=== PATIENT | female | born 1930 | race Caucasian/White ===

== ENCOUNTER 2016-07-08 07:53 | Inpatient (IN) | payer MEDICARE ==
[~2016-07-08] VITALS: Ht 165.1 cm; Wt 68.1 kg
[2016-07-08] VITALS (8 sets, daily range): BP systolic 115–205; BP diastolic 62–80
[~2016-07-08 07:53] MED LIST: ASP325TEC; ASPI-983 PO; ASPI-999 PO; ASPI325T32 PO; ATN25T; ATRV10T; BRIN1S OU; CARV12.53; CLN.1TRX PO; CLOP75TA28 PO; CYCL5TAB PO; DOCU-143 PO; GLIM4TAB PO; GLUC-147 PO; GLUC480L3 PO; HYDR-3922 PO; HYDR12.56 PO; LEVO750T9 PO; METF-141 PO; METF500T4 PO; METO-333 PO; METO50TA2 PO; MTP50T PO; MULT-116 PO; MULT1TAB63; OLME1TAB19 PO; OLME20TA5; PRAV20TA PO; PRAV20TA3 PO; TRAV5DRO OU; TRM50T PO; UBID30CA13; VALS40TA8 PO; VALS80TA30 PO; [UNRECOGNIZED DRUG - OTHER]; [UNRECOGNIZED DRUG - OTHER]
--- OUTSIDE RECORDS SUMMARY | 2016-07-08 07:58 | XMS REPORT | Continuity of Care Document ---
Author Author [facility] Organization [facility] Address Unknown Phone Unavailable Care Team Providers Care Dog Behaviorist Name Role Phone JUSTIN DAILEY MD PCP Insurance Providers Payer Name Policy Number Subscriber Name Relationship Wps Medicare [id number] Lia Aguilar Lexis 18 Self / Same As Patient [employer] [facility] Supp [id number] LuisLia rashid 18 Self / Same As Patient Advance Directives Directive Response Recorded Date/Time Advance Directives No 01/28/14 3:08am Resuscitation Status Full Code 01/28/14 3:08am Problems Medical Problems Problem Onset Date Status Hypertensive urgency Unknown Active Hypertensive urgency Unknown Active Hypertensive urgency Unknown Active Uncontrolled hypertension Unknown Active Medications Medication Dose Route Sig Days/Qty Instructions Order Date Discontinued Date Status Atenolol 11/26/06 06/19/09 Discontinued Atorvastatin Calcium 11/26/06 06/19/09 Discontinued Aspirin 11/26/06 01/23/14 Discontinued Multivitamins 11/26/06 01/23/14 Discontinued [Ascopt] 11/26/06 01/23/14 Discontinued [Tramitan Eye Gtts] 11/26/06 01/23/14 Discontinued Carvedilol (Coreg) 06/19/09 01/23/14 Discontinued Olmesartan 06/19/09 01/23/14 Discontinued Ubidecarenone 06/19/09 01/23/14 Discontinued Cyclobenzaprine HCl 1 Each PO GIVE EVERY 8 HRS ON SCHEDULE 10 Qty FOR MUSCLE SPASMS 06/19/09 01/23/14 Discontinued Tramadol HCl 50 Mg PO TWICE A DAY 15 Qty 06/19/09 01/23/14 Discontinued Brinzolamide 1 Drop OU TWICE A DAY 1 Qty 01/23/14 Active Travoprost 1 Drop OU BEDTIME 1 Qty 01/23/14 Active Pravastatin Sodium 1 Tab PO BEDTIME 30 Qty 01/23/14 Active Olmesartan 1 Tab PO BEDTIME 30 Qty 01/23/14 01/28/14 Discontinued Metoprolol Tartrate 1 Tab PO TWICE A DAY 60 Qty 01/23/14 01/28/14 Discontinued Metformin HCl 1,500 Mg PO TWICE A DAY 60 Qty 01/23/14 Active Glimepiride 1 Tab PO DAILY 30 Qty 01/23/14 Active Aspirin 1 Tab PO DAILY 01/23/14 Active Gluc/Chnd/Om3/Dha/Epa/Fish/Str 1 Tab PO DAILY 01/23/14 Active Olmesartan 1 Each PO TWICE A DAY 01/28/14 Active Metoprolol Tartrate (Lopressor) 1 Each PO TWICE A DAY 01/28/14 Active Clonidine Hcl 0.1 Mg PO TWICE A DAY 10 Qty FOR BLOOD PRESSURE 01/28/14 Active Social History Social History Problem Response Recorded Date/Time Alcohol Use Denies Use 01/28/2014 3:08am Recreational Drug Use No 01/28/2014 3:08am Recent Foreign Travel No 01/28/2014 3:08am Recent Infectious Disease Exposure No 01/28/2014 3:08am Smoking Status Never a Smoker 01/28/2014 3:08am Query Response Start Date Stop Date Smoking Status Never a Smoker Hospital Discharge Instructions No hospital discharge instructions. Plan of Care No plan of care. Functional Status No functional status results. Allergies, Adverse Reactions, Alerts Allergen Type Severity Reaction Status Last Updated Angiotensin-converting enzyme inhibitor Allergy Unknown Active 09/06/05 Penicillins ([id number]) Allergy Unknown Active 09/06/05 Calcium Channel Blocking Agents-Benzothiazepines ([id number]) Allergy Mild COUGH Active 01/23/14 Immunizations Name Given Type Tetanus Booster (TDap) Unknown Historical Vital Signs Acute Vital Signs Vital Response Date/Time Temperature (Fahrenheit) 97.7 degrees F (97.6 - 99.5) Temperature (Calculated Celsius) 36.62751 degrees C (36.4 - 37.5) Temperature Source Temporal Pulse Rate (adult) 62 bpm (60 - 90) Respiratory Rate 18 bpm (12 - 24) O2 Sat by Pulse Oximetry 100 % (88 - 100) Blood Pressure 163/76 mm Hg Pain Pain Intensity 2 Height (Feet) 5 feet Height (Inches) 5 inches Height (Calculated Centimeters) 165.583688 cm Weight (Pounds) 156 pounds Weight (Calculated Kilograms) 70.729499 kilograms Calculated BMI 25.96 Results Test Source Date Result Interp. Ref. Range Comments Activated Partial Thromboplast Time November 26, 2006 5:12am 20 SEC L 24- 35 Has specimen been collected/obtained? Y Alanine Aminotransferase (ALT/SGPT) November 26, 2006 5:12am 31 U/L N 30- 65 Has specimen been collected/obtained? Y Albumin November 26, 2006 5:12am 3.4 G/DL N 3.4-5.0 Has specimen been collected/obtained? Y Alkaline Phosphatase November 26, 2006 5:12am 86 U/L N 50-136 Has specimen been collected/obtained? Y Aspartate Amino Transf (AST/SGOT) November 26, 2006 5:12am 20 U/L N 15-37 Has specimen been collected/obtained? Y B-Type Natriuretic Peptide September 06, 2005 3:15am 122.0 PG/ML H 5.0-100.0 Has specimen been collected/obtained? YHas specimen been collected/obtained? Y BUN/Creatinine Ratio January 23, 2014 12:30am 23 - Basophils # (Auto) November 26, 2006 5:12am 0.0 10^3/uL N 0.0-0.1 Has specimen been collected/obtained? Y Basophils (%) (Auto) November 26, 2006 5:12am 1 % N 0-10 Has specimen been collected/obtained? Y Blood Urea Nitrogen January 23, 2014 12:30am 18 MG/DL N 7-18 Calcium Level January 23, 2014 12:30am 9.8 MG/DL N 8.5-10.1 Carbon Dioxide Level January 23, 2014 12:30am 29 MMOL/L N 21-32 Chloride Level January 23, 2014 12:30am 103 MMOL/L N 98-107 Cholesterol Level November 26, 2006 5:36am 122 MG/DL N -200 Specimen Comment: MAY ADD TO BLOOD ALREADY DRAWN Creatinine January 23, 2014 12:30am 0.80 MG/DL N 0.60-1.30 Eosinophils # (Auto) November 26, 2006 5:12am 0.4 10^3/uL H 0.0-0.3 Has specimen been collected/obtained? Y Eosinophils (%) (Auto) November 26, 2006 5:12am 7 % N 0-10 Has specimen been collected/obtained? Y Glucose Level January 23, 2014 12:30am 112 MG/DL H 70-105 HDL Cholesterol November 26, 2006 5:36am 40 MG/DL N 35-60 Specimen Comment: MAY ADD TO BLOOD ALREADY DRAWN Hematocrit November 26, 2006 5:12am 41 % N 35-52 Has specimen been collected/obtained? Y Hemoglobin November 26, 2006 5:12am 13.7 G/DL N 11.5-16.0 Has specimen been collected/obtained? Y LDL Cholesterol November 26, 2006 5:36am 60 MG/DL N 0-129 Specimen Comment: MAY ADD TO BLOOD ALREADY DRAWN Lymphocytes # (Auto) November 26, 2006 5:12am 2.1 X 10^3 N 1.0-4.0 Has specimen been collected/obtained? Y Lymphocytes (%) (Auto) November 26, 2006 5:12am 33 % N 12-44 Has specimen been collected/obtained? Y Magnesium Level November 26, 2006 5:12am 1.9 MG/DL N 1.8-2.4 Has specimen been collected/obtained? Y Mean Corpuscular Hemoglobin November 26, 2006 5:12am 31 PG N 25-34 Has specimen been collected/obtained? Y Mean Corpuscular Hemoglobin Concent November 26, 2006 5:12am 34 G/DL N 32- 36 Has specimen been collected/obtained? Y Mean Corpuscular Volume November 26, 2006 5:12am 91 FL N 80-99 Has specimen been collected/obtained? Y Mean Platelet Volume November 26, 2006 5:12am 11.2 FL H 7.4-10.4 Has specimen been collected/obtained? Y Monocytes # (Auto) November 26, 2006 5:12am 0.5 X 10^3 N 0.0-1.0 Has specimen been collected/obtained? Y Monocytes (%) (Auto) November 26, 2006 5:12am 8 % N 0-12 Has specimen been collected/obtained? Y Myoglobin November 26, 2006 5:12am 52 UG/L N 10-92 Has specimen been collected/obtained? Y Neutrophils # (Auto) November 26, 2006 5:12am 3.3 X 10^3 N 1.8-7.8 Has specimen been collected/obtained? Y Neutrophils (%) (Auto) November 26, 2006 5:12am 52 % N 42-75 Has specimen been collected/obtained? Y Platelet Count November 26, 2006 5:12am 145 10^3/uL N 130-400 Has specimen been collected/obtained? Y Potassium Level January 23, 2014 12:30am 3.8 MMOL/L N 3.6-5.0 Prothromb Time International Ratio November 26, 2006 5:12am 1.0 N 0.8-1.4 INTERPRETIVE DATASUGGESTED THERAPEUTIC RANGE FOR INR'S: VENOUS THROMBOSIS, PULMONARY EMBOLISM, OR PREVENTION OF SYSTEMIC EMBOLISM (EG. IN ATRIAL FIBRILLATION): 2.0 - 3.0 MECHANICAL PROSTHETIC HEART VALVES: 2.5 - 3.5* *NOTE: INR'S UP TO 4.5 MAY BE NECESSARY IN SELECTED GROUPS OF HIGH RISK PATIENTS. [employer] CONSENSUS CONFERENCE ON ANTITHROMBOTIC THERAPY (2000). Prothrombin Time November 26, 2006 5:12am 13.1 SEC N 12.2-14.7 Has specimen been collected/obtained? Y Red Blood Count November 26, 2006 5:12am 4.47 10^6/uL N 3.79-5.25 Has specimen been collected/obtained? Y Red Cell Distribution Width November 26, 2006 5:12am 13.3 % N 10.0-14.5 Has specimen been collected/obtained? Y Sodium Level January 23, 2014 12:30am 143 MMOL/L N 135-145 Total Bilirubin November 26, 2006 5:12am 0.4 MG/DL N 0.0-1.0 Has specimen been collected/obtained? Y Total Protein November 26, 2006 5:12am 6.8 G/DL N 6.4-8.2 Has specimen been collected/obtained? Y Triglycerides Level November 26, 2006 5:36am 108 MG/DL N 30.0-150.0 Specimen Comment: MAY ADD TO BLOOD ALREADY DRAWN Troponin I January 23, 2014 12:30am < 0.30 NG/ML - VLDL Cholesterol November 26, 2006 5:36am 22 MG/DL N 5-40 Specimen Comment: MAY ADD TO BLOOD ALREADY DRAWN White Blood Count November 26, 2006 5:12am 6.4 10^3/uL N 4.3-11.0 Has specimen been collected/obtained? Y Pathology Consult Specimen November 26, 2006 5:12am See report - Has specimen been collected/obtained? Y Estimat Glomerular Filtration Rate January 23, 2014 12:30am > 60 - GFR INTERPRETIVE DATA UNITS FOR ESTIMATED GFR (eGFR): mL/min/1.73 M2 REFERENCE RANGE FOR ESTIMATED GFR (eGFR) eGFR NORMAL eGFR >60 MODERATELY DECREASED eGFR 30-59 SEVERLY DECREASED eGFR 15-29 KIDNEY FAILURE <15 (OR DIALYSIS) Creatine Kinase November 26, 2006 5:35pm 47 mg/dl N 21-140 Procedures Procedure Status Date Provider(s) Tracing only of electrocardiogram completed 01/23/14 JEFFRY OLGUIN MD Encounters Encounter Location Date/Time Departed Emergency Room [facility] 01/28/14 2:59am Departed Emergency Room [facility] 01/22/14 11:56pm Recent Diagnosis
[2016-07-08 08:06] LABS: BASOPHILS % (AUTO) 1 % (0-10); EOSINOPHILS # (AUTO) 0.1 10^3/uL (0.0-0.3); EOSINOPHILS % (AUTO) 2 % (0-10); LYMPHOCYTES # (AUTO) 1.5 X 10^3 (1.0-4.0); LYMPHOCYTES % (AUTO) 23 % (12-44); MEAN CORPUSCULAR HEMOGLOBIN 29 PG (25-34); MEAN CORPUSCULAR HGB CONC 33 G/DL (32-36); MEAN CORPUSCULAR VOLUME 89 FL (80-99); MEAN PLATELET VOLUME 9.8 FL (7.4-10.4); MONOCYTES # (AUTO) 0.6 X 10^3 (0.0-1.0); MONOCYTES % (AUTO) 10 % (0-12); NEUTROPHILS # (AUTO) 4.1 X 10^3 (1.8-7.8); NEUTROPHILS % (AUTO) 65 % (42-75); PLATELET COUNT 191 10^3/uL (130-400); RED BLOOD COUNT 4.59 10^6/uL (4.35-5.85); RED CELL DISTRIBUTION WIDTH 13.5 % (10.0-14.5); WHITE BLOOD COUNT 6.3 10^3/uL (4.3-11.0)
[2016-07-08 08:11] LABS: PROTHROMBIN TIME PATIENT 13.3 SEC (12.2-14.7)
--- NOTE | 2016-07-08 08:15 | ED General ---
General Chief Complaint: General Problems/Pain Stated Complaint: STROKE Nursing Triage Note: TO ER VIA EMS FROM HOME. COMPLAINTS OF GENERALIZED WEAKNESS X3 DAYS ET PT THINKS SHE HAS BEEN HAVING SOME SLURRED SPEACH SINCE THEN ALSO. Nursing Sepsis Screen: No Definite Risk Source of Information: Patient, EMS History of Present Illness Time Seen by Provider: 07:47 Initial Comments PT ARRIVES VIA EMS FROM HOME--PT LIVES ALONE PT HAS HAD GENERALIZED WEAKNESS FOR THE PAST 3 DAYS, AND PT THINKS SHE HAS HAD SOME SLURRED SPEECH FOR THE LAST 3 DAYS PT IS ABLE TO EAT AND DRINK WELL WITHOUT DIFFICULTY PT TOOK AM MEDICATIONS PT DENIES PAIN ANYWHERE NO SHORTNESS OF BREATH NO HEADACHE NO VISION CHANGES NO PARESTHESIAS OR MOTOR DEFICITS--JUST FEELS WEAK ALL OVER NO COUGH NO FEVER NO NAUSEA/VOMITING/DIARRHEA NO URINARY SYMPTOMS PCP: DR. LEON Allergies and Home Medications Allergies Coded Allergies: Calcium Channel Blocking Agent Dilt (Verified Allergy, Mild, COUGH, ) FREDY Inhibitors (Verified Allergy, Unknown, 07/08/16) Penicillins (Verified Allergy, Unknown, 07/08/16) Tetanus Vaccines and Toxoid (Verified Allergy, Unknown, 07/08/16) clindamycin (Verified Allergy, Unknown, 07/08/16) Home Medications Aspirin 81 Mg Tablet.dr 81 MG PO DAILY (Reported) Brinzolamide 10 Ml Btl 1 DROP OU BID (Reported) Glimepiride 4 Mg Tablet 4 MG PO DAILY (Reported) Glucosamine HCl/MSM 480 Ml Liquid 8 OZ PO DAILY (Reported) Hydrochlorothiazide 12.5 Mg Capsule 25 MG PO DAILY (Reported) TAKES 2 (12.5MG) CAPSULES Metformin HCl 500 Mg Tablet 500 MG PO BID (Reported) Metoprolol Tartrate 100 Mg Tablet 100 MG PO BID (Reported) Multivitamin 1 Each Tablet 1 TAB PO DAILY (Reported) Pravastatin Sodium 20 Mg Tablet 20 MG PO HS (Reported) Travoprost 5 Ml Drops 1 DROP OU HS (Reported) Valsartan 40 Mg Tablet 80 MG PO HS (Reported) TAKES 1 HOUR AFTER METOPROLOL TAKES 2 (40MG) TABLETS Constitutional: see HPI malaise weakness EENTM: no symptoms reported Respiratory: no symptoms reportedNo dyspnea on exertion, No short of breath Cardiovascular: no symptoms reportedNo chest pain, No edema, No palpitations, No syncope, No vascular heart diseas Gastrointestinal: no symptoms reported Musculoskeletal: no symptoms reported Skin: no symptoms reported Psychiatric/Neurological: See HPIDenies Headache, Denies Numbness, Denies Paresthesia, Denies Seizure, Denies Tingling, Denies Tremors, Weakness ( GENERALIZED) Hematologic/Lymphatic: No Symptoms Reported Immunological/Allergic: no symptoms reported Past Sxoijlo-Ovujdf-Zyowmn Hx Patient Social History Former Smoker/When Quit: Feb 02, 1970 Recent Foreign Travel: No Contact w/Someone Who Travel: No Recent Infectious Disease Expo: No Recent Hopitalizations: Yes Immunizations Up To Date Tetanus Booster (TDap): Unknown PED Vaccines UTD: Yes Date of Pneumonia Vaccine: Feb 03, 2012 Date of Influenza Vaccine: Jan 18, 2015 Seasonal Allergies Seasonal Allergies: No Surgeries HX Surgeries: Yes (BILATERAL CATARACT SURGERY, CARTOID ARTERY SURGERY FEB 2014; BREAST BX X 4) Surgeries: Adenoidectomy, Breast, Cardiac, CABG, Coronary Stent, Eye Surgery, Gallbladder, Tonsillectomy, Vascular Surgery Respiratory Hx Respiratory Disorders: No Cardiovascular Hx Cardiac Disorders: Yes (BYPASS x4 ;STENTS; HEART CATH 2004 ) Cardiac Disorders: Coronary Artery Disease, Heart Attack, High Cholesterol, Hypertension Neurological Hx Neurological Disorders: No Reproductive System Hx Reproductive Disorders: No Sexually Transmitted Disease: No HIV/AIDS: No Female Reproductive Disorders: Denies 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 Genitourinary Hx Genitourinary Disorders: Yes (INCONTINENCE ) Genitourinary Disorders: Kidney Infection, Bladder Infection Gastrointestinal Hx Gastrointestinal Disorders: Yes Gastrointestinal Disorders: Gastroesophageal Reflux, Hemorrhoids, Ulcer Musculoskeletal Hx Musculoskeletal Disorders: Yes Musculoskeletal Disorders: Degenerate Disk Disease, Osteoporosis, Arthritis, Chronic Back Pain, Gout Endocrine Hx Endocrine Disorders: Yes Endocrine Disorders: Diabetes, Non-Insulin dep HEENT HX ENT Disorders: Yes (WEARS GLASSES - CAN NOT SEE WITHOUT GLASSES VERY WELL ) HEENT Disorders: Cataract, Glaucoma Loss of Vision: Bilateral Hearing Impairment: Hard of Hearing Cancer Hx Cancer: No (four breast biopies ) Psychosocial Hx Psychiatric Problems: Yes Behavioral Health Disorders: Depression Integumentary HX Skin/Integumentary Disorder: No Blood Transfusions Hx Blood Disorders: No Adverse Reaction to a Blood Tr: No Family Medical History Family Medial History: Alcoholism Arthritis 19 FATHER 19 MOTHER CHF 19 MOTHER Cardiovascular disease 19 FATHER 19 MOTHER Dementia Diabetes mellitus 19 MOTHER FH: CHF (congestive heart failure) 19 MOTHER Glaucoma 19 MOTHER Hypercholesterolemia 19 FATHER 19 MOTHER Hypertension 19 FATHER 19 MOTHER Infertility Myocardial infarction 19 FATHER (60 ) 19 MOTHER Osteoporosis 19 MOTHER Visual disorder 19 FATHER 19 MOTHER No Family History of: AIDS Abdominal aortic aneurysm Dayo's disease Alzheimer's disease Aphasia Asthma Cancer of mouth Cataracts Colon cancer Completed stroke Congenital disease Congenital heart disease Coronary thrombosis Cystic fibrosis Deafness or hearing loss Drug abuse Dysphasia Fibrocystic disease of breast Gastroenteritis Headache disorder Kidney disease Neoplasm Not obtainable due to adoption Parkinson's disease Prostate cancer Psychosocial problem Respiratory disorder Seizure disorder Severe allergy Thyroid disease Tuberculosis Physical Exam Vital Signs Vital Sign - Last 12Hours 07/08/16 07/08/16 07:53 10:35 Temp 98.0 Pulse 64 Resp 18 B/P 232/91 Pulse Ox 94 O2 Delivery Room Air Capillary Refill : Less Than 3 Seconds General Appearance: No Apparent Distress WD/WN HEENT: PERRL/EOMI Other (EXTREMELY LOOSE FITTING UPPER DENTURES, LOWER TEETH WITH VERY POOR DENTITION. ORAL MUCOSA MOIST) Neck: Full Range of Motion Normal Inspection Non Tender Supple Respiratory: Normal Breath Sounds No Accessory Muscle Use No Respiratory Distress Cardiovascular: Regular Rate, Rhythm No Edema No JVD Normal Peripheral Pulses Systolic Murmur (2/6) Gastrointestinal: Normal Bowel Sounds No Organomegaly No Pulsatile Mass Non Tender Soft Back: Normal Inspection No CVA Tenderness No Vertebral Tenderness Extremity: Normal Capillary Refill Normal Inspection Normal Range of Motion Non Tender No Calf Tenderness No Pedal Edema Neurologic/Psychiatric: Alert Oriented x3 No Motor/Sensory Deficits Normal Mood/Affect box finisher II-XII Norm as Tested Other (MILD GENERALIZED WEAKNESS, STRENGTH IS EQUAL BILATERALLY, BUT LEG STRENGTH IS WEAKER THAN ARM STRENGTH. ) Skin: Normal Color Warm/Dry Other (MILD ERYTHEMA TO BILATERAL LOWER LEGS) Focused Exam Lactic Acid Level Progress/Results/Core Measures Results/Orders Lab Results Laboratory Tests Test 07/08/16 07:53 07/08/16 07:56 07/08/16 09:00 07/09/16 05:50 Range/Units Activated Partial Thromboplast Time 28 24-35 SEC Alanine Aminotransferase (ALT/SGPT) 11 12 0-55 U/L Albumin 3.7 3.4 3.2-4.5 G/DL Alkaline Phosphatase 64 61 40-136 U/L Anion Gap 10 11 5-14 MMOL/L Aspartate Amino Transf (AST/SGOT) 15 15 5-34 U/L BUN/Creatinine Ratio 23 22 Basophils # (Auto) 0.0 0.0 0.0-0.1 10^3/uL Basophils (%) (Auto) 1 0 0-10 % Blood Urea Nitrogen 18 16 7-18 MG/DL Calcium Level 9.4 9.1 8.5-10.1 MG/DL Carbon Dioxide Level 29 28 21-32 MMOL/L Chloride Level 104 105 98-107 MMOL/L Creatine Kinase MB 1.8 <6.6 NG/ML Creatinine 0.77 0.74 0.60-1.30 MG/DL Eosinophils # (Auto) 0.1 0.1 0.0-0.3 10^3/uL Eosinophils (%) (Auto) 2 1 0-10 % Estimat Glomerular Filtration Rate > 60 > 60 Glucose Level 78 113 H 70-105 MG/DL Hematocrit 41 39 35-52 % Hemoglobin 13.5 12.8 11.5-16.0 G/DL INR Comment 1.0 0.8-1.4 Lymphocytes # (Auto) 1.5 1.3 1.0-4.0 X 10^3 Lymphocytes (%) (Auto) 23 19 12-44 % Magnesium Level 1.8 1.8-2.4 MG/DL Mean Corpuscular Hemoglobin 29 29 25-34 PG Mean Corpuscular Hemoglobin Concent 33 33 32-36 G/DL Mean Corpuscular Volume 89 90 80-99 FL Mean Platelet Volume 9.8 9.8 7.4-10.4 FL Monocytes # (Auto) 0.6 0.6 0.0-1.0 X 10^3 Monocytes (%) (Auto) 10 9 0-12 % Neutrophils # (Auto) 4.1 4.8 1.8-7.8 X 10^3 Neutrophils (%) (Auto) 65 71 42-75 % Platelet Count 191 195 130-400 10^3/uL Potassium Level 3.4 L 3.7 3.6-5.0 MMOL/L Prothrombin Time 13.3 12.2-14.7 SEC Red Blood Count 4.59 4.38 4.35-5.85 10^6/uL Red Cell Distribution Width 13.5 13.5 10.0-14.5 % Sodium Level 143 144 135-145 MMOL/L TSH [place] Testing 2.99 0.35-4.94 UIU/ML Total Bilirubin 0.8 0.5 0.1-1.0 MG/DL Total Creatine Kinase 41 29-168 U/L Total Protein 6.5 6.1 L 6.4-8.2 G/DL Troponin I < 0.30 <0.30 NG/ML White Blood Count 6.3 6.7 4.3-11.0 10^3/uL Glucometer 93 70-110 MG/DL Urine Bacteria NEGATIVE /HPF Urine Bilirubin NEGATIVE NEGATIVE Urine Casts NONE /LPF Urine Clarity CLEAR Urine Color YELLOW Urine Crystals NONE /LPF Urine Culture Indicated NO Urine Glucose (UA) NEGATIVE NEGATIVE Urine Ketones NEGATIVE NEGATIVE Urine Leukocyte Esterase NEGATIVE NEGATIVE Urine Mucus NEGATIVE /LPF Urine Nitrite NEGATIVE NEGATIVE Urine Protein NEGATIVE NEGATIVE Urine RBC NONE /HPF Urine RBC (Auto) NEGATIVE NEGATIVE Urine Specific [place] 1.010 L 1.016-1.022 Urine Squamous Epithelial Cells 2-5 /HPF Urine Urobilinogen NORMAL NORMAL MG/DL Urine WBC RARE /HPF Urine pH 8 5-9 My Orders Orders-JUAN SALCEDO DO Accucheck Stat ONCE (07/08/16 07:58) Ekg Tracing (07/08/16 07:58) O2 (07/08/16 07:58) Monitor-Rhythm Ecg Trace Only (07/08/16 07:58) Cbc With Automated Diff (07/08/16 07:58) Comprehensive Metabolic Panel (07/08/16 07:58) Creatine Kinase (07/08/16 07:58) Creatine Kinase Mb (07/08/16 07:58) Magnesium (07/08/16 07:58) Protime With Inr (07/08/16 07:58) Partial Thromboplastin Time (07/08/16 07:58) Thyroid Analyzer (07/08/16 07:58) Troponin I (07/08/16 07:58) Ua Culture If Indicated (07/08/16 07:58) Ct Head Wo (07/08/16 07:58) Chest 1 View, Ap/Pa Only (07/08/16 07:58) Saline Lock/Iv-Start (07/08/16 07:58) Nitroglycerin Ointment (Nitrobid Ointme (07/08/16 08:45) Vital Signs/I&O Vital Sign - Last 12Hours 07/09/16 07/09/16 07/09/16 07/09/16 10:05 11:47 12:59 16:00 Temp 97.3 97.1 Pulse 64 68 68 Resp 12 20 B/P 118/78 120/80 144/86 Pulse Ox 98 100 O2 Delivery Room Air Room Air 07/09/16 19:00 Pulse 76 Point of Care Testing Finger Stick Blood Glucose: 93 Blood Glucose Action Taken: DR FERNANDEZ Progress Note : Progress Note UNEVENTFUL ER STAY ECG Initial ECG Impression Time: 08:06 Initial ECG Rate: 63 Initial ECG Rhythm: Normal Sinus Initial ECG Comparisson: Unchanged Diagnostic Imaging Comments CXR--NO ACUTE PROCESS CT HEAD--NO ACUTE PROCESS, CHRONIC ISCHEMIC CHANGES PER RADIOLOGIST REPORTS Reviewed: Reviewed by Me Departure Communication Progress Notes 0979--SPOKE WITH DR. LEON, ACCEPTS PT FOR ADMIT. Impression Impression: Primary Impression: Generalized weakness Disposition: ADMITTED INPATIENT Condition: Stable Decision to Admit Reason: Admit from ER (General) Decision to Admit/Date: Jul 08, 2016 Time/Decision to Admit Time: 09:35 Departure-Patient Inst. Referrals: MANUEL LEON MD (PCP/Family) Primary Care Physician JUAN SALCEDO DO Jul 08, 2016 08:14
[2016-07-08 08:20] LABS: ALANINE AMINOTRANSFERASE 11 U/L (0-55); ALBUMIN 3.7 G/DL (3.2-4.5); ANION GAP 10 MMOL/L (5-14); ASPARTATE AMINO TRANSFERASE 15 U/L (5-34); BILIRUBIN,TOTAL 0.8 MG/DL (0.1-1.0); BLOOD UREA NITROGEN 18 MG/DL (7-18); BUN/CREATININE RATIO 23; CALCIUM 9.4 MG/DL (8.5-10.1); CARBON DIOXIDE 29 MMOL/L (21-32); CHLORIDE 104 MMOL/L (98-107); CREATINE KINASE 41 U/L (29-168); CREATININE SERUM 0.77 MG/DL (0.60-1.30); GFR ESTIMATED > 60; GLUCOSE 78 MG/DL (70-105); MAGNESIUM 1.8 MG/DL (1.8-2.4); POTASSIUM 3.4 MMOL/L (3.6-5.0); SODIUM 143 MMOL/L (135-145); TOTAL PROTEIN 6.5 G/DL (6.4-8.2)
--- NOTE | 2016-07-08 08:26 | Diagnostic Imaging Report ---
INDICATION: Weakness x3 days. Portable chest 8:16 AM. There are postop changes from CABG surgery. Heart size and pulmonary vascularity are normal. Lungs are clear. There are no effusions or pneumothoraces. IMPRESSION: Postsurgical changes in the chest. There are no acute abnormalities seen. Dictated by: Dictated on workstation # [id number]
--- NOTE | 2016-07-08 08:30 | Diagnostic Imaging Report ---
PROCEDURE: CT head without contrast. TECHNIQUE: Multiple contiguous axial images were obtained through the brain without the use of intravenous contrast. INDICATION: Altered mental status. There are areas of decreased density in the periventricular white matter of both hemispheres consistent with chronic small-vessel ischemic change. There is generalized atrophy. There are no masses or hemorrhages. There are no extra-axial fluid collections. 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 There is no CT evidence of acute infarct. Dictated by: Dictated on workstation # [id number]
[2016-07-08 08:40] LABS: TROPONIN I < 0.30 NG/ML (<0.30)
[2016-07-08] MEDS ORDERED: NITROGLYCERIN 2% OINT 1 GM UNIT DOSE PACKET TOP ONE (08:45)
[2016-07-08 09:16] LABS: BILIRUBIN,URINE NEGATIVE (NEGATIVE); KETONES,URINE NEGATIVE (NEGATIVE); LEUKOCYTE ESTERASE ,URINE NEGATIVE (NEGATIVE); NITRITE,URINE NEGATIVE (NEGATIVE); PH,URINE 8 (5-9); PROTEIN,URINE NEGATIVE (NEGATIVE); UROBILINOGEN,URINE NORMAL (NORMAL)
[2016-07-08 09:28] LABS: WBC,URINE RARE /HPF
[2016-07-08] MEDS ORDERED: CATHETER FLUSH 10 ML SYR IV PRN (10:30)
[2016-07-08] MEDS ORDERED: METO100T2 PO (10:42)
[2016-07-08] MEDS ORDERED: HYDR12.5 PO (10:47)
[2016-07-08] MEDS: NITROGLYCERIN 2% OINT 1 GM UNIT DOSE PACKET TOP SCH ×2 (12:07→18:08)
[2016-07-08] MEDS: CATHETER FLUSH 10 ML SYR IV SCH ×2 (14:00→21:07)
[2016-07-08] MEDS ORDERED: GADOBUTROL 7.5 MMOL/7.5 ML (GADAVIST) VIAL IV ONE (15:00)
--- NOTE | 2016-07-08 16:07 | Diagnostic Imaging Report ---
PROCEDURE: MR imaging of the brain with and without contrast. TECHNIQUE: Multiplanar, multisequence MR imaging of the brain was performed with and without contrast. INDICATION: Generalized weakness. Hypertension. 7 mL of Gadavist was administered intravenously. FINDINGS: There is minimal diffusion restriction measuring 6 mm seen to the right of midline in the mid to upper cherelle with associated T2 and FLAIR signal hyperintensity and without contrast enhancement, possibly related to a subacute infarct. This could potentially relate to T2 shine through artifact however from chronic microvascular ischemic changes. There is extensive chronic microvascular ischemic changes with T2 hyperintensity seen in the periventricular, deep and subcortical white matter seen. 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 There is no enhancing mass in the brain or extra-axial space. There is normal size of the pituitary gland. No hypothalamic or pineal region mass. Prominent lordotic curvature in the cervical spine is seen. The central vascular flow-voids appear grossly unremarkable. The internal auditory canals and inner ear structures appear grossly unremarkable. IMPRESSION: There is a background significant white matter chronic ischemic changes with no evidence of a large acute infarct or enhancing mass. There is a 6 mm focus with slight diffusion restriction signal to the right of the midline in cherelle which could also be related to chronic ischemic changes but raises question of a subacute tiny lacunar infarct. Correlate clinically. Report faxed to Dr. Dirk Rodriguez at 3:50 p.m. 07/08/2016/cb Dictated by: Dictated on workstation # [id number]
--- NOTE | 2016-07-08 16:43 | History & Physicial ---
History of Present Illness History of Present Illness Reason for visit/HPI 85 yo female presents to ED with slurred speech and weakness. Family thought perhaps she had a stroke. Patient's son and [id number] had noted about 2 days prior to presentation to emergency department that she had noticeable slurred speech as well as basically just wanting to set around. Patient apparently was very coherent in her discussions and didn't necessarily want to go to the emergency department over the weekend. Patient typically walks with a 4 point walker but she couldn't utilize this according to her son. She is able to swallow food without too much difficulty. Date of Admission Jul 08, 2016 at 09:42 I consulted on this patient on 07/08/16 16:41 Attending Physician Otilio Leon MD Admitting Physician Otilio Leon MD Consult Allergies and Home Medications Allergies Coded Allergies: Calcium Channel Blocking Agent Dilt (Verified Allergy, Mild, COUGH, ) FREDY Inhibitors (Verified Allergy, Unknown, 07/08/16) Penicillins (Verified Allergy, Unknown, 07/08/16) Tetanus Vaccines and Toxoid (Verified Allergy, Unknown, 07/08/16) clindamycin (Verified Allergy, Unknown, 07/08/16) Home Medications Aspirin 81 Mg Tablet.dr 81 MG PO DAILY (Reported) Brinzolamide 10 Ml Btl 1 DROP OU BID (Reported) Glimepiride 4 Mg Tablet 4 MG PO DAILY (Reported) Glucosamine HCl/MSM 480 Ml Liquid 8 OZ PO DAILY (Reported) Hydrochlorothiazide 12.5 Mg Capsule 25 MG PO DAILY (Reported) TAKES 2 (12.5MG) CAPSULES Metformin HCl 500 Mg Tablet 500 MG PO BID (Reported) Metoprolol Tartrate 100 Mg Tablet 100 MG PO BID (Reported) Multivitamin 1 Each Tablet 1 TAB PO DAILY (Reported) Pravastatin Sodium 20 Mg Tablet 20 MG PO HS (Reported) Travoprost 5 Ml Drops 1 DROP OU HS (Reported) Valsartan 40 Mg Tablet 80 MG PO HS (Reported) TAKES 1 HOUR AFTER METOPROLOL TAKES 2 (40MG) TABLETS Past Maxbbzv-Trwlcj-Nlmzzu Hx Patient Social History Marrital Status: Alcohol Use: Denies Use Recreational Drug Use: No Smoking Status: Never a Smoker Former smoker/When Quit: Feb 02, 1970 Physical Abuse Screen: No Sexual Abuse: No Recent Foreign Travel: No Contact w/other who traveled: No Recent Hopitalizations: No Recent Infectious Disease Expo: No Immunizations Up To Date Tetanus Booster (TDap): Unknown Date of Pneumonia Vaccine: Feb 03, 2012 Date of Influenza Vaccine: Jan 20, 2016 Seasonal Allergies Seasonal Allergies: No Surgeries HX Surgeries: Yes (CATARACT, CARTOID ARTERY SURGERY FEB 2014;BREAST BX X 4) Surgeries: Adenoidectomy, Breast, Cardiac, CABG, Coronary Stent, Eye Surgery, Gallbladder, Tonsillectomy, Vascular Surgery Respiratory Hx Respiratory Disorders: No Cardiovascular Hx Cardiovascular Disorders: Yes (BYPASS x4 ;STENTS; HEART CATH 2004 ) Cardiac Disorders: Coronary Artery Disease, High Cholesterol, Hypertension Neurological Hx Neurological Disorders: No Reproductive System Hx Reproductive Disorders: No Sexually Transmitted Disease: No HIV/AIDS: No Female Reproductive Disorders: Denies Genitourinary Hx Genitourinary Disorders: Yes (INCONTINENCE ) Genitourinary Disorders: Kidney Infection, Bladder Infection Gastrointestinal Hx Gastrointestinal Disorders: Yes Gastrointestinal Disorders: Gastroesophageal Reflux, Hemorrhoids, Ulcer Musculoskeletal Hx Musculoskeletal Disorders: Yes Musculoskeletal Disorders: Degenerate Disk Disease, Osteoporosis, Arthritis, Chronic Back Pain, Gout Endocrine Hx Endocrine Disorders: Yes Endocrine Disorders: Diabetes, Non-Insulin dep HEENT HX ENT Disorders: Yes (WEARS GLASSES - CAN NOT SEE WITHOUT GLASSES VERY WELL ) HEENT Disorders: Cataract, Glaucoma Loss of Vision: Bilateral Hearing Impairment: Hard of Hearing Cancer Hx Cancer: No (four breast biopies ) Psychosocial Hx Psychiatric Problems: Yes Behavioral Health Disorders: Depression Integumentary HX Skin/Integumentary Disorder: No Blood Transfusions Hx Blood Disorders: No Adverse Reaction to a Blood Tr: No Family Medical History Family Hx: Alcoholism Arthritis 19 FATHER 19 MOTHER CHF 19 MOTHER Cardiovascular disease 19 FATHER 19 MOTHER Dementia Diabetes mellitus 19 MOTHER FH: CHF (congestive heart failure) 19 MOTHER Glaucoma 19 MOTHER Hypercholesterolemia 19 FATHER 19 MOTHER Hypertension 19 FATHER 19 MOTHER Infertility Myocardial infarction 19 FATHER (60 ) 19 MOTHER Neoplasm DAUGHTER (BREAST CANCER) Osteoporosis 19 MOTHER Visual disorder 19 FATHER 19 MOTHER No Family History of: AIDS Abdominal aortic aneurysm [place]'s disease Alzheimer's disease Aphasia Asthma Cancer of mouth Cataracts Colon cancer Completed stroke Congenital disease Congenital heart disease Coronary thrombosis Cystic fibrosis Deafness or hearing loss Drug abuse Dysphasia Fibrocystic disease of breast Gastroenteritis Headache disorder Kidney disease Not obtainable due to adoption Parkinson's disease Prostate cancer Psychosocial problem Respiratory disorder Seizure disorder Severe allergy Thyroid disease Tuberculosis Constitutional: see HPI Physical Exam Vital Signs Vital Sign - Last 12Hours 3/20/17 3/20/17 07:53 10:35 Temp 98.0 Pulse 64 Resp 18 B/P 232/91 Pulse Ox 94 O2 Delivery Room Air Capillary Refill : Less Than 3 Seconds General Appearance: No Apparent Distress Eyes: Bilateral Eye Normal Inspection Neck: Normal Inspection Respiratory: Lungs Clear Cardiovascular: Regular Rate, Rhythm (Without irregularity) Gastrointestinal: Soft Rectal: Deferred Back: Normal Inspection Neurologic/Psychiatric: Alert Depressed Affect Facial Droop (Not noted) Motor Weakness Comments NAME: [facility] REC#: [id number] PT STATUS: REG ER : 1930 PHYSICIAN: JUAN SALCEDO DO ADMIT DATE: 07/08/16/ER Signed Date of Exam: 07/08/16 CT HEAD WO PROCEDURE: CT head without contrast. TECHNIQUE: Multiple contiguous axial images were obtained through the brain without the use of intravenous contrast. INDICATION: Altered mental status. There are areas of decreased density in the periventricular white matter of both hemispheres consistent with chronic small-vessel ischemic change. There is generalized atrophy. There are no masses or hemorrhages. There are no extra-axial fluid collections. 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 There is no CT evidence of acute infarct. Dictated by: Dictated on workstation # [id number] Dict: 07/08/16 0828 Trans: 07/08/16 0834 SARKIS [id number] Interpreted by: SONJA ABARCA Electronically signed by:SONJA ABARCA 07/08/16 0837 Assessment/Plan Assessment and Plan 1. Weakness-suspicious for CVA -Patient to be admitted for observation -She will be receiving MRI of the brain later on July 08, 2016 -She is maintained on aspirin daily. -She is beyond the window of anticoagulation therapy 2. Slurred speech Problems: Admission Diagnosis 1. Weakness--suspicious for CVA 2. Slurred speech Clinical Quality Measures DVT/VTE Risk/Contraindication: Risk Factor Score Per Nursin RFS Level Per Nursing on Admit: 4+=Very High OTILIO LEON MD Jul 08, 2016 16:42
[2016-07-08] MEDS: meTOprolol TARTRATE 50 MG (LOPRESSOR) TAB PO SCH (20:04)
[2016-07-08] MEDS ORDERED: VALSARTAN 80 MG (DIOVAN) TAB PO SCH (21:00)
[2016-07-08] MEDS: LATANOPROST 0.005% (XALATAN) OPHTH SOLN 2.5 ML OU SCH (21:07)
[2016-07-08] MEDS: DORZOLAMIDE 2% 10 ML BTL (TRUSOPT) OU SCH (21:07)
[2016-07-08] MEDS: SIMvastatin 10 MG (ZOCOR) TAB PO SCH (21:07)
[2016-07-08] MEDS: metFORMIN 500 MG (GLUCOPHAGE) TAB PO SCH (21:07)
[2016-07-09] VITALS (8 sets, daily range): BP systolic 118–200; BP diastolic 60–86
[2016-07-09] MEDS: NITROGLYCERIN 2% OINT 1 GM UNIT DOSE PACKET TOP SCH ×2 (00:39→05:58)
[2016-07-09] MEDS: CATHETER FLUSH 10 ML SYR IV SCH ×3 (05:58→22:35)
[2016-07-09] MEDS: MULTIVIT W/MINERALS TAB (THERAGRAN M) PO SCH (05:58)
[2016-07-09 06:17] LABS: BASOPHILS % (AUTO) 0 % (0-10); EOSINOPHILS # (AUTO) 0.1 10^3/uL (0.0-0.3); EOSINOPHILS % (AUTO) 1 % (0-10); LYMPHOCYTES # (AUTO) 1.3 X 10^3 (1.0-4.0); LYMPHOCYTES % (AUTO) 19 % (12-44); MEAN CORPUSCULAR HEMOGLOBIN 29 PG (25-34); MEAN CORPUSCULAR HGB CONC 33 G/DL (32-36); MEAN CORPUSCULAR VOLUME 90 FL (80-99); MEAN PLATELET VOLUME 9.8 FL (7.4-10.4); MONOCYTES # (AUTO) 0.6 X 10^3 (0.0-1.0); MONOCYTES % (AUTO) 9 % (0-12); NEUTROPHILS # (AUTO) 4.8 X 10^3 (1.8-7.8); NEUTROPHILS % (AUTO) 71 % (42-75); PLATELET COUNT 195 10^3/uL (130-400); RED BLOOD COUNT 4.38 10^6/uL (4.35-5.85); RED CELL DISTRIBUTION WIDTH 13.5 % (10.0-14.5); WHITE BLOOD COUNT 6.7 10^3/uL (4.3-11.0)
[2016-07-09] MEDS: meTOprolol TARTRATE 50 MG (LOPRESSOR) TAB PO SCH ×2 (06:34→20:54)
[2016-07-09 06:42] LABS: ALANINE AMINOTRANSFERASE 12 U/L (0-55); ALBUMIN 3.4 G/DL (3.2-4.5); ANION GAP 11 MMOL/L (5-14); ASPARTATE AMINO TRANSFERASE 15 U/L (5-34); BILIRUBIN,TOTAL 0.5 MG/DL (0.1-1.0); BLOOD UREA NITROGEN 16 MG/DL (7-18); BUN/CREATININE RATIO 22; CALCIUM 9.1 MG/DL (8.5-10.1); CARBON DIOXIDE 28 MMOL/L (21-32); CHLORIDE 105 MMOL/L (98-107); CREATININE SERUM 0.74 MG/DL (0.60-1.30); GFR ESTIMATED > 60; GLUCOSE 113 MG/DL (70-105); POTASSIUM 3.7 MMOL/L (3.6-5.0); SODIUM 144 MMOL/L (135-145); TOTAL PROTEIN 6.1 G/DL (6.4-8.2)
--- NOTE | 2016-07-09 08:06 | Progress Note (SOAP) ---
Subjective Subjective/Events-last exam Patient communicating well this morning. She still has slurred speech slightly. She does report her left upper extremity is a little bit more weak than yesterday. Objective Exam Vital Signs Date Time Temp Pulse Resp B/P Pulse Ox O2 Delivery O2 Flow Rate FiO2 07/09/16 06:00 99.5 72 20 190/85 95 Room Air 07/09/16 01:00 69 07/09/16 00:07 97.6 81 18 145/60 95 Room Air 07/08/16 22:03 97.7 70 18 160/80 91 Room Air 07/08/16 20:00 97.6 72 18 158/68 90 Room Air 07/08/16 19:00 78 07/08/16 18:02 97.5 70 16 160/72 90 Room Air 07/08/16 16:26 96.4 63 16 154/70 95 Room Air 07/08/16 14:15 97.7 68 12 140/68 92 Room Air 07/08/16 12:29 59 07/08/16 12:19 97.1 58 20 118/62 93 Room Air 07/08/16 10:35 97.5 62 20 115/78 94 Room Air 07/08/16 10:03 98.9 60 18 98 I & O 07/09/16 07:00 Intake Total 640 ml Output Total 0 ml Balance 640 ml Capillary Refill : Less Than 3 Seconds General Appearance: No Apparent Distress Neck: Supple Respiratory: Lungs Clear Cardiovascular: Regular Rate, Rhythm (And there is no murmur noted) Gastrointestinal: soft Extremity: Other (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 She has weakness of the lower extremities.) Skin: Normal Color Results Lab Laboratory Tests 07/08/16 09:00: Urine Bacteria NEGATIVE, Urine Bilirubin NEGATIVE, Urine Casts NONE, Urine Clarity CLEAR, Urine Color YELLOW, Urine Crystals NONE, Urine Culture Indicated NO, Urine Glucose (UA) NEGATIVE, Urine Ketones NEGATIVE, Urine Leukocyte Esterase NEGATIVE, Urine Mucus NEGATIVE, Urine Nitrite NEGATIVE, Urine Protein NEGATIVE, Urine RBC NONE, Urine RBC (Auto) NEGATIVE, Urine Specific [place] 1.010L, Urine Squamous Epithelial Cells 2-5, Urine Urobilinogen NORMAL, Urine WBC RARE, Urine pH 8 07/09/16 05:50: Alanine Aminotransferase (ALT/SGPT) 12, Albumin 3.4, Alkaline Phosphatase 61, Anion Gap 11, Aspartate Amino Transf (AST/SGOT) 15, BUN/Creatinine Ratio 22, Basophils # (Auto) 0.0, Basophils (%) (Auto) 0, Blood Urea Nitrogen 16, Calcium Level 9.1, Carbon Dioxide Level 28, Chloride Level 105, Creatinine 0.74, Eosinophils # (Auto) 0.1, Eosinophils (%) (Auto) 1, Estimat Glomerular Filtration Rate > 60, Glucose Level 113H, Hematocrit 39, Hemoglobin 12.8, Lymphocytes # (Auto) 1.3, Lymphocytes (%) (Auto) 19, Mean Corpuscular Hemoglobin 29, Mean Corpuscular Hemoglobin Concent 33, Mean Corpuscular Volume 90, Mean Platelet Volume 9.8, Monocytes # (Auto) 0.6, Monocytes (%) (Auto) 9, Neutrophils # (Auto) 4.8, Neutrophils (%) (Auto) 71, Platelet Count 195, Potassium Level 3.7, Red Blood Count 4.38, Red Cell Distribution Width 13.5, Sodium Level 144, Total Bilirubin 0.5, Total Protein 6.1L, White Blood Count 6.7 Assessment/Plan Assessment/Plan Assess & Plan/Chief Complaint 1. Weakness with slurred speech with an MRI report suggesting lacunar infarct 6 mm in the cherelle region -Will obtain carotid Doppler study today -Rehabilitation consultation 2. Hypertension -She had missed medications yesterday except for evening dose of metoprolol Clinical Quality Measures DVT/VTE Risk/Contraindication: Risk Factor Score Per Nursin RFS Level Per Nursing on Admit: 4+=Very High MANUEL LEON MD Jul 09, 2016 08:06
[2016-07-09] MEDS: metFORMIN 500 MG (GLUCOPHAGE) TAB PO SCH ×2 (08:34→20:54)
[2016-07-09] MEDS: GLIMEPIRIDE 4 MG (AMARYL) TAB PO SCH (08:34)
[2016-07-09] MEDS: DORZOLAMIDE 2% 10 ML BTL (TRUSOPT) OU SCH ×2 (08:35→20:58)
[2016-07-09] MEDS: ASPIRIN E.C. 81 MG (ECOTRIN) TAB PO SCH (08:35)
[2016-07-09] MEDS: VALSARTAN 80 MG (DIOVAN) TAB PO SCH ×2 (08:42→22:35)
[2016-07-09] MEDS ORDERED: GLUCOSAMINE HCL PO SCH (09:00)
[2016-07-09] MEDS ORDERED: METHYLSULFONYLMETHANE PO SCH (09:00)
--- NOTE | 2016-07-09 09:46 | Physical Therapy Evaluation ---
PT Evaluation-General Medical Diagnosis Admission Date Jul 08, 2016 at 09:42 Medical Diagnosis: CVA Onset Date: Jul 08, 2016 Therapy Diagnosis Therapy Diagnosis: weakness; abn gait Height/Weight Height (Feet): 5 Height (Inches): 5.00 Weight (Pounds): 150 Weight (Ounces): 1.0 Precautions Precautions/Isolations: Fall Prevention, Standard Precautions Referral Physician: Raina Reason for Referral: Evaluation/Treatment Medical History Pertinent Medical History: Arthritis, CABG, CAD, DM, HTN, [place] Current History Pt admitted with recent decline in left sided strength and expressive aphasia. Family reports the symptoms began on 07/05/16 and gradually worsened. Pt presented to ED 07/08/16 via EMS. Reviewed History: Yes Social History Home: Single Level Entry Into Home: Stairs With Railing PT Steps Into Home: 3 (pt reprts she rarely uses the stairs as she rarely leaves her home. ) Prior/Core FIM Prior Level of Function Functional [place] Measure 0=Not Assessed/NA 4=Minimal Assistance 1=Total Assistance 5=Supervision or Setup 2=Maximal Assistance 6=Modified [place] 3=Moderate Assistance 7=Complete [place] Bed Mobility: 7 Transfers (B,C,W/C) (FIM): 6 Gait: 6 (FWW) Able to perform self care and cook; has assist with house cleaning; family does shopping. PT Evaluation-Current Subjective Pt reports her left side, "isn't worth a damn." Agrees to participate with PT as she is able. Pain Numeric Pain Scale: 4 Location: Left Location Body Site: Knee Pain Description: Ache Objective Patient Orientation: Person, Place, Time, Situation Problem Solving: Fair Attachments: Oxygen (in situ during and post treatment) ROM/Strength ROM Lower Extremities Functional but is not able to fully extend both knees; lack about 8 degrees bilaterally; left LE ROM is AAROM. Strenght Lower Extremities Right LE strength is grossly 3/5 ; left LE strength is grossly 1/5 with toes extension/flexion being 2/5. Integumentary/Posture Integumentary Intact Posture forward head and rounded shoulders in sitting. Neuromuscular (Tone, Coordination, Reflexes) No noted increased tone at this time.; Coordination of L side is impaired. Reflexes are symmetrical at this time. Sensory Vision: Wears Glasses Hearing: Functional Hand Dominance: Right Sensation Right Lower Extremit: Intact Sensation Left Lower Extremity: Intact Transfers Functional [place] Measure 0=Not Assessed/NA 4=Minimal Assistance 1=Total Assistance 5=Supervision or Setup 2=Maximal Assistance 6=Modified [place] 3=Moderate Assistance 7=Complete [place] Transfers (B, C, W/C) (FIM): 1 (assist of 2) Supine to/from Sit: 1 (assist of 2) Sit to/from Stand: 1 (assist of 2) Pt follows cues but difficulty executing them. Pt is slow moving and seems "stiff" with movement even on the right side. Worked on sitting EOB and trunk control/sitting up straight. Facilitated WB through the left UE and through both legs in sitting. Sit to stand x 2 with assist of 2, put with difficulty putting weight through the left LE and effectively utilizing the left UE on the walker. Pt in bed post treatment with needs met. Gait Mode of Locomotion: Walk Comments/Gait Description Unable to ambulate at this time. Balance Sitting Static: Fair Sitting Dynamic: Fair Treatment Functional activity sitting EOB and worked on trunk control. sit to from stand transfer. Assessment/Needs Post CVA with left side weakness. Pt is dependent for all functional mobility at this time. She is pleasant and cooperative. She will benefit from skilled intervention to facilitate transfers and progress gait as able. She is slow with all movement and feel her rehab process will be lengthy. She does have potential to make functional gains but may be at a slower rate due to age and significant left sided weakness. Eval is of moderate complexity due to hx of TIA, heart disease, DM; U/LE weakness, impaired functional transfers, impaired functional balance and characteristics new and changing at this time. Rehab Potential: Guarded PT [employer] Goals Senior Care Goals PT [employer] Goals Time Frame: Jul 16, 2016 Transfers (B,C,W/C) (FIM): 3 Gait (FIM): 2 Gait distance (FIM): 1=up to 49 ft Gait Assistive Device: FWW LTG's set for the acute care setting; expect transition to different care setting in the next week. PT Plan Problem List Problem List: Activity Tolerance, Functional Strength, Safety, Balance, Gait, Transfer, Bed Mobility Treatment/Plan Treatment Plan: Continue Plan of Care Treatment Plan: Bed Mobility, Education, Functional Activity Perla, Functional Strength, Gait, Safety, Therapeutic Exercise, Transfers Treatment Duration: Jul 16, 2016 # of days/week 6 Visits Per Week: 11 Pt/Family Agrees w/Plan: Yes Safety Risks/Education Patient Education: Transfer Techniques, Safety Issues Teaching Recipient: Patient Teaching Methods: Demonstration, Discussion Response to Teaching: Reinforcement Needed Time/GCodes Time In: 850 Time Out: 915 Total Billed Treatment Time: 25 Total Billed Treatment visit EVM 15 FA 10 G Codes Necessary: Yes PT/OT Therapy GCodes Therapy Functional Limitation: Physical Therapy Test(s)/Tool used to determine: Level of Assistance Scale Functional Limitation-Current Charge Code: MOBCUR Modifier: CM Functional Limitation-Goal Modifier: ELÍAS WHITE PT Jul 09, 2016 09:46
--- NOTE | 2016-07-09 10:46 | Diagnostic Imaging Report ---
CLINICAL INDICATION: Patient with slurred speech and left-sided body paralysis. COMPARISON: None. EXAM: Real-time carotid Doppler duplex imaging is performed bilaterally. Peak systolic velocity, ICA/CCA peak systolic ratio, spectral analysis, and vascular morphology are studied. Findings: ARTERY VELOCITY Right Left CCA 0.67 m/s 0.73 m/s ICA 0.55 m/s 0.88 m/s ECA 0.74 m/s 0.93 m/s ICA/CCA 0.82 1.20 VERT.ART Antegrade Antegrade There is mild heterogeneous atherosclerotic disease involving the bilateral carotid artery regions which demonstrates less than 50% stenosis on grayscale imaging. IMPRESSION: Mild bilateral carotid artery atherosclerotic disease with no grayscale or Doppler evidence of significant vascular stenosis. Dictated by: Dictated on workstation # [id number]
--- NOTE | 2016-07-09 12:04 | Occupational Therapy Eval ---
OT Evaluation-General/PLF Medical Diagnosis Admission Date Jul 09, 2016 at 10:50 Medical Diagnosis: CVA Onset Date: Jul 08, 2016 Therapy Diagnosis Therapy Diagnosis: weakness, decr self care, decr funct use L UE, decr funct mobility Height/Weight Height (Feet): 5 Height (Inches): 5.00 Weight (Pounds): 150 Weight (Ounces): 1.0 Precautions Precautions/Isolations: Fall Prevention, Standard Precautions, Pressure Ulcer Safety Interventions: None Referral Physician: Jennifer Referral Reason: Evaluation/Treatment Medical History Pertinent Medical History: Arthritis, CABG, CAD, DM, GERD, HTN, [place] Additional Medical History Carotid surgery 2013. Cardiac stents, hx incontinence - wears Depends, osteoporosis, chronic back pain, gout, glaucoma, hard of hearing, depression Current History Admitted through ED with three day hx of L sided weakness and increased need for help with ADLs Reviewed History: Yes Social History Home: Single Level Current Living Status: Alone Entry Into Home: Stairs With Railing Steps Into Home: 3 (pt reprts she rarely uses the stairs as she rarely leaves her home. ) ADL-Prior Level of Function ADL PLOF Comments Pt reported that she has been able to manage her basic self care needs at home, sometimes with difficulty and extra time. She drove until December and gave it up because she had a hard time getting in/out of the car. 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 DME/Equipment: Bath Bench (transfer tub bench) Occupation: retired Drive Self: No OT Current Status Subjective Pt seen in room, in bed, agreeable to OT. Pt reported pain 3/10 in L knee and did not describe it. Appearance Alert, cooperative. Tended to turn head toward the right side Mental Status/Objective Attachments: IV, Oxygen, Telemetry Current Glasses/Contacts: Yes Hand Dominance: Right Upper Extremity ROM Pt had decreased active and passive range R shoulder. Rest of R UE WFL active. L UE limited passively at shoulder, rest grossly WFL passively and has active range in midrange Upper Extremity Sensation Grossly WFl bilat Upper Extremity Strength R UE grossly 3+/5 at shoulder (in range), 4/5 elbow and distal. L UE 2/5 at shoulder (in range). rest grossly 2+/5 but does have active movement through fingers. Gross visual screening shows ability to track in all areas. Pt denies visual loss on L side but may have some L sided neglect ADL-Treatment ADL-Current PT eval showed two person max assist to sit EOB Functional [place] Measure 0=Not Assessed/NA 4=Minimal Assistance 1=Total Assistance 5=Supervision or Setup 2=Maximal Assistance 6=Modified [place] 3=Moderate Assistance 7=Complete IndependenceIRFPAI Quality Coding Scale 6 Independent with activity with or without an assistive device 5 Patient requires set up or clean up by helper. Patient completes activity by themselves 4 Supervision or touching assist (CGA). Lamont provide cues , steadying assist 3 The helper provides less than half the effort to complete the activity 2 The helper provides more than half the effort to complete the activity 1 Dependent. The helper does all the effort to complete an activity 7 Patient refused to complete or attempt activity 9 The patient did not perform the activity before the current illness or injury 88 Not attempted due to Medical conditions or safety concerns Family will bring clothing in for her for ADLs Education OT Patient Education: Purpose of tx/functional activities, Rehab process Teaching Recipient: Patient, Family Teaching Methods: Discussion Response to Teaching: Verbalize Understanding OT Short Term Goals Short Term Goals Time Frame: Jul 23, 2016 Grooming(FIM): 4 Upper Body Dressing(FIM): 4 Lower Body Dressing(FIM): 3 Toilet/Commode Transfer(FIM): 3 OT Skilled Nursing Goals Dividing Machine Operator Helper Goals Time Frame: Aug 06, 2016 Eating (FIM): 6 Grooming(FIM): 5 Bathing(FIM): 5 Upper Body Dressing(FIM): 5 Lower Body Dressing(FIM): 5 Toileting(FIM): 5 Toilet/Commode Transfer(FIM): 5 Shower Transfer(FIM): 5 Additional Goals: 2-Verbalize Understanding, 3-ImproveStrength/Perla 1=Demonstrate adherence to instructed precautions during ADL tasks. 2=Patient will verbalize/demonstrate understanding of assistive devices/ modifications for ADL. 3=Patient will improve strength/tolerance for activity to enable patient to perform ADL's. OT Education/Plan Problem List/Assessment Assessment: Decreased UE Strength, Dependent Transfers, Impaired Bed Mobility, Impaired Coordination, Impaired Funct Balance, Impaired Self-Care Skills, Restricted Funct UE ROM Pt would benefit from skilled OT to increase her independence in basic self care to allow her to return to her home safely and to decrease caregiver burden. Discharge Recommendations Plan/Recommendations: Continue POC Treatment Plan/Plan of Care Treatment,Training & Education: Yes Patient would benefit from OT for education, treatment and training to promote independence in ADL's, mobility, safety and/or upper extremity function for ADL' s. Plan of Care: ADL Retraining, Functional Mobility, UE Funct Exercise/Act, UE Neuromus Re-Ed/Coord Treatment Duration: Aug 06, 2016 # of days/week 5 Visits Per Week: 5 Agreement: Yes Rehab Potential: Fair Time/GCodes Start Time: 11:30 Stop Time: 11:50 Total Time Billed (hr/min): 20 Billed Treatment Time visit, 20 minutes evaluation moderate complexity PT/OT Therapy GCodes Therapy Functional Limitation: Physical Therapy Test(s)/Tool used to determine: Level of Assistance Scale Functional Limitation-Current Charge Code: MOBCUR Modifier: CM Functional Limitation-Goal Modifier: BHARTI CRUMP OT Jul 09, 2016 12:03
--- NOTE | 2016-07-09 15:39 | Physical Therapy Daily Note ---
PT Daily Note-Current Subjective Pt agreeable to work with therapy. She reports the L leg is having painful spasms. Rated 4/10. Mental Status Patient Orientation: Normal For Age Transfers Functional [place] Measure 0=Not Assessed/NA 4=Minimal Assistance 1=Total Assistance 5=Supervision or Setup 2=Maximal Assistance 6=Modified [place] 3=Moderate Assistance 7=Complete IndependenceIRFPAI Quality Coding Scale 6 Independent with activity with or without an assistive device 5 Patient requires set up or clean up by helper. Patient completes activity by themselves 4 Supervision or touching assist (CGA). [place] provide cues , steadying assist 3 The helper provides less than half the effort to complete the activity 2 The helper provides more than half the effort to complete the activity 1 Dependent. The helper does all the effort to complete an activity 7 Patient refused to complete or attempt activity 9 The patient did not perform the activity before the current illness or injury 88 Not attempted due to Medical conditions or safety concerns Transfers (B, C, W/C) (FIM): 1 Scootin (Initiates but requires physical assist of 2.) Supine to/from Sit: 1 Sit to/from Stand: 1 Exercises Standing: Sit to Stand Standing Reps: 4 Left LE PROM with facilitation of tapping. Sitting bedside worked wt shift, trunk stability, cervical rotation. Sit to stand x 4 reps with Dependent assist. Held each trial 15-25 seconds. Assessment Current Status: Fair Progress Pt able to follow verbal cues and was able to initiate all tasks but only has trace strength to assist. She will benefit from continued therapy to promote improved functional mobility. PT Senior Care Goals Senior Care Goals PT Python Java Developer Goals Time Frame: Jul 16, 2016 Transfers (B,C,W/C) (FIM): 3 Gait (FIM): 2 Gait distance (FIM): 1=up to 49 ft Gait Assistive Device: FWW PT Plan Problem List Problem List: Activity Tolerance, Functional Strength, Transfer Treatment/Plan Treatment Plan: Continue Plan of Care Treatment Plan: Bed Mobility, Education, Functional Activity Perla, Functional Strength, Gait, Safety, Therapeutic Exercise, Transfers Treatment Duration: Jul 16, 2016 Visits Per Week: 11 Time/GCodes Time In: 1500 Time Out: 1530 Total Billed Treatment Time: 30 Total Billed Treatment visit, FA 15min, ex 15 min PT/OT Therapy GCodes Therapy Functional Limitation: Physical Therapy Test(s)/Tool used to determine: Level of Assistance Scale Functional Limitation-Current Charge Code: MOBCUR Modifier: CM Functional Limitation-Goal Modifier: MICAELA MOLINA PT Jul 09, 2016 15:38
--- NOTE | 2016-07-09 16:09 | ST Dysphagia Evaluation ---
Speech Evaluation-General Medical Diagnosis CVA Onset Date: Jul 08, 2016 Therapy Diagnosis Therapy Diagnosis: Oropharyngeal Swallow WNL Precautions Precautions: Aspiration Precautions/Isolations: Fall Prevention, Standard Precautions, Pressure Ulcer Referral Referring Physician: Dr. Otilio Rodriguez Reason for Referral: Evaluation/Treatment Clinical Bedside Swallowing Evaluation Medical History Pertinent Medical History: Arthritis, CABG, CAD, DM, GERD, HTN, [place] Reviewed History: Yes Social History Current Living Status: Alone Speech PLF/Current-Dysphagia Prior Level of Function The patient denied swallowing challenged prior to admission. Per patient, she consumes a regular diet with thin liquids at home. The patient did state, "sometimes I choke on what I eat but not often, maybe once a week." Subjective The patient was recently admitted to [facility] with a diagnosis of CVA. The patient greeted the clinician appropriately and agreed to participate in the dysphagia evaluation. To note: The patient's family members were present at bedside. CXR: 07/09/16: No acute abnormalities seen. Cognitive Status Patient Orientation: Person, Place, Time, Situation Oral Motor Skills Dentition: Natural Denture Type: Partial- Lower Current Food Consistancy: Regular, Thin Liquids Ability to Follow Directions: Excellent Oral Expression Ability: Mild Impairment Voice Voice Phonatory-Based Quality: Glottal Quinn Voice Pitch: Normal Voice Loudness: Normal Face Facial Symmetry: Symmetrical Oral-Facial Assessment Oral-Facial Dentition: Normal Labial Seal Description: Normal Smile: Normal Lingual Protrusion: Normal Lingual ROM: Normal Lingual Strength: Normal Pharynx Velopharyngeal Move.: Normal Volitional Dry Swallow: Yes Dysphagia Evaluation Consistencies Presented: Regular, Thin Liquid, Pureed No oral impairments were noted throughout the evaluation. No pharyngeal impairments were noted throughout the evaluation. - Thin Liquid (via teaspoon, cup sip, and straw), puree, solid: No signs/ symptoms of aspiration were demonstrated with multiple boluses of each consistency. The patient's vocal quality remained clear throughout the evaluation. Dietary Recommendations: Regular Liquid Recommendations: Thin Swallowing Precautions: Small Bites and Sips, Sitting 90 Degrees 30 Post Intake Dysphagia Evaluation Summary Oropharyngeal swallow function grossly within functional limits. Speech-Plan Treatment Plan Speech Therapy Treatment Plan: Discontinue ST For dysphagia services only (recommend full speech and language evaluation upon admission to ARU). Rehab Potential: Good Safety Risks/Education Teaching Recipient: Patient, Family Teaching Methods: Discussion Response to Teaching: Verbalize Understanding Education Topics Provided: Results, Recommendations, Signs/Symptoms of Aspiration Time Speech Therapy Time In: 15:40 Speech Therapy Time Out: 16:00 Total Billed Time: 20 Billed Treatment Time 1, JOHN Speech GCodes Functional Limitation-Current Modifier: CM Functional Limitation-Goal Modifier: TAMIA TRIPATHI Jul 09, 2016 16:09
[2016-07-09] MEDS: SIMvastatin 10 MG (ZOCOR) TAB PO SCH (20:54)
[2016-07-09] MEDS: LATANOPROST 0.005% (XALATAN) OPHTH SOLN 2.5 ML OU SCH (20:58)
[2016-07-10 04:40] VITALS: BP 120/68
[2016-07-10] MEDS: CATHETER FLUSH 10 ML SYR IV SCH ×2 (06:00→07:58)
--- NOTE | 2016-07-10 07:39 | Discharge Inst-Simple/Standard ---
Discharge Inst-Standard Discharge Medications New, Converted or Re-Newed RX: RX on Chart Patient Instructions/Follow Up Plan of Care/Instructions/FU: Following rehab DC will fu with Dr Leon within the week after Activity as Tolerated: No (per rehab) Discharge Diet: Cardiac Diet MANUEL LEON MD Jul 10, 2016 07:39
--- NOTE | 2016-07-10 07:49 | Discharge Summary ---
Diagnosis/Chief Complaint Date of Admission Jul 09, 2016 at 10:50 Date of Discharge Discharge Date: Jul 10, 2016 Admission Diagnosis Admission Diagnosis 1. Weakness--suspicious for CVA 2. Slurred speech Discharge Diagnosis 1. CVA (6 mm area cherelle) 2. Weakness resulting from number 1 3. Slurred speech without dysphagia resulting from number 1 4. Hypertensive 5. Diabetes mellitus--known Reason Hospital Visit 85 yo female presents to ED with slurred speech and weakness. Family thought perhaps she had a stroke. Patient's son and [id number] had noted about 2 days prior to presentation to emergency department that she had noticeable slurred speech as well as basically just wanting to set around. Patient apparently was very coherent in her discussions and didn't necessarily want to go to the emergency department over the weekend. Patient typically walks with a 4 point walker but she couldn't utilize this according to her son. She is able to swallow food without too much difficulty. Discharge Summary Hospital Course Hospital Course Patient was admitted on July 08, 2016 with suspected CVA. Patient had generalized weakness as well as slurred speech. Patient had these symptoms for the 2-3 days prior to presentation. She underwent MRI during the afternoon of July 08 and was found to have a 6 mm area in the cherelle that was suggestive for infarct. With her symptoms of CVA this was felt to be acute. She had blood pressure elevation in the morning of July 09, 2016 and her blood pressure medication Diovan was increased to 80 mg in the morning as well as in the evening. She is also on metoprolol 100 mg twice daily. She was also maintained on her home medications for diabetes as well as her glaucoma. She also had physical therapy, occupational therapy and speech therapy evaluation on the day of July 09, 2016. Patient continued to think coherently but still had slurred speech. Inpatient rehabilitation also evaluated patient and will except patient probably during the day of July 10, 2016. Labs Laboratory Tests 07/08/16 07:53: Potassium Level 3.4L 07/08/16 07:56: 07/08/16 09:00: Urine Specific [place] 1.010L 07/09/16 05:50: Glucose Level 113H, Total Protein 6.1L Procedures None. Discharge Physical Examination Allergies: Coded Allergies: Calcium Channel Blocking Agent Dilt (Verified Allergy, Mild, COUGH, ) FREDY Inhibitors (Verified Allergy, Unknown, 07/08/16) Penicillins (Verified Allergy, Unknown, 07/08/16) Tetanus Vaccines and Toxoid (Verified Allergy, Unknown, 07/08/16) clindamycin (Verified Allergy, Unknown, 07/08/16) Vitals & I&Os Vital Signs Date Time Temp Pulse Resp B/P (MAP) Pulse Ox O2 Delivery O2 Flow Rate FiO2 07/10/16 07:10 58 07/10/16 04:40 98.3 14 120/68 98 Nasal Cannula 2.00 General Appearance: Alert, Oriented X3 Respiratory: Clear to Auscultation Cardiovascular: Regular Rate Abdominal: Soft Extremities: Other (Poor movement of left upper extremity) Neuro: Other (Speech is noted to be slurred, she is not ambulating) Discharge Home Medications Reviewed and agree with Discharge Medication list on patient's Discharge Instruction sheet Instructions to Patient/Family Please see electonic discharge instructions given to patient. Clinical Quality Measures DVT/VTE Risk/Contraindication: Risk Factor Score Per Nursin RFS Level Per Nursing on Admit: 4+=Very High MANUEL LEON MD Jul 10, 2016 07:49
[2016-07-10] MEDS: MULTIVIT W/MINERALS TAB (THERAGRAN M) PO SCH (07:57)
[2016-07-10] MEDS: GLIMEPIRIDE 4 MG (AMARYL) TAB PO SCH (07:57)
[2016-07-10] MEDS: ASPIRIN E.C. 81 MG (ECOTRIN) TAB PO SCH (07:57)
[2016-07-10] MEDS: meTOprolol TARTRATE 50 MG (LOPRESSOR) TAB PO SCH (07:57)
[2016-07-10] MEDS: VALSARTAN 80 MG (DIOVAN) TAB PO SCH (07:57)
[2016-07-10] MEDS: DORZOLAMIDE 2% 10 ML BTL (TRUSOPT) OU SCH (07:58)
[2016-07-10] MEDS: metFORMIN 500 MG (GLUCOPHAGE) TAB PO SCH (07:58)
[2016-07-10 08:52] VITALS: BP 158/70
[2016-07-31] MEDS ORDERED: HYDR12.5 PO (07:55)
[2016-07-31] MEDS ORDERED: VALS80TA PO (07:55)
[2016-07-31] MEDS ORDERED: DICL100G18 TOP (07:55)
[2016-07-31] MEDS ORDERED: NYST15CR TP (07:55)
[2016-07-31] MEDS ORDERED: ZINC28PA TOP (07:55)
[2016-07-31] MEDS ORDERED: LORA10TA7 PO (07:55)
[2016-07-31] MEDS ORDERED: ACET-77 PO (07:55)
== END 2016-07-10 09:10 | DRG 66 ==
LOC: DELPENDDIS → EDUNIT# 07:53 → ER 07:54 → 4TH 09:42 → UNDOADMOB 09:42 → 4TH 10:08 → OBSVTOIN 07-09 10:50 → INTOOBSV 07-09 10:50 → UNDODISIN 07-10 09:10
PROVIDERS: ADMIT Family Medicine; ATTEND Family Medicine
DX: I63.9 Cerebral infarction, unspecified (principal); R53.1 Weakness; R47.81 Slurred speech; I25.10 Atherosclerotic heart disease of native coronary artery without angina pectoris; I10 Essential (primary) hypertension; E11.9 Type 2 diabetes mellitus without complications; E78.5 Hyperlipidemia, unspecified; K21.9 Gastro-esophageal reflux disease without esophagitis; H40.9 Unspecified glaucoma; Z95.1 Presence of aortocoronary bypass graft; Z95.5 Presence of coronary angioplasty implant and graft
CPT/HCPCS: 36415; 51701; 70450; 70553; 71010; 80053; 81000; 82550; 82553; 82962; 83735; 84443; 84484; 85025; 85610; 85730; 93005; 93041; 93880; G0378

== ENCOUNTER 2016-07-10 09:11 | Inpatient (IN) | payer MEDICARE ==
[~2016-07-10] VITALS: Ht 165.1 cm; Wt 70.8 kg
[2016-07-10 09:10] VITALS: BP 148/72
[~2016-07-10 09:11] MED LIST changes: +HYDR12.5 PO; +METO100T2 PO
--- NOTE | 2016-07-10 10:38 | Physical Therapy Evaluation ---
PT Evaluation-General Medical Diagnosis Admission Date Jul 10, 2016 at 09:11 Medical Diagnosis: CVA Onset Date: Jul 08, 2016 Therapy Diagnosis Therapy Diagnosis: decreased functional mobility Height/Weight Height (Feet): 5 Height (Inches): 5.00 Weight (Pounds): 150 Weight (Ounces): 1.0 Precautions Precautions/Isolations: Fall Prevention, Standard Precautions Weight Bear Status Weight Bearing Restriction: Full Weight Bearing Location Restriction: LE Bilateral Referral Physician: Aaron Reason for Referral: Evaluation/Treatment Medical History Pertinent Medical History: Arthritis, CABG, CAD, DM, GERD, HTN, [place] Current History Pt and family report decreased (L) sided strength and expressive aphasia beginning on 07/05/16. Presented to ED on 07/08/16. Reviewed History: Yes Social History Home: Single Level Current Living Status: Alone Entry Into Home: Stairs With Railing (3) PT Steps Into Home: 3 Pt reports "I don't go outside." Family reports they do grocery shopping, "she only leaves to go to the doctor". Prior/Core FIM Prior Level of Function Functional [place] Measure 0=Not Assessed/NA 4=Minimal Assistance 1=Total Assistance 5=Supervision or Setup 2=Maximal Assistance 6=Modified [place] 3=Moderate Assistance 7=Complete [place] Bed Mobility: 7 Transfers (B,C,W/C) (FIM): 6 Gait: 6 Has FWW and 4WW. Pt utilized FWW more frequently. Pt reports chronic (B) knee pain, L > R. PT Evaluation-Current Subjective Pt in bed, agreeable. Frequently reports "I can't. That (L) side is not worth a damn" when requesting Pt to move (L) UE/LE. Reports pain in (B) LE with movement , 2/10 but denied pain meds. Objective Patient Orientation: Person, Place, Time, Situation Problem Solving: Poor Attachments: Oxygen ROM/Strength ROM Upper Extremities See OT ROM Lower Extremities (B) knees lack grossly 10-15 degrees from full extension. Strength Upper Extremities See OT Strenght Lower Extremities (R) LE grossly 4/5 except (seated) hip flexion 3+/5 (L) LE: great toe extension: 3+/5, DF/PF: 2-/5, Knee extension: 1+/5, Knee flexion: 1+/5, (seated) hip flexion: 1+/5 Integumentary/Posture Integumentary See nurses' notes Posture Flexed posture. Stands with (B) hips and knees in flexion, trunk flexed. No correction with VCS, tactile cues this date. Neuromuscular (Tone, Coordination, Reflexes) Mild flexor tone noted in (L) knee. Poor coordination on (L) side. (L) neglect but Pt will scan (L) environment when cued. Sensory Vision: Wears Glasses Hearing: Functional Transfers Functional [place] Measure 0=Not Assessed/NA 4=Minimal Assistance 1=Total Assistance 5=Supervision or Setup 2=Maximal Assistance 6=Modified [place] 3=Moderate Assistance 7=Complete IndependenceIRFPAI Quality Coding Scale 6 Independent with activity with or without an assistive device 5 Patient requires set up or clean up by helper. Patient completes activity by themselves 4 Supervision or touching assist (CGA). [place] provide cues , steadying assist 3 The helper provides less than half the effort to complete the activity 2 The helper provides more than half the effort to complete the activity 1 Dependent. The helper does all the effort to complete an activity 7 Patient refused to complete or attempt activity 9 The patient did not perform the activity before the current illness or injury 88 Not attempted due to Medical conditions or safety concerns Transfers (B, C, W/C) (FIM): 1 Scootin Rollin Roll Left to Right (QC): 2 Supine to/from Sit: 1 Sit to/from Stand: 2 bed t/f WC(FIM only if WC use): 2 Sit to Lying (QC): 1 Lying to Sitting/Side of Bed(Q: 1 Sit to Stand (QC): 1 Chair/Bcl-cl-Ayaix Xfer(QC): 1 Car Transfer (QC): 88 Gait Does the Patient Walk?: No and Walking Goal IS indicated Mode of Locomotion: Walk Anticipated Mode of Locomotion: Both Gait (FIM): 0 Distance (FIM): 0=does not occure Walk 10 feet (QC): 88 Walk 50 ft with 2 Turns(QC): 88 Walk 150 ft (QC): 88 Walking 10ft/uneven surface-QC: 88 Comments/Gait Description Unable to attempt ambulation. Dependent standing balance. Wheelchair Training Does the Pt Use a Wheelchair?: No Stairs Stairs (FIM): 0 1 Step (curb) (QC): 88 4 Steps (QC): 88 12 Steps (QC): 88 If not tested on admit;explain Dependent assist x 1-2 for standing balance. Unsafe to attempt. Balance Sitting Static: Fair Sitting Dynamic: Poor Standing Static: Poor Standing Dynamic: Poor Picking up an Object (QC): 88 Treatment Eval. Co-treat with OT addressing ADLs, UE and PT addressing TFRs, sitting, standing balance and LE. Pt sat EOB with close SBA->min A x 1 for sitting balance with OT addressing bathing tasks. Tendency to lean to (R) side, able to correct with VCS. Increased flexed posture as Pt fatigued, progressing to requiring min A x 1 for safety as Pt began leaning too far forward. Sit<->Stand with dependent assist x 1-2. Pt stood with dependent assist x 1 for grossly 30" to allow dependent petey-care, LE dressing by OT. Returned to bed with O2 in situ , rails up, alarm on. Assessment/Needs Pt's problem list includes: decreased LE ROM/strength, decreased sitting and standing balance, decreased functional mobility, fall risk, poor safety awareness.Pt would benefit from skilled PT to address outlined dysfunctions and restore functional mobility, decrease caregiver burden upon discharge. Clinical presentation: mod complexity, evolving Rehab Potential: Fair PT Short Term Goals Short Term Goals Time Frame: Jul 24, 2016 Transfers (B,C,W/C) (FIM): 4 PT Usp Goals Usp Goals PT Usp Goals Time Frame: Aug 07, 2016 Transfers (B,C,W/C) (FIM): 6 Sit to Lying (QC): 6 Lying-Sitting on Side/Bed(QC): 6 Sit to Stand (QC): 6 Rollin Roll Left to Right (QC): 6 Chair/Xms-pv-Pqogz Xfer(QC): 6 Car Transfer (QC): 5 Does the Patient Walk: No and Walking Goal IS indicated Gait (FIM): 4 Gait distance (FIM): 3=132-56 ft Distance: 75 Walk 10 feet (QC): 6 Walk 10ft-Uneven Surface(QC): 4 Walk 50ft with 2 Turns (QC): 6 Walk 150 ft (QC): 4 Gait Level of Assist: 6 Gait Assistive Device: FWW Does the Pt use WC or Scooter?: No Stairs (FIM): 2 # of Steps: 3 1 Step (curb) (QC): 2 4 Steps (QC): 9 12 Steps (QC): 9 Stairs Level Of Assist: 2 Picking up an Object (QC): 4 PT goals established to allow safe return home with decreased caregiver burden. PT Plan Problem List Problem List: Activity Tolerance, Functional Strength, Safety, Balance, Gait, Transfer, Bed Mobility, ROM Treatment/Plan Treatment Plan: Continue Plan of Care Treatment Plan: Bed Mobility, Education, Functional Activity Perla, Functional Strength, Group Therapy, Gait, Safety, Therapeutic Exercise, Transfers Treatment Duration: Aug 07, 2016 # of days/week 5-6 Visits Per Week: 10-11 Minutes/Day (M-F): 60-90 Minutes/Day (Sat/Parra): PRN Pt/Family Agrees w/Plan: Yes Safety Risks/Education Teaching Recipient: Patient, Family Teaching Methods: Discussion Response to Teaching: Verbalize Understanding, Reinforcement Needed PT POC, attention to (L) side, expectations on ARU Discharge Recommendations Barriers to Progress (B) LE pain, flexed posture Time/GCodes Time In: 0910 Time Out: 1015 Total Billed Treatment Time: 55 Total Billed Treatment 1, EVMODC x 10', FA x 45' [id number] (unattended for OT eval) [id number] (EVMODC) [id number] FA x 3 (co-treat with OT due to level of assist, Pt fatigue. OT addressing UE, ADLs and PT addressing LE, standing and sitting balance, and TFRs ) G Codes Necessary: LAUREN Rodriguez DPT Jul 10, 2016 10:38
--- NOTE | 2016-07-10 10:58 | ST Cognitive Linguistic Eval ---
Speech Evaluation-General Medical Diagnosis CVA Onset Date: Jul 09, 2016 Therapy Diagnosis Therapy Diagnosis: Mild Dysarthria, Mild Cognitive Impairment Precautions Precautions/Isolations: Fall Prevention, Standard Precautions Referral Referring Physician: Dr. Parish Walker Reason for Referral: Evaluation/Treatment Cognitive Evaluation Medical History Pertinent Medical History: Arthritis, CABG, CAD, DM, GERD, HTN, [place] Reviewed History: Yes Speech PLF-Current Status Prior Level of Function The patient denied speech, language, or cognition challenges prior to admission. Subjective The patient was recently admitted to [facility] following a CVA. The patient greeted the clinician upon entrance and was agreeable to the speech, language, and cognitive evaluation on this date. Language Eval: Auditory Comprehends Simple Yes/No Ques: Functional Indent/Objects Multiple [place]: Functional Ident/Pics in Multiple [place]: Functional Follows 1-Step Commands: Functional Follows Complex Directions: Mild (Repetition required for increased accuracy.) Follows General Conversations: Mild (The patient required a slightly reduced rate of conversational exchanges for increased comprehension, however, appeared significantly fatigued following physicial therapy evaluation.) Language Eval: Verbal Language Completes Spontaneous Greeting: Functional Produces Auto, Serial Info: Functional Imitates Simple Words/Phrases: Functional Word Finding: Mild (The patient was able to provide nine 'f' words within a one minute time frame.) Requests Basic Needs: Functional States Basic Personal Info: Functional Expresses Complex Ideas: Mild Cognitive Patient Orientation The patient was oriented to day of week, month, year, and location independently. Objective Cognitive Domain Attention: WNL Memory: WNL Problem Solving: Mild Executive Functions: Mild Objective Oral Motor/Speech Production The patient demonstrated slightly imprecise articulation, however, remained 100 % intelligible in known and unknown contexts. No facial droop was visualized and lingual protrusion was at midline. Impression The patient demonstrated mild dysarthria and a mild cognitive impairment in the areas of executive function and problem solving. Communication/Social Cognition Comprehension: 5 Expression: 5 Social Interaction: 5 Problem Solvin Memory: 5 Speech Patient Assess Expression of Ideas/Wants: Expression (4) Understanding [place] Content: Understands (4) Brief Interview-Mental Status: No(pt is rarely/never understood) Repetition of Three Words: Three (3) Temporal Orientation: Year: Correct (3) Temporal Orientation: Month: Accurate within 5 days(2) Temporal Orientation: Day: Correct (1) Recall : Wear to say "Sock": Yes, no cue required (2) Recall : Color: Yes, no cue required (2) Recall : Bed: Yes, no cue required (2) Speech Short Term Goals Short Term Goals Short Term Goals 1. The patient will demonstrate oral motor exercises with 90% accuracy, independently. 2. The patient will demonstrate 80% accuracy with structured executive functioning and problem solving tasks with mild clinician verbal cueing. Time Frame-STG: Two Weeks Speech Strategic Partnership Representative Goals Senior Care Goals 1. The patient will demonstrate improved cognitive linguistic skills for increased safety and function with ADL's in the least restrictive setting. Comprehension: 6 Expression: 5 Social Interaction: 6 Problem Solvin Memory: 5 Speech-Plan Treatment Plan Speech Therapy Treatment Plan: Continue Plan of Care Initiated skilled speech therapy to target oral motor strengthening and executive functioning. Treatment Duration: Aug 07, 2016 # of days/week Five Visits Per Week: Five Minutes/Day (M-F): 30 Rehab Potential: Good Safety Risks/Education Teaching Recipient: Patient Teaching Methods: Discussion Response to Teaching: Verbalize Understanding Education Topics Provided: Results, Recommendations Time Speech Therapy Time In: 10:15 Speech Therapy Time Out: 10:45 Total Billed Time: 30 Billed Treatment Time 1, TAMIA DENSON Jul 10, 2016 10:57
[2016-07-10] MEDS ORDERED: CATHETER FLUSH 10 ML SYR IV PRN (11:00)
--- NOTE | 2016-07-10 12:00 | Occupational Therapy Eval ---
OT Evaluation-General/PLF Medical Diagnosis Admission Date Jul 10, 2016 at 09:11 Medical Diagnosis: CVA Onset Date: Jul 09, 2016 Therapy Diagnosis Therapy Diagnosis: decreased strength, impaired self care skills Height/Weight Height (Feet): 5 Height (Inches): 5.00 Weight (Pounds): 150 Weight (Ounces): 3.0 Precautions Precautions/Isolations: Fall Prevention, Standard Precautions Weight Bear Status Weight Bearing Restriction: Full Weight Bearing Location Restriction: LE Bilateral Referral Physician: Aaron Medical History Pertinent Medical History: Arthritis, CABG, CAD, DM, GERD, HTN, [place] Additional Medical History Osteoporosis, chronic back pain, gout glaucoma, CADDO, depression Reviewed History: Yes Social History Home: Single Level Current Living Status: Alone Entry Into Home: Stairs With Railing (3) Steps Into Home: 3 ADL-Prior Level of Function ADL PLOF Comments Pt reports being independent with basic self care and mobility. Used FWW for mobility. Rarely went outside the home. Family completed shopping. DME/Equipment: Bath Bench, Sock Aid, Tub/Shower Drive Self: No OT Current Status Subjective Pt agreeable to therapy this am. Pt frequently states her left side doesn't work. Pt reports 4/10 LE pain. Mental Status/Objective Patient Orientation: Person, Place Attachments: Oxygen Current Glasses/Contacts: Yes Dentures/Partials: Yes Hand Dominance: Right Upper Extremity ROM Right UE: pt has decreased shoulder ROM, remainder is grossly WFL Left UE: limited passively at shoulder. Remainder is grossly WFL passively. Pt has minimal active movement at all joints. Upper Extremity Coordination Impaired left UE Upper Extremity Strength Right UE:shoulder 3+/5, remainder grossly 4/5 Left UE: grossly 2/5 to 2+/5 Pt tends to keep head turned to right, but is able to track left and identify objects in left visual field with cues ADL-Treatment ADL-Current Pt feeding self breakfast while seated upright in bed. Family reports assist cutting food and managing containers, then pt able to feed self. Pt dependent for supine to sit. Transfer to w/c with assist x2 for safety. Pt participated in UE assessment while seated in w/c. ADLs completed while seated EOB. Pt has decreased sitting balance at EOB, tends to lean to right. Able to correct with cues, but with fatigue, pt requires increased assist to maintain balance. Pt able to wash chest, abdomen, and right upper leg. Assist is required for all other areas. Increased time required for task completion. Pt stood with total assist for petey care and LE dressing to be performed. Pt required maximal assistance to don pullover shirt. Pt dependent for LE dressing including socks. Pt combed hair with moderate assistance to reach back of head. Pt fatigues quickly with activity. Sit to supine with assist x2. Pt in bed with needs met and bed alarm on after session. Functional [place] Measure 0=Not Assessed/NA 4=Minimal Assistance 1=Total Assistance 5=Supervision or Setup 2=Maximal Assistance 6=Modified [place] 3=Moderate Assistance 7=Complete IndependenceIRFPAI Quality Coding Scale 6 Independent with activity with or without an assistive device 5 Patient requires set up or clean up by helper. Patient completes activity by themselves 4 Supervision or touching assist (CGA). [place] provide cues , steadying assist 3 The helper provides less than half the effort to complete the activity 2 The helper provides more than half the effort to complete the activity 1 Dependent. The helper does all the effort to complete an activity 7 Patient refused to complete or attempt activity 9 The patient did not perform the activity before the current illness or injury 88 Not attempted due to Medical conditions or safety concerns Eating (FIM): 5 Eating (QC): 5 Grooming (FIM): 3 Bathing (FIM): 2 Shower/Bathe Self (QC): 2 Upper Body Dressing (FIM): 2 Upper Body Dressing (QC): 2 Lower Body Dressing (FIM): 1 On/Off Footwear (QC): 1 Toilet/Commode Transfer (FIM): 1 Toilet Transfer (QC): 1 Co-treat with PT due to level of skilled assistance required. OT addressing bathing, dressing, grooming, and sequencing with PT addressing balance, LE management, and safety while seated EOB for ADLs Education OT Patient Education: Rehab process Teaching Recipient: Patient Teaching Methods: Discussion Response to Teaching: Verbalize Understanding OT Short Term Goals Short Term Goals Time Frame: Jul 24, 2016 Bathing(FIM): 3 Upper Body Dressing(FIM): 4 Lower Body Dressing(FIM): 3 Toileting(FIM): 3 Toilet/Commode Transfer(FIM): 3 Shower Transfer(FIM): 3 Additional Short Term Goals: 1-Demonstrate ADL Tasks, 2-Verbalize Understanding , 3-ImproveStrength/Perla 1=Demonstrate adherence to instructed precautions during ADL tasks. 2=Patient will verbalize/demonstrate understanding of assistive devices/ modifications for ADL. 3=Patient will improve strength/tolerance for activity to enable patient to perform ADL's. OT Roof Foreman Goals Residential Goals Time Frame: Aug 07, 2016 Eating (FIM): 6 Eating (QC): 6 Groomin Oral Hygiene (QC): 5 Bathing(FIM): 5 Shower/Bathe Self (QC): 5 Upper Body Dressing(FIM): 5 Upper Body Dressing (QC): 5 Lower Body Dressing(FIM): 5 Lower Body Dressing (QC): 5 On/Off Footwear (QC): 5 Toileting(FIM): 5 Toileting Hygiene (QC): 5 Toilet/Commode Transfer(FIM): 5 Toilet/Commode Transfer (QC): 5 Shower Transfer(FIM): 5 Additional Goals: 1-Demonstrate ADL Tasks, 2-Verbalize Understanding, 3- ImproveStrength/Perla 1=Demonstrate adherence to instructed precautions during ADL tasks. 2=Patient will verbalize/demonstrate understanding of assistive devices/ modifications for ADL. 3=Patient will improve strength/tolerance for activity to enable patient to perform ADL's. Goals established to maximize level of function and allow safe discharge plan. OT Education/Plan Problem List/Assessment Assessment: Decreased Activ Tolerance, Decreased UE Strength, Dependent Transfers, Impaired Bed Mobility, Impaired Coordination, Impaired Funct Balance , Impaired I ADL's, Impaired Self-Care Skills Pt admitted to ARU following acute hospitalization for CVA. Pt demonstrates decreased strength on left side, impaired ability to perform ADLs and transfers. Pt to benefit from skilled OT intervention for ADL training, transfers, strengthening, adaptive equipment training as needed and home safety education to improve level of independence and allow safe discharge plan. Discharge Recommendations Plan/Recommendations: Continue POC Treatment Plan/Plan of Care Treatment,Training & Education: Yes Patient would benefit from OT for education, treatment and training to promote independence in ADL's, mobility, safety and/or upper extremity function for ADL' s. Plan of Care: ADL Retraining, Functional Mobility, UE Funct Exercise/Act Treatment Duration: Aug 07, 2016 # of days/week 5-6 Minutes/Day (M-F): 60-90 Minutes/Day (Sat/Parra): PRN Rehab Potential: Good Time/GCodes Start Time: 09:10 Stop Time: 10:15 Total Time Billed (hr/min): 55 Billed Treatment Time 1 visit, EVM(10minutes), ADLx3(45minutes) [id number] OT eval [id number] PT eval [id number] Co-treat with PT GEOVANNA MCKENZIE OT Jul 10, 2016 12:00
--- NOTE | 2016-07-10 14:36 | Therapy Group Daily Note ---
Therapy Daily Group Note Patient Education Topic Home Safety Exercises LE Seated Exercise, UE Exercise Other/Notes Pt was an active participant in OT group. She introduced herself and shared something that she likes to do in the spring (fishing). She contributed to group education/discussion on home safety and fall prevention. She did seated exercises as she was able, with some physical assistance to modify them. At the end of the group, she was able to recall the springtime activities of the other group members. She was returned to her room per w/c, requiring total assist of two people to get her back into bed and supine. 4 rails up, call light accessible. Start Time: 13:00 Stop Time: 14:10 Total Billed Treatment Time: 70 Total Billed Treatment visit, 70 minutes group BHARTI HEART OT Jul 10, 2016 14:36
--- NOTE | 2016-07-10 15:28 | ST Dysphagia Evaluation ---
Speech Evaluation-General Medical Diagnosis CVA Onset Date: Jul 09, 2016 Therapy Diagnosis Therapy Diagnosis: Mild Oropharyngeal Dysphagia Precautions Precautions: Aspiration Precautions/Isolations: Fall Prevention, Standard Precautions Referral Referring Physician: Dr. Parish Walker Reason for Referral: Evaluation/Treatment Clinical Bedside Swallowing Evaluation Medical History Pertinent Medical History: Arthritis, CABG, CAD, DM, GERD, HTN, [place] Reviewed History: Yes Social History Current Living Status: Alone Speech PLF/Current-Dysphagia Prior Level of Function The patient reported she "sometimes" has difficulty swallowing liquid consistencies which results in coughing. The patient stated the "coughing" does not occur very often, "maybe once a week." The patient is currently receiving a regular diet with thin liquids. Subjective The patient was recently admitted to [facility] following a CVA. The patient greeted the clinician upon admission and agreed to participate in the dysphagia evaluation. To note, the patient was evaluated on while on the acute floor. No signs/symptoms of aspiration were observed throughout the previous evaluation. The patient and RN stated the patient "coughing two times" during her noon meal with iced tea. Per patient, she coughed with the iced tea during her noon meal, however, did not have any difficulty with any consistency during breakfast or any consistency following lunch (since the coughing). CXR: 07/08/16: No acute abnormalities seen. Cognitive Status Patient Orientation: Person, Place, Time, Situation Oral Motor Skills Dentition: Natural Denture Type: Partial- Lower Current Food Consistancy: Regular, Thin Liquids Ability to Follow Directions: Good Oral Expression Ability: Mild Impairment Voice Voice Phonatory-Based Quality: Glottal Quinn Voice Pitch: Normal Voice Loudness: Normal Face Facial Symmetry: Asymmetrical (Slight right facial/labial droop and weakness noted.) Oral-Facial Assessment Oral-Facial Dentition: Normal Labial Seal Description: Weak (Right) Smile: Droops Right Puff Cheeks: Reduced Strength (Right) Lingual Protrusion: Normal Lingual ROM: Normal Lingual Strength: Normal Pharynx Velopharyngeal Move.: Normal Volitional Dry Swallow: Yes Dysphagia Evaluation Consistencies Presented: Regular, Thin Liquid (Via teaspoon, cup sip, and straw ), Pureed 1. Mildly increased mastication time was noted with solid consistencies tested. Pharyngeal Phase: Reduced Laryngeal Elevation 1. Mildly reduced and delayed laryngeal elevation upon swallow initiation. - Thin Liquid (via teaspoon and cup sip): No signs/symptoms of aspiration were demonstrated with multiple boluses of thin liquid via teaspoon or cup sip. The patient's vocal quality remained clear with this administration method. - Thin Liquid (via straw): The patient demonstrated a slightly "wet" vocal quality following two of two drinks of thin liquid via straw sip. - Puree: No signs/symptoms of aspiration were demonstrated with multiple boluses of puree. The patient's vocal quality remained clear. - Solid: No signs/symptoms of aspiration were demonstrated with multiple bites of a solid consistency. The patient's vocal quality remained clear. Dietary Recommendations: Regular Liquid Recommendations: Thin Swallowing Precautions: No Straw, Small Bites and Sips, Sitting 90 Degrees 30 Post Intake 1. Alert and upright for all PO intake. Dysphagia Evaluation Summary The patient demonstrated mild oropharyngeal dysphagia characterized by reduced labial strength and decreased laryngeal elevation. Speech Short Term Goals Short Term Goals Short Term Goals 1. The patient will demonstrate oral motor exercises with 90% accuracy, independently. 2. The patient will demonstrate 80% accuracy with structured executive functioning and problem solving tasks with mild clinician verbal cueing. 3. The patient will demonstrate dysphagia exercises with 90% accuracy and mild clinician cueing. Time Frame-STG: Two Weeks Speech Nursing Home Goals Water Hauler Goals 1. The patient will demonstrate improved cognitive linguistic skills for increased safety and function with ADL's in the least restrictive setting. 2. The patient will tolerate the least restrictive diet without signs/symptoms of aspiration or laryngeal penetration. Time Frame: Six Weeks Speech-Plan Treatment Plan Speech Therapy Treatment Plan: Continue Plan of Care Continue skilled speech therapy to target dysphagia strengthening exercises and oral motor exercises. Treatment Duration: August 21, 2016 # of days/week Five. Visits Per Week: Five Minutes/Day (M-F): 30 Rehab Potential: Good Safety Risks/Education Teaching Recipient: Patient Teaching Methods: Discussion Response to Teaching: Verbalize Understanding Education Topics Provided: Results, Recommendations Time Speech Therapy Time In: 14:45 Speech Therapy Time Out: 15:00 Total Billed Time: 15 Billed Treatment Time 1JOHN ELIZABETH Jul 10, 2016 15:28
[2016-07-10 17:00] VITALS: BP 138/74
[2016-07-10] MEDS: metFORMIN 500 MG (GLUCOPHAGE) TAB PO SCH (17:03)
[2016-07-10] MEDS: meTOprolol TARTRATE 50 MG (LOPRESSOR) TAB PO SCH (20:09)
[2016-07-10] MEDS: VALSARTAN 80 MG (DIOVAN) TAB PO SCH (21:41)
[2016-07-10] MEDS: SIMvastatin 10 MG (ZOCOR) TAB PO SCH (21:41)
[2016-07-10] MEDS: DORZOLAMIDE 2% 10 ML BTL (TRUSOPT) OU SCH (21:49)
[2016-07-10] MEDS: LATANOPROST 0.005% (XALATAN) OPHTH SOLN 2.5 ML OU SCH (21:49)
[2016-07-11 05:35] VITALS: BP 162/71
[2016-07-11] MEDS: metFORMIN 500 MG (GLUCOPHAGE) TAB PO SCH ×2 (06:59→16:51)
[2016-07-11] MEDS: GLIMEPIRIDE 4 MG (AMARYL) TAB PO SCH (06:59)
[2016-07-11] MEDS: MULTIVIT W/MINERALS TAB (THERAGRAN M) PO SCH (06:59)
[2016-07-11] MEDS: ASPIRIN E.C. 81 MG (ECOTRIN) TAB PO SCH (08:01)
[2016-07-11] MEDS: meTOprolol TARTRATE 50 MG (LOPRESSOR) TAB PO SCH ×2 (08:01→20:12)
[2016-07-11] MEDS: DORZOLAMIDE 2% 10 ML BTL (TRUSOPT) OU SCH ×2 (08:01→21:27)
[2016-07-11] MEDS: VALSARTAN 80 MG (DIOVAN) TAB PO SCH ×2 (08:37→21:27)
--- NOTE | 2016-07-11 08:45 | Speech Therapy Daily Note ---
Speech Daily Progress Note Subjective The patient was sleeping upon entrance, however, easily roused with gentle verbal prompts. The patient was agreeable to participation in dysphagia therapy on this date. Patient's [id number] was present for the treatment session. Objective Diet Analysis/Tolerance: The patient's swallowing function was re-assessed throughout her morning meal (without straws), as well as, with administration of morning medication (whole with thin liquid). The patient's breakfast contained pancakes and orange juice. The clinician cut the patient's pancake for her, however, the patient self-fed. No signs/symptoms of aspiration were demonstrated with multiple boluses of pancake, orange juice, and medication. The patient's vocal quality remained clear throughout the session. Swallowing strategies and recommendations were reviewed with the patient and daughter-in- law, including the exclusion of straws. Assessment Assessment Current Status: Good Progress Treatment Plan Continue Plan of Care Speech Short Term Goals Short Term Goals Short Term Goals 1. The patient will demonstrate oral motor exercises with 90% accuracy, independently. 2. The patient will demonstrate 80% accuracy with structured executive functioning and problem solving tasks with mild clinician verbal cueing. 3. The patient will demonstrate dysphagia exercises with 90% accuracy and mild clinician cueing. Time Frame-STG: Two Weeks Speech Senior Care Goals Children[employer] Club Attendant Goals 1. The patient will demonstrate improved cognitive linguistic skills for increased safety and function with ADL's in the least restrictive setting. 2. The patient will tolerate the least restrictive diet without signs/symptoms of aspiration or laryngeal penetration. Time Frame: Six Weeks Speech-Plan Treatment Plan Speech Therapy Treatment Plan: Continue Plan of Care Continue skilled speech therapy to target labial, lingual, and pharyngeal strength. Treatment Duration: August 21, 2016 # of days/week Five. Visits Per Week: Five Minutes/Day (M-F): 30 Rehab Potential: Good Safety Risks/Education Teaching Recipient: Patient, Family Teaching Methods: Discussion Response to Teaching: Verbalize Understanding, Return Demonstration Education Topics Provided: Swallowing Strategies, Signs/Symptoms of Aspiration Time Speech Therapy Time In: 08:00 Speech Therapy Time Out: 08:30 Total Billed Time: 30 Billed Treatment Time 1GISELLE ELIZABETH Jul 11, 2016 08:45
--- NOTE | 2016-07-11 09:49 | HISTORY AND PHYSICAL ---
DATE OF ADMISSION: 07/10/2016 CHIEF COMPLAINT: Difficulty with walking. HISTORY OF PRESENT ILLNESS: The patient is an 85 year-old female who was admitted via the ED to [facility] due to weakness and slurred speech. The patient had been modified independent with a quad cane prior to this and able to swallow food without too much difficulty. MRI of the brain revealed lacunar infarct in the cherelle. The patient was started on therapies on the medical floor. She had continued left-sided weakness with speech, expressive aphasia. She was progressing and she was referred to Inpatient Rehabilitation Unit for comprehensive inpatient stroke rehabilitation. Currently, she requires assistance for ADLs and mobility skills PAST MEDICAL HISTORY: 1. Bladder incontinence. 2. Depression. 3. Hypertension. 4. Diabetes mellitus. 5. There is also a history of presbycusis. 6. Glaucoma. 7. She vmi-vfegqza-kxkjvxqyi. 8. Chronic back pain. 9. Gout. 10. Arthritis. 11. She has degenerative disc disease of the lumbar spine. 12. GERD. SOCIAL HISTORY: Prior to hospitalization she was living alone in [place] but has supportive family nearby. 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 Adenoidectomy. 2. Breast cancer, breast mastectomy. 3. CABG. 4. Coronary stent. 5. Eye surgery. 6. Cholecystectomy. 7. Tonsillectomy. ALLERGIES: 1. FREDY INHIBITORS. 2. CALCIUM CHANNEL BLOCKING AGENT. 3. PENICILLIN. 4. TETANUS VACCINE. 5. TOXOID CLINDAMYCIN. FAMILY HISTORY: Noncontributory.. REVIEW OF SYSTEMS: Ten-point review of systems significant for difficulty with speech, left-sided weakness. MEDICATIONS: 1. ASA 81 mg p.o. daily. 2. Glimepiride 4 mg p.o. daily. 3. Multivitamins with minerals 1 tablet p.o. daily. 4. Trusopt 2%, one drop each eye b.i.d. 5. Xalatan eyedrops, one drop each eye at bedtime. 6. Simvastatin 10 mg p.o. at bedtime. 7. Diovan 80 mg p.o. b.i.d. 8. Metoprolol 100 mg p.o. b.i.d. 9. Metformin 500 mg p.o. b.i.d. with meals. PHYSICAL EXAMINATION: Physical examination is significant for a female, appearing her stated age, alert and oriented in no acute distress. VITAL SIGNS: Blood pressure 148/72, respirations 18, pulse 64. She is afebrile. O2 sat is 97% on 1 liter of O2 by nasal cannula. Respirations 18. HEENT: Vision is grossly intact. Hearing mildly impaired, speech - some word finding difficulty. No oral lesion is noted. NECK: Supple without mass. HEART: Regular rhythm. LUNGS: Clear. ABDOMEN: Soft, nontender. Bowel sounds present. EXTREMITIES: No lower leg edema. No calf tenderness. MUSCULOSKELETAL: The patient has functional passive range of motion in all 4 extremities NEUROLOGICAL: Strength right shoulder is 2+/5, distal 4/5, left upper limb grossly 2/5 to 2+/5. The patient had to keep her head turned to the right. She was able to track left and identify objects in the left visual field with cues. She is right-hand dominant. She has limited passive range of motion of the left shoulder. She is fairly dependent for lower body dressing, and transfers. Max assist for upper body dressing, bathing. Mod assist for grooming and set up for eating. Lower extremities: Both knees lack grossly 10 to 15 degrees from full extension. Right lower extremity strength as grossly 3+ 4/5, left lower extremity strength is 3+/5 at the ankle, 3-/5 with knee extension, 1+/5 knee flexion, 1 +/5 hip flexion. She has poor coordination on the left side and some mild left-sided neglect but she will scan to the left when cued. The patient is nonambulatory at this point. Unable to attempt ambulation due to dependent standing balance. IMPRESSION: 1. Ambulatory dysfunction secondary to lacunar infarct involving the cherelle with resulting left-sided weakness and dysarthria. 2. Mild oropharyngeal dysphagia characterized by reduced labial strength with decreased laryngeal elevation. 3. Diabetes mellitus, controlled on medication. 4. Hypertension controlled with medication. PLAN: The patient will comprehensive program of inpatient stroke rehabilitation with goal of maximizing level of functional dependence prior to discharge home with family with home health care. The patient will have PT/OT 90 minutes per day each discipline, 5 days a week, when not being seen by speech therapy, for gait strengthening, conditioning, balance, ADLs, any patient/family/caregiver training necessary, any adaptive equipment and training necessary. Speech therapy to see the patient for ongoing speech. Her cognition, swallow issues 3 to 5 times a week for 30 to 45 minutes sessions for 2 to 3 weeks. Rehabilitation nursing assist with bowel, bladder, skin care, medication administration, pain management. business services director to assist with discharge planning, community reentry. Follow-up with Dr. Rodriguez, PCP as per his schedule. Check labs in a.m. Therapy cardiac and fall precautions. SCDs for DVT prophylaxis. Monitor Accu-Cheks and adjust medications as needed. ESTIMATED LENGTH OF STAY: Three weeks. PROGNOSIS: Rehab prognosis appears good for goal of discharging home with family and home health care, hopefully modified independent to supervision for ADLs, mobility skills with improved of swallow, speech and cognitive skills. DIET: Heart healthy. CODE STATUS: Full code. SCDs for DVT prophylaxis. Respiratory therapy to assist with monitoring O2 sats providing O2 as needed maintain stats more than 92%. POST ADMISSION PHYSICIAN ASSESSMENT: The preadmission screen agrees with the post admission assessment that the patient is a good candidate for inpatient rehabilitation. The patient appears willing to participate in 3 hours therapy a day. She should be able tolerate 3 hours of therapy a day from a medical standpoint. She should benefit from the 3 hours of therapy a day. She has a reasonable discharge plan, reasonable discharge rehabilitation goals and a supportive family. She has various comorbidities that need to be closely monitored with medications and treatments adjusted on a daily basis as needed. These include her diabetes mellitus and hypertension. Barriers to discharge for this patient who had been modified independent with a quad cane prior to this are for him to be modified independent to supervision for ADLs, mobility. communication and swallow skills prior to discharge home so as to lessen the burden of the caregivers. Risks for this patient include: 1. Recurrent stroke. 2. Fall. 3. Fracture. 4. DVT. 5. Pulmonary embolism. 6. Urinary retention. 7. UTI. 8. Respiratory infection. 9. Aspiration. 10. Poorly controlled diabetes mellitus. 11. Poorly controlled hypertension. Job ID: [id number] Dictated Date: 07/10/2016 17:09:56 Safety Sealer Date: 07/11/2016 09:14:12/vesta COONEY
--- NOTE | 2016-07-11 10:00 | Physical Therapy Daily Note ---
PT Daily Note-Current Subjective Pt supine in bed with head raised upon arrival. Pt reports not sleeping well and having pain in RLE rating 3/10 and LLE cramping last night at 3/10. Pt agrees to PT. Pain Numeric Pain Scale: 3 Location: Right Location Body Site: Knee Pain Description: Ache Mental Status Patient Orientation: Person, Place, Situation Transfers Functional [place] Measure 0=Not Assessed/NA 4=Minimal Assistance 1=Total Assistance 5=Supervision or Setup 2=Maximal Assistance 6=Modified [place] 3=Moderate Assistance 7=Complete IndependenceIRFPAI Quality Coding Scale 6 Independent with activity with or without an assistive device 5 Patient requires set up or clean up by helper. Patient completes activity by themselves 4 Supervision or touching assist (CGA). [place] provide cues , steadying assist 3 The helper provides less than half the effort to complete the activity 2 The helper provides more than half the effort to complete the activity 1 Dependent. The helper does all the effort to complete an activity 7 Patient refused to complete or attempt activity 9 The patient did not perform the activity before the current illness or injury 88 Not attempted due to Medical conditions or safety concerns Transfers (B, C, W/C) (FIM): 1 Scootin Supine to/from Sit: 2 Sit to/from Stand: 1 Sit to Stand (QC): 1 Chair/Ctw-cu-Uddrc Xfer(QC): 1 Bed to/from Chair: 1 Wheelchair Training Does the Pt Use a Wheelchair?: Yes Distance: 0' Type of Wheelchair: Manual Pt transferred to [facility] at end of tx to complete ADLs with OT. Exercises Supine Ex: Ankle pumps, Quad Set, Heel Slides, Straight leg raise, Hip abd/add Supine Reps: 20 Treatments Pt very sleepy since not sleeping well last night so had to continue to wake pt up during tx. Pt gave update to PT for how she did last night and how pain was. Pt completed Supine EX at [facility]. Pt able to complete slightly better with RLE but was PROM with LLE. OT arrived to assist with EOB sitting due to pt's weakness and sleepiness. OT assisted pt with putting shorts on before SPT to [facility]. Pt is Max A for transfer due to weakness. Pt's neck is very stiff due to how she was laying on it. PT leaves pt with OT at end of tx with all needs met. Assessment Current Status: Poor Progress Pt is very sleepy this morning as well as continues to be weak especially on L side. Pt is offered pain med by nursing this morning as well as PT during tx but pt declines due to "taking too much medicine already". PT Short Term Goals Short Term Goals Time Frame: Jul 24, 2016 PT Assisted Goals Production Potter Goals PT Production Potter Goals Time Frame: Aug 07, 2016 Transfers (B,C,W/C) (FIM): 6 Sit to Lying (QC): 6 Lying-Sitting on Side/Bed(QC): 6 Sit to Stand (QC): 6 Rollin Roll Left to Right (QC): 6 Chair/Enp-iq-Ptfys Xfer(QC): 6 Car Transfer (QC): 5 Does the Patient Walk: No and Walking Goal IS indicated Gait (FIM): 4 Gait distance (FIM): 0=139-60 ft Distance: 75 Walk 10 feet (QC): 6 Walk 10ft-Uneven Surface(QC): 4 Walk 50ft with 2 Turns (QC): 6 Walk 150 ft (QC): 4 Gait Level of Assist: 6 Gait Assistive Device: FWW Does the Pt use WC or Scooter?: No Stairs (FIM): 2 # of Steps: 3 1 Step (curb) (QC): 2 4 Steps (QC): 9 12 Steps (QC): 9 Stairs Level Of Assist: 2 Picking up an Object (QC): 4 PT Plan Problem List Problem List: Activity Tolerance, Functional Strength, Safety, Balance, Gait, Transfer, Bed Mobility, ROM Treatment/Plan Treatment Plan: Continue Plan of Care Treatment Plan: Bed Mobility, Education, Functional Activity Perla, Functional Strength, Group Therapy, Gait, Safety, Therapeutic Exercise, Transfers Treatment Duration: Aug 07, 2016 Visits Per Week: 10-11 Minutes/Day (M-F): 60-90 Minutes/Day (Sat/Parra): PRN Safety Risks/Education Patient Education: Transfer Techniques, Correct Positioning, Safety Issues Teaching Recipient: Patient Teaching Methods: Discussion Response to Teaching: Reinforcement Needed Time/GCodes Time In: 900 Time Out: 950 Total Billed Treatment Time: 50 Total Billed Treatment visit, FA X2 (25m) & EX (15m) Co-treat w/ OT: 940-950 (10m) OT worked on ADL and PT worked on balance and hand placement during ADL. TERESA GILLIAM FRONT ATTENDANT Jul 11, 2016 10:00
--- NOTE | 2016-07-11 13:16 | Occupational Ther Daily Note ---
OT Current Status-Daily Note Subjective Pt in bed with PT present. Pt reports she did not sleep well last night. Pt reports pain in LE with movement. Mental Status/Objective Functional [place] Measure 0=Not Assessed/NA 4=Minimal Assistance 1=Total Assistance 5=Supervision or Setup 2=Maximal Assistance 6=Modified [place] 3=Moderate Assistance 7=Complete [place] ADL-Treatment PT present upon therapists arrival. Co-treat with PT for transfer and LE dressing secondary to level of skilled intervention required. Pt supine to sit with assist x2. Assist required to scoot to EOB. LE dressing completed at EOB. Pt requires assist to start shorts over feet. Stood with assist x2 for pant hike. OT focusing on ADL completion and PT focusing on standing balance and mobility. Transfer to w/c with assist x2. Pt completed further ADLs while seated in chair. Pt doffed shirt with maximal assistance and skilled cues for technique. Pt completed partial sponge bath. Pt able to wash left UE, chest, and abdomen with increased time. Assist to wash left UE. Pt instructed in UE dressing technique. Pt required maximal assistance to complete task. Pt combed hair with minimal assistance to reach back of head. Pt states she only has a few teeth and she normally uses mouthwash to rinse. Family will bring mouthwash to pt. Declined to put dentures in mouth. Pt rinsed mouth with water with minimal assistance. Pt fatigues with activity and requires rest breaks throughout ADLs. Increased time for ADL completion. Functional [place] Measure 0=Not Assessed/NA 4=Minimal Assistance 1=Total Assistance 5=Supervision or Setup 2=Maximal Assistance 6=Modified [place] 3=Moderate Assistance 7=Complete IndependenceIRFPAI Quality Coding Scale 6 Independent with activity with or without an assistive device 5 Patient requires set up or clean up by helper. Patient completes activity by themselves 4 Supervision or touching assist (CGA). [place] provide cues , steadying assist 3 The helper provides less than half the effort to complete the activity 2 The helper provides more than half the effort to complete the activity 1 Dependent. The helper does all the effort to complete an activity 7 Patient refused to complete or attempt activity 9 The patient did not perform the activity before the current illness or injury 88 Not attempted due to Medical conditions or safety concerns Grooming (FIM): 4 Oral Hygiene (QC): 4 Upper Body (FIM): 2 Upper Body Dressing (QC): 2 Lower Body Dressing (FIM): 1 Lower Body Dressing (QC): 1 Other Treatment Pt tends to keep head turned to right. Pt practiced scanning to left, is able to complete with verbal cues. Left UE ROM exercises completed to increase active ROM and strength. [place] completed x10 reps at all joints. Pt fatigues with activity and requires rest breaks during exercises. Pt requests to remain in w/c after session. Pt sitting in w/c with needs met after session. OT Short Term Goals Short Term Goals Time Frame: Jul 24, 2016 Bathing(FIM): 3 Upper Body Dressing(FIM): 4 Lower Body Dressing(FIM): 3 Toileting(FIM): 3 Toilet/Commode Transfer(FIM): 3 Shower Transfer(FIM): 3 Additional Short Term Goals: 1-Demonstrate ADL Tasks, 2-Verbalize Understanding , 3-ImproveStrength/Perla 1=Demonstrate adherence to instructed precautions during ADL tasks. 2=Patient will verbalize/demonstrate understanding of assistive devices/ modifications for ADL. 3=Patient will improve strength/tolerance for activity to enable patient to perform ADL's. OT Furnace Installer Goals Alf Goals Time Frame: Aug 07, 2016 Eating (FIM): 6 Eating (QC): 6 Groomin Oral Hygiene (QC): 5 Bathing(FIM): 5 Shower/Bathe Self (QC): 5 Upper Body Dressing(FIM): 5 Upper Body Dressing (QC): 5 Lower Body Dressing(FIM): 5 Lower Body Dressing (QC): 5 On/Off Footwear (QC): 5 Toileting(FIM): 5 Toileting Hygiene (QC): 5 Toilet/Commode Transfer(FIM): 5 Toilet/Commode Transfer (QC): 5 Shower Transfer(FIM): 5 Additional Goals: 1-Demonstrate ADL Tasks, 2-Verbalize Understanding, 3- ImproveStrength/Perla 1=Demonstrate adherence to instructed precautions during ADL tasks. 2=Patient will verbalize/demonstrate understanding of assistive devices/ modifications for ADL. 3=Patient will improve strength/tolerance for activity to enable patient to perform ADL's. OT Education/Plan Problem List/Assessment Pt admitted to ARU following acute hospitalization for CVA. Pt demonstrates decreased strength on left side, impaired ability to perform ADLs and transfers. Pt to benefit from skilled OT intervention for ADL training, transfers, strengthening, adaptive equipment training as needed and home safety education to improve level of independence and allow safe discharge plan. Discharge Recommendations Plan/Recommendations: Continue POC Treatment Plan/Plan of Care Patient would benefit from OT for education, treatment and training to promote independence in ADL's, mobility, safety and/or upper extremity function for ADL' s. Plan of Care: ADL Retraining, Functional Mobility, UE Funct Exercise/Act Treatment Duration: Aug 07, 2016 Minutes/Day (M-F): 60-90 Minutes/Day (Sat/Parra): PRN Rehab Potential: Good Time/GCodes Start Time: 09:40 Stop Time: 10:55 Total Time Billed (hr/min): 75 Billed Treatment Time 1 visit, ADLx3(50minutes), NMx2(25minutes) [id number] Co-treat with PT [id number] Individual treatment GEOVANNA MCKENZIE OT Jul 11, 2016 13:16
--- NOTE | 2016-07-11 13:53 | PM & R (SOAP) Progress Note ---
Subjective Subjective/Events-last exam Patient was seen in her room this AM Adjusting well to unit Reviewe labs and current therapy assessments.Patient with mild oropharangeal dysphagia. Review of Systems Pulmonary: Dyspnea Neurological: Weakness Objective Exam Last Set of Vital Signs Vital Signs Date Time Temp Pulse Resp B/P (MAP) Pulse Ox O2 Delivery O2 Flow Rate FiO2 07/11/16 09:01 Nasal Cannula 1.00 07/11/16 05:35 97.5 72 16 162/71 96 Capillary Refill : I&O Bad tableGeneral: Alert, Oriented X3, Cooperative, No Acute Distress HEENT: Atraumatic, PERRLA, EOMI, Mucous Memb Moist/[place], Other (02 by N/C in place) Neck: Supple, No JVD Lungs: Clear to Auscultation Heart: Regular Rate Abdomen: Normal Bowel Sounds, Soft Extremities: No Edema Neuro: Other (mild left sided weakness as per H&P) Results Lab Laboratory Tests 07/11/16 05:15: Glucometer 122H Assessment/Plan Assessment 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
--- NOTE | 2016-07-11 14:02 | Individualized Plan of Care ---
Individualized Plan of Care Rehab Nursing IPOC Order Admission Date Jul 10, 2016 at 09:11 Current Orders Orders Patient Visit (07/10/16 ) Dysphagia Evaluation Std (07/10/16 ) Accucheck Daily@0600 DAILY@0600 (07/10/16 16:41) Admission-Acute Rehab Unit (07/10/16 17:08) Vital Signs: Routine 08,16,00 (07/10/16 17:08) Sequential Compression Device 08,20 (07/10/16 17:08) Social Service (07/10/16 17:08) Rehab Nursing Orders-Ipoc (07/10/16 17:08) Turn And Reposition Q2HR (07/10/16 17:08) Intake & Output Shift Assessme ,, (07/10/16 17:08) Precautions (Aru) (07/10/16 17:08) Weekly Weight (Lbs) WEEK (07/10/16 17:08) Consult Physician (07/10/16 17:12) Nursing Communication (Pt.Care (07/10/16 18:49) Valsartan Tablet (Diovan Tablet) (07/11/16 21:00) Valsartan Tablet (Diovan Tablet) (07/11/16 21:00) Cbc With Automated Diff (07/12/16 06:00) Comprehensive Metabolic Panel (07/12/16 06:00) Patient Visit (07/11/16 ) Dysphagia Therapy (07/11/16 ) Patient Visit (07/11/16 ) Functional Activities, Ea 15 (07/11/16 ) Exercise Therap, Ea 15 Min (07/11/16 ) Rehab Nursing Orders: Bladder Program, Diseage Management, Edu in Press Rel Techn, Hydration Management, Nutrition Management, Pain Management Toilet every (bladder): (hrs): q 2 hours while awake PT IPOC Problem List: Activity Tolerance, Functional Strength, Safety, Balance, Gait, Transfer, Bed Mobility, ROM Treatment Plan: Continue Plan of Care Bed Mobility, Education, Functional Activity Perla, Functional Strength, Group Therapy, Gait, Safety, Therapeutic Exercise, Transfers Treatment Duration: Aug 07, 2016 Visits Per Week: 10-11 Minutes/Day (M-F): 60-90 Minutes/Day (Sat/Parra): PRN OT IPOC Problems: Decreased Activ Tolerance, Decreased UE Strength, Dependent Transfers , Impaired Bed Mobility, Impaired Coordination, Impaired Funct Balance, Impaired I ADL's, Impaired Self-Care Skills OT Problems Pt admitted to ARU following acute hospitalization for CVA. Pt demonstrates decreased strength on left side, impaired ability to perform ADLs and transfers. Pt to benefit from skilled OT intervention for ADL training, transfers, strengthening, adaptive equipment training as needed and home safety education to improve level of independence and allow safe discharge plan. Plan of Care: ADL Retraining, Functional Mobility, UE Funct Exercise/Act Treatment Duration: Aug 07, 2016 Visits Per Week: 10-11 Minutes/Day (M-F): 60-90 Minutes/Day (Sat/Parra): PRN ST IPOC Speech Therapy Treatment Plan: Continue Plan of Care Treatment Duration: August 21, 2016 Visits Per Week: Five Minutes/Day (M-F): 30 Physician IPOC Medical Issues being managed closely and that require the 24 hour availability of a physician: DM HTN Arthritic pain Medical Issues: Bowel/Bladder Function, DVT Prophylaxis, Falls Precautions, Fluid/Electrolyte/Nutrition Balance, Infection Protection, Pain Management, Swallowing Precautions, Other (List) (as per above) Brief Synthesis of Preadmission Screen, Post-Admission Evaluation, and Therapy Evaluations: 85 yo female who lives alone who sustained a small rt cherelle infarct with resulting LHP and a decline in function Has a supportive family nearby [facility] HTN DM Glaucoma DJD of knees PCP DR Rodriguez Medical Prognosis: Good Anticipated Length of Stay: 08/07/16 Rehab Goals Modified Independent for adls and mobility skills and return to PLOF Anticipated discharge destinat: Home with family and [facility] KEI STEPHENS MD Jul 11, 2016 14:02
--- NOTE | 2016-07-11 14:17 | Physical Therapy Daily Note ---
PT Daily Note-Current Subjective Pt. in bed, agrees to therapy. Pt. groans during session with passive movement of LE's, no objective pain rating given. Pt. c/o neck soreness during session. Transfers Functional [place] Measure 0=Not Assessed/NA 4=Minimal Assistance 1=Total Assistance 5=Supervision or Setup 2=Maximal Assistance 6=Modified [place] 3=Moderate Assistance 7=Complete IndependenceIRFPAI Quality Coding Scale 6 Independent with activity with or without an assistive device 5 Patient requires set up or clean up by helper. Patient completes activity by themselves 4 Supervision or touching assist (CGA). [place] provide cues , steadying assist 3 The helper provides less than half the effort to complete the activity 2 The helper provides more than half the effort to complete the activity 1 Dependent. The helper does all the effort to complete an activity 7 Patient refused to complete or attempt activity 9 The patient did not perform the activity before the current illness or injury 88 Not attempted due to Medical conditions or safety concerns Transfers (B, C, W/C) (FIM): 1 Rollin Supine to/from Sit: 1 Exercises Supine Ex: Ankle pumps, Short Arc Quads, Straight leg raise, Hip abd/add Supine Reps: 10 Treatments transfers, supine LE exercises Assessment Current Status: Fair Progress Pt. needs max A with exercises at hip and knee on L LE, min A with R LE. Pt. continues to be max A with transfers, SBA with sitting balance at EOB. Worked on sitting up straight and cervical AROM while sitting at EOB. Pt. max A to transfer sit to supine, dependent to scoot up in bed. Pt. in bed post session with call light in hand and all needs met. PT Short Term Goals Short Term Goals Time Frame: Jul 24, 2016 Wheelchair Distance: 0' PT Detention Goals Building Code Inspector Goals PT Building Code Inspector Goals Time Frame: Aug 07, 2016 Transfers (B,C,W/C) (FIM): 6 Sit to Lying (QC): 6 Lying-Sitting on Side/Bed(QC): 6 Sit to Stand (QC): 6 Rollin Roll Left to Right (QC): 6 Chair/Ofz-ld-Wtrsf Xfer(QC): 6 Car Transfer (QC): 5 Does the Patient Walk: No and Walking Goal IS indicated Gait (FIM): 4 Gait distance (FIM): 2=648-01 ft Distance: 75 Walk 10 feet (QC): 6 Walk 10ft-Uneven Surface(QC): 4 Walk 50ft with 2 Turns (QC): 6 Walk 150 ft (QC): 4 Gait Level of Assist: 6 Gait Assistive Device: FWW Does the Pt use WC or Scooter?: No Stairs (FIM): 2 # of Steps: 3 1 Step (curb) (QC): 2 4 Steps (QC): 9 12 Steps (QC): 9 Stairs Level Of Assist: 2 Picking up an Object (QC): 4 PT Plan Treatment/Plan Treatment Plan: Continue Plan of Care Treatment Plan: Bed Mobility, Education, Functional Activity Perla, Functional Strength, Group Therapy, Gait, Safety, Therapeutic Exercise, Transfers Treatment Duration: Aug 07, 2016 Visits Per Week: 10-11 Minutes/Day (M-F): 60-90 Minutes/Day (Sat/Parra): PRN Time/GCodes Time In: 1330 Time Out: 1400 Total Billed Treatment Time: 30 Total Billed Treatment 1, Ex 10', FA 20' DO MCCARTNEY PT Jul 11, 2016 14:17
[2016-07-11] MEDS: ACETAMINOPHEN 500 MG TAB (TYLENOL) PO PRN (16:51)
[2016-07-11 18:09] VITALS: BP 148/77
[2016-07-11] MEDS ORDERED: VALSARTAN 80 MG (DIOVAN) TAB PO SCH (21:00)
[2016-07-11] MEDS: SIMvastatin 10 MG (ZOCOR) TAB PO SCH (21:27)
[2016-07-11] MEDS: LATANOPROST 0.005% (XALATAN) OPHTH SOLN 2.5 ML OU SCH (21:28)
[2016-07-12 05:15] VITALS: BP 178/67
[2016-07-12 05:33] LABS: BASOPHILS % (AUTO) 0 % (0-10); EOSINOPHILS # (AUTO) 0.3 10^3/uL (0.0-0.3); EOSINOPHILS % (AUTO) 3 % (0-10); LYMPHOCYTES # (AUTO) 1.4 X 10^3 (1.0-4.0); LYMPHOCYTES % (AUTO) 18 % (12-44); MEAN CORPUSCULAR HEMOGLOBIN 30 PG (25-34); MEAN CORPUSCULAR HGB CONC 32 G/DL (32-36); MEAN CORPUSCULAR VOLUME 92 FL (80-99); MEAN PLATELET VOLUME 10.3 FL (7.4-10.4); MONOCYTES # (AUTO) 0.7 X 10^3 (0.0-1.0); MONOCYTES % (AUTO) 9 % (0-12); NEUTROPHILS # (AUTO) 5.2 X 10^3 (1.8-7.8); NEUTROPHILS % (AUTO) 69 % (42-75); PLATELET COUNT 193 10^3/uL (130-400); RED CELL DISTRIBUTION WIDTH 13.6 % (10.0-14.5); WHITE BLOOD COUNT 7.5 10^3/uL (4.3-11.0)
[2016-07-12 05:56] LABS: ALANINE AMINOTRANSFERASE 10 U/L (0-55); ANION GAP 11 MMOL/L (5-14); ASPARTATE AMINO TRANSFERASE 12 U/L (5-34); BILIRUBIN,TOTAL 0.6 MG/DL (0.1-1.0); BLOOD UREA NITROGEN 23 MG/DL (7-18); BUN/CREATININE RATIO 33; CALCIUM 9.1 MG/DL (8.5-10.1); CARBON DIOXIDE 28 MMOL/L (21-32); CHLORIDE 105 MMOL/L (98-107); GFR ESTIMATED > 60; GLUCOSE 88 MG/DL (70-105); POTASSIUM 3.8 MMOL/L (3.6-5.0); SODIUM 144 MMOL/L (135-145)
[2016-07-12] MEDS: GLIMEPIRIDE 4 MG (AMARYL) TAB PO SCH (06:37)
[2016-07-12] MEDS: metFORMIN 500 MG (GLUCOPHAGE) TAB PO SCH ×2 (06:37→18:11)
[2016-07-12] MEDS: MULTIVIT W/MINERALS TAB (THERAGRAN M) PO SCH (06:37)
--- NOTE | 2016-07-12 07:43 | Consultation ---
History of Present Illness History of Present Illness Patient Consulted On(luiza/time) 07/12/16 07:38 Date of Admission July 10, 2016 Reason for Visit: Hypertension and diabetes History of Present Illness 85-year-old female admitted to the rehabilitation floor after spending 2 days on inpatient floor following lacunar infarct of the cherelle. She had been in her normal state of health up until 3 days prior to admission to inpatient. Family reported she began having slurred speech and weakness within a few days of her being admitted. She is a known diabetic as well as hypertensive. She did not receive any anticoagulation therapy in the emergency department due to the timeframe. She was maintained on her aspirin 81 mg daily. Allergies and Home Medications Allergies Coded Allergies: Calcium Channel Blocking Agent Dilt (Verified Allergy, Mild, COUGH, ) FREDY Inhibitors (Verified Allergy, Unknown, 07/08/16) Penicillins (Verified Allergy, Unknown, 07/08/16) Tetanus Vaccines and Toxoid (Verified Allergy, Unknown, 07/08/16) clindamycin (Verified Allergy, Unknown, 07/08/16) Home Medications Aspirin 81 Mg Tablet.dr, 81 MG PO DAILY, (Reported) Brinzolamide 10 Ml Btl, 1 DROP OU BID, (Reported) Glimepiride 4 Mg Tablet, 4 MG PO DAILY, (Reported) Glucosamine HCl/MSM 480 Ml Liquid, 8 OZ PO DAILY, (Reported) Metformin HCl 500 Mg Tablet, 500 MG PO BID, (Reported) Metoprolol Tartrate 100 Mg Tablet, 100 MG PO BID, (Reported) Multivitamin 1 Each Tablet, 1 TAB PO DAILY, (Reported) Pravastatin Sodium 20 Mg Tablet, 20 MG PO HS, (Reported) Travoprost 5 Ml Drops, 1 DROP OU HS, (Reported) Valsartan 40 Mg Tablet, 80 MG PO HS, (Reported) TAKES 1 HOUR AFTER METOPROLOL TAKES 2 (40MG) TABLETS Past Qtjesnw-Waxbex-Jizfjr Hx Patient Social History Alcohol Use: Denies Use Recreational Drug Use: No Smoking Status: Former Smoker Former Smoker/When Quit: Feb 02, 1970 Recent Foreign Travel: No Contact w/Someone Who Travel: No Recent Infectious Disease Expo: No Recent Hopitalizations: No Physical Abuse Screen: No Sexual Abuse: No Immunizations Up To Date Tetanus Booster (TDap): Unknown PED Vaccines UTD: Yes Date of Pneumonia Vaccine: Feb 03, 2012 Date of Influenza Vaccine: Jan 20, 2016 Seasonal Allergies Seasonal Allergies: No Surgeries HX Surgeries: Yes (BILATERAL CATARACT SURGERY, CARTOID ARTERY SURGERY FEB 2014; BREAST BX X 4) Surgeries: Adenoidectomy, Breast, Cardiac, CABG, Coronary Stent, Eye Surgery, Gallbladder, Tonsillectomy, Vascular Surgery Respiratory Hx Respiratory Disorders: No Cardiovascular Hx Cardiac Disorders: Yes (BYPASS x4 ;STENTS; HEART CATH 2004 ) Cardiac Disorders: Coronary Artery Disease, Heart Attack, High Cholesterol, Hypertension Neurological Hx Neurological Disorders: No Reproductive System Hx Reproductive Disorders: No Sexually Transmitted Disease: No HIV/AIDS: No Female Reproductive Disorders: Denies PARENT COACH History: Menopausal Genitourinary Hx Genitourinary Disorders: Yes (INCONTINENCE ) Genitourinary Disorders: Kidney Infection, Bladder Infection Gastrointestinal Hx Gastrointestinal Disorders: Yes Gastrointestinal Disorders: Gastroesophageal Reflux, Hemorrhoids, Ulcer Musculoskeletal Hx Musculoskeletal Disorders: Yes Musculoskeletal Disorders: Degenerate Disk Disease, Osteoporosis, Arthritis, Chronic Back Pain, Gout Endocrine Hx Endocrine Disorders: Yes Endocrine Disorders: Diabetes, Non-Insulin dep HEENT HX ENT Disorders: Yes (WEARS GLASSES - CAN NOT SEE WITHOUT GLASSES VERY WELL ) HEENT Disorders: Cataract, Glaucoma Loss of Vision: Bilateral Hearing Impairment: Hard of Hearing Cancer Hx Cancer: No (four breast biopies ) Psychosocial Hx Psychiatric Problems: Yes Behavioral Health Disorders: Depression Integumentary HX Skin/Integumentary Disorder: No Blood Transfusions Hx Blood Disorders: No Adverse Reaction to a Blood Tr: No Family Medical History Family Medial History: Alcoholism Arthritis 19 FATHER 19 MOTHER CHF 19 MOTHER Cardiovascular disease 19 FATHER 19 MOTHER Dementia Diabetes mellitus 19 MOTHER FH: CHF (congestive heart failure) 19 MOTHER Glaucoma 19 MOTHER Hypercholesterolemia 19 FATHER 19 MOTHER Hypertension 19 FATHER 19 MOTHER Infertility Myocardial infarction 19 FATHER (60 ) 19 MOTHER Neoplasm DAUGHTER (BREAST CANCER) Osteoporosis 19 MOTHER Visual disorder 19 FATHER 19 MOTHER No Family History of: AIDS Abdominal aortic aneurysm Petroleum's disease Alzheimer's disease Aphasia Asthma Cancer of mouth Cataracts Colon cancer Completed stroke Congenital disease Congenital heart disease Coronary thrombosis Cystic fibrosis Deafness or hearing loss Drug abuse Dysphasia Fibrocystic disease of breast Gastroenteritis Headache disorder Kidney disease Not obtainable due to adoption Parkinson's disease Prostate cancer Psychosocial problem Respiratory disorder Seizure disorder Severe allergy Thyroid disease Tuberculosis Review of Systems-General Constitutional: see HPI Physical Exam-General Problems Physical Exam Vital Signs Vital Sign - Last 12Hours 07/10/16 09:10 Temp 98.4 Pulse 64 Resp 18 B/P (MAP) 148/72 Pulse Ox 97 O2 Delivery Nasal Cannula O2 Flow Rate 1.00 Capillary Refill : General Appearance: no apparent distress Eyes: Bilateral Eye Normal Inspection Neck: non-tender Respiratory: lungs clear Cardiovascular: regular rate, rhythm Gastrointestinal: soft Rectal: deferred Back: normal inspection Extremities: other (weakness of lower extremities as well as upper but more pronounced on the left) Assessment/Plan Assessment/Plan Admission Diagnosis/Plan 1. Cerebral infarctlacunar infarct of the cherelle -she maintains aspirin 81 mg daily. 2. Hypertensionlabile She is on metoprolol 100 mg twice daily as well as generic Diovan 80 mg twice daily. 3. Diabetes suspect poorly controlled -She is continued on her home diabetic regimen. 4. Weakness and slurred speech suspect secondary to number 1 -Rehabilitation Clinical Quality Measures DVT/VTE Risk/Contraindication: Risk Factor Score Per Nursin RFS Level Per Nursing on Admit: 4+=Very High MANUEL LEON MD Jul 12, 2016 07:43
[2016-07-12] MEDS: DORZOLAMIDE 2% 10 ML BTL (TRUSOPT) OU SCH ×2 (07:52→20:19)
[2016-07-12] MEDS: meTOprolol TARTRATE 50 MG (LOPRESSOR) TAB PO SCH ×2 (07:53→20:16)
[2016-07-12] MEDS: ASPIRIN E.C. 81 MG (ECOTRIN) TAB PO SCH (07:55)
[2016-07-12] MEDS: ACETAMINOPHEN 500 MG TAB (TYLENOL) PO PRN ×2 (07:56→17:19)
[2016-07-12 08:35] VITALS: BP 159/76
--- NOTE | 2016-07-12 09:00 | PM & R (SOAP) Progress Note ---
Subjective Subjective/Events-last exam Patient was seen in her room this AM Appreciate DR Young note Patient max assist for transfers Family in to visit with patient Objective Exam Last Set of Vital Signs Vital Signs Date Time Temp Pulse Resp B/P (MAP) Pulse Ox O2 Delivery O2 Flow Rate FiO2 07/12/16 08:35 64 159/76 07/12/16 05:15 97.3 18 96 Nasal Cannula 1.00 Capillary Refill : I&O Intake and Output 07/12/16 00:00 Intake Total 570 ml Balance 570 ml Intake Oral 570 ml # Urine Diapers 7 General: Alert, Oriented X3, Cooperative, No Acute Distress HEENT: Atraumatic, PERRLA, EOMI, Mucous Memb Moist/[place], Other (02 by N/C in place) Neck: Supple, No JVD Lungs: Clear to Auscultation Heart: Regular Rate Abdomen: Normal Bowel Sounds, Soft Extremities: No Edema Neuro: Other (mild left sided weakness as per H&P) Results Lab Laboratory Tests 07/11/16 05:15: Glucometer 122H 07/12/16 05:05: White Blood Count 7.5, Red Blood Count 4.20L, Hemoglobin 12.4, Hematocrit 39, Mean Corpuscular Volume 92, Mean Corpuscular Hemoglobin 30, Mean Corpuscular Hemoglobin Concent 32, Red Cell Distribution Width 13.6, Platelet Count 193, Mean Platelet Volume 10.3, Neutrophils (%) (Auto) 69, Lymphocytes (%) (Auto) 18 , Monocytes (%) (Auto) 9, Eosinophils (%) (Auto) 3, Basophils (%) (Auto) 0, Neutrophils # (Auto) 5.2, Lymphocytes # (Auto) 1.4, Monocytes # (Auto) 0.7, Eosinophils # (Auto) 0.3, Basophils # (Auto) 0.0, Sodium Level 144, Potassium Level 3.8, Chloride Level 105, Carbon Dioxide Level 28, Anion Gap 11, Blood Urea Nitrogen 23H, Creatinine 0.70, Estimat Glomerular Filtration Rate > 60, BUN /Creatinine Ratio 33, Glucose Level 88, Calcium Level 9.1, Total Bilirubin 0.6, Aspartate Amino Transf (AST/SGOT) 12, Alanine Aminotransferase (ALT/SGPT) 10, Alkaline Phosphatase 61, Total Protein 6.0L, Albumin 3.0L Assessment/Plan Assessment 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
--- NOTE | 2016-07-12 09:26 | Speech Therapy Daily Note ---
Speech Daily Progress Note Subjective The patient was seated upright in bed upon entrance, reading the newspaper and drinking hot tea. The patient greeted the clinician and agreed to participate in the dysphagia treatment session on this date. To note, the patient was aided in repositioning as she tends to favor the right side. Per patient, her neck is "sore" and it is difficult for her to keep her head in a neutral position. Additional pillows and blankets were used to aid in head positioning. The patient reported increased comfort prior to initiating therapy. Objective Dysphagia and Oral Range of Motion Exercises (to improve swallowing function and safety, as well as, increased verbal intelligibility): The patient demonstrated fair accuracy with dysphagia exercises, however, required maximum clinician verbal prompting for continued alertness (the patient demonstrated increased fatigue throughout the session). The patient displayed 60% accuracy with dysphagia exercises with consistent direct modeling provided by the clinician. Assessment Assessment Current Status: Fair Progress Treatment Plan Continue Plan of Care Communication Comprehension: 4 Expression: 4 Social Cognition Social Interaction: 4 Problem Solvin Memory: 4 Speech Short Term Goals Short Term Goals Short Term Goals 1. The patient will demonstrate oral motor exercises with 90% accuracy, independently. 2. The patient will demonstrate 80% accuracy with structured executive functioning and problem solving tasks with mild clinician verbal cueing. 3. The patient will demonstrate dysphagia exercises with 90% accuracy and mild clinician cueing. Time Frame-STG: Two Weeks Speech Long-Term Goals Hand I Tube Bender Goals 1. The patient will demonstrate improved cognitive linguistic skills for increased safety and function with ADL's in the least restrictive setting. 2. The patient will tolerate the least restrictive diet without signs/symptoms of aspiration or laryngeal penetration. Time Frame: Six Weeks Speech-Plan Treatment Plan Speech Therapy Treatment Plan: Continue Plan of Care Continue skilled speech therapy to target base of tongue, pharyngeal, and laryngeal strengthening exercises for improved safety with swallowing. Treatment Duration: August 21, 2016 # of days/week Five. Visits Per Week: Five Minutes/Day (M-F): 30 Rehab Potential: Good Safety Risks/Education Teaching Recipient: Patient Teaching Methods: Demonstration, Handout, Discussion Response to Teaching: Verbalize Understanding, Return Demonstration, Reinforcement Needed Education Topics Provided: Dysphagia Exercises Time Speech Therapy Time In: 08:45 Speech Therapy Time Out: 09:15 Total Billed Time: 30 Billed Treatment Time 1GISELLE ELIZABETH [facility], 2016 09:26
--- NOTE | 2016-07-12 10:20 | Occupational Ther Daily Note ---
OT Current Status-Daily Note Subjective Pt in bed, agrees to treatment. Mental Status/Objective Functional [place] Measure 0=Not Assessed/NA 4=Minimal Assistance 1=Total Assistance 5=Supervision or Setup 2=Maximal Assistance 6=Modified [place] 3=Moderate Assistance 7=Complete [place] ADL-Treatment Pt agrees to shower this morning. Supine to sit with assist x2. Transfer EOB to shower chair with assist x2. Pt has flexed posture and is unable to take steps. To shower via rolling shower chair. Pt required max assist to doff shirt and socks. Pt able to wash chest, abdomen, left UE and petey area. Assist is required for all other areas. Pt does attempt to use left UE during bathing tasks. Reviewed technique for UE dressing. Dependent to don pullover shirt. Pt required assist x2 to don Depends and pants. Total assist required to don socks. Transfer to recliner chair with assist x2. Pt fatigues quickly with activity and requires occasional rest breaks throughout treatment. Pt requires increased time for all ADLs. Pt combed hair with minimal assistance while seated in chair. Pt in chair with needs met after session. Functional [place] Measure 0=Not Assessed/NA 4=Minimal Assistance 1=Total Assistance 5=Supervision or Setup 2=Maximal Assistance 6=Modified [place] 3=Moderate Assistance 7=Complete IndependenceIRFPAI Quality Coding Scale 6 Independent with activity with or without an assistive device 5 Patient requires set up or clean up by helper. Patient completes activity by themselves 4 Supervision or touching assist (CGA). [place] provide cues , steadying assist 3 The helper provides less than half the effort to complete the activity 2 The helper provides more than half the effort to complete the activity 1 Dependent. The helper does all the effort to complete an activity 7 Patient refused to complete or attempt activity 9 The patient did not perform the activity before the current illness or injury 88 Not attempted due to Medical conditions or safety concerns Grooming (FIM): 5 Bathing (FIM): 2 Bathing Location: L Arm, Chest, Abdomen, Perineal Area Shower/Bathe Self (QC): 2 Upper Body (FIM): 1 Upper Body Dressing (QC): 1 Lower Body Dressing (FIM): 1 Lower Body Dressing (QC): 1 On/Off Footwear (QC): 1 Shower Transfer(FIM): 1 OT Short Term Goals Short Term Goals Time Frame: Jul 24, 2016 Bathing(FIM): 3 Upper Body Dressing(FIM): 4 Lower Body Dressing(FIM): 3 Toileting(FIM): 3 Toilet/Commode Transfer(FIM): 3 Shower Transfer(FIM): 3 Additional Short Term Goals: 1-Demonstrate ADL Tasks, 2-Verbalize Understanding , 3-ImproveStrength/Perla 1=Demonstrate adherence to instructed precautions during ADL tasks. 2=Patient will verbalize/demonstrate understanding of assistive devices/ modifications for ADL. 3=Patient will improve strength/tolerance for activity to enable patient to perform ADL's. OT Long-Term Goals Long-Term Goals Time Frame: Aug 07, 2016 Eating (FIM): 6 Eating (QC): 6 Groomin Oral Hygiene (QC): 5 Bathing(FIM): 5 Shower/Bathe Self (QC): 5 Upper Body Dressing(FIM): 5 Upper Body Dressing (QC): 5 Lower Body Dressing(FIM): 5 Lower Body Dressing (QC): 5 On/Off Footwear (QC): 5 Toileting(FIM): 5 Toileting Hygiene (QC): 5 Toilet/Commode Transfer(FIM): 5 Toilet/Commode Transfer (QC): 5 Shower Transfer(FIM): 5 Additional Goals: 1-Demonstrate ADL Tasks, 2-Verbalize Understanding, 3- ImproveStrength/Perla 1=Demonstrate adherence to instructed precautions during ADL tasks. 2=Patient will verbalize/demonstrate understanding of assistive devices/ modifications for ADL. 3=Patient will improve strength/tolerance for activity to enable patient to perform ADL's. OT Education/Plan Problem List/Assessment Pt admitted to ARU following acute hospitalization for CVA. Pt demonstrates decreased strength on left side, impaired ability to perform ADLs and transfers. Pt to benefit from skilled OT intervention for ADL training, transfers, strengthening, adaptive equipment training as needed and home safety education to improve level of independence and allow safe discharge plan. Discharge Recommendations Plan/Recommendations: Continue POC Treatment Plan/Plan of Care Patient would benefit from OT for education, treatment and training to promote independence in ADL's, mobility, safety and/or upper extremity function for ADL' s. Plan of Care: ADL Retraining, Functional Mobility, UE Funct Exercise/Act Treatment Duration: Aug 07, 2016 Visits Per Week: 10-11 Minutes/Day (M-F): 60-90 Minutes/Day (Sat/Parra): PRN Rehab Potential: Fair Time/GCodes Start Time: 09:15 Stop Time: 10:05 Total Time Billed (hr/min): 50 Billed Treatment Time 1 visit, ADLx3(50minutes) GEOVANNA MCKENZIE OT Jul 12, 2016 10:20
--- NOTE | 2016-07-12 13:34 | Physical Therapy Daily Note ---
PT Daily Note-Current Subjective Pt sleeping upon arrival and easily awakened. Pt agreeable. Pt c/o pain when her knees are flexed beyond 90degrees, otherwise, no complaint of pain. Pt c/o "I am tired" during therapy session. Mental Status Patient Orientation: Person, Place, Situation Pt reports she took Latin in school and was discussing the different endings used in Latin. Pt attempting to teach these word endings. Transfers Functional [place] Measure 0=Not Assessed/NA 4=Minimal Assistance 1=Total Assistance 5=Supervision or Setup 2=Maximal Assistance 6=Modified [place] 3=Moderate Assistance 7=Complete IndependenceIRFPAI Quality Coding Scale 6 Independent with activity with or without an assistive device 5 Patient requires set up or clean up by helper. Patient completes activity by themselves 4 Supervision or touching assist (CGA). [place] provide cues , steadying assist 3 The helper provides less than half the effort to complete the activity 2 The helper provides more than half the effort to complete the activity 1 Dependent. The helper does all the effort to complete an activity 7 Patient refused to complete or attempt activity 9 The patient did not perform the activity before the current illness or injury 88 Not attempted due to Medical conditions or safety concerns Pt is max A of 2 for transfers. Exercises Standing: Sit to Stand Practiced standing and weight shifting R-L with use of overhead track system to mauro pt to upright standing position. Pt stood with assist of 2 people and mauro system 2 bouts for approximately 4-5 min each bout. Pt presents with significant forward flexed posture, flexed hips and knees and head down. Support applied to (L) knee for ext and (L) hip for ext. Hands resting on FWW, occasional support applied to (L) hand as needed. Vc's for pt to stand upright , chest up, head up as she is able. Treatments Ther ex in chair: Passive (L) LE LAQ, hip flexion x 20 each. AAROM (L) hip abd /add. Passive stretching to (L) hamstring and gastroc 3 x 20 sec each. AROM of listed exercises (R) LE x 20 each Pt demonstrates trace PF/DF (L) LE x 10 each. Pt practiced turning her head to the (L) x 10 looking at the clock <->computer x 10 with her eyes to facilitate looking (L). Pt instructed to perform this exercise 10x every hour. Pt performed sitting up from reclined position x 20 using (R) UE on arm rest for assist. Assessment Current Status: Fair Progress Pt ras well. Pt did fatigue with standing but her posture in sitting was improved post therapy. Pt was supported by pillows under (L) UE and under (B) LEs. Pt resting in reclined position post therapy with call light in reach and all needs met. PT Short Term Goals Short Term Goals Time Frame: Jul 24, 2016 Wheelchair Distance: 0' PT Retirement Goals Back Filler Operator Goals PT Retirement Goals Time Frame: Aug 07, 2016 Transfers (B,C,W/C) (FIM): 6 Sit to Lying (QC): 6 Lying-Sitting on Side/Bed(QC): 6 Sit to Stand (QC): 6 Rollin Roll Left to Right (QC): 6 Chair/Grc-zf-Zovne Xfer(QC): 6 Car Transfer (QC): 5 Does the Patient Walk: No and Walking Goal IS indicated Gait (FIM): 4 Gait distance (FIM): 5=729-65 ft Distance: 75 Walk 10 feet (QC): 6 Walk 10ft-Uneven Surface(QC): 4 Walk 50ft with 2 Turns (QC): 6 Walk 150 ft (QC): 4 Gait Level of Assist: 6 Gait Assistive Device: FWW Does the Pt use WC or Scooter?: No Stairs (FIM): 2 # of Steps: 3 1 Step (curb) (QC): 2 4 Steps (QC): 9 12 Steps (QC): 9 Stairs Level Of Assist: 2 Picking up an Object (QC): 4 PT Plan Treatment/Plan Treatment Plan: Continue Plan of Care Treatment Plan: Bed Mobility, Education, Functional Activity Perla, Functional Strength, Group Therapy, Gait, Safety, Therapeutic Exercise, Transfers Treatment Duration: Aug 07, 2016 Visits Per Week: 10-11 Minutes/Day (M-F): 60-90 Minutes/Day (Sat/Parra): PRN Time/GCodes Time In: 1100 Time Out: 1200 Total Billed Treatment Time: 60 Total Billed Treatment 1, ther e x 30 min, FA x 30 min LIN CORREA CPTA Jul 12, 2016 13:34
--- NOTE | 2016-07-12 14:40 | Therapy Group Daily Note ---
Therapy Daily Group Note Patient Education Topic Home Safety Exercises LE Seated Exercise, Balance, Sit to/from Stand, UE Exercise Other/Notes Pt required max A x2 to transfer from recliner to w/c. Pt was transported to OT /PT group via w/c. Group consisted of introductions (name, place, embarrassing childhood memory), socialization, UE/LE seated exercises (pt led), dynamic standing activities, brain teasers, home safety education and problem solving skills. Pt participated in group by contributing to discussions and introduced self without difficulty. Pt unable to stand so standing exercises were modified for safety and limited mobility. Pt was able to complete R UE exercises then APROM with L UE. After therapy, pt transferred with max A x2 to bed. Visitor present in room, call light/phone in reach. All needs met in room. Start Time: 13:00 Stop Time: 14:15 Total Billed Treatment Time: 75 Total Billed Treatment 1-GRP ELÍAS FORREST Jul 12, 2016 14:40
[2016-07-12 17:32] VITALS: BP 172/91
[2016-07-12 18:19] VITALS: BP 160/80
[2016-07-12] MEDS: VALSARTAN 80 MG (DIOVAN) TAB PO SCH (20:15)
[2016-07-12] MEDS: SIMvastatin 10 MG (ZOCOR) TAB PO SCH (20:16)
[2016-07-12] MEDS: LATANOPROST 0.005% (XALATAN) OPHTH SOLN 2.5 ML OU SCH (20:20)
[2016-07-13 05:21] VITALS: BP 150/73
[2016-07-13] MEDS: GLIMEPIRIDE 4 MG (AMARYL) TAB PO SCH (06:33)
[2016-07-13] MEDS: MULTIVIT W/MINERALS TAB (THERAGRAN M) PO SCH (06:33)
[2016-07-13] MEDS: metFORMIN 500 MG (GLUCOPHAGE) TAB PO SCH ×2 (06:33→17:58)
[2016-07-13] MEDS: DORZOLAMIDE 2% 10 ML BTL (TRUSOPT) OU SCH ×2 (08:28→20:44)
[2016-07-13] MEDS: ASPIRIN E.C. 81 MG (ECOTRIN) TAB PO SCH (08:29)
[2016-07-13] MEDS: ACETAMINOPHEN 500 MG TAB (TYLENOL) PO PRN (08:29)
[2016-07-13] MEDS: meTOprolol TARTRATE 50 MG (LOPRESSOR) TAB PO SCH ×2 (08:29→19:55)
--- NOTE | 2016-07-13 10:47 | Physical Therapy Daily Note ---
PT Daily Note-Current Subjective Pt agreeable to transfer to bedside chair. Mental Status Patient Orientation: Person, Place, Time, Situation Transfers Functional [place] Measure 0=Not Assessed/NA 4=Minimal Assistance 1=Total Assistance 5=Supervision or Setup 2=Maximal Assistance 6=Modified [place] 3=Moderate Assistance 7=Complete IndependenceIRFPAI Quality Coding Scale 6 Independent with activity with or without an assistive device 5 Patient requires set up or clean up by helper. Patient completes activity by themselves 4 Supervision or touching assist (CGA). [place] provide cues , steadying assist 3 The helper provides less than half the effort to complete the activity 2 The helper provides more than half the effort to complete the activity 1 Dependent. The helper does all the effort to complete an activity 7 Patient refused to complete or attempt activity 9 The patient did not perform the activity before the current illness or injury 88 Not attempted due to Medical conditions or safety concerns Transfers (B, C, W/C) (FIM): 1 Sit to/from Stand: 1 Sit to Stand (QC): 1 Chair/Szo-wu-Xjrfg Xfer(QC): 1 Exercises Supine Ex: LE Protocol Supine Reps: 20 Assessment Very weak during transfer. Not enough strength during transfer to consider as max assist. PT Short Term Goals Short Term Goals Time Frame: Jul 24, 2016 Wheelchair Distance: 0' PT Briquetting Machine Operator Goals Briquetting Machine Operator Goals PT Mcc Goals Time Frame: Aug 07, 2016 Transfers (B,C,W/C) (FIM): 6 Sit to Lying (QC): 6 Lying-Sitting on Side/Bed(QC): 6 Sit to Stand (QC): 6 Rollin Roll Left to Right (QC): 6 Chair/Roc-yx-Pizpc Xfer(QC): 6 Car Transfer (QC): 5 Does the Patient Walk: No and Walking Goal IS indicated Gait (FIM): 4 Gait distance (FIM): 0=777-42 ft Distance: 75 Walk 10 feet (QC): 6 Walk 10ft-Uneven Surface(QC): 4 Walk 50ft with 2 Turns (QC): 6 Walk 150 ft (QC): 4 Gait Level of Assist: 6 Gait Assistive Device: FWW Does the Pt use WC or Scooter?: No Stairs (FIM): 2 # of Steps: 3 1 Step (curb) (QC): 2 4 Steps (QC): 9 12 Steps (QC): 9 Stairs Level Of Assist: 2 Picking up an Object (QC): 4 PT Plan Treatment/Plan Treatment Plan: Continue Plan of Care Treatment Plan: Bed Mobility, Education, Functional Activity Perla, Functional Strength, Group Therapy, Gait, Safety, Therapeutic Exercise, Transfers Treatment Duration: Aug 07, 2016 Visits Per Week: 10-11 Minutes/Day (M-F): 60-90 Minutes/Day (Sat/Parra): PRN Time/GCodes Time In: 804 Time Out: 829 Total Billed Treatment Time: 25 Total Billed Treatment 1, ex 15, fa 10 RANDY MENESES PT Jul 13, 2016 10:47
[2016-07-13 18:10] VITALS: BP 152/71
[2016-07-13 19:57] VITALS: BP 147/73
[2016-07-13] MEDS: VALSARTAN 80 MG (DIOVAN) TAB PO SCH (20:43)
[2016-07-13] MEDS: SIMvastatin 10 MG (ZOCOR) TAB PO SCH (20:43)
[2016-07-13] MEDS: LATANOPROST 0.005% (XALATAN) OPHTH SOLN 2.5 ML OU SCH (20:44)
--- OUTSIDE RECORDS SUMMARY | 2016-07-14 04:48 | XMS REPORT | Continuity of Care Document ---
Author Author [facility] Organization [facility] Address Unknown Phone Unavailable Allergies Active Description Code Type Severity Reaction Onset Reported/Identified Relationship to Patient Clinical Status Yes Calcium Channel Blocking Agent Dilt [id number] Drug Allergy Mild COUGH 07/08/2016 Yes FREDY Inhibitors [id number] Drug Allergy Unknown N/A 07/08/2016 Yes clindamycin [id number] Drug Allergy Unknown N/A 07/08/2016 Yes Penicillins [id number] Drug Allergy Unknown N/A 07/08/2016 Yes Tetanus Vaccines and Toxoid [id number] Drug Allergy Unknown N/A 07/08/2016 Medications Problems Date Dx Coded Attending Type Code Diagnosis Diagnosed By 03/20/1499 SUMAN TERRELL MD Ot 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 WITH FOOT ULCER 03/20/1499 SUMAN TERRELL MD Ot I70.235 ATHSCL [place] ARTERIES OF RIGHT LEG W UL 03/20/1499 SUMAN TERRELL MD, Ot L03.115 CELLULITIS OF RIGHT LOWER LIMB 03/20/1499 SUMAN TERRELL MD Ot L97.512 NON-PRS CHRONIC ULCER OTH PRT RIGHT FOOT 01/23/2014 JEFFRY OLGUIN MD Ot 401.9 HYPERTENSION NOS 01/23/2014 JEFFRY OLGUIN MD Ot V58.69 OTH MED,LT,CURRENT USE 01/28/2014 JUAN SALCEDO DO Ot 401.9 HYPERTENSION NOS 09/11/2014 SONJA LAZARO MD Ot 250.00 DIAB ALEJANDRA WO COMPL, TYPE II OR UNSPEC TY 09/11/2014 SONJA LAZARO MD Ot 401.9 HYPERTENSION NOS 02/03/2015 Angela BURROUGHS MD Ot E11.9 TYPE 2 DIABETES MELLITUS WITHOUT COMPLIC 02/03/2015 Angela BURROUGHS MD Ot I10 ESSENTIAL (PRIMARY) HYPERTENSION 02/03/2015 Angela BURROUGHS MD Ot I25.10 ATHSCL HEART DISEASE OF [place] CORONARY 02/03/2015 HEIKE BECERRA, M ISABEL Ot R07.9 CHEST PAIN, UNSPECIFIED 05/11/2015 Ot R04.0 EPISTAXIS 05/11/2015 Ot S00.83XA CONTUSION OF OTHER PART OF HEAD, INITIAL 05/11/2015 Ot S13.4XXA SPRAIN OF LIGAMENTS OF CERVICAL SPINE, I 05/11/2015 Ot W01.0XXA FALL SAME LEV FROM SLIP/TRIP W/O STRIKE 05/11/2015 Ot Y92.[address] [facility] (PRIVATE 05/11/2015 Ot Y99.8 OTHER EXTERNAL CAUSE STATUS 07/21/2015 JUSTIN DAILEY MD Ot D69.6 THROMBOCYTOPENIA, UNSPECIFIED 07/21/2015 JUSTIN DAILEY MD Ot 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 WITH FOOT ULCER 07/21/2015 JUSTIN DAILEY MD Ot I10 ESSENTIAL (PRIMARY) HYPERTENSION 07/21/2015 JUSTIN DAILEY MD Ot I25.10 ATHSCL HEART DISEASE OF [place] CORONARY 07/21/2015 JUSTIN DAILEY MD Ot I89.0 LYMPHEDEMA, NOT ELSEWHERE CLASSIFIED 07/21/2015 JUSTIN DAILEY MD Ot K21.9 GASTRO-ESOPHAGEAL REFLUX DISEASE WITHOUT 07/21/2015 JUSTIN DAILEY MD Ot L03.031 CELLULITIS OF RIGHT TOE 07/21/2015 JUSTIN DAILEY MD Ot L03.115 CELLULITIS OF RIGHT LOWER LIMB 07/21/2015 JUSTIN DAILEY MD Ot L97.519 NON-PRS CHRONIC ULCER OTH PRT RIGHT FOOT 07/21/2015 JUSTIN DAILEY MD Ot Z87.891 PERSONAL HISTORY OF NICOTINE DEPENDENCE 07/21/2015 JUSTIN DAILEY MD Ot 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 GRAFT 07/21/2015 JUSTIN DAILEY MD Ot 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 ANGIOPLASTY IMPLANT 07/31/2015 LUCILLE LOMELI APRN Ot E11.649 TYPE 2 DIABETES MELLITUS WITH HYPOGLYCEM 07/31/2015 LUCILLE LOMELI APRN Ot I10 ESSENTIAL (PRIMARY) HYPERTENSION 08/02/2015 LUCILLE LOMELI APRN Ot E11.649 08/02/2015 LUCILLE LOMELI APRN Ot I10 08/16/2015 LUCILLE LOMELI APRN Ot E11.649 TYPE 2 DIABETES MELLITUS WITH HYPOGLYCEM 08/16/2015 LUCILLE LOMELI SILVER WRAPPER Ot I10 ESSENTIAL (PRIMARY) HYPERTENSION 08/23/2015 SUMNA TERRELL MD Ot 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 WITH FOOT ULCER 08/23/2015 SUMAN TERRELL MD Ot I70.235 ATHSCL [place] ARTERIES OF RIGHT LEG W UL 08/23/2015 SUMAN TERRELL MD Ot L03.115 CELLULITIS OF RIGHT LOWER LIMB 08/23/2015 SUMAN TERRELL MD Ot L97.512 NON-PRS CHRONIC ULCER OTH PRT RIGHT FOOT 08/31/2015 JUSTIN DAILEY MD Ot E11.9 TYPE 2 DIABETES MELLITUS WITHOUT COMPLIC 08/31/2015 JUSTIN DAILEY MD Ot E11.9 TYPE 2 DIABETES MELLITUS WITHOUT COMPLIC 09/01/2015 JUSTIN DAILEY MD Ot E11.9 TYPE 2 DIABETES MELLITUS WITHOUT COMPLIC 09/01/2015 JUSTIN DAILEY MD Ot E11.9 TYPE 2 DIABETES MELLITUS WITHOUT COMPLIC 10/02/2015 JUSTIN DAILEY MD Ot E11.9 TYPE 2 DIABETES MELLITUS WITHOUT COMPLIC 02/23/2016 SONJA LAZARO MD, Ot E11.9 TYPE 2 DIABETES MELLITUS WITHOUT COMPLIC 02/23/2016 SONJA LAZARO MD, Ot I10 ESSENTIAL (PRIMARY) HYPERTENSION 02/23/2016 SONJA LAZARO MD Ot I16.0 HYPERTENSIVE URGENCY 02/23/2016 SONJA LAZARO MD Ot R09.89 OTH SYMPTOMS AND SIGNS INVOLVING THE CIR 02/23/2016 SONJA LAZARO MD Ot Z79.82 INTERMEDIATE (CURRENT) USE OF ASPIRIN 02/23/2016 SONJA LAZARO MD, Ot Z79.84 LD TEACHER (CURRENT) USE OF ORAL HYPOGLYC 02/23/2016 SONJA LAZARO MD, Ot Z79.899 OTHER INTERMEDIATE (CURRENT) DRUG THERAPY 02/23/2016 SONJA LAZARO MD Ot 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 ANGIOPLASTY IMPLANT 02/23/2016 Ot 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 02/23/2016 Ot 719.45 JOINT PAIN-PELVIS 02/23/2016 JUSTIN DAILEY MD Ot 722.52 LUMB/LUMBOSAC DISC DEGEN 02/23/2016 JUSTIN DAILEY MD Ot 756.12 SPONDYLOLISTHESIS 02/23/2016 JUSTIN DAILEY MD Ot 518.0 PULMONARY COLLAPSE 02/23/2016 JUSTIN DAILEY MD Ot 518.89 OTHER DISEASES OF LUNG, NEC 02/23/2016 JUSTIN DAILEY MD Ot 786.2 COUGH 02/23/2016 JUSTIN DAILEY MD Ot 793.19 OTHER NONSPECIFIC ABNORMAL FINDING OF EULOGIO 02/23/2016 JUSTIN DAILEY MD Ot E11.9 TYPE 2 DIABETES MELLITUS WITHOUT COMPLIC 02/23/2016 CAROLYN BECERRA, MANUEL [place] Ot R82.90 UNSPECIFIED ABNORMAL FINDINGS IN URINE 02/26/2016 SONJA LAZARO MD, Ot E11.9 TYPE 2 DIABETES MELLITUS WITHOUT COMPLIC 02/26/2016 SONJA LAZARO MD Ot I10 ESSENTIAL (PRIMARY) HYPERTENSION 02/26/2016 SONJA LAZARO MD Ot I16.0 HYPERTENSIVE URGENCY 02/26/2016 SONJA LAZARO MD Ot R09.89 OTH SYMPTOMS AND SIGNS INVOLVING THE CIR 02/26/2016 SONJA LAZARO MD Ot Z79.82 INTERMEDIATE (CURRENT) USE OF ASPIRIN 02/26/2016 SONJA LAZARO MD Ot Z79.84 LD TEACHER (CURRENT) USE OF ORAL HYPOGLYC 02/26/2016 SONJA LAZARO MD Ot Z79.899 OTHER INTERMEDIATE (CURRENT) DRUG THERAPY 02/26/2016 SONJA LAZARO MD Ot 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 ANGIOPLASTY IMPLANT 03/01/2016 SONJA LAZARO MD Ot E11.9 TYPE 2 DIABETES MELLITUS WITHOUT COMPLIC 03/01/2016 SONJA LAZARO MD Ot I10 ESSENTIAL (PRIMARY) HYPERTENSION 03/01/2016 SONJA LAZARO MD Ot I16.0 HYPERTENSIVE URGENCY 03/01/2016 SONJA LAZARO MD Ot R09.89 OTH SYMPTOMS AND SIGNS INVOLVING THE CIR 03/01/2016 SONJA LAZARO MD Ot Z79.82 INTERMEDIATE (CURRENT) USE OF ASPIRIN 03/01/2016 SONJA LAZARO MD Ot Z79.84 LD TEACHER (CURRENT) USE OF ORAL HYPOGLYC 03/01/2016 SONJA LAZARO MD, Ot Z79.899 OTHER LD TEACHER (CURRENT) DRUG THERAPY 03/01/2016 SONJA LAZARO MD Ot 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 ANGIOPLASTY IMPLANT 03/12/2016 CAROLYN BECERRA, MANUEL [place] Ot R82.90 UNSPECIFIED ABNORMAL FINDINGS IN URINE Procedures Results Test Result Range Complete urinalysis with reflex to culture - 02/20/16 11:00 Urine color determination YELLOW NRG Urine clarity determination CLEAR NRG Urine pH measurement by test strip 6.5 5 -9 Specific gravity of urine by test strip 1.010 1.016-1.022 Urine protein assay by test strip, semi-quantitative NEGATIVE NEGATIVE Urine glucose detection by automated test strip NEGATIVE NEGATIVE Erythrocytes detection in urine sediment by light microscopy NEGATIVE NEGATIVE Urine ketones detection by automated test strip NEGATIVE NEGATIVE Urine nitrite detection by test strip NEGATIVE NEGATIVE Urine total bilirubin detection by test strip NEGATIVE NEGATIVE Urine urobilinogen measurement by automated test strip (mass/volume) NORMAL NORMAL Urine leukocyte esterase detection by dipstick 1+ NEGATIVE Automated urine sediment erythrocyte count by microscopy (number/high power field) NONE NRG Automated urine sediment leukocyte count by microscopy (number/high power field ) RARE NRG Bacteria detection in urine sediment by light microscopy NEGATIVE NRG Squamous epithelial cells detection in urine sediment by light microscopy 2-5 NRG Crystals detection in urine sediment by light microscopy NONE NRG Casts detection in urine sediment by light microscopy NONE NRG Mucus detection in urine sediment by light microscopy NEGATIVE NRG Complete urinalysis with reflex to culture NO NRG Complete blood count (CBC) with automated white blood cell (WBC) differential - 02/23/16 17:30 Blood leukocytes automated count (number/volume) 6.5 10*3/ uL 4.3-11.0 Blood erythrocytes automated count (number/volume) 4.38 10*6 /uL 4.35-5.85 Venous blood hemoglobin measurement (mass/volume) 13.0 g/dL 11.5-16.0 Blood hematocrit (volume fraction) 40 % 35-52 Automated erythrocyte mean corpuscular volume 91 [foz_us] 80-99 Automated erythrocyte mean corpuscular hemoglobin (mass per erythrocyte) 30 pg 25-34 Automated erythrocyte mean corpuscular hemoglobin concentration measurement ( mass/volume) 33 g/dL 32-36 Automated erythrocyte distribution width ratio 13.7 % 10.0-14.5 Automated blood platelet count (count/volume) 213 10*3/uL 130-400 Automated blood platelet mean volume measurement 9.6 [foz_us ] 7.4-10.4 Automated blood neutrophils/100 leukocytes 62 % 42-75 Automated blood lymphocytes/100 leukocytes 27 % 12-44 Blood monocytes/100 leukocytes 8 % 0-12 Automated blood eosinophils/100 leukocytes 3 % 0-10 Automated blood basophils/100 leukocytes 0 % 0-10 Blood neutrophils automated count (number/volume) 4.0 10*3 1.8-7.8 Blood lymphocytes automated count (number/volume) 1.8 10*3 1.0-4.0 Blood monocytes automated count (number/volume) 0.5 10*3 0.0-1.0 Automated eosinophil count 0.2 10*3/uL 0.0-0.3 Automated blood basophil count (count/volume) 0.0 10*3/uL 0.0-0.1 Comprehensive metabolic panel - 02/23/16 17:30 Serum or plasma sodium measurement (moles/volume) 141 mmol/ L 135-145 Serum or plasma potassium measurement (moles/volume) 4.1 mmol/L 3.6-5.0 Serum or plasma chloride measurement (moles/volume) 102 mmol /L 98-107 Carbon dioxide 30 mmol/L 21-32 Serum or plasma anion gap determination (moles/volume) 9 mmol/L 5-14 Serum or plasma urea nitrogen measurement (mass/volume) 16 mg/dL 7-18 Serum or plasma creatinine measurement (mass/volume) 0.78 mg /dL 0.60-1.30 Serum or plasma urea nitrogen/creatinine mass ratio 21 NRG Serum or plasma creatinine measurement with calculation of estimated glomerular filtration rate > NRG Serum or plasma glucose measurement (mass/volume) 97 mg/dL 70-105 Serum or plasma calcium measurement (mass/volume) 9.5 mg/dL 8.5-10.1 Serum or plasma total bilirubin measurement (mass/volume) 0.4 mg/dL 0.1-1.0 Serum or plasma alkaline phosphatase measurement (enzymatic activity/volume) 69 U/L 40-136 Serum or plasma aspartate aminotransferase measurement (enzymatic activity/ volume) 16 U/L 5-34 Serum or plasma alanine aminotransferase measurement (enzymatic activity/volume ) 15 U/L 0-55 Serum or plasma protein measurement (mass/volume) 6.7 g/dL 6.4-8.2 Serum or plasma albumin measurement (mass/volume) 3.9 g/dL 3.2-4.5 Serum or plasma troponin i.cardiac measurement (mass/volume) - 02/23/16 17:30 Serum or plasma troponin i.cardiac measurement (mass/volume) < ng/mL <0.30 Complete blood count (CBC) with automated white blood cell (WBC) differential - 07/08/16 07:53 Blood leukocytes automated count (number/volume) 6.3 10*3/ uL 4.3-11.0 Blood erythrocytes automated count (number/volume) 4.59 10*6 /uL 4.35-5.85 Venous blood hemoglobin measurement (mass/volume) 13.5 g/dL 11.5-16.0 Blood hematocrit (volume fraction) 41 % 35-52 Automated erythrocyte mean corpuscular volume 89 [foz_us] 80-99 Automated erythrocyte mean corpuscular hemoglobin (mass per erythrocyte) 29 pg 25-34 Automated erythrocyte mean corpuscular hemoglobin concentration measurement ( mass/volume) 33 g/dL 32-36 Automated erythrocyte distribution width ratio 13.5 % 10.0-14.5 Automated blood platelet count (count/volume) 191 10*3/uL 130-400 Automated blood platelet mean volume measurement 9.8 [foz_us ] 7.4-10.4 Automated blood neutrophils/100 leukocytes 65 % 42-75 Automated blood lymphocytes/100 leukocytes 23 % 12-44 Blood monocytes/100 leukocytes 10 % 0-12 Automated blood eosinophils/100 leukocytes 2 % 0-10 Automated blood basophils/100 leukocytes 1 % 0-10 Blood neutrophils automated count (number/volume) 4.1 10*3 1.8-7.8 Blood lymphocytes automated count (number/volume) 1.5 10*3 1.0-4.0 Blood monocytes automated count (number/volume) 0.6 10*3 0.0-1.0 Automated eosinophil count 0.1 10*3/uL 0.0-0.3 Automated blood basophil count (count/volume) 0.0 10*3/uL 0.0-0.1 PT panel in platelet poor plasma by coagulation assay - 07/08/16 07:53 Prothrombin time (PT) in platelet poor plasma by coagulation assay 13.3 s 12.2-14.7 INR in platelet poor plasma or blood by coagulation assay 1.0 0.8-1.4 Activated partial thromboplastin time (aPTT) in platelet poor plasma bycoagulation assay - 07/08/16 07:53 Activated partial thromboplastin time (aPTT) in platelet poor plasma bycoagulation assay 28 s 24-35 Comprehensive metabolic panel - 07/08/16 07:53 Serum or plasma sodium measurement (moles/volume) 143 mmol/ L 135-145 Serum or plasma potassium measurement (moles/volume) 3.4 mmol/L 3.6-5.0 Serum or plasma chloride measurement (moles/volume) 104 mmol /L 98-107 Carbon dioxide 29 mmol/L 21-32 Serum or plasma anion gap determination (moles/volume) 10 mmol/L 5-14 Serum or plasma urea nitrogen measurement (mass/volume) 18 mg/dL 7-18 Serum or plasma creatinine measurement (mass/volume) 0.77 mg /dL 0.60-1.30 Serum or plasma urea nitrogen/creatinine mass ratio 23 NRG Serum or plasma creatinine measurement with calculation of estimated glomerular filtration rate > NRG Serum or plasma glucose measurement (mass/volume) 78 mg/dL 70-105 Serum or plasma calcium measurement (mass/volume) 9.4 mg/dL 8.5-10.1 Serum or plasma total bilirubin measurement (mass/volume) 0.8 mg/dL 0.1-1.0 Serum or plasma alkaline phosphatase measurement (enzymatic activity/volume) 64 U/L 40-136 Serum or plasma aspartate aminotransferase measurement (enzymatic activity/ volume) 15 U/L 5-34 Serum or plasma alanine aminotransferase measurement (enzymatic activity/volume ) 11 U/L 0-55 Serum or plasma protein measurement (mass/volume) 6.5 g/dL 6.4-8.2 Serum or plasma albumin measurement (mass/volume) 3.7 g/dL 3.2-4.5 Magnesium - 07/08/16 07:53 Magnesium 1.8 mg/dL 1.8-2.4 Serum or plasma creatine kinase measurement (enzymatic activity/volume) - 07/08 07:53 Serum or plasma creatine kinase measurement (enzymatic activity/volume) 41 U/L 29-168 Serum or plasma creatine kinase MB measurement (enzymatic activity/volume) - 07:53 Serum or plasma creatine kinase MB measurement (enzymatic activity/volume) 1.8 ng/mL <6.6 Serum or plasma troponin i.cardiac measurement (mass/volume) - 07/08/16 07:53 Serum or plasma troponin i.cardiac measurement (mass/volume) < ng/mL <0.30 Serum or plasma thyrotropin measurement by detection limit <=0.05 miu/l (units/ volume) - 07/08/16 07:53 Serum or plasma thyrotropin measurement by detection limit <=0.05 miu/l (units/ volume) 2.99 u[iU]/mL 0.35-4.94 Capillary blood glucose measurement by glucometer (mass/volume) - 07/08/16 07: 56 Capillary blood glucose measurement by glucometer (mass/volume) 93 mg/dL 70-110 Complete urinalysis with reflex to culture - 07/08/16 09:00 Urine color determination YELLOW NRG Urine clarity determination CLEAR NRG Urine pH measurement by test strip 8 5- 9 Specific gravity of urine by test strip 1.010 1.016-1.022 Urine protein assay by test strip, semi-quantitative NEGATIVE NEGATIVE Urine glucose detection by automated test strip NEGATIVE NEGATIVE Erythrocytes detection in urine sediment by light microscopy NEGATIVE NEGATIVE Urine ketones detection by automated test strip NEGATIVE NEGATIVE Urine nitrite detection by test strip NEGATIVE NEGATIVE Urine total bilirubin detection by test strip NEGATIVE NEGATIVE Urine urobilinogen measurement by automated test strip (mass/volume) NORMAL NORMAL Urine leukocyte esterase detection by dipstick NEGATIVE NEGATIVE Automated urine sediment erythrocyte count by microscopy (number/high power field) NONE NRG Automated urine sediment leukocyte count by microscopy (number/high power field ) RARE NRG Bacteria detection in urine sediment by light microscopy NEGATIVE NRG Squamous epithelial cells detection in urine sediment by light microscopy 2-5 NRG Crystals detection in urine sediment by light microscopy NONE NRG Casts detection in urine sediment by light microscopy NONE NRG Mucus detection in urine sediment by light microscopy NEGATIVE NRG Complete urinalysis with reflex to culture NO NRG Complete blood count (CBC) with automated white blood cell (WBC) differential - 07/09/16 05:50 Blood leukocytes automated count (number/volume) 6.7 10*3/ uL 4.3-11.0 Blood erythrocytes automated count (number/volume) 4.38 10*6 /uL 4.35-5.85 Venous blood hemoglobin measurement (mass/volume) 12.8 g/dL 11.5-16.0 Blood hematocrit (volume fraction) 39 % 35-52 Automated erythrocyte mean corpuscular volume 90 [foz_us] 80-99 Automated erythrocyte mean corpuscular hemoglobin (mass per erythrocyte) 29 pg 25-34 Automated erythrocyte mean corpuscular hemoglobin concentration measurement ( mass/volume) 33 g/dL 32-36 Automated erythrocyte distribution width ratio 13.5 % 10.0-14.5 Automated blood platelet count (count/volume) 195 10*3/uL 130-400 Automated blood platelet mean volume measurement 9.8 [foz_us ] 7.4-10.4 Automated blood neutrophils/100 leukocytes 71 % 42-75 Automated blood lymphocytes/100 leukocytes 19 % 12-44 Blood monocytes/100 leukocytes 9 % 0-12 Automated blood eosinophils/100 leukocytes 1 % 0-10 Automated blood basophils/100 leukocytes 0 % 0-10 Blood neutrophils automated count (number/volume) 4.8 10*3 1.8-7.8 Blood lymphocytes automated count (number/volume) 1.3 10*3 1.0-4.0 Blood monocytes automated count (number/volume) 0.6 10*3 0.0-1.0 Automated eosinophil count 0.1 10*3/uL 0.0-0.3 Automated blood basophil count (count/volume) 0.0 10*3/uL 0.0-0.1 Comprehensive metabolic panel - 07/09/16 05:50 Serum or plasma sodium measurement (moles/volume) 144 mmol/ L 135-145 Serum or plasma potassium measurement (moles/volume) 3.7 mmol/L 3.6-5.0 Serum or plasma chloride measurement (moles/volume) 105 mmol /L 98-107 Carbon dioxide 28 mmol/L 21-32 Serum or plasma anion gap determination (moles/volume) 11 mmol/L 5-14 Serum or plasma urea nitrogen measurement (mass/volume) 16 mg/dL 7-18 Serum or plasma creatinine measurement (mass/volume) 0.74 mg /dL 0.60-1.30 Serum or plasma urea nitrogen/creatinine mass ratio 22 NRG Serum or plasma creatinine measurement with calculation of estimated glomerular filtration rate > NRG Serum or plasma glucose measurement (mass/volume) 113 mg/dL 70-105 Serum or plasma calcium measurement (mass/volume) 9.1 mg/dL 8.5-10.1 Serum or plasma total bilirubin measurement (mass/volume) 0.5 mg/dL 0.1-1.0 Serum or plasma alkaline phosphatase measurement (enzymatic activity/volume) 61 U/L 40-136 Serum or plasma aspartate aminotransferase measurement (enzymatic activity/ volume) 15 U/L 5-34 Serum or plasma alanine aminotransferase measurement (enzymatic activity/volume ) 12 U/L 0-55 Serum or plasma protein measurement (mass/volume) 6.1 g/dL 6.4-8.2 Serum or plasma albumin measurement (mass/volume) 3.4 g/dL 3.2-4.5 Capillary blood glucose measurement by glucometer (mass/volume) - 07/11/16 05: 15 Capillary blood glucose measurement by glucometer (mass/volume) 122 mg/dL 70-110 Complete blood count (CBC) with automated white blood cell (WBC) differential - 07/12/16 05:05 Blood leukocytes automated count (number/volume) 7.5 10*3/ uL 4.3-11.0 Blood erythrocytes automated count (number/volume) 4.20 10*6 /uL 4.35-5.85 Venous blood hemoglobin measurement (mass/volume) 12.4 g/dL 11.5-16.0 Blood hematocrit (volume fraction) 39 % 35-52 Automated erythrocyte mean corpuscular volume 92 [foz_us] 80-99 Automated erythrocyte mean corpuscular hemoglobin (mass per erythrocyte) 30 pg 25-34 Automated erythrocyte mean corpuscular hemoglobin concentration measurement ( mass/volume) 32 g/dL 32-36 Automated erythrocyte distribution width ratio 13.6 % 10.0-14.5 Automated blood platelet count (count/volume) 193 10*3/uL 130-400 Automated blood platelet mean volume measurement 10.3 [foz_ us] 7.4-10.4 Automated blood neutrophils/100 leukocytes 69 % 42-75 Automated blood lymphocytes/100 leukocytes 18 % 12-44 Blood monocytes/100 leukocytes 9 % 0-12 Automated blood eosinophils/100 leukocytes 3 % 0-10 Automated blood basophils/100 leukocytes 0 % 0-10 Blood neutrophils automated count (number/volume) 5.2 10*3 1.8-7.8 Blood lymphocytes automated count (number/volume) 1.4 10*3 1.0-4.0 Blood monocytes automated count (number/volume) 0.7 10*3 0.0-1.0 Automated eosinophil count 0.3 10*3/uL 0.0-0.3 Automated blood basophil count (count/volume) 0.0 10*3/uL 0.0-0.1 Comprehensive metabolic panel - 07/12/16 05:05 Serum or plasma sodium measurement (moles/volume) 144 mmol/ L 135-145 Serum or plasma potassium measurement (moles/volume) 3.8 mmol/L 3.6-5.0 Serum or plasma chloride measurement (moles/volume) 105 mmol /L 98-107 Carbon dioxide 28 mmol/L 21-32 Serum or plasma anion gap determination (moles/volume) 11 mmol/L 5-14 Serum or plasma urea nitrogen measurement (mass/volume) 23 mg/dL 7-18 Serum or plasma creatinine measurement (mass/volume) 0.70 mg /dL 0.60-1.30 Serum or plasma urea nitrogen/creatinine mass ratio 33 NRG Serum or plasma creatinine measurement with calculation of estimated glomerular filtration rate > NRG Serum or plasma glucose measurement (mass/volume) 88 mg/dL 70-105 Serum or plasma calcium measurement (mass/volume) 9.1 mg/dL 8.5-10.1 Serum or plasma total bilirubin measurement (mass/volume) 0.6 mg/dL 0.1-1.0 Serum or plasma alkaline phosphatase measurement (enzymatic activity/volume) 61 U/L 40-136 Serum or plasma aspartate aminotransferase measurement (enzymatic activity/ volume) 12 U/L 5-34 Serum or plasma alanine aminotransferase measurement (enzymatic activity/volume ) 10 U/L 0-55 Serum or plasma protein measurement (mass/volume) 6.0 g/dL 6.4-8.2 Serum or plasma albumin measurement (mass/volume) 3.0 g/dL 3.2-4.5 Encounters ACCT No. Visit Date/Time Discharge Status Pt. Type Provider Facility Loc./Unit Complaint [id number] 02/23/2016 17:32:00 2015 20:09:00 DIS Emergency IVETH BECERRA, SONJA Shearer [facility] ER HIGH BP [id number] 08/23/2015 13:40:00 2015 15:00:00 DIS Outpatient XANDER BECERRA, SUMAN Asif [facility] WOUNDCARE [id number] 07/31/2015 20:33:00 2015 21:50:00 DIS Emergency LUCILLE LOMELI APRN [facility] ER HYPOGLYCEMIA [id number] 09/10/2014 22:25:00 2014 00:21:00 DIS Emergency SONJA LAZARO MD [facility] ER ELEVATED BLOOD PRESSURE [id number] 01/28/2014 02:59:00 2013 03:54:00 DIS Emergency DENISSENelly DENSON JUAN K [facility] ER HG BLOOD PRESSURE [id number] 01/22/2014 23:56:00 2013 01:52:00 DIS Emergency JEFFRY OLGUIN MD [facility] ER HIGH BLOOD PRESSURE [id number] 11/23/2013 08:35:00 2013 23:59:59 CLS Outpatient JUSTIN DAILEY MD [facility] RAD COUGH [id number] 04/07/2013 10:42:00 2012 23:59:59 CLS Outpatient JUSTIN DAILEY MD [facility] RAD LOW BACK PAIN [id number] 07/10/2016 14:38:00 Document Registration [id number] 07/08/2016 09:42:00 ACT Inpatient MANUEL LEON MD [facility] 4TH GENERALIZED WEAKNESS, UNCONTROLLED HTN [id number] 02/20/2016 11:40:00 ACT Outpatient MANUEL LEON MD [facility] HH POSSIBLE UTI, STRONG SMELLING URINE [id number] 07/31/2015 20:33:00 ACT Outpatient JUSTIN DAILEY MD [facility] LAB DIABETES II [id number] 07/19/2015 21:07:00 ACT Inpatient JUSTIN DAILEY MD [facility] 4TH CELLULITIS R LEG; ULCER R GREAT TOE, NIDDM [id number] 05/11/2015 18:58:00 Document Registration [id number] 02/02/2015 03:09:00 ACT Inpatient Angela BURROUGHS MD [facility] CSD HYPERTENSIVE URGENCY,CP,CAD [id number] 01/15/2012 14:04:00 Document Registration
[2016-07-14] MEDS: GLIMEPIRIDE 4 MG (AMARYL) TAB PO SCH (06:12)
[2016-07-14] MEDS: MULTIVIT W/MINERALS TAB (THERAGRAN M) PO SCH (06:12)
[2016-07-14] MEDS: metFORMIN 500 MG (GLUCOPHAGE) TAB PO SCH ×2 (06:12→16:30)
[2016-07-14 06:22] VITALS: BP 172/68
[2016-07-14 08:36] VITALS: BP 156/72
[2016-07-14] MEDS: ASPIRIN E.C. 81 MG (ECOTRIN) TAB PO SCH (08:37)
[2016-07-14] MEDS: meTOprolol TARTRATE 50 MG (LOPRESSOR) TAB PO SCH ×2 (08:37→18:40)
[2016-07-14] MEDS: DORZOLAMIDE 2% 10 ML BTL (TRUSOPT) OU SCH ×2 (08:38→20:04)
[2016-07-14 10:59] VITALS: BP 175/75
[2016-07-14] MEDS ORDERED: BISACODYL 5 MG (DULCOLAX) TABLET PO NR (11:00)
[2016-07-14] MEDS: LACTULOSE SYRUP 10GM/15ML (ENULOSE) 30ML UDC PO SCH ×4 (11:33→20:03)
[2016-07-14] MEDS: hydrALAZINE (APRESOLINE) 25 MG TAB PO SCH ×3 (11:33→20:04)
[2016-07-14 18:00] VITALS: BP 178/79
[2016-07-14] MEDS: SIMvastatin 10 MG (ZOCOR) TAB PO SCH (20:04)
[2016-07-14] MEDS: LATANOPROST 0.005% (XALATAN) OPHTH SOLN 2.5 ML OU SCH (20:04)
[2016-07-14] MEDS: VALSARTAN 80 MG (DIOVAN) TAB PO SCH (20:04)
[2016-07-15] MEDS: LACTULOSE SYRUP 10GM/15ML (ENULOSE) 30ML UDC PO SCH ×7 (00:10→23:40)
[2016-07-15 05:15] VITALS: BP 174/78
[2016-07-15] MEDS: GLIMEPIRIDE 4 MG (AMARYL) TAB PO SCH (06:10)
[2016-07-15] MEDS: MULTIVIT W/MINERALS TAB (THERAGRAN M) PO SCH (06:10)
[2016-07-15] MEDS: metFORMIN 500 MG (GLUCOPHAGE) TAB PO SCH ×2 (06:10→17:48)
[2016-07-15 07:58] VITALS: BP 171/70
[2016-07-15] MEDS: hydrALAZINE (APRESOLINE) 25 MG TAB PO SCH ×2 (08:32→13:48)
[2016-07-15] MEDS: meTOprolol TARTRATE 50 MG (LOPRESSOR) TAB PO SCH ×2 (08:32→20:50)
[2016-07-15] MEDS: ASPIRIN E.C. 81 MG (ECOTRIN) TAB PO SCH (08:32)
[2016-07-15] MEDS: DORZOLAMIDE 2% 10 ML BTL (TRUSOPT) OU SCH ×2 (08:33→20:49)
[2016-07-15] MEDS: ACETAMINOPHEN 500 MG TAB (TYLENOL) PO PRN (08:43)
--- NOTE | 2016-07-15 09:17 | Occupational Ther Daily Note ---
OT Current Status-Daily Note Subjective Pt alert, lying in bed. Pt agreed to therapy. Nrsg present in room. No c/o pain. Mental Status/Objective Patient Orientation: Person, Place, Time, Situation Functional [place] Measure 0=Not Assessed/NA 4=Minimal Assistance 1=Total Assistance 5=Supervision or Setup 2=Maximal Assistance 6=Modified [place] 3=Moderate Assistance 7=Complete [place] ADL-Treatment Pt was incontinent of bowels. Assist x2 for bed mobility (rolling and going from supine to sitting EOB). Pt was able to sit EOB with SBA. Max A x2 for transferring from bed to recliner. Bathing all areas while in bed, dependent for lower body then mod A for upper body. Max A for donning/doffing upper body clothing and dependent for donning/doffing lower body clothing. Pt was able to use and clean self up when using mouthwash and combing hair. Functional [place] Measure 0=Not Assessed/NA 4=Minimal Assistance 1=Total Assistance 5=Supervision or Setup 2=Maximal Assistance 6=Modified [place] 3=Moderate Assistance 7=Complete IndependenceIRFPAI Quality Coding Scale 6 Independent with activity with or without an assistive device 5 Patient requires set up or clean up by helper. Patient completes activity by themselves 4 Supervision or touching assist (CGA). [place] provide cues , steadying assist 3 The helper provides less than half the effort to complete the activity 2 The helper provides more than half the effort to complete the activity 1 Dependent. The helper does all the effort to complete an activity 7 Patient refused to complete or attempt activity 9 The patient did not perform the activity before the current illness or injury 88 Not attempted due to Medical conditions or safety concerns Grooming (FIM): 5 Bathing (FIM): 2 Upper Body (FIM): 2 Lower Body Dressing (FIM): 1 Other Treatment Pt demonstrated L UE movement throughout arm. AAROM for full UE ROM completed. Fair movement against gravity for shldr elevation, shldr flex/ext, shldr int/ ext rotation, elbow flex/ext, forearm sup/pro, wrist flex/ext, finger flex/ext and opposition to 1st and 2nd digit. Pt was instructed to work on active movement with L UE throughout the day. After therapy, pt lying back in recliner with call light/phone in reach. All needs met in room. OT Short Term Goals Short Term Goals Time Frame: Jul 24, 2016 Bathing(FIM): 3 Upper Body Dressing(FIM): 4 Lower Body Dressing(FIM): 3 Toileting(FIM): 3 Toilet/Commode Transfer(FIM): 3 Shower Transfer(FIM): 3 Additional Short Term Goals: 1-Demonstrate ADL Tasks, 2-Verbalize Understanding , 3-ImproveStrength/Perla 1=Demonstrate adherence to instructed precautions during ADL tasks. 2=Patient will verbalize/demonstrate understanding of assistive devices/ modifications for ADL. 3=Patient will improve strength/tolerance for activity to enable patient to perform ADL's. OT Half-Way Goals Half-Way Goals Time Frame: Aug 07, 2016 Eating (FIM): 6 Eating (QC): 6 Groomin Oral Hygiene (QC): 5 Bathing(FIM): 5 Shower/Bathe Self (QC): 5 Upper Body Dressing(FIM): 5 Upper Body Dressing (QC): 5 Lower Body Dressing(FIM): 5 Lower Body Dressing (QC): 5 On/Off Footwear (QC): 5 Toileting(FIM): 5 Toileting Hygiene (QC): 5 Toilet/Commode Transfer(FIM): 5 Toilet/Commode Transfer (QC): 5 Shower Transfer(FIM): 5 Additional Goals: 1-Demonstrate ADL Tasks, 2-Verbalize Understanding, 3- ImproveStrength/Perla 1=Demonstrate adherence to instructed precautions during ADL tasks. 2=Patient will verbalize/demonstrate understanding of assistive devices/ modifications for ADL. 3=Patient will improve strength/tolerance for activity to enable patient to perform ADL's. OT Education/Plan Problem List/Assessment Pt admitted to ARU following acute hospitalization for CVA. Pt demonstrates decreased strength on left side, impaired ability to perform ADLs and transfers. Pt to benefit from skilled OT intervention for ADL training, transfers, strengthening, adaptive equipment training as needed and home safety education to improve level of independence and allow safe discharge plan. Discharge Recommendations Plan/Recommendations: Continue POC Treatment Plan/Plan of Care Patient would benefit from OT for education, treatment and training to promote independence in ADL's, mobility, safety and/or upper extremity function for ADL' s. Plan of Care: ADL Retraining, Functional Mobility, UE Funct Exercise/Act Treatment Duration: Aug 07, 2016 Visits Per Week: 10-11 Minutes/Day (M-F): 60-90 Minutes/Day (Sat/Parra): PRN Rehab Potential: Fair Time/GCodes Start Time: 08:15 Stop Time: 09:30 Total Time Billed (hr/min): 75 Billed Treatment Time 1 visit-ADL 4 (60 min) EX 1 (15 min) ELÍAS FORREST Jul 15, 2016 09:17
--- NOTE | 2016-07-15 10:36 | Speech Therapy Daily Note ---
Speech Daily Progress Note Subjective The patient was sleeping in the recliner upon entrance. The patient was gently roused with verbal prompts and demonstrated appropriate alertness levels for participation in the treatment session. Objective Dysphagia Strengthening Exercises: While the patient demonstrated fatigue, she completed the exercises (base of tongue, pharyngeal contraction, and laryngeal elevation) exercises with fair to good accuracy with moderate clinician cueing ( including direct modeling). The patient completed ten repetitions of each exercise. Assessment Assessment Current Status: Good Progress Treatment Plan Continue Plan of Care Communication Comprehension: 4 Expression: 4 Social Cognition Social Interaction: 5 Problem Solvin Memory: 5 Speech Short Term Goals Short Term Goals Short Term Goals 1. The patient will demonstrate oral motor exercises with 90% accuracy, independently. 2. The patient will demonstrate 80% accuracy with structured executive functioning and problem solving tasks with mild clinician verbal cueing. 3. The patient will demonstrate dysphagia exercises with 90% accuracy and mild clinician cueing. Time Frame-STG: Two Weeks Speech Ceo And Co Founder Goals [facility] Goals 1. The patient will demonstrate improved cognitive linguistic skills for increased safety and function with ADL's in the least restrictive setting. 2. The patient will tolerate the least restrictive diet without signs/symptoms of aspiration or laryngeal penetration. Time Frame: Six Weeks Speech-Plan Treatment Plan Speech Therapy Treatment Plan: Continue Plan of Care Continue skilled speech therapy to target pharyngeal, laryngeal, and base of tongue strengthening to improve the patient's swallowing safety. Treatment Duration: August 21, 2016 # of days/week Five. Visits Per Week: Five Minutes/Day (M-F): 30 Rehab Potential: Fair Safety Risks/Education Teaching Recipient: Patient Teaching Methods: Demonstration, Handout Response to Teaching: Return Demonstration, Reinforcement Needed Education Topics Provided: Dysphagia Exercises Time Speech Therapy Time In: 09:53 Speech Therapy Time Out: 10:23 Total Billed Time: 30 Billed Treatment Time 1 GISELLE BRENNATAMIA Jul 15, 2016 10:36
[2016-07-15 11:05] VITALS: BP 167/71
--- NOTE | 2016-07-15 12:43 | Physical Therapy Daily Note ---
PT Daily Note-Current Subjective Pt sitting in recliner with feet raised upon arrival. Pt reports no pain currently although "didn't sleep much at all last night". Pt reports BM incontinence repeatedly that woke pt up. Pt appears very tired and falls asleep easily during tx. Pt agrees to PT tx. Pain Location: No Pain Reported Mental Status Patient Orientation: Person, Place, Time, Situation Transfers Functional [place] Measure 0=Not Assessed/NA 4=Minimal Assistance 1=Total Assistance 5=Supervision or Setup 2=Maximal Assistance 6=Modified [place] 3=Moderate Assistance 7=Complete IndependenceIRFPAI Quality Coding Scale 6 Independent with activity with or without an assistive device 5 Patient requires set up or clean up by helper. Patient completes activity by themselves 4 Supervision or touching assist (CGA). [place] provide cues , steadying assist 3 The helper provides less than half the effort to complete the activity 2 The helper provides more than half the effort to complete the activity 1 Dependent. The helper does all the effort to complete an activity 7 Patient refused to complete or attempt activity 9 The patient did not perform the activity before the current illness or injury 88 Not attempted due to Medical conditions or safety concerns Transfers (B, C, W/C) (FIM): 1 Scootin Exercises Seated Therapy Exercises: Ankle pumps, Long arc quads, Hip flexion, Kicking activity, Hip abd/add Seated Reps: 20 Treatments At beginning of tx, pt gives PT explanation of not sleeping well last night and what has been going on with her. Nursing arrives to take vitals and confirms multiple incontinence episodes last night. Pt has also been running higher BP while in hospital per nurse and pt wanting Dr oRdriguez notified. Pt will complete Seated EX in recliner but has difficulty staying awake. Pt able to complete AROM Ex on RLE but AAROM-PROM for LLE due to weakness from CVA. Pt takes rest breaks during tx. Pt fatigues at end of tx and PT assists pt with ordering lunch before leaving tx. Pt needs reminders that she is on [facility] option and pt would like to talk to Dr Rodriguez about it because she feels she has very limited choices. Pt is left with all needs met at end of tx. Assessment Current Status: Fair Progress Pt continues to run high with BP, is now having incontinence episodes so pt is not sleeping well. Pt is motivated to get better and go home although pt is continuing to struggle with weakness on LLE due to CVA. Pt is still Max A X2 for transfers. PT Short Term Goals Short Term Goals Time Frame: Jul 24, 2016 Wheelchair Distance: 0' PT Mcc Goals House Wirer Helper Goals PT House Wirer Helper Goals Time Frame: Aug 07, 2016 Transfers (B,C,W/C) (FIM): 6 Sit to Lying (QC): 6 Lying-Sitting on Side/Bed(QC): 6 Sit to Stand (QC): 6 Rollin Roll Left to Right (QC): 6 Chair/Xvb-ty-Hpkkz Xfer(QC): 6 Car Transfer (QC): 5 Does the Patient Walk: No and Walking Goal IS indicated Gait (FIM): 4 Gait distance (FIM): 2=294-77 ft Distance: 75 Walk 10 feet (QC): 6 Walk 10ft-Uneven Surface(QC): 4 Walk 50ft with 2 Turns (QC): 6 Walk 150 ft (QC): 4 Gait Level of Assist: 6 Gait Assistive Device: FWW Does the Pt use WC or Scooter?: No Stairs (FIM): 2 # of Steps: 3 1 Step (curb) (QC): 2 4 Steps (QC): 9 12 Steps (QC): 9 Stairs Level Of Assist: 2 Picking up an Object (QC): 4 PT Plan Problem List Problem List: Activity Tolerance, Functional Strength, Safety, Balance, Gait, Transfer, Bed Mobility, ROM Treatment/Plan Treatment Plan: Continue Plan of Care Treatment Plan: Bed Mobility, Education, Functional Activity Perla, Functional Strength, Group Therapy, Gait, Safety, Therapeutic Exercise, Transfers Treatment Duration: Aug 07, 2016 Visits Per Week: 10-11 Minutes/Day (M-F): 60-90 Minutes/Day (Sat/Parra): PRN Safety Risks/Education Patient Education: Transfer Techniques, Correct Positioning, Disease Process, Safety Issues Teaching Recipient: Patient Teaching Methods: Discussion Response to Teaching: Verbalize Understanding Time/GCodes Time In: 1100 Time Out: 1200 Total Billed Treatment Time: 60 Total Billed Treatment visit, EX X2 (30m) & FA X2 (30m) TERESA GILLIAM PTA Jul 15, 2016 12:43
[2016-07-15 13:45] VITALS: BP 146/68
--- NOTE | 2016-07-15 14:09 | Physical Therapy Daily Note ---
PT Daily Note-Current Subjective Pt asleep in recliner upon arrival. Pt wants to go back to bed and agreed to PT for transfer. Pain Location: No Pain Reported Mental Status Patient Orientation: Person, Place, Time, Situation Transfers Functional [place] Measure 0=Not Assessed/NA 4=Minimal Assistance 1=Total Assistance 5=Supervision or Setup 2=Maximal Assistance 6=Modified [place] 3=Moderate Assistance 7=Complete IndependenceIRFPAI Quality Coding Scale 6 Independent with activity with or without an assistive device 5 Patient requires set up or clean up by helper. Patient completes activity by themselves 4 Supervision or touching assist (CGA). [place] provide cues , steadying assist 3 The helper provides less than half the effort to complete the activity 2 The helper provides more than half the effort to complete the activity 1 Dependent. The helper does all the effort to complete an activity 7 Patient refused to complete or attempt activity 9 The patient did not perform the activity before the current illness or injury 88 Not attempted due to Medical conditions or safety concerns Transfers (B, C, W/C) (FIM): 1 Scootin Rollin Roll Left to Right (QC): 2 Supine to/from Sit: 1 Sit to/from Stand: 1 Sit to Lying (QC): 1 Sit to Stand (QC): 1 Chair/Vpe-zp-Lmryi Xfer(QC): 1 Bed to/from Chair: 1 Weight Bearing Weight Bearing Restriction: Full Weight Bearing Location Restriction: LE Bilateral Treatments Pt transfers from recliner to bed at Max A X2 with SPT. Pt is repositioned in bed in side lying position with pillows propping pt at end of tx with all needs met. Assessment Current Status: Fair Progress Pt tries to assist although is unable to due to weakness especially on L side due to CVA. PT Short Term Goals Short Term Goals Time Frame: Jul 24, 2016 Wheelchair Distance: 0' PT Group Home Goals Group Home Goals PT Group Home Goals Time Frame: Aug 07, 2016 Transfers (B,C,W/C) (FIM): 6 Sit to Lying (QC): 6 Lying-Sitting on Side/Bed(QC): 6 Sit to Stand (QC): 6 Rollin Roll Left to Right (QC): 6 Chair/Tdt-jq-Fatks Xfer(QC): 6 Car Transfer (QC): 5 Does the Patient Walk: No and Walking Goal IS indicated Gait (FIM): 4 Gait distance (FIM): 5=222-50 ft Distance: 75 Walk 10 feet (QC): 6 Walk 10ft-Uneven Surface(QC): 4 Walk 50ft with 2 Turns (QC): 6 Walk 150 ft (QC): 4 Gait Level of Assist: 6 Gait Assistive Device: FWW Does the Pt use WC or Scooter?: No Stairs (FIM): 2 # of Steps: 3 1 Step (curb) (QC): 2 4 Steps (QC): 9 12 Steps (QC): 9 Stairs Level Of Assist: 2 Picking up an Object (QC): 4 PT Plan Problem List Problem List: Activity Tolerance, Functional Strength, Safety, Balance, Gait, Transfer, Bed Mobility, ROM Treatment/Plan Treatment Plan: Continue Plan of Care Treatment Plan: Bed Mobility, Education, Functional Activity [place], Functional Strength, Group Therapy, Gait, Safety, Therapeutic Exercise, Transfers Treatment Duration: Aug 07, 2016 Visits Per Week: 10-11 Minutes/Day (M-F): 60-90 Minutes/Day (Sat/Parra): PRN Safety Risks/Education Patient Education: Transfer Techniques, Correct Positioning, Safety Issues Teaching Recipient: Patient Teaching Methods: Discussion Response to Teaching: Verbalize Understanding Time/GCodes Time In: 1315 Time Out: 1330 Total Billed Treatment Time: 15 Total Billed Treatment visit, FA (15m) TERESA GILLIAM PTA Jul 15, 2016 14:09
[2016-07-15 16:39] VITALS: BP 156/72
--- NOTE | 2016-07-15 20:35 | PM & R (SOAP) Progress Note ---
Subjective Subjective/Events-last exam Patient was seen in her room this evening Patient max assist for transfers Patient wants diet changed for heart healthy to regular.RN called me earlier today re elevated BP DR Rodriguez adjusted meds Objective Exam Last Set of Vital Signs Vital Signs Date Time Temp Pulse Resp B/P (MAP) Pulse Ox O2 Delivery O2 Flow Rate FiO2 07/15/16 16:39 97.2 64 20 156/72 96 Room Air 07/13/16 18:10 0.00 0.00 Capillary Refill : I&O Intake and Output 07/15/16 00:00 Intake Total 920 ml Balance 920 ml Intake Oral 920 ml # Urine Diapers 7 # Bowel Movements 1 General: Alert, Oriented X3, Cooperative, No Acute Distress HEENT: Atraumatic, PERRLA, EOMI, Mucous Memb Moist/[place], Other (02 by N/C in place) Neck: Supple, No JVD Lungs: Clear to Auscultation Heart: Regular Rate Abdomen: Normal Bowel Sounds, Soft Extremities: No Edema Neuro: Other (mild left sided weakness as per H&P) Results Lab Laboratory Tests 07/13/16 06:18: Glucometer 72 07/14/16 05:34: Glucometer 75 Assessment/Plan Assessment 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
[2016-07-15] MEDS: LATANOPROST 0.005% (XALATAN) OPHTH SOLN 2.5 ML OU SCH (20:49)
[2016-07-15] MEDS: VALSARTAN 80 MG (DIOVAN) TAB PO SCH (20:49)
[2016-07-15] MEDS: ZINC OXIDE 16% OINT (BUTT PASTE) 113 GM TUBE TOP PRN (20:50)
[2016-07-15] MEDS: SIMvastatin 10 MG (ZOCOR) TAB PO SCH (20:50)
[2016-07-16] MEDS: LACTULOSE SYRUP 10GM/15ML (ENULOSE) 30ML UDC PO SCH ×5 (04:00→19:29)
[2016-07-16 06:00] VITALS: BP 156/72
[2016-07-16] MEDS: MULTIVIT W/MINERALS TAB (THERAGRAN M) PO SCH (06:07)
[2016-07-16] MEDS: metFORMIN 500 MG (GLUCOPHAGE) TAB PO SCH ×2 (06:07→16:47)
[2016-07-16] MEDS: GLIMEPIRIDE 4 MG (AMARYL) TAB PO SCH (06:07)
[2016-07-16] MEDS: ASPIRIN E.C. 81 MG (ECOTRIN) TAB PO SCH (08:15)
[2016-07-16] MEDS: VALSARTAN 80 MG (DIOVAN) TAB PO SCH ×2 (08:15→20:35)
[2016-07-16] MEDS: meTOprolol TARTRATE 50 MG (LOPRESSOR) TAB PO SCH ×2 (08:16→19:28)
[2016-07-16] MEDS: DORZOLAMIDE 2% 10 ML BTL (TRUSOPT) OU SCH ×2 (08:18→20:36)
[2016-07-16] MEDS: ZINC OXIDE 16% OINT (BUTT PASTE) 113 GM TUBE TOP PRN ×2 (09:28→16:47)
--- NOTE | 2016-07-16 10:23 | Speech Therapy Daily Note ---
Speech Daily Progress Note Subjective The patient was seated upright in recliner upon entrance. The patient greeted the clinician appropriately and agreed to participate in dysphagia therapy on this date. To note, the patient denied any signs/symptoms of aspiration with her current diet consistency stating, "if I take my time and take small sips, everything goes good." Objective Dysphagia Strengthening Exercises: The patient completed the exercises (base of tongue, pharyngeal contraction, and laryngeal elevation) exercises with fair to good accuracy with moderate clinician cueing (including direct modeling). The patient completed ten repetitions of each exercise. Assessment Assessment Current Status: Good Progress Treatment Plan Continue Plan of Care Communication Comprehension: 4 Expression: 4 Social Cognition Social Interaction: 5 Problem Solvin Memory: 4 Speech Short Term Goals Short Term Goals Short Term Goals 1. The patient will demonstrate oral motor exercises with 90% accuracy, independently. 2. The patient will demonstrate 80% accuracy with structured executive functioning and problem solving tasks with mild clinician verbal cueing. 3. The patient will demonstrate dysphagia exercises with 90% accuracy and mild clinician cueing. Time Frame-STG: Two Weeks Speech Intermediate Goals Rn Oncology Clinical Goals 1. The patient will demonstrate improved cognitive linguistic skills for increased safety and function with ADL's in the least restrictive setting. 2. The patient will tolerate the least restrictive diet without signs/symptoms of aspiration or laryngeal penetration. Time Frame: Six Weeks Speech-Plan Treatment Plan Speech Therapy Treatment Plan: Continue Plan of Care Continue skilled speech pathology for improved strengthening of swallowing musculature. Treatment Duration: August 21, 2016 # of days/week Five. Visits Per Week: Five Minutes/Day (M-F): 30 Rehab Potential: Fair Safety Risks/Education Teaching Recipient: Patient Teaching Methods: Demonstration, Handout, Discussion Response to Teaching: Return Demonstration, Reinforcement Needed Education Topics Provided: Dysphagia Exercises Time Speech Therapy Time In: 09:15 Speech Therapy Time Out: 09:45 Total Billed Time: 30 Billed Treatment Time 1 GISELLE BRENNATAMIA Jul 16, 2016 10:22
--- NOTE | 2016-07-16 11:01 | Occupational Ther Daily Note ---
OT Current Status-Daily Note Subjective Pt in bed, agrees to treatment. Mental Status/Objective Functional [place] Measure 0=Not Assessed/NA 4=Minimal Assistance 1=Total Assistance 5=Supervision or Setup 2=Maximal Assistance 6=Modified [place] 3=Moderate Assistance 7=Complete [place] ADL-Treatment Pt finishing eating when therapist arrives. Pt supine to sit with maximal assistance. Pt requests shower today. Transfer EOB to shower chair with assist x2. Pt has flexed posture during transfer and is unable to fully extend knees. To shower via rolling shower chair. Pt doffed shirt with maximal assistance. Pt able to wash left UE, chest, abdomen, and petey area. Assist for other areas. Pt incontinent of bowel in shower, requires total assist for hygiene. Reviewed UE dressing technique. Pt donned pullover shirt with maximal assistance. Assist x2 required to don Depends and shorts. Total assist to don socks. Pt combed hair with set up. Increased time required for all ADL tasks. Pt fatigues with activity and requires occasional rest breaks throughout treatment. Transfer to recliner chair with assist x2. Pt sitting in chair with needs met after session. Functional [place] Measure 0=Not Assessed/NA 4=Minimal Assistance 1=Total Assistance 5=Supervision or Setup 2=Maximal Assistance 6=Modified [place] 3=Moderate Assistance 7=Complete IndependenceIRFPAI Quality Coding Scale 6 Independent with activity with or without an assistive device 5 Patient requires set up or clean up by helper. Patient completes activity by themselves 4 Supervision or touching assist (CGA). [place] provide cues , steadying assist 3 The helper provides less than half the effort to complete the activity 2 The helper provides more than half the effort to complete the activity 1 Dependent. The helper does all the effort to complete an activity 7 Patient refused to complete or attempt activity 9 The patient did not perform the activity before the current illness or injury 88 Not attempted due to Medical conditions or safety concerns Eating (FIM): 5 Eating (QC): 5 Grooming (FIM): 5 Bathing (FIM): 2 Bathing Location: L Arm, Chest, Abdomen, Perineal Area Shower/Bathe Self (QC): 2 Upper Body (FIM): 2 Upper Body Dressing (QC): 2 Lower Body Dressing (FIM): 1 Lower Body Dressing (QC): 1 On/Off Footwear (QC): 1 Shower Transfer(FIM): 1 OT Short Term Goals Short Term Goals Time Frame: Jul 24, 2016 Bathing(FIM): 3 Upper Body Dressing(FIM): 4 Lower Body Dressing(FIM): 3 Toileting(FIM): 3 Toilet/Commode Transfer(FIM): 3 Shower Transfer(FIM): 3 Additional Short Term Goals: 1-Demonstrate ADL Tasks, 2-Verbalize Understanding , 3-ImproveStrength/Perla 1=Demonstrate adherence to instructed precautions during ADL tasks. 2=Patient will verbalize/demonstrate understanding of assistive devices/ modifications for ADL. 3=Patient will improve strength/tolerance for activity to enable patient to perform ADL's. OT Stretcher Drier Operator Goals [place] Goals Time Frame: Aug 07, 2016 Eating (FIM): 6 Eating (QC): 6 Groomin Oral Hygiene (QC): 5 Bathing(FIM): 5 Shower/Bathe Self (QC): 5 Upper Body Dressing(FIM): 5 Upper Body Dressing (QC): 5 Lower Body Dressing(FIM): 5 Lower Body Dressing (QC): 5 On/Off Footwear (QC): 5 Toileting(FIM): 5 Toileting Hygiene (QC): 5 Toilet/Commode Transfer(FIM): 5 Toilet/Commode Transfer (QC): 5 Shower Transfer(FIM): 5 Additional Goals: 1-Demonstrate ADL Tasks, 2-Verbalize Understanding, 3- ImproveStrength/Perla 1=Demonstrate adherence to instructed precautions during ADL tasks. 2=Patient will verbalize/demonstrate understanding of assistive devices/ modifications for ADL. 3=Patient will improve strength/tolerance for activity to enable patient to perform ADL's. OT Education/Plan Problem List/Assessment Pt admitted to ARU following acute hospitalization for CVA. Pt demonstrates decreased strength on left side, impaired ability to perform ADLs and transfers. Pt to benefit from skilled OT intervention for ADL training, transfers, strengthening, adaptive equipment training as needed and home safety education to improve level of independence and allow safe discharge plan. Discharge Recommendations Plan/Recommendations: Continue POC Treatment Plan/Plan of Care Patient would benefit from OT for education, treatment and training to promote independence in ADL's, mobility, safety and/or upper extremity function for ADL' s. Plan of Care: ADL Retraining, Functional Mobility, UE Funct Exercise/Act Treatment Duration: Aug 07, 2016 Visits Per Week: 10-11 Minutes/Day (M-F): 60-90 Minutes/Day (Sat/Parra): PRN Rehab Potential: Fair Time/GCodes Start Time: 08:00 Stop Time: 09:15 Total Time Billed (hr/min): 75 Billed Treatment Time 1 visit, ADLx5(75minutes) GEOVANNA MCKENZIE OT Jul 16, 2016 11:01
--- NOTE | 2016-07-16 11:50 | Physical Therapy Daily Note ---
PT Daily Note-Current Subjective Pt sitting in recliner with feet raised upon arrival. Pt reports not sleeping well again due to not feeling comfortable in bed and would have to ask nursing to assist in positional change. Pt reports pain of 1/10 and then 3/10 when moving. Pt agrees to PT. Pain Numeric Pain Scale: 3 Location: Left Location Body Site: Knee Pain Description: Ache Mental Status Patient Orientation: Person, Place, Time, Situation Transfers Functional [place] Measure 0=Not Assessed/NA 4=Minimal Assistance 1=Total Assistance 5=Supervision or Setup 2=Maximal Assistance 6=Modified [place] 3=Moderate Assistance 7=Complete IndependenceIRFPAI Quality Coding Scale 6 Independent with activity with or without an assistive device 5 Patient requires set up or clean up by helper. Patient completes activity by themselves 4 Supervision or touching assist (CGA). [place] provide cues , steadying assist 3 The helper provides less than half the effort to complete the activity 2 The helper provides more than half the effort to complete the activity 1 Dependent. The helper does all the effort to complete an activity 7 Patient refused to complete or attempt activity 9 The patient did not perform the activity before the current illness or injury 88 Not attempted due to Medical conditions or safety concerns Transfers (B, C, W/C) (FIM): 1 Scootin Sit to/from Stand: 1 Sit to Stand (QC): 1 Weight Bearing Weight Bearing Restriction: Full Weight Bearing Location Restriction: LE Bilateral Wheelchair Training Does the Pt Use a Wheelchair?: Yes Wheelchair Distance: 1=up to 49 ft Distance: 10' Wheelchair Level of Assist: 3 Type of Wheelchair: Manual Exercises Standing: Sit to Stand Standing Reps: 5 Sit to stands attempted at FWW, both with and w/o lift as well as at //bars. Pt better able to perform at //bars. Treatments Upon entry, pt informed PT that pt didn't sleep well due to not feeling comfortable and having to change position multiple times. Pt also informed PT that Dr Walker had changed pt's diet so pt could eat more variety of foods. Pt inquired as to medication changes made. PT completed pt education with pt on previously mentioned items. Pt then attempted sit to stands from recliner using FWW at Max A X2. Pt had previously attempted sit to stand (X2) using lift in pt's room using FWW for support to hold. Pt then took rest break before SPT to [facility]. Pt attempted sit to stand at //bars for pt to pull up on at Max A (2 times). Pt then returned to [facility] and pt worked on propelling [facility] with R side (L arm left in lap & LLE on pedal). Pt propelled with VC approx. 10' before fatiguing and PT wheeled pt back to room. Pt transferred back to recliner at SPT. Pt left with all needs met at end of tx. Assessment Current Status: Good Progress Pt is motivated to go home although continues to be Max A X2 for standing and transfers. PT Short Term Goals Short Term Goals Time Frame: Jul 24, 2016 Wheelchair Distance: 0' PT Desizing Machine Operator Goals Desizing Machine Operator Goals PT Jail Goals Time Frame: Aug 07, 2016 Transfers (B,C,W/C) (FIM): 6 Sit to Lying (QC): 6 Lying-Sitting on Side/Bed(QC): 6 Sit to Stand (QC): 6 Rollin Roll Left to Right (QC): 6 Chair/Eoh-lf-Zdkfz Xfer(QC): 6 Car Transfer (QC): 5 Does the Patient Walk: No and Walking Goal IS indicated Gait (FIM): 4 Gait distance (FIM): 8=003-14 ft Distance: 75 Walk 10 feet (QC): 6 Walk 10ft-Uneven Surface(QC): 4 Walk 50ft with 2 Turns (QC): 6 Walk 150 ft (QC): 4 Gait Level of Assist: 6 Gait Assistive Device: FWW Does the Pt use WC or Scooter?: No Stairs (FIM): 2 # of Steps: 3 1 Step (curb) (QC): 2 4 Steps (QC): 9 12 Steps (QC): 9 Stairs Level Of Assist: 2 Picking up an Object (QC): 4 PT Plan Problem List Problem List: Activity Tolerance, Functional Strength, Safety, Balance, Gait, Transfer, Bed Mobility, ROM Treatment/Plan Treatment Plan: Continue Plan of Care Treatment Plan: Bed Mobility, Education, Functional Activity Perla, Functional Strength, Group Therapy, Gait, Safety, Therapeutic Exercise, Transfers Treatment Duration: Aug 07, 2016 Visits Per Week: 10-11 Minutes/Day (M-F): 60-90 Minutes/Day (Sat/Parra): PRN Safety Risks/Education Patient Education: Transfer Techniques, Correct Positioning, Disease Process, Safety Issues Teaching Recipient: Patient Teaching Methods: Discussion Response to Teaching: Verbalize Understanding Time/GCodes Time In: 1000 Time Out: 1120 Total Billed Treatment Time: 80 Total Billed Treatment visit, FA X5 (80m) TERESA GILLIAM PTA Jul 16, 2016 11:50
[2016-07-16 14:25] VITALS: BP 162/71
[2016-07-16 18:05] VITALS: BP 169/81
--- NOTE | 2016-07-16 19:43 | PM & R (SOAP) Progress Note ---
Subjective Subjective/Events-last exam Patient was seen in her room earlier today Blood pressure still somewhat elevated will f/u DR Alarcon adjusted meds yesterday Patient enjoying change of diet to regular having a biscuit and gravy and sims pie for luinch,Patient max assist for transfers Objective Exam Last Set of Vital Signs Vital Signs Date Time Temp Pulse Resp B/P (MAP) Pulse Ox O2 Delivery O2 Flow Rate FiO2 07/16/16 18:05 96.9 65 16 169/81 93 07/16/16 09:23 Room Air 07/13/16 18:10 0.00 0.00 Capillary Refill : I&O Intake and Output 07/16/16 00:00 Intake Total 1080 ml Balance 1080 ml Intake Oral 1080 ml # Voids 6 # Urine Diapers 4 # Bowel Movements 5 General: Alert, Oriented X3, Cooperative, No Acute Distress HEENT: Atraumatic, PERRLA, EOMI, Mucous Memb Moist/[place], Other (02 by N/C in place) Neck: Supple, No JVD Lungs: Clear to Auscultation Heart: Regular Rate Abdomen: Normal Bowel Sounds, Soft Extremities: No Edema Neuro: Other (mild left sided weakness as per H&P) Results Lab Laboratory Tests 07/14/16 05:34: Glucometer 75 07/16/16 06:04: Glucometer 81 Assessment/Plan Assessment 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
[2016-07-16] MEDS: SIMvastatin 10 MG (ZOCOR) TAB PO SCH (20:35)
[2016-07-16] MEDS: LATANOPROST 0.005% (XALATAN) OPHTH SOLN 2.5 ML OU SCH (20:36)
[2016-07-17] MEDS: LACTULOSE SYRUP 10GM/15ML (ENULOSE) 30ML UDC PO SCH ×6 (03:37→20:00)
[2016-07-17 06:00] VITALS: BP 157/83
[2016-07-17] MEDS: metFORMIN 500 MG (GLUCOPHAGE) TAB PO SCH ×2 (06:47→17:23)
[2016-07-17] MEDS: GLIMEPIRIDE 4 MG (AMARYL) TAB PO SCH (06:47)
[2016-07-17] MEDS: MULTIVIT W/MINERALS TAB (THERAGRAN M) PO SCH (06:47)
--- NOTE | 2016-07-17 08:00 | Progress Note (SOAP) ---
Subjective Subjective/Events-last exam Neisha has no complaints this am. She is continuing rehab and understands this is a slow process to improve. She has no concerns regarding her diabetic or hypertensive treatment currently. Objective Exam Vital Signs Date Time Temp Pulse Resp B/P (MAP) Pulse Ox O2 Delivery O2 Flow Rate FiO2 07/17/16 06:00 97.7 66 18 157/83 94 Room Air 07/16/16 20:10 Room Air 07/16/16 18:05 96.9 65 16 169/81 93 07/16/16 14:25 69 162/71 07/16/16 09:23 Room Air I & O 07/17/16 07:00 Intake Total 760 ml Balance 760 ml Capillary Refill : General Appearance: No Apparent Distress Neck: Supple Respiratory: Lungs Clear Cardiovascular: Regular Rate, Rhythm Results Lab Laboratory Tests 07/17/16 05:24: Glucometer 87 Assessment/Plan Assessment/Plan Assess & Plan/Chief Complaint 1. Cerebral infarctlacunar infarct of the cherelle -she maintains aspirin 81 mg daily. 2. Hypertensionoverall improved with systolic slightly elevated She is on metoprolol 100 mg twice daily as well as generic Diovan 80 mg twice daily. 3. Diabetes suspect poorly controlled -She is continued on her home diabetic regimen. 07/17 latest fasting glucose values are good 4. Weakness and slurred speech suspect secondary to number 1 -Rehabilitation continues Clinical Quality Measures DVT/VTE Risk/Contraindication: Risk Factor Score Per Nursin RFS Level Per Nursing on Admit: 4+=Very High MANUEL LEON MD Jul 17, 2016 08:00
[2016-07-17] MEDS: VALSARTAN 80 MG (DIOVAN) TAB PO SCH ×2 (08:19→20:32)
[2016-07-17] MEDS: meTOprolol TARTRATE 50 MG (LOPRESSOR) TAB PO SCH ×2 (08:19→20:32)
[2016-07-17] MEDS: DORZOLAMIDE 2% 10 ML BTL (TRUSOPT) OU SCH ×2 (08:19→20:32)
[2016-07-17] MEDS: ASPIRIN E.C. 81 MG (ECOTRIN) TAB PO SCH (08:19)
--- NOTE | 2016-07-17 09:54 | Speech Therapy Daily Note ---
Speech Daily Progress Note Subjective The patient was seated upright in recliner upon entrance. The patient greeted the clinician appropriately and agreed to participate in dysphagia therapy on this date. Objective Dysphagia Exercises: The patient demonstrated increased accuracy with dysphagia exercises on this date (base of tongue retraction, pharyngeal contraction, and laryngeal elevation). Mild clinician verbal prompting was provided, as well as, an initial model. Ten repetitions of each exercise were performed. Assessment Assessment Current Status: Good Progress Treatment Plan Continue Plan of Care Communication Comprehension: 5 Expression: 5 Social Cognition Social Interaction: 5 Problem Solvin Memory: 5 Speech Short Term Goals Short Term Goals Short Term Goals 1. The patient will demonstrate oral motor exercises with 90% accuracy, independently. 2. The patient will demonstrate 80% accuracy with structured executive functioning and problem solving tasks with mild clinician verbal cueing. 3. The patient will demonstrate dysphagia exercises with 90% accuracy and mild clinician cueing. Time Frame-STG: Two Weeks Speech Forest Manager Goals Forest Manager Goals 1. The patient will demonstrate improved cognitive linguistic skills for increased safety and function with ADL's in the least restrictive setting. 2. The patient will tolerate the least restrictive diet without signs/symptoms of aspiration or laryngeal penetration. Time Frame: Six Weeks Speech-Plan Treatment Plan Speech Therapy Treatment Plan: Continue Plan of Care Continue skilled speech therapy to target dysphagia strengthening exercises and improve swallowing safety. Treatment Duration: August 21, 2016 # of days/week Five Visits Per Week: Five Minutes/Day (M-F): 30 Rehab Potential: Fair Safety Risks/Education Teaching Recipient: Patient Teaching Methods: Demonstration, Handout, Discussion Response to Teaching: Return Demonstration, Reinforcement Needed Education Topics Provided: Dysphagia Exercises Time Speech Therapy Time In: 09:15 Speech Therapy Time Out: 09:45 Total Billed Time: 30 Billed Treatment Time 1, [facility] 09[facility]54
--- NOTE | 2016-07-17 10:35 | Occupational Ther Daily Note ---
OT Current Status-Daily Note Subjective Pt sitting in chair, agrees to treatment. Pt has no pain at rest, but reports left knee pain with movement. Does not rate pain. Mental Status/Objective Functional [place] Measure 0=Not Assessed/NA 4=Minimal Assistance 1=Total Assistance 5=Supervision or Setup 2=Maximal Assistance 6=Modified [place] 3=Moderate Assistance 7=Complete [place] ADL-Treatment Pt was just cleaned up with nursing secondary to incontinence. Pt required assist x2 to don Depends and pants. Pt dependent to stand and maintain balance during pant hike and requires total assist to pull pants up. Grooming tasks completed seated in chair. Pt combed hair, washed face and completed oral care with mouthwash with set up and increased time. Functional [place] Measure 0=Not Assessed/NA 4=Minimal Assistance 1=Total Assistance 5=Supervision or Setup 2=Maximal Assistance 6=Modified [place] 3=Moderate Assistance 7=Complete IndependenceIRFPAI Quality Coding Scale 6 Independent with activity with or without an assistive device 5 Patient requires set up or clean up by helper. Patient completes activity by themselves 4 Supervision or touching assist (CGA). [place] provide cues , steadying assist 3 The helper provides less than half the effort to complete the activity 2 The helper provides more than half the effort to complete the activity 1 Dependent. The helper does all the effort to complete an activity 7 Patient refused to complete or attempt activity 9 The patient did not perform the activity before the current illness or injury 88 Not attempted due to Medical conditions or safety concerns Grooming (FIM): 5 Oral Hygiene (QC): 5 Lower Body Dressing (FIM): 1 Lower Body Dressing (QC): 1 Other Treatment Pt completed left UE exercises to promote increased active ROM and strength needed for ADLs and transfers. A/AAROM x10 reps at all joints. Pt requires more assist for shoulder and elbow movements, but is able to achieve near full AROM at other joints. Pt fatigues quickly with activity and requires rest breaks between exercises. Left hand chief science officer exercises x10 reps with minimal resistance therapy foam. Pt worked on grasp/release and reaching with left hand, by picking up large cones. Pt able to leaf size picker 5 cones with much increased time and rest breaks between reps. Pt sitting in chair with needs met after session. OT Short Term Goals Short Term Goals Time Frame: Jul 24, 2016 Bathing(FIM): 3 Upper Body Dressing(FIM): 4 Lower Body Dressing(FIM): 3 Toileting(FIM): 3 Toilet/Commode Transfer(FIM): 3 Shower Transfer(FIM): 3 Additional Short Term Goals: 1-Demonstrate ADL Tasks, 2-Verbalize Understanding , 3-ImproveStrength/Perla 1=Demonstrate adherence to instructed precautions during ADL tasks. 2=Patient will verbalize/demonstrate understanding of assistive devices/ modifications for ADL. 3=Patient will improve strength/tolerance for activity to enable patient to perform ADL's. OT Retirement Goals Non Profit Job Titles Goals Time Frame: Aug 07, 2016 Eating (FIM): 6 Eating (QC): 6 Groomin Oral Hygiene (QC): 5 Bathing(FIM): 5 Shower/Bathe Self (QC): 5 Upper Body Dressing(FIM): 5 Upper Body Dressing (QC): 5 Lower Body Dressing(FIM): 5 Lower Body Dressing (QC): 5 On/Off Footwear (QC): 5 Toileting(FIM): 5 Toileting Hygiene (QC): 5 Toilet/Commode Transfer(FIM): 5 Toilet/Commode Transfer (QC): 5 Shower Transfer(FIM): 5 Additional Goals: 1-Demonstrate ADL Tasks, 2-Verbalize Understanding, 3- ImproveStrength/Perla 1=Demonstrate adherence to instructed precautions during ADL tasks. 2=Patient will verbalize/demonstrate understanding of assistive devices/ modifications for ADL. 3=Patient will improve strength/tolerance for activity to enable patient to perform ADL's. OT Education/Plan Problem List/Assessment Pt admitted to ARU following acute hospitalization for CVA. Pt demonstrates decreased strength on left side, impaired ability to perform ADLs and transfers. Pt to benefit from skilled OT intervention for ADL training, transfers, strengthening, adaptive equipment training as needed and home safety education to improve level of independence and allow safe discharge plan. Discharge Recommendations Plan/Recommendations: Continue POC Treatment Plan/Plan of Care Patient would benefit from OT for education, treatment and training to promote independence in ADL's, mobility, safety and/or upper extremity function for ADL' s. Plan of Care: ADL Retraining, Functional Mobility, UE Funct Exercise/Act Treatment Duration: Aug 07, 2016 Visits Per Week: 10-11 Minutes/Day (M-F): 60-90 Minutes/Day (Sat/Parra): PRN Rehab Potential: Fair Time/GCodes Start Time: 08:15 Stop Time: 09:15 Total Time Billed (hr/min): 60 Billed Treatment Time 1 visit, ADLx2(25minutes), NMx2(35minutes) GEOVANNA MCKENZIE OT Jul 17, 2016 10:35
--- NOTE | 2016-07-17 11:52 | Physical Therapy Daily Note ---
PT Daily Note-Current Subjective Pt sitting in recliner upon arrival. Pt reports not sleeping well due to not being able to get comfortable. Pt agrees to PT. Pain Location: No Pain Reported Mental Status Patient Orientation: Person, Place, Time, Situation Transfers Functional [place] Measure 0=Not Assessed/NA 4=Minimal Assistance 1=Total Assistance 5=Supervision or Setup 2=Maximal Assistance 6=Modified [place] 3=Moderate Assistance 7=Complete IndependenceIRFPAI Quality Coding Scale 6 Independent with activity with or without an assistive device 5 Patient requires set up or clean up by helper. Patient completes activity by themselves 4 Supervision or touching assist (CGA). [place] provide cues , steadying assist 3 The helper provides less than half the effort to complete the activity 2 The helper provides more than half the effort to complete the activity 1 Dependent. The helper does all the effort to complete an activity 7 Patient refused to complete or attempt activity 9 The patient did not perform the activity before the current illness or injury 88 Not attempted due to Medical conditions or safety concerns Transfers (B, C, W/C) (FIM): 1 Scootin Sit to/from Stand: 2 Sit to Stand (QC): 2 Weight Bearing Weight Bearing Restriction: Full Weight Bearing Location Restriction: LE Bilateral Weight Bearing: Pt has difficulty standing due to inability to lock knees for erect stand Wheelchair Training Does the Pt Use a Wheelchair?: Yes Wheelchair (FIM): 2 Wheelchair Distance: 1=up to 49 ft Distance: 10' Wheelchair Level of Assist: 2 Type of Wheelchair: Manual Pt is only able to propel with RUE & RLE and fatigues easy. LUE remains in pt' s lap and LLE remains on pedal. Exercises Seated Therapy Exercises: Sit to stand Seated Reps: 5 Treatments Pt transfers from recliner to [facility] using SPT at Max X2. Pt propels approx. 10' before needing PT to wheel pt to Therapy Gym the rest of the way. Pt reports feeling Blood sugar low and has nurse take it to be sure. Blood Sugar is 89. Pt then rests before sit to stands at //bars. Pt stands at //bars at Max A with additional assistance to stand up tall due to pt's inability to lock knees (BLE). Pt returns to [facility] and after short rest pt propels [facility] another 10' before fatigue sets in and PT wheels the rest of the way to pt's room to rest in [facility]. Pt is left with all needs met at end of tx. Pt states she will remain in [facility] until Group. Assessment Current Status: Good Progress Pt continues to try to assist more during transfers and sit to stands although pt's weakness in LE, especially in LLE, continues to hamper pt's ability to do so. Pt continues to be a Max A transfer. PT Short Term Goals Short Term Goals Time Frame: Jul 24, 2016 Wheelchair Distance: 10' PT Intermediate Goals Surgery Consultant Goals PT Intermediate Goals Time Frame: Aug 07, 2016 Transfers (B,C,W/C) (FIM): 6 Sit to Lying (QC): 6 Lying-Sitting on Side/Bed(QC): 6 Sit to Stand (QC): 6 Rollin Roll Left to Right (QC): 6 Chair/Rjw-ns-Asztn Xfer(QC): 6 Car Transfer (QC): 5 Does the Patient Walk: No and Walking Goal IS indicated Gait (FIM): 4 Gait distance (FIM): 3=992-96 ft Distance: 75 Walk 10 feet (QC): 6 Walk 10ft-Uneven Surface(QC): 4 Walk 50ft with 2 Turns (QC): 6 Walk 150 ft (QC): 4 Gait Level of Assist: 6 Gait Assistive Device: FWW Does the Pt use WC or Scooter?: No Stairs (FIM): 2 # of Steps: 3 1 Step (curb) (QC): 2 4 Steps (QC): 9 12 Steps (QC): 9 Stairs Level Of Assist: 2 Picking up an Object (QC): 4 PT Plan Problem List Problem List: Activity Tolerance, Functional Strength, Safety, Transfer, ROM Treatment/Plan Treatment Plan: Continue Plan of Care Treatment Plan: Bed Mobility, Education, Functional Activity Perla, Functional Strength, Group Therapy, Gait, Safety, Therapeutic Exercise, Transfers Treatment Duration: Aug 07, 2016 Visits Per Week: 10-11 Minutes/Day (M-F): 60-90 Minutes/Day (Sat/Parra): PRN Safety Risks/Education Patient Education: Transfer Techniques, Correct Positioning, Safety Issues Teaching Recipient: Patient Teaching Methods: Discussion Response to Teaching: Verbalize Understanding Time/GCodes Time In: 1005 Time Out: 1055 Total Billed Treatment Time: 50 Total Billed Treatment visit, FA X3 (50m) TERESA GILLIAM ORE TESTER Jul 17, 2016 11:52
--- NOTE | 2016-07-17 12:01 | PM & R (SOAP) Progress Note ---
Subjective Subjective/Events-last exam Patient was seen in her room this AM Appreciate DR Young note Blood pressure better controlled with the addition of Valsartan Patient max assist for transfers Objective Exam Last Set of Vital Signs Vital Signs Date Time Temp Pulse Resp B/P (MAP) Pulse Ox O2 Delivery O2 Flow Rate FiO2 07/17/16 09:00 Room Air 07/17/16 06:00 97.7 66 18 157/83 94 07/13/16 18:10 0.00 0.00 Capillary Refill : I&O Intake and Output 07/17/16 00:00 Intake Total 1050 ml Balance 1050 ml Intake Oral 1050 ml # Voids 3 # Urine Diapers 7 # Bowel Movements 5 General: Alert, Oriented X3, Cooperative, No Acute Distress HEENT: Atraumatic, PERRLA, EOMI, Mucous Memb Moist/[place], Other (02 by N/C in place) Neck: Supple, No JVD Lungs: Clear to Auscultation Heart: Regular Rate Abdomen: Normal Bowel Sounds, Soft Extremities: No Edema Neuro: Other (mild left sided weakness as per H&P) Results Lab Laboratory Tests 07/16/16 06:04: Glucometer 81 07/17/16 05:24: Glucometer 87 07/17/16 10:27: Glucometer 89 Assessment/Plan Assessment 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
--- NOTE | 2016-07-17 15:23 | Therapy Group Daily Note ---
Therapy Daily Group Note Patient Education Topic Fall Prevention Exercises LE Seated Exercise, UE Exercise Other/Notes Pt arrived to PT/OT Group in [facility] wheeled by staff to Therapy [facility]. Pt participated in Group consisting of Introductions (Name, Where you are from and Most Embarrassing Moment), Seated UE & LE Exercises as well as Education on Fall Prevention. Pt actively participated in Exercises as well as verbally participated by giving Embarrassing Moment and giving One Way pt has made or will make an improvement at home to prevent falls. Pt then returned to room and transferred to bed to rest at end of Group with all needs met. Start Time: 13:00 Stop Time: 14:15 Total Billed Treatment Time: 75 Total Billed Treatment 1, GRP TERESA GILLIAM [facility] Jul 17, 2016 15:23
[2016-07-17 18:00] VITALS: BP 169/74
[2016-07-17] MEDS: SIMvastatin 10 MG (ZOCOR) TAB PO SCH (20:32)
[2016-07-17] MEDS: LATANOPROST 0.005% (XALATAN) OPHTH SOLN 2.5 ML OU SCH (20:33)
[2016-07-18] MEDS: LACTULOSE SYRUP 10GM/15ML (ENULOSE) 30ML UDC PO SCH ×8 (04:00→23:49)
[2016-07-18 05:29] VITALS: BP 169/70
[2016-07-18] MEDS: GLIMEPIRIDE 4 MG (AMARYL) TAB PO SCH (06:23)
[2016-07-18] MEDS: MULTIVIT W/MINERALS TAB (THERAGRAN M) PO SCH (06:23)
[2016-07-18] MEDS: metFORMIN 500 MG (GLUCOPHAGE) TAB PO SCH ×2 (06:23→16:44)
--- NOTE | 2016-07-18 08:32 | PM & R (SOAP) Progress Note ---
Subjective Subjective/Events-last exam Patient was seen in her room this AM Patient max assist for transfers.Blood pressure better controlled with adjustment in meds Objective Exam Last Set of Vital Signs Vital Signs Date Time Temp Pulse Resp B/P (MAP) Pulse Ox O2 Delivery O2 Flow Rate FiO2 07/18/16 05:29 98.5 58 18 169/70 93 Room Air 07/13/16 18:10 0.00 0.00 Capillary Refill : I&O Intake and Output 07/18/16 00:00 Intake Total 870 ml Balance 870 ml Intake Oral 870 ml # Urine Diapers 6 # Bowel Movements 3 General: Alert, Oriented X3, Cooperative, No Acute Distress HEENT: Atraumatic, PERRLA, EOMI, Mucous Memb Moist/[place], Other (02 by N/C in place) Neck: Supple, No JVD Lungs: Clear to Auscultation Heart: Regular Rate Abdomen: Normal Bowel Sounds, Soft Extremities: No Edema Neuro: Other (mild left sided weakness as per H&P) Results Lab Laboratory Tests 07/16/16 06:04: Glucometer 81 07/17/16 05:24: Glucometer 87 07/17/16 10:27: Glucometer 89 07/18/16 05:44: Glucometer 90 Assessment/Plan Assessment 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
[2016-07-18] MEDS: meTOprolol TARTRATE 50 MG (LOPRESSOR) TAB PO SCH ×2 (08:46→20:00)
[2016-07-18] MEDS: VALSARTAN 80 MG (DIOVAN) TAB PO SCH ×2 (08:46→20:00)
[2016-07-18] MEDS: ASPIRIN E.C. 81 MG (ECOTRIN) TAB PO SCH (08:46)
[2016-07-18] MEDS: DORZOLAMIDE 2% 10 ML BTL (TRUSOPT) OU SCH ×2 (09:02→21:31)
--- NOTE | 2016-07-18 10:09 | Speech Therapy Daily Note ---
Speech Daily Progress Note Subjective The patient was seated upright in recliner upon entrance. The patient greeted the clinician appropriately and agreed to participate in dysphagia therapy on this date. Per patient, she is somewhat tired on this date due to a poor night' s rest. Objective Dysphagia Exercises: The patient demonstrated consistent accuracy (80%) with dysphagia exercises on this date (base of tongue retraction, pharyngeal contraction, and laryngeal elevation). Mild clinician verbal prompting was provided, as well as, an initial model. Ten repetitions of each exercise were performed. Bolus Trials: The patient was reassessed with thin liquids via cup sip on this date. No signs/symptoms of aspiration or laryngeal penetration were demonstrated with 4 ounces of thin liquid. The patient's vocal quality remained clear. Assessment Assessment Current Status: Good Progress Treatment Plan Continue Plan of Care Communication Comprehension: 5 Expression: 5 Social Cognition Social Interaction: 5 Problem Solvin Memory: 4 Speech Short Term Goals Short Term Goals Short Term Goals 1. The patient will demonstrate oral motor exercises with 90% accuracy, independently. 2. The patient will demonstrate 80% accuracy with structured executive functioning and problem solving tasks with mild clinician verbal cueing. 3. The patient will demonstrate dysphagia exercises with 90% accuracy and mild clinician cueing. Time Frame-STG: Two Weeks Speech Usp Goals Usp Goals 1. The patient will demonstrate improved cognitive linguistic skills for increased safety and function with ADL's in the least restrictive setting. 2. The patient will tolerate the least restrictive diet without signs/symptoms of aspiration or laryngeal penetration. Time Frame: Six Weeks Speech-Plan Treatment Plan Speech Therapy Treatment Plan: Continue Plan of Care Continue skilled speech pathology to target improved safety with the swallowing function. Treatment Duration: August 21, 2016 # of days/week Five. Visits Per Week: Five Minutes/Day (M-F): 30 Rehab Potential: Fair Safety Risks/Education Teaching Recipient: Patient Teaching Methods: Demonstration, Handout, Discussion Response to Teaching: Verbalize Understanding, Return Demonstration, Reinforcement Needed Education Topics Provided: Dysphagia Exercises Time Speech Therapy Time In: 09:15 Speech Therapy Time Out: 09:45 Total Billed Time: 30 Billed Treatment Time GISELLE Rain ELIZABETH Jul 18, 2016 10:08
--- NOTE | 2016-07-18 10:22 | Occupational Ther Daily Note ---
OT Current Status-Daily Note Subjective Pt in bed, agrees to treatment. Pt reports "discomfort" in LE with movement, but states she has no pain at rest. Mental Status/Objective Functional [place] Measure 0=Not Assessed/NA 4=Minimal Assistance 1=Total Assistance 5=Supervision or Setup 2=Maximal Assistance 6=Modified [place] 3=Moderate Assistance 7=Complete [place] ADL-Treatment Pt dependent for supine to sit. Transfer EOB to [facility] with assist x2. Pt requires total assist to manage clothing and toileting hygiene. Transfer to w/c with assist x2. Sponge bath completed while seated. Pt able to wash left UE, chest, abdomen, and petey area. Assist for all other areas. Pt able to recall UE dressing technique, but requires max assist to don pullover shirt. Total assist required to don Depends and pants. Pt sat at sink for grooming tasks. Pt combed hair with set up. Used mouthwash for oral care with set up. Pt requires increased time for all ADL tasks. Functional [place] Measure 0=Not Assessed/NA 4=Minimal Assistance 1=Total Assistance 5=Supervision or Setup 2=Maximal Assistance 6=Modified [place] 3=Moderate Assistance 7=Complete IndependenceIRFPAI Quality Coding Scale 6 Independent with activity with or without an assistive device 5 Patient requires set up or clean up by helper. Patient completes activity by themselves 4 Supervision or touching assist (CGA). [place] provide cues , steadying assist 3 The helper provides less than half the effort to complete the activity 2 The helper provides more than half the effort to complete the activity 1 Dependent. The helper does all the effort to complete an activity 7 Patient refused to complete or attempt activity 9 The patient did not perform the activity before the current illness or injury 88 Not attempted due to Medical conditions or safety concerns Grooming (FIM): 5 Oral Hygiene (QC): 5 Upper Body (FIM): 2 Upper Body Dressing (QC): 2 Lower Body Dressing (FIM): 1 Lower Body Dressing (QC): 1 Toileting (FIM): 1 Toileting Hygiene (QC): 1 Toilet/Commode Transfer (FIM): 1 Other Treatment Pt performed left UE exercises to promote increase active ROM and strength. AAROM x10 reps for shoulder and elbow movements. Pt able to complete AROM x10 reps at forearm, wrist, and fingers with increased time and rest breaks between exercises. Left hand machine shop worker exercises x10 reps with minimal resistance therapy foam. Pt sitting in chair with needs met after session. OT Short Term Goals Short Term Goals Time Frame: Jul 24, 2016 Bathing(FIM): 3 Upper Body Dressing(FIM): 4 Lower Body Dressing(FIM): 3 Toileting(FIM): 3 Toilet/Commode Transfer(FIM): 3 Shower Transfer(FIM): 3 Additional Short Term Goals: 1-Demonstrate ADL Tasks, 2-Verbalize Understanding , 3-ImproveStrength/Perla 1=Demonstrate adherence to instructed precautions during ADL tasks. 2=Patient will verbalize/demonstrate understanding of assistive devices/ modifications for ADL. 3=Patient will improve strength/tolerance for activity to enable patient to perform ADL's. OT Project Manager/Team Coach Goals Project Manager/Team Coach Goals Time Frame: Aug 07, 2016 Eating (FIM): 6 Eating (QC): 6 Groomin Oral Hygiene (QC): 5 Bathing(FIM): 5 Shower/Bathe Self (QC): 5 Upper Body Dressing(FIM): 5 Upper Body Dressing (QC): 5 Lower Body Dressing(FIM): 5 Lower Body Dressing (QC): 5 On/Off Footwear (QC): 5 Toileting(FIM): 5 Toileting Hygiene (QC): 5 Toilet/Commode Transfer(FIM): 5 Toilet/Commode Transfer (QC): 5 Shower Transfer(FIM): 5 Additional Goals: 1-Demonstrate ADL Tasks, 2-Verbalize Understanding, 3- ImproveStrength/Perla 1=Demonstrate adherence to instructed precautions during ADL tasks. 2=Patient will verbalize/demonstrate understanding of assistive devices/ modifications for ADL. 3=Patient will improve strength/tolerance for activity to enable patient to perform ADL's. OT Education/Plan Problem List/Assessment Pt admitted to ARU following acute hospitalization for CVA. Pt demonstrates decreased strength on left side, impaired ability to perform ADLs and transfers. Pt to benefit from skilled OT intervention for ADL training, transfers, strengthening, adaptive equipment training as needed and home safety education to improve level of independence and allow safe discharge plan. Discharge Recommendations Plan/Recommendations: Continue POC Treatment Plan/Plan of Care Patient would benefit from OT for education, treatment and training to promote independence in ADL's, mobility, safety and/or upper extremity function for ADL' s. Plan of Care: ADL Retraining, Functional Mobility, UE Funct Exercise/Act Treatment Duration: Aug 07, 2016 Visits Per Week: 10-11 Minutes/Day (M-F): 60-90 Minutes/Day (Sat/Parra): PRN Rehab Potential: Fair Time/GCodes Start Time: 08:00 Stop Time: 09:15 Total Time Billed (hr/min): 75 Billed Treatment Time 1 visit, ADLx4(60minutes), EX(15minutes) GEOVANNA MCKENZIE OT Jul 18, 2016 10:22
--- NOTE | 2016-07-18 13:05 | Physical Therapy Daily Note ---
PT Daily Note-Current Subjective Pt sitting in [facility] in room upon arrival. Pt agrees to PT. Mental Status Patient Orientation: Person, Place, Time, Situation Transfers Functional [place] Measure 0=Not Assessed/NA 4=Minimal Assistance 1=Total Assistance 5=Supervision or Setup 2=Maximal Assistance 6=Modified [place] 3=Moderate Assistance 7=Complete IndependenceIRFPAI Quality Coding Scale 6 Independent with activity with or without an assistive device 5 Patient requires set up or clean up by helper. Patient completes activity by themselves 4 Supervision or touching assist (CGA). [place] provide cues , steadying assist 3 The helper provides less than half the effort to complete the activity 2 The helper provides more than half the effort to complete the activity 1 Dependent. The helper does all the effort to complete an activity 7 Patient refused to complete or attempt activity 9 The patient did not perform the activity before the current illness or injury 88 Not attempted due to Medical conditions or safety concerns Transfers (B, C, W/C) (FIM): 1 Scootin Sit to/from Stand: 1 Sit to Stand (QC): 1 Chair/Idv-ws-Zzfga Xfer(QC): 1 Bed to/from Chair: 1 Weight Bearing Weight Bearing Restriction: Full Weight Bearing Location Restriction: LE Bilateral Treatments Pt informed PT of not sleeping well again due to not finding comfortable position. Pt completes Seated EX in [facility] while Sit to Stand Lift is located. Since lift is not charged, pt is wheeled to Therapy Gym to practice sit to stands at //bars at Max A X 2 for assistance with keeping L hand on bars and to help lock knees to assist taller standing. Pt then reports needing to use BSC for BM. Pt returns to room to use BSC and transfers at Max A X2 with SPT to BSC. After completing, Pt transfers to recliner to rest at Max A X2 for SPT. Pt is left with all needs met at end of tx. Assessment Pt continues to try to assist with transfers although pt is still lacking strength to assist more than she is currently. PT Short Term Goals Short Term Goals Time Frame: Jul 24, 2016 Wheelchair Distance: 10' PT Detention Goals Cobol Engineer Goals PT Detention Goals Time Frame: Aug 07, 2016 Transfers (B,C,W/C) (FIM): 6 Sit to Lying (QC): 6 Lying-Sitting on Side/Bed(QC): 6 Sit to Stand (QC): 6 Rollin Roll Left to Right (QC): 6 Chair/Caa-ai-Baock Xfer(QC): 6 Car Transfer (QC): 5 Does the Patient Walk: No and Walking Goal IS indicated Gait (FIM): 4 Gait distance (FIM): 9=899-55 ft Distance: 75 Walk 10 feet (QC): 6 Walk 10ft-Uneven Surface(QC): 4 Walk 50ft with 2 Turns (QC): 6 Walk 150 ft (QC): 4 Gait Level of Assist: 6 Gait Assistive Device: FWW Does the Pt use WC or Scooter?: No Stairs (FIM): 2 # of Steps: 3 1 Step (curb) (QC): 2 4 Steps (QC): 9 12 Steps (QC): 9 Stairs Level Of Assist: 2 Picking up an Object (QC): 4 PT Plan Problem List Problem List: Activity Tolerance, Functional Strength, Safety, Balance, Gait, Transfer, Bed Mobility, ROM Treatment/Plan Treatment Plan: Continue Plan of Care Treatment Plan: Bed Mobility, Education, Functional Activity Peral, Functional Strength, Group Therapy, Gait, Safety, Therapeutic Exercise, Transfers Treatment Duration: Aug 07, 2016 Visits Per Week: 10-11 Minutes/Day (M-F): 60-90 Minutes/Day (Sat/Parra): PRN Safety Risks/Education Patient Education: Transfer Techniques, Correct Positioning, Safety Issues Teaching Recipient: Patient Teaching Methods: Discussion Response to Teaching: Verbalize Understanding Time/GCodes Time In: 1000 Time Out: 1100 Total Billed Treatment Time: 60 Total Billed Treatment visit, FA X4 (60m) TERESA GILLIAM PTA Jul 18, 2016 13:05
--- NOTE | 2016-07-18 14:23 | Physical Therapy Daily Note ---
PT Daily Note-Current Subjective Pt sitting in recliner upon arrival. Pt is fatigued from Morning Therapy but agrees to Seated Ex in recliner. Pain Location: No Pain Reported Mental Status Patient Orientation: Person, Place, Time, Situation Transfers Functional [place] Measure 0=Not Assessed/NA 4=Minimal Assistance 1=Total Assistance 5=Supervision or Setup 2=Maximal Assistance 6=Modified [place] 3=Moderate Assistance 7=Complete IndependenceIRFPAI Quality Coding Scale 6 Independent with activity with or without an assistive device 5 Patient requires set up or clean up by helper. Patient completes activity by themselves 4 Supervision or touching assist (CGA). [place] provide cues , steadying assist 3 The helper provides less than half the effort to complete the activity 2 The helper provides more than half the effort to complete the activity 1 Dependent. The helper does all the effort to complete an activity 7 Patient refused to complete or attempt activity 9 The patient did not perform the activity before the current illness or injury 88 Not attempted due to Medical conditions or safety concerns Exercises Seated Therapy Exercises: Ankle pumps, Long arc quads, Hip flexion, Kicking activity Seated Reps: 15 Treatments Pt informs PT that she is tired from Morning Therapy and only wants to do Seated Ex. Pt completes Seated Ex in recliner independently though without PT' s assistance even on L side. Pt is left with all needs met at end of tx. Assessment Current Status: Fair Progress Pt is fatigued before tx starts although is improving with BLE strength demonstrated by independence of Ex. PT Short Term Goals Short Term Goals Time Frame: Jul 24, 2016 Wheelchair Distance: 10' PT Care Home Goals Care Home Goals PT Care Home Goals Time Frame: Aug 07, 2016 Transfers (B,C,W/C) (FIM): 6 Sit to Lying (QC): 6 Lying-Sitting on Side/Bed(QC): 6 Sit to Stand (QC): 6 Rollin Roll Left to Right (QC): 6 Chair/Zan-qj-Mokgt Xfer(QC): 6 Car Transfer (QC): 5 Does the Patient Walk: No and Walking Goal IS indicated Gait (FIM): 4 Gait distance (FIM): 2=364-77 ft Distance: 75 Walk 10 feet (QC): 6 Walk 10ft-Uneven Surface(QC): 4 Walk 50ft with 2 Turns (QC): 6 Walk 150 ft (QC): 4 Gait Level of Assist: 6 Gait Assistive Device: FWW Does the Pt use WC or Scooter?: No Stairs (FIM): 2 # of Steps: 3 1 Step (curb) (QC): 2 4 Steps (QC): 9 12 Steps (QC): 9 Stairs Level Of Assist: 2 Picking up an Object (QC): 4 PT Plan Problem List Problem List: Activity Tolerance, Functional Strength, Safety, Balance, Gait, Transfer, Bed Mobility, ROM Treatment/Plan Treatment Plan: Continue Plan of Care Treatment Plan: Bed Mobility, Education, Functional Activity Perla, Functional Strength, Group Therapy, Gait, Safety, Therapeutic Exercise, Transfers Treatment Duration: Aug 07, 2016 Visits Per Week: 10-11 Minutes/Day (M-F): 60-90 Minutes/Day (Sat/Parra): PRN Safety Risks/Education Patient Education: Transfer Techniques, Correct Positioning, Safety Issues Teaching Recipient: Patient Teaching Methods: Discussion Response to Teaching: Verbalize Understanding Time/GCodes Time In: 1300 Time Out: 1315 Total Billed Treatment Time: 15 Total Billed Treatment visit, EX (15m) TERESA GILLIAM PTA Jul 18, 2016 14:23
[2016-07-18 19:00] VITALS: BP 128/50
[2016-07-18] MEDS: SIMvastatin 10 MG (ZOCOR) TAB PO SCH (20:00)
[2016-07-18] MEDS: LATANOPROST 0.005% (XALATAN) OPHTH SOLN 2.5 ML OU SCH (21:31)
[2016-07-19] MEDS: LACTULOSE SYRUP 10GM/15ML (ENULOSE) 30ML UDC PO SCH ×5 (04:00→19:59)
[2016-07-19 05:00] VITALS: BP 149/67
[2016-07-19] MEDS: metFORMIN 500 MG (GLUCOPHAGE) TAB PO SCH ×2 (06:30→17:21)
[2016-07-19] MEDS: GLIMEPIRIDE 4 MG (AMARYL) TAB PO SCH (06:30)
[2016-07-19] MEDS: MULTIVIT W/MINERALS TAB (THERAGRAN M) PO SCH (06:31)
[2016-07-19 08:02] VITALS: BP 157/64
--- NOTE | 2016-07-19 08:04 | PM & R (SOAP) Progress Note ---
Subjective Subjective/Events-last exam Patient was seen in her room this AM Family in to visist Patient eating breakfast in Bed Blood pressure better controlled Patient max assist for transfers Objective Exam Last Set of Vital Signs Vital Signs Date Time Temp Pulse Resp B/P (MAP) Pulse Ox O2 Delivery O2 Flow Rate FiO2 07/19/16 05:00 98.1 62 20 149/67 92 Room Air 07/13/16 18:10 0.00 0.00 Capillary Refill : I&O Intake and Output 07/19/16 00:00 Intake Total 782 ml Balance 782 ml Intake Oral 782 ml # Voids 2 # Urine Diapers 1 # Bowel Movements 3 General: Alert, Oriented X3, Cooperative, No Acute Distress HEENT: Atraumatic, PERRLA, EOMI, Mucous Memb Moist/Anton Ruiz, Other (02 by N/C in place) Neck: Supple, No JVD Lungs: Clear to Auscultation Heart: Regular Rate Abdomen: Normal Bowel Sounds, Soft Extremities: No Edema Neuro: Other (mild left sided weakness as per H&P) Results Lab Laboratory Tests 07/17/16 05:24: Glucometer 87 07/17/16 10:27: Glucometer 89 07/18/16 05:44: Glucometer 90 07/19/16 05:38: Glucometer 77 Assessment/Plan Assessment 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
[2016-07-19] MEDS: VALSARTAN 80 MG (DIOVAN) TAB PO SCH ×2 (08:05→20:01)
[2016-07-19] MEDS: meTOprolol TARTRATE 50 MG (LOPRESSOR) TAB PO SCH ×2 (08:06→20:01)
[2016-07-19] MEDS: ASPIRIN E.C. 81 MG (ECOTRIN) TAB PO SCH (08:06)
[2016-07-19] MEDS: ACETAMINOPHEN 500 MG TAB (TYLENOL) PO PRN (08:12)
[2016-07-19] MEDS: DORZOLAMIDE 2% 10 ML BTL (TRUSOPT) OU SCH ×2 (08:13→20:01)
--- NOTE | 2016-07-19 10:15 | Speech Therapy Daily Note ---
Speech Daily Progress Note Subjective The patient was seated upright in recliner upon entrance. The patient greeted the clinician appropriately and agreed to participate in dysphagia therapy on this date. Per patient, she is fatigued on this date, however, slept well the night prior. Objective Dysphagia Exercises: The patient demonstrated consistent accuracy (80%) with dysphagia exercises on this date (base of tongue retraction, pharyngeal contraction, and laryngeal elevation). Mild clinician verbal prompting was provided, as well as, an initial model. Ten repetitions of each exercise were performed. Bolus Trials: The patient was reassessed with thin liquids via cup sip on this date. No signs/symptoms of aspiration or laryngeal penetration were demonstrated with 4 ounces of thin liquid. The patient's vocal quality remained clear. Assessment Assessment Current Status: Fair Progress Treatment Plan Continue Plan of Care Communication Comprehension: 4 Expression: 4 Social Cognition Social Interaction: 5 Problem Solvin Memory: 4 Speech Short Term Goals Short Term Goals Short Term Goals 1. The patient will demonstrate oral motor exercises with 90% accuracy, independently. 2. The patient will demonstrate 80% accuracy with structured executive functioning and problem solving tasks with mild clinician verbal cueing. 3. The patient will demonstrate dysphagia exercises with 90% accuracy and mild clinician cueing. Time Frame-STG: Two Weeks Speech Furniture Associate Goals Mcc Goals 1. The patient will demonstrate improved cognitive linguistic skills for increased safety and function with ADL's in the least restrictive setting. 2. The patient will tolerate the least restrictive diet without signs/symptoms of aspiration or laryngeal penetration. Time Frame: Six Weeks Speech-Plan Treatment Plan Speech Therapy Treatment Plan: Continue Plan of Care Treatment Duration: August 21, 2016 # of days/week Continue skilled speech therapy to target improved safety with the patient's swallowing function. Visits Per Week: Five Minutes/Day (M-F): 30 Rehab Potential: Fair Safety Risks/Education Teaching Recipient: Patient Teaching Methods: Demonstration, Handout, Discussion Response to Teaching: Return Demonstration, Reinforcement Needed Education Topics Provided: Dysphagia Exercises Time Speech Therapy Time In: 09:00 Speech Therapy Time Out: 09:30 Total Billed Time: 30 Billed Treatment Time GISELLE Rain ELIZABETH Jul 19, 2016 10:15
--- NOTE | 2016-07-19 11:26 | Occupational Ther Daily Note ---
OT Current Status-Daily Note Subjective Pt in bed, agrees to treatment. States she slept better last night. Mental Status/Objective Functional [place] Measure 0=Not Assessed/NA 4=Minimal Assistance 1=Total Assistance 5=Supervision or Setup 2=Maximal Assistance 6=Modified [place] 3=Moderate Assistance 7=Complete [place] ADL-Treatment Pt would like to shower this morning. Supine to sit with assist x2. Transfer to shower chair using sit to stand lift. To shower via rolling shower chair. Pt able to bathe left UE, chest, abdomen, petey area, and bilateral upper legs. Pt used long handled sponge to wash lower legs and feet, but required assist to dry them. Pt requires assist to wash buttocks and right UE. Pt does incorporate use of left arm during bathing tasks. Pt donned pullover shirt with maximal assistance. Total assist required to don Depends and pants using sit to stand during pant hike. Total assist to don socks. Pt combed hair with set up and used mouthwash for oral care with set up. Transfer to recliner chair with sit to stand lift. Pt requires increased time for ADL tasks. Pt sitting in w/c with needs met after session. Functional [place] Measure 0=Not Assessed/NA 4=Minimal Assistance 1=Total Assistance 5=Supervision or Setup 2=Maximal Assistance 6=Modified [place] 3=Moderate Assistance 7=Complete IndependenceIRFPAI Quality Coding Scale 6 Independent with activity with or without an assistive device 5 Patient requires set up or clean up by helper. Patient completes activity by themselves 4 Supervision or touching assist (CGA). [place] provide cues , steadying assist 3 The helper provides less than half the effort to complete the activity 2 The helper provides more than half the effort to complete the activity 1 Dependent. The helper does all the effort to complete an activity 7 Patient refused to complete or attempt activity 9 The patient did not perform the activity before the current illness or injury 88 Not attempted due to Medical conditions or safety concerns Grooming (FIM): 5 Bathing (FIM): 3 Upper Body (FIM): 2 Lower Body Dressing (FIM): 1 Shower Transfer(FIM): 1 OT Short Term Goals Short Term Goals Time Frame: Jul 24, 2016 Bathing(FIM): 3 Upper Body Dressing(FIM): 4 Lower Body Dressing(FIM): 3 Toileting(FIM): 3 Toilet/Commode Transfer(FIM): 3 Shower Transfer(FIM): 3 Additional Short Term Goals: 1-Demonstrate ADL Tasks, 2-Verbalize Understanding , 3-ImproveStrength/Perla 1=Demonstrate adherence to instructed precautions during ADL tasks. 2=Patient will verbalize/demonstrate understanding of assistive devices/ modifications for ADL. 3=Patient will improve strength/tolerance for activity to enable patient to perform ADL's. OT Assisted Goals Assisted Goals Time Frame: Aug 07, 2016 Eating (FIM): 6 Eating (QC): 6 Groomin Oral Hygiene (QC): 5 Bathing(FIM): 5 Shower/Bathe Self (QC): 5 Upper Body Dressing(FIM): 5 Upper Body Dressing (QC): 5 Lower Body Dressing(FIM): 5 Lower Body Dressing (QC): 5 On/Off Footwear (QC): 5 Toileting(FIM): 5 Toileting Hygiene (QC): 5 Toilet/Commode Transfer(FIM): 5 Toilet/Commode Transfer (QC): 5 Shower Transfer(FIM): 5 Additional Goals: 1-Demonstrate ADL Tasks, 2-Verbalize Understanding, 3- ImproveStrength/Perla 1=Demonstrate adherence to instructed precautions during ADL tasks. 2=Patient will verbalize/demonstrate understanding of assistive devices/ modifications for ADL. 3=Patient will improve strength/tolerance for activity to enable patient to perform ADL's. OT Education/Plan Problem List/Assessment Pt admitted to ARU following acute hospitalization for CVA. Pt demonstrates decreased strength on left side, impaired ability to perform ADLs and transfers. Pt to benefit from skilled OT intervention for ADL training, transfers, strengthening, adaptive equipment training as needed and home safety education to improve level of independence and allow safe discharge plan. Discharge Recommendations Plan/Recommendations: Continue POC Treatment Plan/Plan of Care Patient would benefit from OT for education, treatment and training to promote independence in ADL's, mobility, safety and/or upper extremity function for ADL' s. Plan of Care: ADL Retraining, Functional Mobility, UE Funct Exercise/Act Treatment Duration: Aug 07, 2016 Visits Per Week: 10-11 Minutes/Day (M-F): 60-90 Minutes/Day (Sat/Parra): PRN Rehab Potential: Fair Time/GCodes Start Time: 08:00 Stop Time: 09:00 Total Time Billed (hr/min): 60 Billed Treatment Time 1 visit, ADLx4(60minutes) GEOVANNA MCKENZIE OT Jul 19, 2016 11:26
--- NOTE | 2016-07-19 12:10 | Physical Therapy Daily Note ---
PT Daily Note-Current Subjective Pt sitting in recliner upon arrival. Pt reports again trouble sleeping but reports no pain today. Pt agrees to PT. Pain Location: No Pain Reported Mental Status Patient Orientation: Person, Place, Time, Situation Transfers Functional [place] Measure 0=Not Assessed/NA 4=Minimal Assistance 1=Total Assistance 5=Supervision or Setup 2=Maximal Assistance 6=Modified [place] 3=Moderate Assistance 7=Complete IndependenceIRFPAI Quality Coding Scale 6 Independent with activity with or without an assistive device 5 Patient requires set up or clean up by helper. Patient completes activity by themselves 4 Supervision or touching assist (CGA). [place] provide cues , steadying assist 3 The helper provides less than half the effort to complete the activity 2 The helper provides more than half the effort to complete the activity 1 Dependent. The helper does all the effort to complete an activity 7 Patient refused to complete or attempt activity 9 The patient did not perform the activity before the current illness or injury 88 Not attempted due to Medical conditions or safety concerns Transfers (B, C, W/C) (FIM): 1 Scootin Sit to/from Stand: 1 Sit to Stand (QC): 1 Weight Bearing Weight Bearing Restriction: Full Weight Bearing Location Restriction: LE Bilateral Exercises Seated Therapy Exercises: Ankle pumps, Long arc quads, Hip flexion, Kicking activity Seated Reps: 15 Treatments Pt completed Seated Ex in recliner. Pt takes short rest before attempting standing. Pt transfers from sitting to standing using Sit to Stand Lift twice. Pt stood 3 1/2 mins the first time before resting then 5 mins the second stand. Pt is able to stand more erect with lift which allows for better WB through BLE. Pt returns to recliner to rest at end of tx with all needs met. Assessment Current Status: Fair Progress Pt continues to make improvement with independent ROM and activity tolerance especially with LLE. Pt continues to have difficulty standing but pt reports no pain with WB. PT Short Term Goals Short Term Goals Time Frame: Jul 24, 2016 Wheelchair Distance: 10' PT Retirement Goals Retirement Goals PT Metal Furniture Polisher Goals Time Frame: Aug 07, 2016 Transfers (B,C,W/C) (FIM): 6 Sit to Lying (QC): 6 Lying-Sitting on Side/Bed(QC): 6 Sit to Stand (QC): 6 Rollin Roll Left to Right (QC): 6 Chair/Hui-gh-Aepsu Xfer(QC): 6 Car Transfer (QC): 5 Does the Patient Walk: No and Walking Goal IS indicated Gait (FIM): 4 Gait distance (FIM): 7=834-01 ft Distance: 75 Walk 10 feet (QC): 6 Walk 10ft-Uneven Surface(QC): 4 Walk 50ft with 2 Turns (QC): 6 Walk 150 ft (QC): 4 Gait Level of Assist: 6 Gait Assistive Device: FWW Does the Pt use WC or Scooter?: No Stairs (FIM): 2 # of Steps: 3 1 Step (curb) (QC): 2 4 Steps (QC): 9 12 Steps (QC): 9 Stairs Level Of Assist: 2 Picking up an Object (QC): 4 PT Plan Problem List Problem List: Activity Tolerance, Functional Strength, Safety, Balance, Gait, Transfer, Bed Mobility, ROM Treatment/Plan Treatment Plan: Continue Plan of Care Treatment Plan: Bed Mobility, Education, Functional Activity Perla, Functional Strength, Group Therapy, Gait, Safety, Therapeutic Exercise, Transfers Treatment Duration: Aug 07, 2016 Visits Per Week: 10-11 Minutes/Day (M-F): 60-90 Minutes/Day (Sat/Parra): PRN Safety Risks/Education Patient Education: Transfer Techniques, Correct Positioning, Safety Issues Teaching Recipient: Patient Teaching Methods: Discussion Response to Teaching: Verbalize Understanding Time/GCodes Time In: 1000 Time Out: 1045 Total Billed Treatment Time: 45 Total Billed Treatment visit, EX (15m) & FA X2 (30m) TERESA GILLIAM PTA Jul 19, 2016 12:10
[2016-07-19] MEDS: LORATADINE (CLARITIN) 10 MG TAB PO PRN (13:11)
--- NOTE | 2016-07-19 14:40 | Therapy Group Daily Note ---
Therapy Daily Group Note Exercises Balance, Sit to/from Stand, Fine Motor, UE Exercise Other/Notes Pt required max A x2 to transfer from recliner to w/c. Pt transported in w/c to OT/PT group. Group consisted of introductions, socialization, UE exercises, memory recall, fine motor, sit to stand activities and transfers. Pt was able to contribute to group conversations and answer questions appropriately. Pt was able to recall safety items from previous group without difficulty. Pt relied on COMPUTER ENGINEERING TECHNOLOGIST assistance during fine motor activities for directions and confirm answers. Pt worked on UE exercises, did not complete sit to stand task due to decreased standing ability. After group, pt transferred with max A x1 to bed from /. Call light/phone in reach. All needs met in room. Start Time: 13:00 Stop Time: 14:15 Total Billed Treatment Time: 75 Total Billed Treatment 1-GRP ELÍAS FORREST Jul 19, 2016 14:40
[2016-07-19] MEDS: NYSTATIN CREAM (MYCOSTATIN) 30 GM TUBE TP PRN (16:04)
[2016-07-19] MEDS: HYDROCORTISONE 1% CREAM 30 GM TUBE TOP PRN (16:04)
[2016-07-19] MEDS: ZINC OXIDE 16% OINT (BUTT PASTE) 113 GM TUBE TOP PRN (16:05)
[2016-07-19 18:24] VITALS: BP 167/69
[2016-07-19] MEDS: LATANOPROST 0.005% (XALATAN) OPHTH SOLN 2.5 ML OU SCH (20:00)
[2016-07-19] MEDS: SIMvastatin 10 MG (ZOCOR) TAB PO SCH (20:01)
[2016-07-20] MEDS: LACTULOSE SYRUP 10GM/15ML (ENULOSE) 30ML UDC PO SCH ×6 (04:00→20:00)
[2016-07-20 05:20] VITALS: BP 164/76
[2016-07-20] MEDS: metFORMIN 500 MG (GLUCOPHAGE) TAB PO SCH ×2 (06:14→17:00)
[2016-07-20] MEDS: GLIMEPIRIDE 4 MG (AMARYL) TAB PO SCH (06:14)
[2016-07-20] MEDS: MULTIVIT W/MINERALS TAB (THERAGRAN M) PO SCH (06:14)
[2016-07-20] MEDS: HYDROCORTISONE 1% CREAM 30 GM TUBE TOP PRN (08:08)
[2016-07-20] MEDS: NYSTATIN CREAM (MYCOSTATIN) 30 GM TUBE TP PRN (08:08)
[2016-07-20] MEDS: ZINC OXIDE 16% OINT (BUTT PASTE) 113 GM TUBE TOP PRN (08:13)
[2016-07-20] MEDS: DORZOLAMIDE 2% 10 ML BTL (TRUSOPT) OU SCH ×2 (08:18→20:49)
[2016-07-20 09:03] VITALS: BP 183/72
[2016-07-20] MEDS: LORATADINE (CLARITIN) 10 MG TAB PO PRN (09:09)
[2016-07-20] MEDS: VALSARTAN 80 MG (DIOVAN) TAB PO SCH ×2 (09:10→20:49)
[2016-07-20] MEDS: meTOprolol TARTRATE 50 MG (LOPRESSOR) TAB PO SCH ×2 (09:10→20:49)
[2016-07-20] MEDS: ASPIRIN E.C. 81 MG (ECOTRIN) TAB PO SCH (09:10)
[2016-07-20 10:25] VITALS: BP 159/70
--- NOTE | 2016-07-20 10:46 | Physical Therapy Daily Note ---
PT Daily Note-Current Subjective States that she is doing okay. Pain Numeric Pain Scale: 0-No Pain Transfers Functional [place] Measure 0=Not Assessed/NA 4=Minimal Assistance 1=Total Assistance 5=Supervision or Setup 2=Maximal Assistance 6=Modified [place] 3=Moderate Assistance 7=Complete IndependenceIRFPAI Quality Coding Scale 6 Independent with activity with or without an assistive device 5 Patient requires set up or clean up by helper. Patient completes activity by themselves 4 Supervision or touching assist (CGA). [place] provide cues , steadying assist 3 The helper provides less than half the effort to complete the activity 2 The helper provides more than half the effort to complete the activity 1 Dependent. The helper does all the effort to complete an activity 7 Patient refused to complete or attempt activity 9 The patient did not perform the activity before the current illness or injury 88 Not attempted due to Medical conditions or safety concerns Exercises Supine Ex: LE Protocol Supine Reps: 20 Assessment Current Status: Good Progress Patient did well with bed exercises. PT Short Term Goals Short Term Goals Time Frame: Jul 24, 2016 Wheelchair Distance: 10' PT Format Proofreader Goals Format Proofreader Goals PT Skilled Nursing Goals Time Frame: Aug 07, 2016 Transfers (B,C,W/C) (FIM): 6 Sit to Lying (QC): 6 Lying-Sitting on Side/Bed(QC): 6 Sit to Stand (QC): 6 Rollin Roll Left to Right (QC): 6 Chair/Vyy-de-Pgpws Xfer(QC): 6 Car Transfer (QC): 5 Does the Patient Walk: No and Walking Goal IS indicated Gait (FIM): 4 Gait distance (FIM): 6=597-83 ft Distance: 75 Walk 10 feet (QC): 6 Walk 10ft-Uneven Surface(QC): 4 Walk 50ft with 2 Turns (QC): 6 Walk 150 ft (QC): 4 Gait Level of Assist: 6 Gait Assistive Device: FWW Does the Pt use WC or Scooter?: No Stairs (FIM): 2 # of Steps: 3 1 Step (curb) (QC): 2 4 Steps (QC): 9 12 Steps (QC): 9 Stairs Level Of Assist: 2 Picking up an Object (QC): 4 PT Plan Treatment/Plan Treatment Plan: Continue Plan of Care Treatment Plan: Bed Mobility, Education, Functional Activity Perla, Functional Strength, Group Therapy, Gait, Safety, Therapeutic Exercise, Transfers Treatment Duration: Aug 07, 2016 Visits Per Week: 10-11 Minutes/Day (M-F): 60-90 Minutes/Day (Sat/Parra): PRN Time/GCodes Time In: 1025 Time Out: 1040 Total Billed Treatment Time: 15 Total Billed Treatment 1, EX x 15 RANDY SOMERS PT Jul 20, 2016 10:46
[2016-07-20 18:01] VITALS: BP 148/80
[2016-07-20] MEDS: LATANOPROST 0.005% (XALATAN) OPHTH SOLN 2.5 ML OU SCH (20:49)
[2016-07-20] MEDS: SIMvastatin 10 MG (ZOCOR) TAB PO SCH (20:49)
[2016-07-21] MEDS: LACTULOSE SYRUP 10GM/15ML (ENULOSE) 30ML UDC PO SCH ×6 (04:00→20:37)
[2016-07-21 05:26] VITALS: BP 150/69
[2016-07-21] MEDS: metFORMIN 500 MG (GLUCOPHAGE) TAB PO SCH ×2 (06:03→17:32)
[2016-07-21] MEDS: GLIMEPIRIDE 4 MG (AMARYL) TAB PO SCH (06:03)
[2016-07-21] MEDS: MULTIVIT W/MINERALS TAB (THERAGRAN M) PO SCH (06:03)
[2016-07-21 08:43] VITALS: BP 164/70
[2016-07-21] MEDS: VALSARTAN 80 MG (DIOVAN) TAB PO SCH ×2 (08:50→20:37)
[2016-07-21] MEDS: meTOprolol TARTRATE 50 MG (LOPRESSOR) TAB PO SCH ×2 (08:50→20:37)
[2016-07-21] MEDS: ASPIRIN E.C. 81 MG (ECOTRIN) TAB PO SCH (08:51)
[2016-07-21] MEDS: DORZOLAMIDE 2% 10 ML BTL (TRUSOPT) OU SCH ×2 (08:51→20:38)
[2016-07-21] MEDS: HYDROCORTISONE 1% CREAM 30 GM TUBE TOP PRN (08:52)
[2016-07-21] MEDS: NYSTATIN CREAM (MYCOSTATIN) 30 GM TUBE TP PRN (08:52)
[2016-07-21] MEDS: ZINC OXIDE 16% OINT (BUTT PASTE) 113 GM TUBE TOP PRN (08:53)
[2016-07-21 17:29] VITALS: BP 156/71
[2016-07-21] MEDS: SIMvastatin 10 MG (ZOCOR) TAB PO SCH (20:37)
[2016-07-21] MEDS: LATANOPROST 0.005% (XALATAN) OPHTH SOLN 2.5 ML OU SCH (20:38)
[2016-07-22] MEDS: LACTULOSE SYRUP 10GM/15ML (ENULOSE) 30ML UDC PO SCH ×6 (04:00→20:00)
[2016-07-22 04:42] VITALS: BP 152/63
[2016-07-22] MEDS: metFORMIN 500 MG (GLUCOPHAGE) TAB PO SCH ×2 (06:38→17:04)
[2016-07-22] MEDS: MULTIVIT W/MINERALS TAB (THERAGRAN M) PO SCH (06:38)
[2016-07-22] MEDS: GLIMEPIRIDE 4 MG (AMARYL) TAB PO SCH (06:38)
[2016-07-22 08:38] VITALS: BP 160/70
[2016-07-22] MEDS: ASPIRIN E.C. 81 MG (ECOTRIN) TAB PO SCH (08:39)
[2016-07-22] MEDS: VALSARTAN 80 MG (DIOVAN) TAB PO SCH ×2 (08:39→20:34)
[2016-07-22] MEDS: meTOprolol TARTRATE 50 MG (LOPRESSOR) TAB PO SCH ×2 (08:40→20:34)
[2016-07-22] MEDS: DORZOLAMIDE 2% 10 ML BTL (TRUSOPT) OU SCH ×2 (08:42→21:06)
--- NOTE | 2016-07-22 10:30 | Physical Therapy Daily Note ---
PT Daily Note-Current Subjective Patient in recliner pre tx, agrees to PT, no complaints of pain. Appearance Patient in recliner post tx with nurse call, phone, tray, legs elevated and on pillow, all needs met. Mental Status Patient Orientation: Person, Place, Situation Transfers Functional [place] Measure 0=Not Assessed/NA 4=Minimal Assistance 1=Total Assistance 5=Supervision or Setup 2=Maximal Assistance 6=Modified [place] 3=Moderate Assistance 7=Complete IndependenceIRFPAI Quality Coding Scale 6 Independent with activity with or without an assistive device 5 Patient requires set up or clean up by helper. Patient completes activity by themselves 4 Supervision or touching assist (CGA). [place] provide cues , steadying assist 3 The helper provides less than half the effort to complete the activity 2 The helper provides more than half the effort to complete the activity 1 Dependent. The helper does all the effort to complete an activity 7 Patient refused to complete or attempt activity 9 The patient did not perform the activity before the current illness or injury 88 Not attempted due to Medical conditions or safety concerns Transfers (B, C, W/C) (FIM): 1 Sit to/from Stand: 1 Bed to/from Chair: 1 dependent for sit to stand and stand pivot. Patient stood in standing frame for 15 min. Treatments Patient was transferred to a wheelchair from the recliner, taken to the therapy gym and put in a standing frame where she was able to stand for 15 min, put back into her wheelchair and taken back to her room and transferred back to the recliner. Assessment Current Status: Fair Progress poor mobility, she was able to stand for 15 min in the standing frame PT Short Term Goals Short Term Goals Time Frame: Jul 24, 2016 Wheelchair Distance: 10' PT Snf Goals Corporate Secretary Goals PT Corporate Secretary Goals Time Frame: Aug 07, 2016 Transfers (B,C,W/C) (FIM): 6 Sit to Lying (QC): 6 Lying-Sitting on Side/Bed(QC): 6 Sit to Stand (QC): 6 Rollin Roll Left to Right (QC): 6 Chair/Nwi-gl-Ssbis Xfer(QC): 6 Car Transfer (QC): 5 Does the Patient Walk: No and Walking Goal IS indicated Gait (FIM): 4 Gait distance (FIM): 7=620-09 ft Distance: 75 Walk 10 feet (QC): 6 Walk 10ft-Uneven Surface(QC): 4 Walk 50ft with 2 Turns (QC): 6 Walk 150 ft (QC): 4 Gait Level of Assist: 6 Gait Assistive Device: FWW Does the Pt use WC or Scooter?: No Stairs (FIM): 2 # of Steps: 3 1 Step (curb) (QC): 2 4 Steps (QC): 9 12 Steps (QC): 9 Stairs Level Of Assist: 2 Picking up an Object (QC): 4 PT Plan Problem List Problem List: Activity Tolerance, Functional Strength, Safety, Balance, Gait, Transfer, Bed Mobility, ROM Treatment/Plan Treatment Plan: Continue Plan of Care Treatment Plan: Bed Mobility, Education, Functional Activity Perla, Functional Strength, Group Therapy, Gait, Safety, Therapeutic Exercise, Transfers Treatment Duration: Aug 07, 2016 Visits Per Week: 10-11 Minutes/Day (M-F): 60-90 Minutes/Day (Sat/Parra): PRN Safety Risks/Education Patient Education: Transfer Techniques, Correct Positioning, Disease Process, Safety Issues Teaching Recipient: Patient Teaching Methods: Demonstration, Discussion Response to Teaching: Reinforcement Needed Time/GCodes Time In: 945 Time Out: 1030 Total Billed Treatment Time: 45 Total Billed Treatment 1 visit FA 45 min GARFIELD MIKE PT Jul 22, 2016 10:30
--- NOTE | 2016-07-22 11:57 | Occupational Ther Daily Note ---
OT Current Status-Daily Note Subjective Pt in bed, agrees to treatment. Pt states she did not sleep well last night, so she is tired this morning. Mental Status/Objective Functional [place] Measure 0=Not Assessed/NA 4=Minimal Assistance 1=Total Assistance 5=Supervision or Setup 2=Maximal Assistance 6=Modified [place] 3=Moderate Assistance 7=Complete [place] ADL-Treatment Pt supine to sit with assist x2 for safety. Pt requests shower this morning. Transfer to shower chair with total assist using sit to stand lift. To shower via rolling shower chair. Pt able to wash left UE, chest, abdomen, bilateral upper legs, and petey areas. Pt uses long sponge to wash bilateral lower legs and feet, but requires assist to dry them. Pt requires assist to wash/dry right UE and buttocks. Don pullover shirt with maximal assistance. Pt has difficulty pulling shirt over head and pulling shirt down. Increased time for task. Dependent to don socks. Pt requires total assist to don Depends and shorts. Stood with sit to stand lift for pant hike. Transfer to chair with total assist using sit to stand lift. Pt combed hair with set up and completed oral care with mouthwash with set up. Pt sitting in chair with needs met and speech therapist present after session. Functional [place] Measure 0=Not Assessed/NA 4=Minimal Assistance 1=Total Assistance 5=Supervision or Setup 2=Maximal Assistance 6=Modified [place] 3=Moderate Assistance 7=Complete IndependenceIRFPAI Quality Coding Scale 6 Independent with activity with or without an assistive device 5 Patient requires set up or clean up by helper. Patient completes activity by themselves 4 Supervision or touching assist (CGA). [place] provide cues , steadying assist 3 The helper provides less than half the effort to complete the activity 2 The helper provides more than half the effort to complete the activity 1 Dependent. The helper does all the effort to complete an activity 7 Patient refused to complete or attempt activity 9 The patient did not perform the activity before the current illness or injury 88 Not attempted due to Medical conditions or safety concerns Grooming (FIM): 5 Oral Hygiene (QC): 5 Bathing (FIM): 3 Bathing Location: L Arm, L Upper Leg, R Upper Leg, Chest, Abdomen, Perineal Area Upper Body (FIM): 2 Upper Body Dressing (QC): 2 Lower Body Dressing (FIM): 1 Lower Body Dressing (QC): 1 On/Off Footwear (QC): 1 Shower Transfer(FIM): 1 OT Short Term Goals Short Term Goals Time Frame: Jul 24, 2016 Bathing(FIM): 3 Upper Body Dressing(FIM): 4 Lower Body Dressing(FIM): 3 Toileting(FIM): 3 Toilet/Commode Transfer(FIM): 3 Shower Transfer(FIM): 3 Additional Short Term Goals: 1-Demonstrate ADL Tasks, 2-Verbalize Understanding , 3-ImproveStrength/Perla 1=Demonstrate adherence to instructed precautions during ADL tasks. 2=Patient will verbalize/demonstrate understanding of assistive devices/ modifications for ADL. 3=Patient will improve strength/tolerance for activity to enable patient to perform ADL's. OT Accelerator Operator Goals Alf Goals Time Frame: Aug 07, 2016 Eating (FIM): 6 Eating (QC): 6 Groomin Oral Hygiene (QC): 5 Bathing(FIM): 5 Shower/Bathe Self (QC): 5 Upper Body Dressing(FIM): 5 Upper Body Dressing (QC): 5 Lower Body Dressing(FIM): 5 Lower Body Dressing (QC): 5 On/Off Footwear (QC): 5 Toileting(FIM): 5 Toileting Hygiene (QC): 5 Toilet/Commode Transfer(FIM): 5 Toilet/Commode Transfer (QC): 5 Shower Transfer(FIM): 5 Additional Goals: 1-Demonstrate ADL Tasks, 2-Verbalize Understanding, 3- ImproveStrength/Perla 1=Demonstrate adherence to instructed precautions during ADL tasks. 2=Patient will verbalize/demonstrate understanding of assistive devices/ modifications for ADL. 3=Patient will improve strength/tolerance for activity to enable patient to perform ADL's. OT Education/Plan Problem List/Assessment Pt admitted to ARU following acute hospitalization for CVA. Pt demonstrates decreased strength on left side, impaired ability to perform ADLs and transfers. Pt to benefit from skilled OT intervention for ADL training, transfers, strengthening, adaptive equipment training as needed and home safety education to improve level of independence and allow safe discharge plan. Discharge Recommendations Plan/Recommendations: Continue POC Treatment Plan/Plan of Care Patient would benefit from OT for education, treatment and training to promote independence in ADL's, mobility, safety and/or upper extremity function for ADL' s. Plan of Care: ADL Retraining, Functional Mobility, UE Funct Exercise/Act Treatment Duration: Aug 07, 2016 Visits Per Week: 10-11 Minutes/Day (M-F): 60-90 Minutes/Day (Sat/Parra): PRN Rehab Potential: Fair Time/GCodes Start Time: 08:15 Stop Time: 09:15 Total Time Billed (hr/min): 60 Billed Treatment Time 1 visit, ADLx4(60minutes) GEOVANNA MCKENZIE OT Jul 22, 2016 11:57
--- NOTE | 2016-07-22 12:14 | Speech Therapy Daily Note ---
Speech Daily Progress Note Subjective The patient was seated upright in recliner upon entrance. The patient greeted the clinician appropriately and agreed to participate in dysphagia therapy on this date. Objective Dysphagia Exercises: The patient demonstrated consistent accuracy (80%) with dysphagia exercises on this date (base of tongue retraction, pharyngeal contraction, and laryngeal elevation). Moderate clinician verbal prompting was provided, as well as, an initial model. Ten repetitions of each exercise were performed. Assessment Assessment Current Status: Fair Progress Treatment Plan Continue Plan of Care Speech Short Term Goals Short Term Goals Short Term Goals 1. The patient will demonstrate oral motor exercises with 90% accuracy, independently. 2. The patient will demonstrate 80% accuracy with structured executive functioning and problem solving tasks with mild clinician verbal cueing. 3. The patient will demonstrate dysphagia exercises with 90% accuracy and mild clinician cueing. Time Frame-STG: Two Weeks Speech Binding Cutter Goals Binding Cutter Goals 1. The patient will demonstrate improved cognitive linguistic skills for increased safety and function with ADL's in the least restrictive setting. 2. The patient will tolerate the least restrictive diet without signs/symptoms of aspiration or laryngeal penetration. Time Frame: Six Weeks Speech-Plan Treatment Plan Speech Therapy Treatment Plan: Continue Plan of Care Continue skilled speech therapy to target improved swallowing safety with the least restrictive diet. Treatment Duration: August 21, 2016 # of days/week Five Visits Per Week: Five Minutes/Day (M-F): 30 Rehab Potential: Fair Safety Risks/Education Teaching Recipient: Patient Teaching Methods: Demonstration, Handout, Discussion Response to Teaching: Return Demonstration, Reinforcement Needed Education Topics Provided: Dysphagia Exercises Time Speech Therapy Time In: 09:00 Speech Therapy Time Out: 09:30 Total Billed Time: 30 Billed Treatment Time 1GISELLE ELIZABETH Jul 22, 2016 12:14
--- NOTE | 2016-07-22 13:38 | Physical Therapy Daily Note ---
PT Daily Note-Current Subjective Pt sitting in recliner upon arrival. Pt reports feeling a litle tired from Therapy already this morning. PT advised will give rest breaks as pt needs so muscles can recover. Pt agrees to PT. Pain Location: No Pain Reported Mental Status Patient Orientation: Person, Place, Time, Situation Transfers Functional [place] Measure 0=Not Assessed/NA 4=Minimal Assistance 1=Total Assistance 5=Supervision or Setup 2=Maximal Assistance 6=Modified [place] 3=Moderate Assistance 7=Complete IndependenceIRFPAI Quality Coding Scale 6 Independent with activity with or without an assistive device 5 Patient requires set up or clean up by helper. Patient completes activity by themselves 4 Supervision or touching assist (CGA). [place] provide cues , steadying assist 3 The helper provides less than half the effort to complete the activity 2 The helper provides more than half the effort to complete the activity 1 Dependent. The helper does all the effort to complete an activity 7 Patient refused to complete or attempt activity 9 The patient did not perform the activity before the current illness or injury 88 Not attempted due to Medical conditions or safety concerns Exercises Seated Therapy Exercises: Ankle pumps, Long arc quads, Hip flexion, Kicking activity, Hip abd/add Seated Reps: 15 Treatments Pt reports a little fatigued with morning Therapy but agrees to Seated Ex in recliner. Pt completes 1st round of Seated Ex with short rest break between each Ex then takes longer rest before starting 2nd round of Ex. AB/AD is only completed 1 round. Pt rests at end of Ex to enjoy lunch with all needs mets at end of tx. Assessment Current Status: Fair Progress Pt fatigues easy and needs rest break because muscles tire easily. PT Short Term Goals Short Term Goals Time Frame: Jul 24, 2016 Wheelchair Distance: 10' PT Jail Goals Jail Goals PT On Call Goals Time Frame: Aug 07, 2016 Transfers (B,C,W/C) (FIM): 6 Sit to Lying (QC): 6 Lying-Sitting on Side/Bed(QC): 6 Sit to Stand (QC): 6 Rollin Roll Left to Right (QC): 6 Chair/Rox-na-Zalsj Xfer(QC): 6 Car Transfer (QC): 5 Does the Patient Walk: No and Walking Goal IS indicated Gait (FIM): 4 Gait distance (FIM): 7=158-53 ft Distance: 75 Walk 10 feet (QC): 6 Walk 10ft-Uneven Surface(QC): 4 Walk 50ft with 2 Turns (QC): 6 Walk 150 ft (QC): 4 Gait Level of Assist: 6 Gait Assistive Device: FWW Does the Pt use WC or Scooter?: No Stairs (FIM): 2 # of Steps: 3 1 Step (curb) (QC): 2 4 Steps (QC): 9 12 Steps (QC): 9 Stairs Level Of Assist: 2 Picking up an Object (QC): 4 PT Plan Problem List Problem List: Activity Tolerance, Functional Strength, Safety, Balance, Gait, Transfer, Bed Mobility, ROM Treatment/Plan Treatment Plan: Continue Plan of Care Treatment Plan: Bed Mobility, Education, Functional Activity Perla, Functional Strength, Group Therapy, Gait, Safety, Therapeutic Exercise, Transfers Treatment Duration: Aug 07, 2016 Visits Per Week: 10-11 Minutes/Day (M-F): 60-90 Minutes/Day (Sat/Parra): PRN Safety Risks/Education Patient Education: Correct Positioning, Safety Issues Teaching Recipient: Patient Teaching Methods: Discussion Response to Teaching: Verbalize Understanding Time/GCodes Time In: 1115 Time Out: 1145 Total Billed Treatment Time: 30 Total Billed Treatment visit, EX X2 (30m) TERESA GILLIAM PTA Jul 22, 2016 13:38
--- NOTE | 2016-07-22 14:32 | Occupational Ther Daily Note ---
OT Current Status-Daily Note Subjective Pt sitting in chair, agrees to treatment. Mental Status/Objective Functional [place] Measure 0=Not Assessed/NA 4=Minimal Assistance 1=Total Assistance 5=Supervision or Setup 2=Maximal Assistance 6=Modified [place] 3=Moderate Assistance 7=Complete [place] ADL-Treatment Functional [place] Measure 0=Not Assessed/NA 4=Minimal Assistance 1=Total Assistance 5=Supervision or Setup 2=Maximal Assistance 6=Modified [place] 3=Moderate Assistance 7=Complete IndependenceIRFPAI Quality Coding Scale 6 Independent with activity with or without an assistive device 5 Patient requires set up or clean up by helper. Patient completes activity by themselves 4 Supervision or touching assist (CGA). [place] provide cues , steadying assist 3 The helper provides less than half the effort to complete the activity 2 The helper provides more than half the effort to complete the activity 1 Dependent. The helper does all the effort to complete an activity 7 Patient refused to complete or attempt activity 9 The patient did not perform the activity before the current illness or injury 88 Not attempted due to Medical conditions or safety concerns Other Treatment Pt performed left UE exercises to promote increased ROM and strength needed for ADLs and transfers. Pt performed AAROM x10 reps for shoulder movements. AROM x10 for elbow, forearm, wrist, and finger movements. Rest breaks between exercises. Hand heel trimmer exercises x10 reps with left hand using minimal resistance therapy foam to increase heel trimmer strength. Pt sitting in chair with needs met after session. OT Short Term Goals Short Term Goals Time Frame: Jul 24, 2016 Bathing(FIM): 3 Upper Body Dressing(FIM): 4 Lower Body Dressing(FIM): 3 Toileting(FIM): 3 Toilet/Commode Transfer(FIM): 3 Shower Transfer(FIM): 3 Additional Short Term Goals: 1-Demonstrate ADL Tasks, 2-Verbalize Understanding , 3-ImproveStrength/Perla 1=Demonstrate adherence to instructed precautions during ADL tasks. 2=Patient will verbalize/demonstrate understanding of assistive devices/ modifications for ADL. 3=Patient will improve strength/tolerance for activity to enable patient to perform ADL's. OT Manager Privacy Goals Manager Privacy Goals Time Frame: Aug 07, 2016 Eating (FIM): 6 Eating (QC): 6 Groomin Oral Hygiene (QC): 5 Bathing(FIM): 5 Shower/Bathe Self (QC): 5 Upper Body Dressing(FIM): 5 Upper Body Dressing (QC): 5 Lower Body Dressing(FIM): 5 Lower Body Dressing (QC): 5 On/Off Footwear (QC): 5 Toileting(FIM): 5 Toileting Hygiene (QC): 5 Toilet/Commode Transfer(FIM): 5 Toilet/Commode Transfer (QC): 5 Shower Transfer(FIM): 5 Additional Goals: 1-Demonstrate ADL Tasks, 2-Verbalize Understanding, 3- ImproveStrength/Perla 1=Demonstrate adherence to instructed precautions during ADL tasks. 2=Patient will verbalize/demonstrate understanding of assistive devices/ modifications for ADL. 3=Patient will improve strength/tolerance for activity to enable patient to perform ADL's. OT Education/Plan Problem List/Assessment Pt admitted to ARU following acute hospitalization for CVA. Pt demonstrates decreased strength on left side, impaired ability to perform ADLs and transfers. Pt to benefit from skilled OT intervention for ADL training, transfers, strengthening, adaptive equipment training as needed and home safety education to improve level of independence and allow safe discharge plan. Discharge Recommendations Plan/Recommendations: Continue POC Treatment Plan/Plan of Care Patient would benefit from OT for education, treatment and training to promote independence in ADL's, mobility, safety and/or upper extremity function for ADL' s. Plan of Care: ADL Retraining, Functional Mobility, UE Funct Exercise/Act Treatment Duration: Aug 07, 2016 Visits Per Week: 10-11 Minutes/Day (M-F): 60-90 Minutes/Day (Sat/Parra): PRN Rehab Potential: Fair Time/GCodes Start Time: 13:30 Stop Time: 13:45 Total Time Billed (hr/min): 15 Billed Treatment Time 1 visit, EX(15minutes) GEOVANNA MCKENZIE OT Jul 22, 2016 14:32
[2016-07-22 18:06] VITALS: BP 149/89
--- NOTE | 2016-07-22 19:40 | PM & R (SOAP) Progress Note ---
Subjective Subjective/Events-last exam Patient was seen in her room this evening Patient max assist for transfers Dependent at times Discussed case with RN Patient refuses to bear wt on left leg at times Will f/u with therapy staff re this Objective Exam Last Set of Vital Signs Vital Signs Date Time Temp Pulse Resp B/P (MAP) Pulse Ox O2 Delivery O2 Flow Rate FiO2 07/22/16 18:06 73 149/89 07/22/16 17:10 97.0 18 94 Room Air Capillary Refill : I&O Intake and Output 07/22/16 00:00 Intake Total 1080 ml Balance 1080 ml Intake Oral 1080 ml # Voids 10 General: Alert, Oriented X3, Cooperative, No Acute Distress HEENT: Atraumatic, PERRLA, EOMI, Mucous Memb Moist/[place], Other (02 by N/C in place) Neck: Supple, No JVD Lungs: Clear to Auscultation Heart: Regular Rate Abdomen: Normal Bowel Sounds, Soft Extremities: No Edema Neuro: Other (having antigravity strength return in Left Upper limb) Results Lab Laboratory Tests 07/20/16 04:55: Glucometer 68L 07/21/16 05:20: Glucometer 80 07/22/16 05:13: Glucometer 74 Assessment/Plan Assessment 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
[2016-07-22] MEDS: SIMvastatin 10 MG (ZOCOR) TAB PO SCH (20:34)
[2016-07-22] MEDS: NYSTATIN CREAM (MYCOSTATIN) 30 GM TUBE TP PRN (20:36)
[2016-07-22] MEDS: LATANOPROST 0.005% (XALATAN) OPHTH SOLN 2.5 ML OU SCH (21:06)
[2016-07-23] MEDS: LACTULOSE SYRUP 10GM/15ML (ENULOSE) 30ML UDC PO SCH ×6 (04:00→20:00)
[2016-07-23] MEDS: ZINC OXIDE 16% OINT (BUTT PASTE) 113 GM TUBE TOP PRN ×2 (04:39→14:28)
[2016-07-23 05:02] VITALS: BP 167/71
[2016-07-23] MEDS: MULTIVIT W/MINERALS TAB (THERAGRAN M) PO SCH (06:00)
[2016-07-23] MEDS: GLIMEPIRIDE 4 MG (AMARYL) TAB PO SCH (06:00)
[2016-07-23] MEDS: metFORMIN 500 MG (GLUCOPHAGE) TAB PO SCH ×2 (06:00→17:46)
[2016-07-23 07:37] VITALS: BP 177/83
[2016-07-23] MEDS: LORATADINE (CLARITIN) 10 MG TAB PO PRN (07:41)
[2016-07-23] MEDS: VALSARTAN 80 MG (DIOVAN) TAB PO SCH ×2 (07:42→20:14)
[2016-07-23] MEDS: meTOprolol TARTRATE 50 MG (LOPRESSOR) TAB PO SCH ×2 (07:42→20:14)
[2016-07-23] MEDS: ASPIRIN E.C. 81 MG (ECOTRIN) TAB PO SCH (07:42)
[2016-07-23] MEDS: DORZOLAMIDE 2% 10 ML BTL (TRUSOPT) OU SCH ×2 (07:43→20:15)
[2016-07-23 08:47] VITALS: BP 164/73
[2016-07-23 09:24] VITALS: BP 154/71
--- NOTE | 2016-07-23 10:31 | Physical Therapy Daily Note ---
PT Daily Note-Current Subjective Patient c/o of shoulder pain (left) in standing frame. Pain Numeric Pain Scale: 5-Moderate Pain Location: Left Location Body Site: Shoulder Pain Description: Ache Mental Status Patient Orientation: Normal For Age Transfers Functional [place] Measure 0=Not Assessed/NA 4=Minimal Assistance 1=Total Assistance 5=Supervision or Setup 2=Maximal Assistance 6=Modified [place] 3=Moderate Assistance 7=Complete IndependenceIRFPAI Quality Coding Scale 6 Independent with activity with or without an assistive device 5 Patient requires set up or clean up by helper. Patient completes activity by themselves 4 Supervision or touching assist (CGA). [place] provide cues , steadying assist 3 The helper provides less than half the effort to complete the activity 2 The helper provides more than half the effort to complete the activity 1 Dependent. The helper does all the effort to complete an activity 7 Patient refused to complete or attempt activity 9 The patient did not perform the activity before the current illness or injury 88 Not attempted due to Medical conditions or safety concerns Transfers (B, C, W/C) (FIM): 1 Sit to/from Stand: 1 Sit to Stand (QC): 1 dependent assist from standing frame stand to sit Wheelchair Training Does the Pt Use a Wheelchair?: Yes Wheelchair (FIM): 2 Wheelchair Distance: 3=455-79 ft Distance: 75' Wheelchair Level of Assist: 4 Type of Wheelchair: Manual patient propels w/c with use of right LE and UE with CGA on w/c to assist in propulsion of w/c when patient fatigues Exercises Seated Therapy Exercises: Ankle pumps, Long arc quads, Hip flexion Seated Reps: 10 (AAROM left LE) Assessment Patient tolerates activity and remains up in w/c, per her choice, in her room with call light in hand. PT to increase activity as tolerated by patient. PT Short Term Goals Short Term Goals Time Frame: Jul 24, 2016 Wheelchair Distance: 10' PT Early Childhood Teacher Assistant Goals Alf Goals PT Early Childhood Teacher Assistant Goals Time Frame: Aug 07, 2016 Transfers (B,C,W/C) (FIM): 6 Sit to Lying (QC): 6 Lying-Sitting on Side/Bed(QC): 6 Sit to Stand (QC): 6 Rollin Roll Left to Right (QC): 6 Chair/Vtp-sz-Skbzz Xfer(QC): 6 Car Transfer (QC): 5 Does the Patient Walk: No and Walking Goal IS indicated Gait (FIM): 4 Gait distance (FIM): 9=953-88 ft Distance: 75 Walk 10 feet (QC): 6 Walk 10ft-Uneven Surface(QC): 4 Walk 50ft with 2 Turns (QC): 6 Walk 150 ft (QC): 4 Gait Level of Assist: 6 Gait Assistive Device: FWW Does the Pt use WC or Scooter?: No Stairs (FIM): 2 # of Steps: 3 1 Step (curb) (QC): 2 4 Steps (QC): 9 12 Steps (QC): 9 Stairs Level Of Assist: 2 Picking up an Object (QC): 4 PT Plan Treatment/Plan Treatment Plan: Continue Plan of Care Treatment Plan: Bed Mobility, Education, Functional Activity Perla, Functional Strength, Group Therapy, Gait, Safety, Therapeutic Exercise, Transfers Treatment Duration: Aug 07, 2016 Visits Per Week: 10-11 Minutes/Day (M-F): 60-90 Minutes/Day (Sat/Parra): PRN Time/GCodes Time In: 1015 Time Out: 1030 Total Billed Treatment Time: 15 Total Billed Treatment 1 visit FA 15 min JESSICA GASTELUM PT Jul 23, 2016 10:31
--- NOTE | 2016-07-23 10:45 | Speech Therapy Daily Note ---
Speech Daily Progress Note Subjective The patient was seated upright in wheelchair upon entrance. The patient greeted the clinician appropriately and agreed to participate in dysphagia therapy on this date. Objective Dysphagia Exercises: The patient demonstrated consistent accuracy (80%) with dysphagia exercises on this date (base of tongue retraction, pharyngeal contraction, and laryngeal elevation). Moderate clinician verbal prompting was provided, as well as, an initial model. Ten repetitions of each exercise were performed. Bolus Trials: The patient was reassessed with thin liquids via cup sip on this date. No signs/symptoms of aspiration or laryngeal penetration were demonstrated with 4 ounces of thin liquid. The patient's vocal quality remained clear. Assessment Assessment Current Status: Good Progress Treatment Plan Continue Plan of Care Communication Comprehension: 5 Expression: 5 Social Cognition Social Interaction: 5 Problem Solvin Memory: 4 Speech Short Term Goals Short Term Goals Short Term Goals 1. The patient will demonstrate oral motor exercises with 90% accuracy, independently. 2. The patient will demonstrate 80% accuracy with structured executive functioning and problem solving tasks with mild clinician verbal cueing. 3. The patient will demonstrate dysphagia exercises with 90% accuracy and mild clinician cueing. Time Frame-STG: Two Weeks Speech Home Care Physical Therapist Goals Home Care Physical Therapist Goals 1. The patient will demonstrate improved cognitive linguistic skills for increased safety and function with ADL's in the least restrictive setting. 2. The patient will tolerate the least restrictive diet without signs/symptoms of aspiration or laryngeal penetration. Time Frame: Six Weeks Speech-Plan Treatment Plan Speech Therapy Treatment Plan: Continue Plan of Care Continue skilled speech pathology to improve safety of the oropharyngeal swallow. Treatment Duration: August 21, 2016 # of days/week Five. Visits Per Week: Five Minutes/Day (M-F): 30 Rehab Potential: Fair Safety Risks/Education Teaching Recipient: Patient Teaching Methods: Demonstration, Handout Response to Teaching: Return Demonstration, Reinforcement Needed Education Topics Provided: Dysphagia Exercises Time Speech Therapy Time In: 09:15 Speech Therapy Time Out: 09:45 Total Billed Time: 30 Billed Treatment Time 1GISELLE ELIZABETH Jul 23, 2016 10:45
--- NOTE | 2016-07-23 11:56 | Physical Therapy Daily Note ---
PT Daily Note-Current Subjective Patient in recliner pre tx, agrees to PT, no complaints of pain. Appearance Patient in standing frame, left with another PT to finish the treatment. Mental Status Patient Orientation: Person, Place, Situation Transfers Functional [place] Measure 0=Not Assessed/NA 4=Minimal Assistance 1=Total Assistance 5=Supervision or Setup 2=Maximal Assistance 6=Modified [place] 3=Moderate Assistance 7=Complete IndependenceIRFPAI Quality Coding Scale 6 Independent with activity with or without an assistive device 5 Patient requires set up or clean up by helper. Patient completes activity by themselves 4 Supervision or touching assist (CGA). [place] provide cues , steadying assist 3 The helper provides less than half the effort to complete the activity 2 The helper provides more than half the effort to complete the activity 1 Dependent. The helper does all the effort to complete an activity 7 Patient refused to complete or attempt activity 9 The patient did not perform the activity before the current illness or injury 88 Not attempted due to Medical conditions or safety concerns Transfers (B, C, W/C) (FIM): 2 Sit to/from Stand: 2 Treatments Patient was transferred to a wheelchair and taken to the gym where she was placed in the standing frame for 15 min. Assessment Current Status: Fair Progress Patient has been in the standing frame for 2 days now, will try standing in the parallel bars tomorrow. PT Short Term Goals Short Term Goals Time Frame: Jul 24, 2016 Wheelchair Distance: 75' PT Senior Living Goals Senior Living Goals PT Senior Living Goals Time Frame: Aug 07, 2016 Transfers (B,C,W/C) (FIM): 6 Sit to Lying (QC): 6 Lying-Sitting on Side/Bed(QC): 6 Sit to Stand (QC): 6 Rollin Roll Left to Right (QC): 6 Chair/Gda-ot-Mzsca Xfer(QC): 6 Car Transfer (QC): 5 Does the Patient Walk: No and Walking Goal IS indicated Gait (FIM): 4 Gait distance (FIM): 2=172-52 ft Distance: 75 Walk 10 feet (QC): 6 Walk 10ft-Uneven Surface(QC): 4 Walk 50ft with 2 Turns (QC): 6 Walk 150 ft (QC): 4 Gait Level of Assist: 6 Gait Assistive Device: FWW Does the Pt use WC or Scooter?: No Stairs (FIM): 2 # of Steps: 3 1 Step (curb) (QC): 2 4 Steps (QC): 9 12 Steps (QC): 9 Stairs Level Of Assist: 2 Picking up an Object (QC): 4 PT Plan Problem List Problem List: Activity Tolerance, Functional Strength, Safety, Balance, Gait, Transfer, Bed Mobility, ROM Treatment/Plan Treatment Plan: Continue Plan of Care Treatment Plan: Bed Mobility, Education, Functional Activity Perla, Functional Strength, Group Therapy, Gait, Safety, Therapeutic Exercise, Transfers Treatment Duration: Aug 07, 2016 Visits Per Week: 10-11 Minutes/Day (M-F): 60-90 Minutes/Day (Sat/Parra): PRN Safety Risks/Education Patient Education: Transfer Techniques, Correct Positioning, Safety Issues Teaching Recipient: Patient Teaching Methods: Demonstration, Discussion Response to Teaching: Reinforcement Needed Time/GCodes Time In: 945 Time Out: 1015 Total Billed Treatment Time: 30 Total Billed Treatment 1 visit FA 30 min GARFIELD MIKE PT Jul 23, 2016 11:56
--- NOTE | 2016-07-23 11:57 | Occupational Ther Daily Note ---
OT Current Status-Daily Note Subjective Pt in bed, agrees to treatment. Has no c/o pain. Mental Status/Objective Functional [place] Measure 0=Not Assessed/NA 4=Minimal Assistance 1=Total Assistance 5=Supervision or Setup 2=Maximal Assistance 6=Modified [place] 3=Moderate Assistance 7=Complete [place] ADL-Treatment Pt supine to sit with total assist. Pt donned pullover shirt with moderate assistance and increased time. Pt attempting to use left UE for more functional tasks. Don socks with total assist. Pt dependent to don Depends and shorts. Stood with total assist with sit to stand for hygiene and for pant hike. Dependent for transfer to w/c with sit to stand lift. Pt completed grooming tasks seated at sink. Pt used mouthwash for oral and combed hair with set up. Functional [place] Measure 0=Not Assessed/NA 4=Minimal Assistance 1=Total Assistance 5=Supervision or Setup 2=Maximal Assistance 6=Modified [place] 3=Moderate Assistance 7=Complete IndependenceIRFPAI Quality Coding Scale 6 Independent with activity with or without an assistive device 5 Patient requires set up or clean up by helper. Patient completes activity by themselves 4 Supervision or touching assist (CGA). [place] provide cues , steadying assist 3 The helper provides less than half the effort to complete the activity 2 The helper provides more than half the effort to complete the activity 1 Dependent. The helper does all the effort to complete an activity 7 Patient refused to complete or attempt activity 9 The patient did not perform the activity before the current illness or injury 88 Not attempted due to Medical conditions or safety concerns Grooming (FIM): 5 Oral Hygiene (QC): 5 Lower Body Dressing (FIM): 1 Lower Body Dressing (QC): 1 On/Off Footwear (QC): 1 Other Treatment To therapy gym via w/c. Left UE activities completed to promote increased active ROM and strength. Pt able to stack 5 cones with left UE with increased time. Pt completed arnold bag toss with left UE. Pt able to cross midline to pick arnold bags up and then toss into basket with increased time and effort. Attempted arm arc on shortest extension, but pt unable to complete task at this time secondary to fatigue. Pt completed graded clothespin activity with left hand to increase forms designer/pinch strength. Pt able to use clothespins with least resistance, but unable to complete further with greater resistance clothespins. Pt completed peg activity with left hand. Able to place large pegs into pegboard with increased time. Pt returned to room, sitting in w/c with needs met after session. OT Short Term Goals Short Term Goals Time Frame: Jul 24, 2016 Bathing(FIM): 3 Upper Body Dressing(FIM): 4 Lower Body Dressing(FIM): 3 Toileting(FIM): 3 Toilet/Commode Transfer(FIM): 3 Shower Transfer(FIM): 3 Additional Short Term Goals: 1-Demonstrate ADL Tasks, 2-Verbalize Understanding , 3-ImproveStrength/Perla 1=Demonstrate adherence to instructed precautions during ADL tasks. 2=Patient will verbalize/demonstrate understanding of assistive devices/ modifications for ADL. 3=Patient will improve strength/tolerance for activity to enable patient to perform ADL's. OT Die Repair Machinist Goals Die Repair Machinist Goals Time Frame: Aug 07, 2016 Eating (FIM): 6 Eating (QC): 6 Groomin Oral Hygiene (QC): 5 Bathing(FIM): 5 Shower/Bathe Self (QC): 5 Upper Body Dressing(FIM): 5 Upper Body Dressing (QC): 5 Lower Body Dressing(FIM): 5 Lower Body Dressing (QC): 5 On/Off Footwear (QC): 5 Toileting(FIM): 5 Toileting Hygiene (QC): 5 Toilet/Commode Transfer(FIM): 5 Toilet/Commode Transfer (QC): 5 Shower Transfer(FIM): 5 Additional Goals: 1-Demonstrate ADL Tasks, 2-Verbalize Understanding, 3- ImproveStrength/Perla 1=Demonstrate adherence to instructed precautions during ADL tasks. 2=Patient will verbalize/demonstrate understanding of assistive devices/ modifications for ADL. 3=Patient will improve strength/tolerance for activity to enable patient to perform ADL's. OT Education/Plan Problem List/Assessment Pt admitted to ARU following acute hospitalization for CVA. Pt demonstrates decreased strength on left side, impaired ability to perform ADLs and transfers. Pt to benefit from skilled OT intervention for ADL training, transfers, strengthening, adaptive equipment training as needed and home safety education to improve level of independence and allow safe discharge plan. Discharge Recommendations Plan/Recommendations: Continue POC Treatment Plan/Plan of Care Patient would benefit from OT for education, treatment and training to promote independence in ADL's, mobility, safety and/or upper extremity function for ADL' s. Plan of Care: ADL Retraining, Functional Mobility, UE Funct Exercise/Act Treatment Duration: Aug 07, 2016 Visits Per Week: 10-11 Minutes/Day (M-F): 60-90 Minutes/Day (Sat/Parra): PRN Rehab Potential: Fair Time/GCodes Start Time: 08:00 Stop Time: 09:15 Total Time Billed (hr/min): 75 Billed Treatment Time 1 visit, ADLx2(30minutes), EXx3(45minutes) GEOVANNA MCKENZIE OT Jul 23, 2016 11:57
--- NOTE | 2016-07-23 13:31 | Physical Therapy Daily Note ---
PT Daily Note-Current Subjective Patient in wheelchair pre tx, agrees to PT, no complaints of pain. Appearance Patient in wheelchair post tx at bedside per patient request, has nurse call, phone, tray, all needs met. Mental Status Patient Orientation: Normal For Age Transfers Functional [place] Measure 0=Not Assessed/NA 4=Minimal Assistance 1=Total Assistance 5=Supervision or Setup 2=Maximal Assistance 6=Modified [place] 3=Moderate Assistance 7=Complete IndependenceIRFPAI Quality Coding Scale 6 Independent with activity with or without an assistive device 5 Patient requires set up or clean up by helper. Patient completes activity by themselves 4 Supervision or touching assist (CGA). [place] provide cues , steadying assist 3 The helper provides less than half the effort to complete the activity 2 The helper provides more than half the effort to complete the activity 1 Dependent. The helper does all the effort to complete an activity 7 Patient refused to complete or attempt activity 9 The patient did not perform the activity before the current illness or injury 88 Not attempted due to Medical conditions or safety concerns Sit to/from Stand: 2 Patient stood in the parallel bars twice for approx 1 min each time. She requires max assist to stand but can bear some weight in her legs after she stands. Wheelchair Training Wheelchair (FIM): 2 Distance: 50'x2 Wheelchair Level of Assist: 2 Type of Wheelchair: Manual Patient uses right arm and leg to propel but she is very weak and needs max assist Exercises Seated Therapy Exercises: Ankle pumps, Long arc quads, Hip flexion Seated Reps: 20 Treatments transfers, sit to stand, wheelchair mobility, functional strengthening Assessment Current Status: Poor Progress no change in mobility PT Short Term Goals Short Term Goals Time Frame: Jul 24, 2016 Wheelchair Distance: 75' PT Correction Goals [place] Operator Goals PT Correction Goals Time Frame: Aug 07, 2016 Transfers (B,C,W/C) (FIM): 6 Sit to Lying (QC): 6 Lying-Sitting on Side/Bed(QC): 6 Sit to Stand (QC): 6 Rollin Roll Left to Right (QC): 6 Chair/Lwm-oj-Trbpq Xfer(QC): 6 Car Transfer (QC): 5 Does the Patient Walk: No and Walking Goal IS indicated Gait (FIM): 4 Gait distance (FIM): 2=793-02 ft Distance: 75 Walk 10 feet (QC): 6 Walk 10ft-Uneven Surface(QC): 4 Walk 50ft with 2 Turns (QC): 6 Walk 150 ft (QC): 4 Gait Level of Assist: 6 Gait Assistive Device: FWW Does the Pt use WC or Scooter?: No Stairs (FIM): 2 # of Steps: 3 1 Step (curb) (QC): 2 4 Steps (QC): 9 12 Steps (QC): 9 Stairs Level Of Assist: 2 Picking up an Object (QC): 4 PT Plan Problem List Problem List: Activity Tolerance, Functional Strength, Safety, Balance, Gait, Transfer, Bed Mobility, ROM Treatment/Plan Treatment Plan: Continue Plan of Care Treatment Plan: Bed Mobility, Education, Functional Activity Perla, Functional Strength, Group Therapy, Gait, Safety, Therapeutic Exercise, Transfers Treatment Duration: Aug 07, 2016 Visits Per Week: 10-11 Minutes/Day (M-F): 60-90 Minutes/Day (Sat/Parra): PRN Safety Risks/Education Patient Education: Transfer Techniques, Correct Positioning, W/C Management, Safety Issues Teaching Recipient: Patient Teaching Methods: Demonstration, Discussion Response to Teaching: Reinforcement Needed Time/GCodes Time In: 1300 Time Out: 1330 Total Billed Treatment Time: 30 Total Billed Treatment 1 visit EX 15 min FA 15 min GARFIELD MIKE PT Jul 23, 2016 13:31
--- NOTE | 2016-07-23 13:42 | PM & R (SOAP) Progress Note ---
Subjective Subjective/Events-last exam Patient was seen in her room this AM Patient max assist for transfers Patient c/ o spasms in lege Discussed with RN Will trial low dose Flexeril Objective Exam Last Set of Vital Signs Vital Signs Date Time Temp Pulse Resp B/P (MAP) Pulse Ox O2 Delivery O2 Flow Rate FiO2 07/23/16 09:24 154/71 07/23/16 07:37 96.7 66 18 97 Room Air Capillary Refill : I&O Intake and Output 07/23/16 00:00 Intake Total 680 ml Balance 680 ml Intake Oral 680 ml # Voids 3 # Urine Diapers 3 General: Alert, Oriented X3, Cooperative, No Acute Distress HEENT: Atraumatic, PERRLA, EOMI, Mucous Memb Moist/[place], Other (02 by N/C in place) Neck: Supple, No JVD Lungs: Clear to Auscultation Heart: Regular Rate Abdomen: Normal Bowel Sounds, Soft Extremities: No Edema Neuro: Other (having antigravity strength return in Left Upper limb) Results Lab Laboratory Tests 07/21/16 05:20: Glucometer 80 07/22/16 05:13: Glucometer 74 07/23/16 04:32: Glucometer 81 Assessment/Plan Assessment 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
[2016-07-23] MEDS ORDERED: BACLOFEN 10 MG (LIORESAL) TAB PO PRN (13:45)
[2016-07-23] MEDS: NYSTATIN CREAM (MYCOSTATIN) 30 GM TUBE TP PRN (14:28)
[2016-07-23] MEDS: HYDROCORTISONE 1% CREAM 30 GM TUBE TOP PRN (14:29)
[2016-07-23 18:31] VITALS: BP 158/76
[2016-07-23] MEDS: SIMvastatin 10 MG (ZOCOR) TAB PO SCH (20:14)
[2016-07-23] MEDS: LATANOPROST 0.005% (XALATAN) OPHTH SOLN 2.5 ML OU SCH (20:15)
[2016-07-24] MEDS: LACTULOSE SYRUP 10GM/15ML (ENULOSE) 30ML UDC PO SCH ×6 (01:00→20:00)
[2016-07-24 05:00] VITALS: BP 162/68
[2016-07-24] MEDS: GLIMEPIRIDE 4 MG (AMARYL) TAB PO SCH (06:07)
[2016-07-24] MEDS: metFORMIN 500 MG (GLUCOPHAGE) TAB PO SCH ×2 (06:07→17:19)
[2016-07-24] MEDS: MULTIVIT W/MINERALS TAB (THERAGRAN M) PO SCH (06:07)
[2016-07-24] MEDS: meTOprolol TARTRATE 50 MG (LOPRESSOR) TAB PO SCH ×2 (08:05→20:06)
[2016-07-24] MEDS: ASPIRIN E.C. 81 MG (ECOTRIN) TAB PO SCH (08:05)
[2016-07-24] MEDS: VALSARTAN 80 MG (DIOVAN) TAB PO SCH ×2 (08:05→20:06)
[2016-07-24] MEDS: ZINC OXIDE 16% OINT (BUTT PASTE) 113 GM TUBE TOP PRN ×2 (08:06→20:06)
[2016-07-24] MEDS: HYDROCORTISONE 1% CREAM 30 GM TUBE TOP PRN (08:06)
[2016-07-24] MEDS: DORZOLAMIDE 2% 10 ML BTL (TRUSOPT) OU SCH ×2 (08:06→20:07)
[2016-07-24] MEDS: NYSTATIN CREAM (MYCOSTATIN) 30 GM TUBE TP PRN ×2 (08:06→20:06)
--- NOTE | 2016-07-24 08:16 | Progress Note (SOAP) ---
Subjective Subjective/Events-last exam No new complaints today. Still in rehab after CVA. She is allergic to the FREDY and CCB blood pressure meds. Objective Exam Vital Signs Date Time Temp Pulse Resp B/P (MAP) Pulse Ox O2 Delivery O2 Flow Rate FiO2 07/24/16 05:00 97.1 58 20 162/68 93 Room Air 07/23/16 18:31 97.1 80 18 158/76 96 Room Air 07/23/16 09:24 154/71 07/23/16 08:47 164/73 I & O 07/24/16 07:00 Intake Total 1300 ml Balance 1300 ml Capillary Refill : General Appearance: No Apparent Distress Neck: Full Range of Motion Respiratory: Lungs Clear Cardiovascular: Regular Rate, Rhythm, Systolic Murmur (grade 1-2) Results Lab Laboratory Tests 07/24/16 05:14: Glucometer 78 Assessment/Plan Assessment/Plan Assess & Plan/Chief Complaint 1. Cerebral infarctlacunar infarct of the cherelle -she maintains aspirin 81 mg daily. 2. Hypertensionoverall improved with systolic slightly elevated She is on metoprolol 100 mg twice daily as well as generic Diovan 80 mg twice daily. 07/24 Add on HCTZ 12.5 today. 3. Diabetes suspect poorly controlled -She is continued on her home diabetic regimen. 07/17 latest fasting glucose values are good 4. Weakness and slurred speech suspect secondary to number 1 -Rehabilitation continues Clinical Quality Measures DVT/VTE Risk/Contraindication: Risk Factor Score Per Nursin RFS Level Per Nursing on Admit: 4+=Very High MANUEL LEON MD Jul 24, 2016 08:16
--- NOTE | 2016-07-24 08:46 | PM & R (SOAP) Progress Note ---
Subjective Subjective/Events-last exam Patient was seen in her room this AM No spasms last night Didnt use low dose Baclofen.Slowly improving with therapies Patient Max assist for transfers Objective Exam Last Set of Vital Signs Vital Signs Date Time Temp Pulse Resp B/P (MAP) Pulse Ox O2 Delivery O2 Flow Rate FiO2 07/24/16 05:00 97.1 58 20 162/68 93 Room Air Capillary Refill : I&O Intake and Output 07/24/16 00:00 Intake Total 1290 ml Balance 1290 ml Intake Oral 1290 ml # Voids 9 # Bowel Movements 1 General: Alert, Oriented X3, Cooperative, No Acute Distress HEENT: Atraumatic, PERRLA, EOMI, Mucous Memb Moist/[place], Other (02 by N/C in place) Neck: Supple, No JVD Lungs: Clear to Auscultation Heart: Regular Rate Abdomen: Normal Bowel Sounds, Soft Extremities: No Edema Neuro: Other (having antigravity strength return in Left Upper limb) Results Lab Laboratory Tests 07/22/16 05:13: Glucometer 74 07/23/16 04:32: Glucometer 81 07/24/16 05:14: Glucometer 78 Assessment/Plan Assessment 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 and oropharyngeal dysphagia HTN meds adjusted-with better control at this point DM controlled OA of knees Glaucoma on eye drops spasms none now Plan Continue PT/OT/ST Check labs-done F/U with PCP PRN WEan from 02 as [id number] See orders Valsartan ordered for better control of HTN-will trend-improved Diet changed as per Patient request=See orders-done Discuss patients limited progress with staff tomorrow TRial of low dose Baclofen-See orders-done not requiring at this time Next Team Conference later today-See report for full functional update and POC and KEI FREDERICK MD Jul 24, 2016 08:46
[2016-07-24 09:45] VITALS: BP 177/69
[2016-07-24] MEDS: HYDROCHLOROTHIAZIDE 12.5 MG (HCTZ) CAP PO SCH (09:46)
--- NOTE | 2016-07-24 10:30 | Physical Therapy Daily Note ---
PT Daily Note-Current Subjective Patient in recliner pre tx, agrees to PT, no complaints of pain. Appearance Patient in bed post tx with nurse call, phone, tray, all needs met. Mental Status Patient Orientation: Normal For Age Transfers Functional [place] Measure 0=Not Assessed/NA 4=Minimal Assistance 1=Total Assistance 5=Supervision or Setup 2=Maximal Assistance 6=Modified [place] 3=Moderate Assistance 7=Complete IndependenceIRFPAI Quality Coding Scale 6 Independent with activity with or without an assistive device 5 Patient requires set up or clean up by helper. Patient completes activity by themselves 4 Supervision or touching assist (CGA). [place] provide cues , steadying assist 3 The helper provides less than half the effort to complete the activity 2 The helper provides more than half the effort to complete the activity 1 Dependent. The helper does all the effort to complete an activity 7 Patient refused to complete or attempt activity 9 The patient did not perform the activity before the current illness or injury 88 Not attempted due to Medical conditions or safety concerns Transfers (B, C, W/C) (FIM): 2 Scootin Rollin Supine to/from Sit: 2 Sit to/from Stand: 2 Bed to/from Chair: 2 Treatments Patient was transferred from the recliner to a wheelchair, transported to the therapy gym and put in the standing frame for 20 min. Her arms became very tired and she requested to stop. Patient was then put back into her wheelchair and taken back to her room, transferred to bed, layed down, and scooted up. Assessment Current Status: Poor Progress no change in mobility PT Short Term Goals Short Term Goals Time Frame: Jul 24, 2016 Wheelchair Distance: 50'x2 PT Auto Glass Technician Goals Half-Way Goals PT Half-Way Goals Time Frame: Aug 07, 2016 Transfers (B,C,W/C) (FIM): 6 Sit to Lying (QC): 6 Lying-Sitting on Side/Bed(QC): 6 Sit to Stand (QC): 6 Rollin Roll Left to Right (QC): 6 Chair/Jdl-fk-Mqsbt Xfer(QC): 6 Car Transfer (QC): 5 Does the Patient Walk: No and Walking Goal IS indicated Gait (FIM): 4 Gait distance (FIM): 1=726-36 ft Distance: 75 Walk 10 feet (QC): 6 Walk 10ft-Uneven Surface(QC): 4 Walk 50ft with 2 Turns (QC): 6 Walk 150 ft (QC): 4 Gait Level of Assist: 6 Gait Assistive Device: FWW Does the Pt use WC or Scooter?: No Stairs (FIM): 2 # of Steps: 3 1 Step (curb) (QC): 2 4 Steps (QC): 9 12 Steps (QC): 9 Stairs Level Of Assist: 2 Picking up an Object (QC): 4 PT Plan Problem List Problem List: Activity Tolerance, Functional Strength, Safety, Balance, Gait, Transfer, Bed Mobility, ROM Treatment/Plan Treatment Plan: Continue Plan of Care Treatment Plan: Bed Mobility, Education, Functional Activity Perla, Functional Strength, Group Therapy, Gait, Safety, Therapeutic Exercise, Transfers Treatment Duration: Aug 07, 2016 Visits Per Week: 10-11 Minutes/Day (M-F): 60-90 Minutes/Day (Sat/Parra): PRN Safety Risks/Education Patient Education: Transfer Techniques, Correct Positioning, Safety Issues Teaching Recipient: Patient Teaching Methods: Demonstration, Discussion Response to Teaching: Reinforcement Needed Time/GCodes Time In: 945 Time Out: 1030 Total Billed Treatment Time: 45 Total Billed Treatment 1 visit FA 45 min GARFIELD MIKE PT Jul 24, 2016 10:30
--- NOTE | 2016-07-24 11:03 | Speech Therapy Daily Note ---
Speech Daily Progress Note Subjective The patient was seated upright in wheelchair upon entrance. The patient greeted the clinician appropriately and agreed to participate in dysphagia therapy on this date. Objective Dysphagia Exercises: The patient demonstrated consistent accuracy (80%) with dysphagia exercises on this date (base of tongue retraction, pharyngeal contraction, and laryngeal elevation). Moderate clinician verbal prompting was provided, as well as, an initial model. Ten repetitions of each exercise were performed. Bolus Trials: The patient was reassessed with thin liquids via cup sip on this date. No signs/symptoms of aspiration or laryngeal penetration were demonstrated with 4 ounces of thin liquid. The patient's vocal quality remained clear. Assessment Assessment Current Status: Fair Progress Treatment Plan Continue Plan of Care Communication Comprehension: 4 Expression: 5 Social Cognition Social Interaction: 5 Problem Solvin Memory: 4 Speech Short Term Goals Short Term Goals Short Term Goals 1. The patient will demonstrate oral motor exercises with 90% accuracy, independently. 2. The patient will demonstrate 80% accuracy with structured executive functioning and problem solving tasks with mild clinician verbal cueing. 3. The patient will demonstrate dysphagia exercises with 90% accuracy and mild clinician cueing. Time Frame-STG: Two Weeks Speech [place] [employer] Manager Goals [place] [employer] Goals 1. The patient will demonstrate improved cognitive linguistic skills for increased safety and function with ADL's in the least restrictive setting. 2. The patient will tolerate the least restrictive diet without signs/symptoms of aspiration or laryngeal penetration. Time Frame: Six Weeks Speech-Plan Treatment Plan Speech Therapy Treatment Plan: Continue Plan of Care Continue skilled speech pathology to target improvement with swallowing safety. Treatment Duration: August 21, 2016 # of days/week Five. Visits Per Week: Five Minutes/Day (M-F): 30 Rehab Potential: Fair Safety Risks/Education Teaching Recipient: Patient Teaching Methods: Demonstration, Handout, Discussion Response to Teaching: Return Demonstration, Reinforcement Needed Education Topics Provided: Dysphagia Exercises Time Speech Therapy Time In: 09:00 Speech Therapy Time Out: 09:30 Total Billed Time: 30 Billed Treatment Time KoffiGISELLE ELIZABETH ST Jul 24, 2016 11:03
--- NOTE | 2016-07-24 11:24 | Occupational Ther Daily Note ---
OT Current Status-Daily Note Subjective Pt in bed, agrees to treatment. Mental Status/Objective Functional [place] Measure 0=Not Assessed/NA 4=Minimal Assistance 1=Total Assistance 5=Supervision or Setup 2=Maximal Assistance 6=Modified [place] 3=Moderate Assistance 7=Complete [place] ADL-Treatment Pt supine to sit with maximal assistance. Pt requests shower today. Transfer to shower chair with total assist. To shower via rolling shower chair. Pt able to wash bilateral UE, chest, abdomen, petey area, and bilateral upper legs. Assist for bilateral lower legs/feet and buttocks. Pt able to thread bilateral UE into shirt, but requires assist to line puller head. Pt able to partially pull shirt down, but requires assist to pull down in back. Total assist to don socks. Pt donned Depends and shorts with total assist using sit to stand lift for standing during pant hike. Grooming tasks completed seated at sink. Pt completed oral care with mouthwash with set up. Combed hair and applied lotion to face with set up. Increased time required for ADL tasks. Pt transferred to recliner chair using sit to stand lift. Pt sitting in chair with needs met after session. Functional [place] Measure 0=Not Assessed/NA 4=Minimal Assistance 1=Total Assistance 5=Supervision or Setup 2=Maximal Assistance 6=Modified [place] 3=Moderate Assistance 7=Complete IndependenceIRFPAI Quality Coding Scale 6 Independent with activity with or without an assistive device 5 Patient requires set up or clean up by helper. Patient completes activity by themselves 4 Supervision or touching assist (CGA). [place] provide cues , steadying assist 3 The helper provides less than half the effort to complete the activity 2 The helper provides more than half the effort to complete the activity 1 Dependent. The helper does all the effort to complete an activity 7 Patient refused to complete or attempt activity 9 The patient did not perform the activity before the current illness or injury 88 Not attempted due to Medical conditions or safety concerns Grooming (FIM): 5 Oral Hygiene (QC): 5 Bathing (FIM): 3 Bathing Location: L Arm, R Arm, L Upper Leg, R Upper Leg, Chest, Abdomen, Perineal Area Shower/Bathe Self (QC): 3 Upper Body (FIM): 3 Upper Body Dressing (QC): 3 Lower Body Dressing (FIM): 1 Lower Body Dressing (QC): 1 On/Off Footwear (QC): 1 Shower Transfer(FIM): 1 OT Short Term Goals Short Term Goals Time Frame: Jul 24, 2016 Bathing(FIM): 3 Upper Body Dressing(FIM): 4 Lower Body Dressing(FIM): 3 Toileting(FIM): 3 Toilet/Commode Transfer(FIM): 3 Shower Transfer(FIM): 3 Additional Short Term Goals: 1-Demonstrate ADL Tasks, 2-Verbalize Understanding , 3-ImproveStrength/Perla 1=Demonstrate adherence to instructed precautions during ADL tasks. 2=Patient will verbalize/demonstrate understanding of assistive devices/ modifications for ADL. 3=Patient will improve strength/tolerance for activity to enable patient to perform ADL's. OT Shelter Goals String Cutter Goals Time Frame: Aug 07, 2016 Eating (FIM): 6 Eating (QC): 6 Groomin Oral Hygiene (QC): 5 Bathing(FIM): 5 Shower/Bathe Self (QC): 5 Upper Body Dressing(FIM): 5 Upper Body Dressing (QC): 5 Lower Body Dressing(FIM): 5 Lower Body Dressing (QC): 5 On/Off Footwear (QC): 5 Toileting(FIM): 5 Toileting Hygiene (QC): 5 Toilet/Commode Transfer(FIM): 5 Toilet/Commode Transfer (QC): 5 Shower Transfer(FIM): 5 Additional Goals: 1-Demonstrate ADL Tasks, 2-Verbalize Understanding, 3- ImproveStrength/Perla 1=Demonstrate adherence to instructed precautions during ADL tasks. 2=Patient will verbalize/demonstrate understanding of assistive devices/ modifications for ADL. 3=Patient will improve strength/tolerance for activity to enable patient to perform ADL's. OT Education/Plan Problem List/Assessment Pt admitted to ARU following acute hospitalization for CVA. Pt demonstrates decreased strength on left side, impaired ability to perform ADLs and transfers. Pt to benefit from skilled OT intervention for ADL training, transfers, strengthening, adaptive equipment training as needed and home safety education to improve level of independence and allow safe discharge plan. Discharge Recommendations Plan/Recommendations: Continue POC Treatment Plan/Plan of Care Treatment,Training & Education: Yes Patient would benefit from OT for education, treatment and training to promote independence in ADL's, mobility, safety and/or upper extremity function for ADL' s. Plan of Care: ADL Retraining, Functional Mobility, UE Funct Exercise/Act Treatment Duration: Aug 07, 2016 Visits Per Week: 10-11 Minutes/Day (M-F): 60-90 Minutes/Day (Sat/Parra): PRN Rehab Potential: Fair Time/GCodes Start Time: 08:00 Stop Time: 09:00 Total Time Billed (hr/min): 60 Billed Treatment Time 1 visit, ADLx4(60minutes) GEOVANNA MCKENZIE OT Jul 24, 2016 11:24
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
[2016-07-24 18:20] VITALS: BP 179/82
[2016-07-24] MEDS: LATANOPROST 0.005% (XALATAN) OPHTH SOLN 2.5 ML OU SCH (20:06)
[2016-07-24] MEDS: SIMvastatin 10 MG (ZOCOR) TAB PO SCH (20:06)
[2016-07-25] MEDS: LACTULOSE SYRUP 10GM/15ML (ENULOSE) 30ML UDC PO SCH ×6 (04:00→20:00)
[2016-07-25 04:59] VITALS: BP 172/77
[2016-07-25] MEDS: GLIMEPIRIDE 4 MG (AMARYL) TAB PO SCH (06:05)
[2016-07-25] MEDS: metFORMIN 500 MG (GLUCOPHAGE) TAB PO SCH ×2 (06:05→17:58)
[2016-07-25] MEDS: MULTIVIT W/MINERALS TAB (THERAGRAN M) PO SCH (06:05)
[2016-07-25] MEDS: ASPIRIN E.C. 81 MG (ECOTRIN) TAB PO SCH (07:47)
[2016-07-25] MEDS: meTOprolol TARTRATE 50 MG (LOPRESSOR) TAB PO SCH ×2 (07:48→20:32)
[2016-07-25] MEDS: HYDROCHLOROTHIAZIDE 12.5 MG (HCTZ) CAP PO SCH (07:48)
[2016-07-25] MEDS: VALSARTAN 80 MG (DIOVAN) TAB PO SCH ×2 (07:48→20:30)
[2016-07-25] MEDS: DORZOLAMIDE 2% 10 ML BTL (TRUSOPT) OU SCH ×2 (07:49→20:33)
--- NOTE | 2016-07-25 08:58 | PM & R (SOAP) Progress Note ---
Subjective Subjective/Events-last exam Patient was seen in her room this AM Patient max assist for transfers Having good return in Left upper limb but still max assist for transfers Patienst family leaning towards NH placement for p[atient for ongoing care Objective Exam Last Set of Vital Signs Vital Signs Date Time Temp Pulse Resp B/P (MAP) Pulse Ox O2 Delivery O2 Flow Rate FiO2 07/25/16 04:59 97.0 55 18 172/77 97 Room Air Capillary Refill : I&O Intake and Output 07/25/16 00:00 Intake Total 1240 ml Balance 1240 ml Intake Oral 1240 ml # Voids 6 General: Alert, Oriented X3, Cooperative, No Acute Distress HEENT: Atraumatic, PERRLA, EOMI, Mucous Memb Moist/[place], Other (02 by N/C in place) Neck: Supple, No JVD Lungs: Clear to Auscultation Heart: Regular Rate Abdomen: Normal Bowel Sounds, Soft Extremities: No Edema Neuro: Other (having antigravity strength return in Left Upper limb) Results Lab Laboratory Tests 07/23/16 04:32: Glucometer 81 07/24/16 05:14: Glucometer 78 07/25/16 04:54: Glucometer 72 Assessment/Plan Assessment 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 and oropharyngeal dysphagia HTN meds adjusted-with better control at this point DM controlled OA of knees Glaucoma on eye drops spasms none now Plan Continue PT/OT/ST Check labs-done F/U with PCP PRN WEan from 02 as [id number] See orders Valsartan ordered for better control of HTN-will trend-improving DR Rodriguez has further adjusted meds for better control -Appreciate his note Diet changed as per Patient request=See orders-done Discussed patients limited progress with staff yesterday at meeting TRial of low dose Baclofen-See orders-done not requiring at this time Team Conference held yesterday-See report for full functional update and POC and ELOS SW to follow up with patient and family re discharge options KEI STEPHENS MD Jul 25, 2016 08:58
--- NOTE | 2016-07-25 10:30 | Physical Therapy Daily Note ---
PT Daily Note-Current Subjective Patient in wheelchair pre tx, agrees to PT, no complaints of pain. Appearance Patient in recliner post tx with nurse call, phone, tray, all needs met. Mental Status Patient Orientation: Normal For Age Transfers Functional [place] Measure 0=Not Assessed/NA 4=Minimal Assistance 1=Total Assistance 5=Supervision or Setup 2=Maximal Assistance 6=Modified [place] 3=Moderate Assistance 7=Complete IndependenceIRFPAI Quality Coding Scale 6 Independent with activity with or without an assistive device 5 Patient requires set up or clean up by helper. Patient completes activity by themselves 4 Supervision or touching assist (CGA). [place] provide cues , steadying assist 3 The helper provides less than half the effort to complete the activity 2 The helper provides more than half the effort to complete the activity 1 Dependent. The helper does all the effort to complete an activity 7 Patient refused to complete or attempt activity 9 The patient did not perform the activity before the current illness or injury 88 Not attempted due to Medical conditions or safety concerns Transfers (B, C, W/C) (FIM): 2 Sit to/from Stand: 2 Bed to/from Chair: 2 cues for safety and hand placement Wheelchair Training Does the Pt Use a Wheelchair?: Yes Wheelchair (FIM): 2 Distance: 100' Wheelchair Level of Assist: 4 Type of Wheelchair: Manual very slow, patient uses right arm and leg, is able to turn a little but needs assist with sharp turns Exercises Seated Therapy Exercises: Ankle pumps, Hip flexion Seated Reps: 20 LAQ alternating for 5 min, patient got in the sit to stand machine and was stood most of the way and practiced trying to completely stand for about 5 min Treatments transfers, functional strengthening, wheelchair mobility Assessment Current Status: Poor Progress no change in mobility PT Short Term Goals Short Term Goals Time Frame: Jul 24, 2016 Wheelchair Distance: 50'x2 PT Long-Term Goals Long-Term Goals PT Long-Term Goals Time Frame: Aug 07, 2016 Transfers (B,C,W/C) (FIM): 6 Sit to Lying (QC): 6 Lying-Sitting on Side/Bed(QC): 6 Sit to Stand (QC): 6 Rollin Roll Left to Right (QC): 6 Chair/Qlk-tp-Nhqvy Xfer(QC): 6 Car Transfer (QC): 5 Does the Patient Walk: No and Walking Goal IS indicated Gait (FIM): 4 Gait distance (FIM): 1=960-43 ft Distance: 75 Walk 10 feet (QC): 6 Walk 10ft-Uneven Surface(QC): 4 Walk 50ft with 2 Turns (QC): 6 Walk 150 ft (QC): 4 Gait Level of Assist: 6 Gait Assistive Device: FWW Does the Pt use WC or Scooter?: No Stairs (FIM): 2 # of Steps: 3 1 Step (curb) (QC): 2 4 Steps (QC): 9 12 Steps (QC): 9 Stairs Level Of Assist: 2 Picking up an Object (QC): 4 PT Plan Problem List Problem List: Activity Tolerance, Functional Strength, Safety, Balance, Gait, Transfer, Bed Mobility, ROM Treatment/Plan Treatment Plan: Continue Plan of Care Treatment Plan: Bed Mobility, Education, Functional Activity Perla, Functional Strength, Group Therapy, Gait, Safety, Therapeutic Exercise, Transfers Treatment Duration: Aug 07, 2016 Visits Per Week: 10-11 Minutes/Day (M-F): 60-90 Minutes/Day (Sat/Parra): PRN Safety Risks/Education Patient Education: Transfer Techniques, Correct Positioning, W/C Management, Safety Issues Teaching Recipient: Patient Teaching Methods: Demonstration, Discussion Response to Teaching: Reinforcement Needed Time/GCodes Time In: 945 Time Out: 1030 Total Billed Treatment Time: 45 Total Billed Treatment 1 visit EX 15 min FA 15 min [facility] 15 min GARFIELD MIKE PT Jul 25, 2016 10:30
--- NOTE | 2016-07-25 10:59 | Occupational Ther Daily Note ---
OT Current Status-Daily Note Subjective Pt in bed with RN present, agrees to treatment. Pt has no c/o pain during session. Mental Status/Objective Functional [place] Measure 0=Not Assessed/NA 4=Minimal Assistance 1=Total Assistance 5=Supervision or Setup 2=Maximal Assistance 6=Modified [place] 3=Moderate Assistance 7=Complete [place] ADL-Treatment RN assisting pt to don shirt when therapist arrives. Pt supine to sit with max assist. Dependent to don Depends and shorts. Transfer to w/c with assist x2. Pt completed grooming tasks while seated at sink. Pt able to complete oral care and comb hair with set up. Functional [place] Measure 0=Not Assessed/NA 4=Minimal Assistance 1=Total Assistance 5=Supervision or Setup 2=Maximal Assistance 6=Modified [place] 3=Moderate Assistance 7=Complete IndependenceIRFPAI Quality Coding Scale 6 Independent with activity with or without an assistive device 5 Patient requires set up or clean up by helper. Patient completes activity by themselves 4 Supervision or touching assist (CGA). [place] provide cues , steadying assist 3 The helper provides less than half the effort to complete the activity 2 The helper provides more than half the effort to complete the activity 1 Dependent. The helper does all the effort to complete an activity 7 Patient refused to complete or attempt activity 9 The patient did not perform the activity before the current illness or injury 88 Not attempted due to Medical conditions or safety concerns Grooming (FIM): 5 Lower Body Dressing (FIM): 1 Other Treatment To therapy gym via w/c. Pt performed left UE exercises to increase active ROM and strength. AAROM left shoulder movements x10 reps. Pt performed AROM x10 reps at elbow, forearm, wrist, and hand. Rest breaks between exercises. Pt completed large peg activity with left hand to promote reaching and fine motor coordination. Pt required increased time for task, but is able to place pegs in pegboard without assistance. Pt performed arnold bag toss with left hand to promote reaching, gross motor activity, and grasp/release. Arm bike [id number] to increase overall strength and activity tolerance needed for functional tasks. Pt has difficulty maintaining grasp with left hand, ammon wrap was used to assist with clam picker. Pt had slow pace, but did not require rest break. Pt returned to room, sitting in w/c with needs met after session. OT Short Term Goals Short Term Goals Time Frame: Jul 24, 2016 Bathing(FIM): 3 Upper Body Dressing(FIM): 4 Lower Body Dressing(FIM): 3 Toileting(FIM): 3 Toilet/Commode Transfer(FIM): 3 Shower Transfer(FIM): 3 Additional Short Term Goals: 1-Demonstrate ADL Tasks, 2-Verbalize Understanding , 3-ImproveStrength/Perla 1=Demonstrate adherence to instructed precautions during ADL tasks. 2=Patient will verbalize/demonstrate understanding of assistive devices/ modifications for ADL. 3=Patient will improve strength/tolerance for activity to enable patient to perform ADL's. OT Travel Sales Consultant Goals Travel Sales Consultant Goals Time Frame: Aug 07, 2016 Eating (FIM): 6 Eating (QC): 6 Groomin Oral Hygiene (QC): 5 Bathing(FIM): 5 Shower/Bathe Self (QC): 5 Upper Body Dressing(FIM): 5 Upper Body Dressing (QC): 5 Lower Body Dressing(FIM): 5 Lower Body Dressing (QC): 5 On/Off Footwear (QC): 5 Toileting(FIM): 5 Toileting Hygiene (QC): 5 Toilet/Commode Transfer(FIM): 5 Toilet/Commode Transfer (QC): 5 Shower Transfer(FIM): 5 Additional Goals: 1-Demonstrate ADL Tasks, 2-Verbalize Understanding, 3- ImproveStrength/Perla 1=Demonstrate adherence to instructed precautions during ADL tasks. 2=Patient will verbalize/demonstrate understanding of assistive devices/ modifications for ADL. 3=Patient will improve strength/tolerance for activity to enable patient to perform ADL's. OT Education/Plan Problem List/Assessment Pt admitted to ARU following acute hospitalization for CVA. Pt demonstrates decreased strength on left side, impaired ability to perform ADLs and transfers. Pt to benefit from skilled OT intervention for ADL training, transfers, strengthening, adaptive equipment training as needed and home safety education to improve level of independence and allow safe discharge plan. Discharge Recommendations Plan/Recommendations: Continue POC Treatment Plan/Plan of Care Patient would benefit from OT for education, treatment and training to promote independence in ADL's, mobility, safety and/or upper extremity function for ADL' s. Plan of Care: ADL Retraining, Functional Mobility, UE Funct Exercise/Act Treatment Duration: Aug 07, 2016 Visits Per Week: 10-11 Minutes/Day (M-F): 60-90 Minutes/Day (Sat/Parra): PRN Rehab Potential: Fair Time/GCodes Start Time: 08:00 Stop Time: 09:15 Total Time Billed (hr/min): 75 Billed Treatment Time 1 visit, ADL(15minutes), EXx4(60minutes) GEOVANNA MCKENZIE OT Jul 25, 2016 10:59
--- NOTE | 2016-07-25 11:01 | Speech Therapy Daily Note ---
Speech Daily Progress Note Subjective The patient was seated upright in wheelchair upon entrance. The patient greeted the clinician appropriately and agreed to participate in dysphagia therapy on this date. The patient reported fatigue, however, continued to participate with the clinician throughout the session. Objective Dysphagia Exercises: The patient demonstrated consistent accuracy ( approximately 80%) with dysphagia exercises on this date (base of tongue retraction, pharyngeal contraction, and laryngeal elevation). Moderate clinician verbal prompting was provided, as well as, an initial model (patient continues to require intermittent modeling throughout exercise). Ten repetitions of each exercise were performed. Bolus Trials: The patient was reassessed with thin liquids via cup sip on this date. No signs/symptoms of aspiration or laryngeal penetration were demonstrated with 4 ounces of thin liquid. The patient's vocal quality remained clear throughout bolus trials. Assessment Assessment Current Status: Fair Progress Treatment Plan Continue Plan of Care Communication Comprehension: 4 Expression: 5 Social Cognition Social Interaction: 5 Problem Solvin Memory: 4 Speech Short Term Goals Short Term Goals Short Term Goals 1. The patient will demonstrate oral motor exercises with 90% accuracy, independently. PROGRESSING 2. The patient will demonstrate 80% accuracy with structured executive functioning and problem solving tasks with mild clinician verbal cueing. 3. The patient will demonstrate dysphagia exercises with 90% accuracy and mild clinician cueing. PROGRESSING Time Frame-STG: Two Weeks Speech Independent Beauty Consultant Goals Skilled Nursing Goals 1. The patient will demonstrate improved cognitive linguistic skills for increased safety and function with ADL's in the least restrictive setting. 2. The patient will tolerate the least restrictive diet without signs/symptoms of aspiration or laryngeal penetration. Time Frame: Six Weeks Speech-Plan Treatment Plan Speech Therapy Treatment Plan: Continue Plan of Care Continue skilled speech pathology intervention to target improved swallowing safety, as well as, cognitive linguistic skills. Treatment Duration: August 21, 2016 # of days/week Five. Visits Per Week: Five Minutes/Day (M-F): 30 Rehab Potential: Fair Safety Risks/Education Teaching Recipient: Patient Teaching Methods: Demonstration, Handout, Discussion Response to Teaching: Return Demonstration, Reinforcement Needed Education Topics Provided: Dysphagia Exercises, Swallowing Strategies Time Speech Therapy Time In: 09:15 Speech Therapy Time Out: 09:45 Total Billed Time: 30 Billed Treatment Time GISELLE Rain ELIZABETH Jul 25, 2016 11:01
--- NOTE | 2016-07-25 16:15 | Physical Therapy Daily Note ---
PT Daily Note-Current Subjective Agrees to PT. No complaints. Reports, "I ain't worth a sh!" Mental Status Patient Orientation: Person, Place, Time, Situation Transfers Functional [place] Measure 0=Not Assessed/NA 4=Minimal Assistance 1=Total Assistance 5=Supervision or Setup 2=Maximal Assistance 6=Modified [place] 3=Moderate Assistance 7=Complete IndependenceIRFPAI Quality Coding Scale 6 Independent with activity with or without an assistive device 5 Patient requires set up or clean up by helper. Patient completes activity by themselves 4 Supervision or touching assist (CGA). [place] provide cues , steadying assist 3 The helper provides less than half the effort to complete the activity 2 The helper provides more than half the effort to complete the activity 1 Dependent. The helper does all the effort to complete an activity 7 Patient refused to complete or attempt activity 9 The patient did not perform the activity before the current illness or injury 88 Not attempted due to Medical conditions or safety concerns Treatments Pt performed sit to stand x 3 reps with FWW with max assist to stand and mod assist of 2 to maintain standing. Pt stood approx 45 sec each rep. SPT to from wheelchair with max assist. x 2 reps. Wheelchair mobility using right U/ LE x 125 ft with 1 turn with SBA and occas min assist with turning. Pt transferred sit to sup with max assist. In bed post treatment with needs met. Assessment Pt cooperative and motivated to work. Needs much assist with all transfers and mobility. PT Short Term Goals Short Term Goals Time Frame: Jul 24, 2016 Wheelchair Distance: 100' PT Barrel Polisher Inside Goals Custodial Goals PT Barrel Polisher Inside Goals Time Frame: Aug 07, 2016 Transfers (B,C,W/C) (FIM): 6 Sit to Lying (QC): 6 Lying-Sitting on Side/Bed(QC): 6 Sit to Stand (QC): 6 Rollin Roll Left to Right (QC): 6 Chair/Kdi-vi-Jpmcp Xfer(QC): 6 Car Transfer (QC): 5 Does the Patient Walk: No and Walking Goal IS indicated Gait (FIM): 4 Gait distance (FIM): 5=642-13 ft Distance: 75 Walk 10 feet (QC): 6 Walk 10ft-Uneven Surface(QC): 4 Walk 50ft with 2 Turns (QC): 6 Walk 150 ft (QC): 4 Gait Level of Assist: 6 Gait Assistive Device: FWW Does the Pt use WC or Scooter?: No Stairs (FIM): 2 # of Steps: 3 1 Step (curb) (QC): 2 4 Steps (QC): 9 12 Steps (QC): 9 Stairs Level Of Assist: 2 Picking up an Object (QC): 4 PT Plan Problem List Problem List: Activity Tolerance, Functional Strength, Safety, Balance, Gait, Transfer, Bed Mobility Treatment/Plan Treatment Plan: Continue Plan of Care Treatment Plan: Bed Mobility, Education, Functional Activity Perla, Functional Strength, Group Therapy, Gait, Safety, Therapeutic Exercise, Transfers Treatment Duration: Aug 07, 2016 Visits Per Week: 10-11 Minutes/Day (M-F): 60-90 Minutes/Day (Sat/Parra): PRN Safety Risks/Education Patient Education: Safety Issues Teaching Recipient: Patient Teaching Methods: Discussion Response to Teaching: Reinforcement Needed Time/GCodes Time In: 1315 Time Out: 1345 Total Billed Treatment Time: 30 Total Billed Treatment vsiit FA 15 WC 15 ELÍAS BERRY PT Jul 25, 2016 16:15
[2016-07-25 18:00] VITALS: BP 162/69
[2016-07-25] MEDS: SIMvastatin 10 MG (ZOCOR) TAB PO SCH (20:30)
[2016-07-25] MEDS: ZINC OXIDE 16% OINT (BUTT PASTE) 113 GM TUBE TOP PRN (20:33)
[2016-07-25] MEDS: NYSTATIN CREAM (MYCOSTATIN) 30 GM TUBE TP PRN (20:33)
[2016-07-25] MEDS: LATANOPROST 0.005% (XALATAN) OPHTH SOLN 2.5 ML OU SCH (20:33)
[2016-07-26] MEDS: LACTULOSE SYRUP 10GM/15ML (ENULOSE) 30ML UDC PO SCH ×6 (04:00→20:00)
[2016-07-26 05:06] VITALS: BP 146/80
[2016-07-26] MEDS: GLIMEPIRIDE 4 MG (AMARYL) TAB PO SCH (06:05)
[2016-07-26] MEDS: metFORMIN 500 MG (GLUCOPHAGE) TAB PO SCH ×2 (06:05→17:19)
[2016-07-26] MEDS: MULTIVIT W/MINERALS TAB (THERAGRAN M) PO SCH (06:05)
[2016-07-26] MEDS: DORZOLAMIDE 2% 10 ML BTL (TRUSOPT) OU SCH ×2 (08:26→21:31)
[2016-07-26] MEDS: HYDROCHLOROTHIAZIDE 12.5 MG (HCTZ) CAP PO SCH (08:26)
[2016-07-26] MEDS: LORATADINE (CLARITIN) 10 MG TAB PO PRN (08:26)
[2016-07-26] MEDS: VALSARTAN 80 MG (DIOVAN) TAB PO SCH ×2 (08:26→21:30)
[2016-07-26] MEDS: ASPIRIN E.C. 81 MG (ECOTRIN) TAB PO SCH (08:26)
[2016-07-26] MEDS: meTOprolol TARTRATE 50 MG (LOPRESSOR) TAB PO SCH ×2 (08:26→21:30)
--- NOTE | 2016-07-26 09:00 | Occupational Ther Daily Note ---
OT Current Status-Daily Note Subjective Pt in bed, agrees to treatment. Pt has no c/o pain. States she slept better last night. Mental Status/Objective Functional [place] Measure 0=Not Assessed/NA 4=Minimal Assistance 1=Total Assistance 5=Supervision or Setup 2=Maximal Assistance 6=Modified [place] 3=Moderate Assistance 7=Complete [place] ADL-Treatment Supine to sit with maximal assistance. Transfer EOB to shower chair with total assist using sit to stand lift. To restroom via shower chair. Pt doffed shirt with minimal assistance and increased time, cues for technique. Seated bathing completed using hand held shower. Pt able to wash bilateral UE, chest, abdomen, bilateral upper legs, and petey area. Pt able to wash lower legs/feet with long handled sponge, but required assist to dry them. Assist to wash/dry buttocks. Pt donned pullover shirt, able to thread bilateral UE into sleeves. Requires assist to pull shirt over head, but pt then able to pull shirt down. Total assist for LE dressing. Pt stood with sit to stand for pant hike. Total assist to don socks. Pt completed grooming tasks while seated at sink. Pt completed oral care and combed hair with set up. Transfer to recliner chair using sit to stand lift. Pt sitting in chair with needs met after session. Functional [place] Measure 0=Not Assessed/NA 4=Minimal Assistance 1=Total Assistance 5=Supervision or Setup 2=Maximal Assistance 6=Modified [place] 3=Moderate Assistance 7=Complete IndependenceIRFPAI Quality Coding Scale 6 Independent with activity with or without an assistive device 5 Patient requires set up or clean up by helper. Patient completes activity by themselves 4 Supervision or touching assist (CGA). [place] provide cues , steadying assist 3 The helper provides less than half the effort to complete the activity 2 The helper provides more than half the effort to complete the activity 1 Dependent. The helper does all the effort to complete an activity 7 Patient refused to complete or attempt activity 9 The patient did not perform the activity before the current illness or injury 88 Not attempted due to Medical conditions or safety concerns Grooming (FIM): 5 Oral Hygiene (QC): 5 Bathing (FIM): 3 Bathing Location: L Arm, R Arm, L Upper Leg, R Upper Leg, Chest, Abdomen, Perineal Area Shower/Bathe Self (QC): 3 Upper Body (FIM): 3 Upper Body Dressing (QC): 3 Lower Body Dressing (FIM): 1 Lower Body Dressing (QC): 1 On/Off Footwear (QC): 1 Shower Transfer(FIM): 1 OT Short Term Goals Short Term Goals Time Frame: Jul 24, 2016 Bathing(FIM): 3 Upper Body Dressing(FIM): 4 Lower Body Dressing(FIM): 3 Toileting(FIM): 3 Toilet/Commode Transfer(FIM): 3 Shower Transfer(FIM): 3 Additional Short Term Goals: 1-Demonstrate ADL Tasks, 2-Verbalize Understanding , 3-ImproveStrength/Perla 1=Demonstrate adherence to instructed precautions during ADL tasks. 2=Patient will verbalize/demonstrate understanding of assistive devices/ modifications for ADL. 3=Patient will improve strength/tolerance for activity to enable patient to perform ADL's. OT Mcc Goals Duct Layer Helper Goals Time Frame: Aug 07, 2016 Eating (FIM): 6 Eating (QC): 6 Groomin Oral Hygiene (QC): 5 Bathing(FIM): 5 Shower/Bathe Self (QC): 5 Upper Body Dressing(FIM): 5 Upper Body Dressing (QC): 5 Lower Body Dressing(FIM): 5 Lower Body Dressing (QC): 5 On/Off Footwear (QC): 5 Toileting(FIM): 5 Toileting Hygiene (QC): 5 Toilet/Commode Transfer(FIM): 5 Toilet/Commode Transfer (QC): 5 Shower Transfer(FIM): 5 Additional Goals: 1-Demonstrate ADL Tasks, 2-Verbalize Understanding, 3- ImproveStrength/Perla 1=Demonstrate adherence to instructed precautions during ADL tasks. 2=Patient will verbalize/demonstrate understanding of assistive devices/ modifications for ADL. 3=Patient will improve strength/tolerance for activity to enable patient to perform ADL's. OT Education/Plan Problem List/Assessment Pt admitted to ARU following acute hospitalization for CVA. Pt demonstrates decreased strength on left side, impaired ability to perform ADLs and transfers. Pt to benefit from skilled OT intervention for ADL training, transfers, strengthening, adaptive equipment training as needed and home safety education to improve level of independence and allow safe discharge plan. Discharge Recommendations Plan/Recommendations: Continue POC Treatment Plan/Plan of Care Patient would benefit from OT for education, treatment and training to promote independence in ADL's, mobility, safety and/or upper extremity function for ADL' s. Plan of Care: ADL Retraining, Functional Mobility, UE Funct Exercise/Act Treatment Duration: Aug 07, 2016 Visits Per Week: 10-11 Minutes/Day (M-F): 60-90 Minutes/Day (Sat/Parra): PRN Rehab Potential: Fair Time/GCodes Start Time: 08:00 Stop Time: 09:00 Total Time Billed (hr/min): 60 Billed Treatment Time 1 visit, ADLx4(60minutes) GEOVANNA MCKENZIE OT Jul 26, 2016 09:00
--- NOTE | 2016-07-26 10:31 | Physical Therapy Daily Note ---
PT Daily Note-Current Subjective Patient in recliner pre tx, agrees to PT, no complaints of pain. Appearance Patient BTB post tx with nurse call, phone, tray, all needs met. Mental Status Patient Orientation: Normal For Age Transfers Functional [place] Measure 0=Not Assessed/NA 4=Minimal Assistance 1=Total Assistance 5=Supervision or Setup 2=Maximal Assistance 6=Modified [place] 3=Moderate Assistance 7=Complete IndependenceIRFPAI Quality Coding Scale 6 Independent with activity with or without an assistive device 5 Patient requires set up or clean up by helper. Patient completes activity by themselves 4 Supervision or touching assist (CGA). [place] provide cues , steadying assist 3 The helper provides less than half the effort to complete the activity 2 The helper provides more than half the effort to complete the activity 1 Dependent. The helper does all the effort to complete an activity 7 Patient refused to complete or attempt activity 9 The patient did not perform the activity before the current illness or injury 88 Not attempted due to Medical conditions or safety concerns Transfers (B, C, W/C) (FIM): 2 Scootin Rollin Supine to/from Sit: 2 Sit to/from Stand: 2 Bed to/from Chair: 2 Patient did seem to be able to assist a little more with stand pivot transfers, but still max assist, needs cues for safety and hand placement. Wheelchair Training Wheelchair (FIM): 2 Distance: 100'x2 Wheelchair Level of Assist: 4 Type of Wheelchair: Manual Needs some assist with turning. Exercises NuStep Minutes: 15 NuStep Workload: 3 Treatments bed mobility and transfers, functional strengthening, wheelchair mobility Assessment Current Status: Poor Progress no change in mobility PT Short Term Goals Short Term Goals Time Frame: Jul 24, 2016 Wheelchair Distance: 100' PT Support Services Manager Goals Group Home Goals PT Group Home Goals Time Frame: Aug 07, 2016 Transfers (B,C,W/C) (FIM): 6 Sit to Lying (QC): 6 Lying-Sitting on Side/Bed(QC): 6 Sit to Stand (QC): 6 Rollin Roll Left to Right (QC): 6 Chair/Xwp-fv-Bhdle Xfer(QC): 6 Car Transfer (QC): 5 Does the Patient Walk: No and Walking Goal IS indicated Gait (FIM): 4 Gait distance (FIM): 5=774-46 ft Distance: 75 Walk 10 feet (QC): 6 Walk 10ft-Uneven Surface(QC): 4 Walk 50ft with 2 Turns (QC): 6 Walk 150 ft (QC): 4 Gait Level of Assist: 6 Gait Assistive Device: FWW Does the Pt use WC or Scooter?: No Stairs (FIM): 2 # of Steps: 3 1 Step (curb) (QC): 2 4 Steps (QC): 9 12 Steps (QC): 9 Stairs Level Of Assist: 2 Picking up an Object (QC): 4 PT Plan Problem List Problem List: Activity Tolerance, Functional Strength, Safety, Balance, Gait, Transfer, Bed Mobility, ROM Treatment/Plan Treatment Plan: Continue Plan of Care Treatment Plan: Bed Mobility, Education, Functional Activity Perla, Functional Strength, Group Therapy, Gait, Safety, Therapeutic Exercise, Transfers Treatment Duration: Aug 07, 2016 Visits Per Week: 10-11 Minutes/Day (M-F): 60-90 Minutes/Day (Sat/Parra): PRN Safety Risks/Education Patient Education: Transfer Techniques, Correct Positioning, W/C Management, Safety Issues Teaching Recipient: Patient Teaching Methods: Demonstration, Discussion Response to Teaching: Reinforcement Needed Time/GCodes Time In: 945 Time Out: 1030 Total Billed Treatment Time: 45 Total Billed Treatment 1 visit EX 15 min [facility] 15 min FA 15 min GARFIELD MIKE PT Jul 26, 2016 10:31
--- NOTE | 2016-07-26 12:30 | Speech Therapy Daily Note ---
Speech Daily Progress Note Subjective Pt was upright in chair. Cooperative for all therapy tasks. Objective The patient completed oral motor exercises 10x10 with min-mod cues for correct completion. Assessment Assessment Current Status: Fair Progress Treatment Plan Continue Plan of Care Communication Comprehension: 4 Expression: 6 Social Cognition Social Interaction: 6 Problem Solvin Memory: 4 Speech Short Term Goals Short Term Goals Short Term Goals 1. The patient will demonstrate oral motor exercises with 90% accuracy, independently. PROGRESSING 2. The patient will demonstrate 80% accuracy with structured executive functioning and problem solving tasks with mild clinician verbal cueing. 3. The patient will demonstrate dysphagia exercises with 90% accuracy and mild clinician cueing. PROGRESSING Time Frame-STG: Two Weeks Speech Poker In Goals Chcf Goals 1. The patient will demonstrate improved cognitive linguistic skills for increased safety and function with ADL's in the least restrictive setting. 2. The patient will tolerate the least restrictive diet without signs/symptoms of aspiration or laryngeal penetration. Time Frame: Six Weeks Speech-Plan Treatment Plan Speech Therapy Treatment Plan: Continue Plan of Care Treatment Duration: August 21, 2016 Visits Per Week: Five Minutes/Day (M-F): 30 Rehab Potential: Fair Time Speech Therapy Time In: 09:10 Speech Therapy Time Out: 09:40 Total Billed Time: 30 Billed Treatment Time 30 MIN 1 ORI LINO Jul 26, 2016 12:30
--- NOTE | 2016-07-26 14:36 | Therapy Group Daily Note ---
Therapy Daily Group Note Patient Education Topic Other List Below (Community safety, phone and credit card scams, public safety and home safety) Other/Notes Pt transported to OT/PT group via w/c. Group consisted of introductions (name, place, sharing experiences), socialization, guest speaker from local police department that discussed different scams, public safety and home safety. They went into depth about phone and credit card scams and group members shared their stories about being scammed. The guest speaker relayed that there is a phone number that people could call at all times when there was not an emergency and a member of the police department would come and check on them. They reiterated that it was a service to the community. Pt transported back to room and transferred with max A to bed. Call light/phone in reach. All needs met in room. Start Time: 13:00 Stop Time: 14:15 Total Billed Treatment Time: 75 Total Billed Treatment 1-GRP ELÍAS FORREST Jul 26, 2016 14:36
[2016-07-26] MEDS: ZINC OXIDE 16% OINT (BUTT PASTE) 113 GM TUBE TOP PRN ×2 (17:19→21:31)
[2016-07-26 17:51] VITALS: BP 161/65
[2016-07-26] MEDS: SIMvastatin 10 MG (ZOCOR) TAB PO SCH (21:30)
[2016-07-26] MEDS: NYSTATIN CREAM (MYCOSTATIN) 30 GM TUBE TP PRN (21:31)
[2016-07-26] MEDS: LATANOPROST 0.005% (XALATAN) OPHTH SOLN 2.5 ML OU SCH (21:31)
[2016-07-27] MEDS: LACTULOSE SYRUP 10GM/15ML (ENULOSE) 30ML UDC PO SCH ×6 (04:00→20:00)
[2016-07-27 05:12] VITALS: BP 121/66
[2016-07-27] MEDS: GLIMEPIRIDE 4 MG (AMARYL) TAB PO SCH (06:17)
[2016-07-27] MEDS: MULTIVIT W/MINERALS TAB (THERAGRAN M) PO SCH (06:17)
[2016-07-27] MEDS: metFORMIN 500 MG (GLUCOPHAGE) TAB PO SCH ×2 (06:17→18:09)
[2016-07-27] MEDS: ASPIRIN E.C. 81 MG (ECOTRIN) TAB PO SCH (08:30)
[2016-07-27] MEDS: HYDROCHLOROTHIAZIDE 12.5 MG (HCTZ) CAP PO SCH (08:30)
[2016-07-27] MEDS: VALSARTAN 80 MG (DIOVAN) TAB PO SCH ×2 (08:30→20:13)
[2016-07-27] MEDS: meTOprolol TARTRATE 50 MG (LOPRESSOR) TAB PO SCH ×2 (08:30→20:13)
[2016-07-27] MEDS: DORZOLAMIDE 2% 10 ML BTL (TRUSOPT) OU SCH ×2 (08:32→20:14)
--- NOTE | 2016-07-27 09:20 | Physical Therapy Daily Note ---
PT Daily Note-Current Subjective Pt supine in bed with head raised upon arrival. Pt reports feeling like she is wet and asked for help. Pt agrees to PT's help for tx. Pain Location: No Pain Reported Mental Status Patient Orientation: Person, Place, Time, Situation Transfers Functional [place] Measure 0=Not Assessed/NA 4=Minimal Assistance 1=Total Assistance 5=Supervision or Setup 2=Maximal Assistance 6=Modified [place] 3=Moderate Assistance 7=Complete IndependenceIRFPAI Quality Coding Scale 6 Independent with activity with or without an assistive device 5 Patient requires set up or clean up by helper. Patient completes activity by themselves 4 Supervision or touching assist (CGA). [place] provide cues , steadying assist 3 The helper provides less than half the effort to complete the activity 2 The helper provides more than half the effort to complete the activity 1 Dependent. The helper does all the effort to complete an activity 7 Patient refused to complete or attempt activity 9 The patient did not perform the activity before the current illness or injury 88 Not attempted due to Medical conditions or safety concerns Transfers (B, C, W/C) (FIM): 2 Scootin Rollin Roll Left to Right (QC): 2 Supine to/from Sit: 2 Sit to/from Stand: 2 Sit to Stand (QC): 2 Chair/Qfu-na-Ihhrg Xfer(QC): 2 Bed to/from Chair: 2 Weight Bearing Weight Bearing Restriction: Full Weight Bearing Location Restriction: LE Bilateral Exercises Supine Ex: Rolling (4 reps to change bed pad and put new brief on ) Treatments Pt rolled side to side to change bed pad and put new brief on before sitting at EOB. PT completed SPT from EOB to recliner at Max A. PT repositioned pt in chair for comfort and pt is left in recliner with feet up and all needs met at end of tx. Assessment Current Status: Fair Progress Pt is continuing to try for continued independence with transfers but still sturggles with weakness on L side due to CVA. Pt is gaining strength although not able to assist more with transfers or gait. PT Short Term Goals Short Term Goals Time Frame: Jul 24, 2016 Wheelchair Distance: 100'x2 PT Correction Goals Finished Stock Inspector Goals PT Correction Goals Time Frame: Aug 07, 2016 Transfers (B,C,W/C) (FIM): 6 Sit to Lying (QC): 6 Lying-Sitting on Side/Bed(QC): 6 Sit to Stand (QC): 6 Rollin Roll Left to Right (QC): 6 Chair/Oxy-nx-Xadly Xfer(QC): 6 Car Transfer (QC): 5 Does the Patient Walk: No and Walking Goal IS indicated Gait (FIM): 4 Gait distance (FIM): 8=862-35 ft Distance: 75 Walk 10 feet (QC): 6 Walk 10ft-Uneven Surface(QC): 4 Walk 50ft with 2 Turns (QC): 6 Walk 150 ft (QC): 4 Gait Level of Assist: 6 Gait Assistive Device: FWW Does the Pt use WC or Scooter?: No Stairs (FIM): 2 # of Steps: 3 1 Step (curb) (QC): 2 4 Steps (QC): 9 12 Steps (QC): 9 Stairs Level Of Assist: 2 Picking up an Object (QC): 4 PT Plan Problem List Problem List: Activity Tolerance, Functional Strength, Safety, Balance, Gait, Transfer, Bed Mobility Treatment/Plan Treatment Plan: Continue Plan of Care Treatment Plan: Bed Mobility, Education, Functional Activity Perla, Functional Strength, Group Therapy, Gait, Safety, Therapeutic Exercise, Transfers Treatment Duration: Aug 07, 2016 Visits Per Week: 10-11 Minutes/Day (M-F): 60-90 Minutes/Day (Sat/Parra): PRN Safety Risks/Education Patient Education: Transfer Techniques, Correct Positioning, Safety Issues Teaching Recipient: Patient Teaching Methods: Discussion Response to Teaching: Verbalize Understanding Time/GCodes Time In: 800 Time Out: 825 Total Billed Treatment Time: 25 Total Billed Treatment visit, FA X2 (25m) TERESA GILLIAM PTA Jul 27, 2016 09:20
[2016-07-27 17:42] VITALS: BP 161/72
[2016-07-27] MEDS: SIMvastatin 10 MG (ZOCOR) TAB PO SCH (20:13)
[2016-07-27] MEDS: LATANOPROST 0.005% (XALATAN) OPHTH SOLN 2.5 ML OU SCH (20:14)
[2016-07-27] MEDS: HYDROCORTISONE 1% CREAM 30 GM TUBE TOP PRN (20:15)
[2016-07-27] MEDS: ZINC OXIDE 16% OINT (BUTT PASTE) 113 GM TUBE TOP PRN (20:15)
[2016-07-27] MEDS: NYSTATIN CREAM (MYCOSTATIN) 30 GM TUBE TP PRN (20:15)
[2016-07-28 06:00] VITALS: BP 162/72
[2016-07-28] MEDS: LACTULOSE SYRUP 10GM/15ML (ENULOSE) 30ML UDC PO SCH ×6 (06:34→20:00)
[2016-07-28] MEDS: MULTIVIT W/MINERALS TAB (THERAGRAN M) PO SCH (06:35)
[2016-07-28] MEDS: metFORMIN 500 MG (GLUCOPHAGE) TAB PO SCH ×2 (06:35→17:26)
[2016-07-28] MEDS: GLIMEPIRIDE 4 MG (AMARYL) TAB PO SCH (06:35)
[2016-07-28] MEDS: LORATADINE (CLARITIN) 10 MG TAB PO PRN (06:37)
[2016-07-28] MEDS: ASPIRIN E.C. 81 MG (ECOTRIN) TAB PO SCH (08:21)
[2016-07-28] MEDS: VALSARTAN 80 MG (DIOVAN) TAB PO SCH ×2 (08:21→20:21)
[2016-07-28] MEDS: HYDROCHLOROTHIAZIDE 12.5 MG (HCTZ) CAP PO SCH (08:21)
[2016-07-28] MEDS: meTOprolol TARTRATE 50 MG (LOPRESSOR) TAB PO SCH ×2 (08:21→20:23)
[2016-07-28] MEDS: DORZOLAMIDE 2% 10 ML BTL (TRUSOPT) OU SCH ×2 (08:22→20:23)
[2016-07-28] MEDS: HYDROCORTISONE 1% CREAM 30 GM TUBE TOP PRN (15:35)
[2016-07-28 18:06] VITALS: BP 132/55
[2016-07-28] MEDS: SIMvastatin 10 MG (ZOCOR) TAB PO SCH (20:21)
[2016-07-28] MEDS: ZINC OXIDE 16% OINT (BUTT PASTE) 113 GM TUBE TOP PRN (20:24)
[2016-07-28] MEDS: NYSTATIN CREAM (MYCOSTATIN) 30 GM TUBE TP PRN (20:24)
[2016-07-28] MEDS: LATANOPROST 0.005% (XALATAN) OPHTH SOLN 2.5 ML OU SCH (20:24)
[2016-07-29] MEDS: LACTULOSE SYRUP 10GM/15ML (ENULOSE) 30ML UDC PO SCH ×6 (04:00→20:00)
[2016-07-29 05:17] VITALS: BP 119/67
[2016-07-29] MEDS: metFORMIN 500 MG (GLUCOPHAGE) TAB PO SCH ×2 (06:07→16:44)
[2016-07-29] MEDS: GLIMEPIRIDE 4 MG (AMARYL) TAB PO SCH (06:07)
[2016-07-29] MEDS: MULTIVIT W/MINERALS TAB (THERAGRAN M) PO SCH (06:07)
--- NOTE | 2016-07-29 07:50 | Occupational Ther Daily Note ---
OT Current Status-Daily Note Subjective Pt alert, lying in bed. Pt stated she already had her breakfast. Pt agreed to shower this morning. No c/o pain at this time. Mental Status/Objective Patient Orientation: Person, Place, Time, Situation Functional [place] Measure 0=Not Assessed/NA 4=Minimal Assistance 1=Total Assistance 5=Supervision or Setup 2=Maximal Assistance 6=Modified [place] 3=Moderate Assistance 7=Complete [place] ADL-Treatment Supine to sit with maximal assistance. Pt able to sit EOB while holding onto bedrails. Transfer EOB to shower chair with total assist using sit to stand lift. Transferred to restroom via shower chair. Pt doffed shirt with minimal assistance and increased time, cues for technique. Seated bathing completed using hand held shower. Pt able to wash bilateral UE, chest, abdomen, bilateral upper legs, and petey area. Pt able to wash lower legs/feet with long handled sponge, but required assist to dry them. Assist to wash/dry buttocks. Pt donned pullover shirt, able to thread bilateral UE into sleeves. Requires assist to pull shirt over head, but pt then able to pull shirt down. Total assist for LE dressing. Pt requested to use BSC. Stand pivot transfer with max A. Assist x2 to complete toileting and then max A to transfer from BSC to w/c. Total assist to don socks. Pt completed grooming tasks while seated. After therapy, pt sitting in w/c with needs met after session. Call light/phone in reach. Functional [place] Measure 0=Not Assessed/NA 4=Minimal Assistance 1=Total Assistance 5=Supervision or Setup 2=Maximal Assistance 6=Modified [place] 3=Moderate Assistance 7=Complete IndependenceIRFPAI Quality Coding Scale 6 Independent with activity with or without an assistive device 5 Patient requires set up or clean up by helper. Patient completes activity by themselves 4 Supervision or touching assist (CGA). [place] provide cues , steadying assist 3 The helper provides less than half the effort to complete the activity 2 The helper provides more than half the effort to complete the activity 1 Dependent. The helper does all the effort to complete an activity 7 Patient refused to complete or attempt activity 9 The patient did not perform the activity before the current illness or injury 88 Not attempted due to Medical conditions or safety concerns Grooming (FIM): 5 Bathing (FIM): 3 Bathing Location: L Arm, R Arm, L Upper Leg, R Upper Leg, L Lower Leg ( including foot), R Lower Leg (including foot), Chest, Abdomen, Perineal Area Upper Body (FIM): 4 Lower Body Dressing (FIM): 1 On/Off Footwear (QC): 1 Transfers (B, C, W/C) (FIM): 1 Toilet/Commode Transfer (FIM): 2 Shower Transfer(FIM): 1 OT Short Term Goals Short Term Goals Time Frame: Jul 24, 2016 Bathing(FIM): 3 Upper Body Dressing(FIM): 4 Lower Body Dressing(FIM): 3 Toileting(FIM): 3 Toilet/Commode Transfer(FIM): 3 Shower Transfer(FIM): 3 Additional Short Term Goals: 1-Demonstrate ADL Tasks, 2-Verbalize Understanding , 3-ImproveStrength/Perla 1=Demonstrate adherence to instructed precautions during ADL tasks. 2=Patient will verbalize/demonstrate understanding of assistive devices/ modifications for ADL. 3=Patient will improve strength/tolerance for activity to enable patient to perform ADL's. OT Home Staging Specialist Goals Correction Goals Time Frame: Aug 07, 2016 Eating (FIM): 6 Eating (QC): 6 Groomin Oral Hygiene (QC): 5 Bathing(FIM): 5 Shower/Bathe Self (QC): 5 Upper Body Dressing(FIM): 5 Upper Body Dressing (QC): 5 Lower Body Dressing(FIM): 5 Lower Body Dressing (QC): 5 On/Off Footwear (QC): 5 Toileting(FIM): 5 Toileting Hygiene (QC): 5 Toilet/Commode Transfer(FIM): 5 Toilet/Commode Transfer (QC): 5 Shower Transfer(FIM): 5 Additional Goals: 1-Demonstrate ADL Tasks, 2-Verbalize Understanding, 3- ImproveStrength/Perla 1=Demonstrate adherence to instructed precautions during ADL tasks. 2=Patient will verbalize/demonstrate understanding of assistive devices/ modifications for ADL. 3=Patient will improve strength/tolerance for activity to enable patient to perform ADL's. OT Education/Plan Problem List/Assessment Pt admitted to ARU following acute hospitalization for CVA. Pt demonstrates decreased strength on left side, impaired ability to perform ADLs and transfers. Pt to benefit from skilled OT intervention for ADL training, transfers, strengthening, adaptive equipment training as needed and home safety education to improve level of independence and allow safe discharge plan. Discharge Recommendations Plan/Recommendations: Continue POC Treatment Plan/Plan of Care Patient would benefit from OT for education, treatment and training to promote independence in ADL's, mobility, safety and/or upper extremity function for ADL' s. Plan of Care: ADL Retraining, Functional Mobility, UE Funct Exercise/Act Treatment Duration: Aug 07, 2016 Visits Per Week: 10-11 Minutes/Day (M-F): 60-90 Minutes/Day (Sat/Parra): PRN Rehab Potential: Fair Time/GCodes Start Time: 07:00 Stop Time: 08:00 Total Time Billed (hr/min): 60 Billed Treatment Time 1 visit-ADL 4 (60 min) ELÍAS FORREST Jul 29, 2016 07:50
[2016-07-29 08:11] VITALS: BP 124/65
[2016-07-29] MEDS: VALSARTAN 80 MG (DIOVAN) TAB PO SCH ×2 (08:15→21:25)
[2016-07-29] MEDS: ASPIRIN E.C. 81 MG (ECOTRIN) TAB PO SCH (08:15)
[2016-07-29] MEDS: HYDROCHLOROTHIAZIDE 12.5 MG (HCTZ) CAP PO SCH (08:15)
[2016-07-29] MEDS: meTOprolol TARTRATE 50 MG (LOPRESSOR) TAB PO SCH ×2 (08:15→21:25)
[2016-07-29] MEDS: HYDROCORTISONE 1% CREAM 30 GM TUBE TOP PRN ×2 (08:18→21:49)
[2016-07-29] MEDS: ZINC OXIDE 16% OINT (BUTT PASTE) 113 GM TUBE TOP PRN ×2 (08:18→21:24)
[2016-07-29] MEDS: NYSTATIN CREAM (MYCOSTATIN) 30 GM TUBE TP PRN ×2 (08:19→21:24)
[2016-07-29] MEDS: DORZOLAMIDE 2% 10 ML BTL (TRUSOPT) OU SCH ×2 (08:19→21:24)
--- NOTE | 2016-07-29 10:45 | Physical Therapy Daily Note ---
PT Daily Note-Current Subjective Patient in wheelchair pre tx, agrees to PT, no complaints of pain. Appearance Patient in wheelchair at bedside per patient's request so she can eat lunch sitting. Patient has nurse call, phone, tray, all needs met. Mental Status Patient Orientation: Normal For Age Transfers Functional [place] Measure 0=Not Assessed/NA 4=Minimal Assistance 1=Total Assistance 5=Supervision or Setup 2=Maximal Assistance 6=Modified [place] 3=Moderate Assistance 7=Complete IndependenceIRFPAI Quality Coding Scale 6 Independent with activity with or without an assistive device 5 Patient requires set up or clean up by helper. Patient completes activity by themselves 4 Supervision or touching assist (CGA). [place] provide cues , steadying assist 3 The helper provides less than half the effort to complete the activity 2 The helper provides more than half the effort to complete the activity 1 Dependent. The helper does all the effort to complete an activity 7 Patient refused to complete or attempt activity 9 The patient did not perform the activity before the current illness or injury 88 Not attempted due to Medical conditions or safety concerns Wheelchair Training Does the Pt Use a Wheelchair?: Yes Wheelchair (FIM): 2 Distance: 50'x2 Wheelchair Level of Assist: 5 Type of Wheelchair: Manual Patient propels a manual wheelchair very very slowly but she can do so without assistance. Exercises Patient stood in the standing frame for 15 min Treatments wheelchair mobility, standing frame Assessment Current Status: Poor Progress no change in mobility PT Short Term Goals Short Term Goals Time Frame: Jul 24, 2016 Wheelchair Distance: 0' PT Group Home Goals Asphalt Heater Tender Goals PT Group Home Goals Time Frame: Aug 07, 2016 Transfers (B,C,W/C) (FIM): 6 Sit to Lying (QC): 6 Lying-Sitting on Side/Bed(QC): 6 Sit to Stand (QC): 6 Rollin Roll Left to Right (QC): 6 Chair/Iqa-jq-Kowmx Xfer(QC): 6 Car Transfer (QC): 5 Does the Patient Walk: No and Walking Goal IS indicated Gait (FIM): 4 Gait distance (FIM): 8=749-45 ft Distance: 75 Walk 10 feet (QC): 6 Walk 10ft-Uneven Surface(QC): 4 Walk 50ft with 2 Turns (QC): 6 Walk 150 ft (QC): 4 Gait Level of Assist: 6 Gait Assistive Device: FWW Does the Pt use WC or Scooter?: No Stairs (FIM): 2 # of Steps: 3 1 Step (curb) (QC): 2 4 Steps (QC): 9 12 Steps (QC): 9 Stairs Level Of Assist: 2 Picking up an Object (QC): 4 PT Plan Problem List Problem List: Activity Tolerance, Functional Strength, Safety, Balance, Gait, Transfer, Bed Mobility, ROM Treatment/Plan Treatment Plan: Continue Plan of Care Treatment Plan: Bed Mobility, Education, Functional Activity Perla, Functional Strength, Group Therapy, Gait, Safety, Therapeutic Exercise, Transfers Treatment Duration: Aug 07, 2016 Visits Per Week: 10-11 Minutes/Day (M-F): 60-90 Minutes/Day (Sat/Parra): PRN Safety Risks/Education Patient Education: Correct Positioning, W/C Management, Safety Issues Teaching Recipient: Patient Teaching Methods: Demonstration, Discussion Response to Teaching: Reinforcement Needed Time/GCodes Time In: 1000 Time Out: 1045 Total Billed Treatment Time: 45 Total Billed Treatment 1 visit FA 15 min [facility] 30 min GARFIELD MIKE PT Jul 29, 2016 10:45
--- NOTE | 2016-07-29 13:13 | Speech Therapy Daily Note ---
Speech Daily Progress Note Subjective PATIENT WAS PLEASANT, COOPERATIVE AND AGREEABLE TO SEE THIS SUPERVISOR FABRICATION. Objective THE PATIENT WAS TASKED WITH COMPLETION OF PHARYNGEAL STRENGTHENING EXERCISES WELL BOT STRENGTHENING AND COORDINATION ACTIVITIES. Treatment Plan Continue Plan of Care PATIENT IS AWARE OF TAKING SMALL SIPS OF LIQUIDS TO REDUCE HER RISK FOR CHOKING. Communication Comprehension: 6 Expression: 6 Social Cognition Social Interaction: 6 Problem Solvin Memory: 6 Speech Short Term Goals Short Term Goals Short Term Goals 1. The patient will demonstrate oral motor exercises with 90% accuracy, independently. PROGRESSING 2. The patient will demonstrate 80% accuracy with structured executive functioning and problem solving tasks with mild clinician verbal cueing. 3. The patient will demonstrate dysphagia exercises with 90% accuracy and mild clinician cueing. PROGRESSING Time Frame-STG: Two Weeks Speech Plywood Layup Line Core Feeder Goals Skilled Nursing Goals 1. The patient will demonstrate improved cognitive linguistic skills for increased safety and function with ADL's in the least restrictive setting. 2. The patient will tolerate the least restrictive diet without signs/symptoms of aspiration or laryngeal penetration. Time Frame: Six Weeks Speech-Plan Treatment Plan Treatment Duration: August 21, 2016 Visits Per Week: Five Minutes/Day (M-F): 30 Rehab Potential: EMILY [place] Jul 29, 2016 13:13
--- NOTE | 2016-07-29 14:32 | Therapy Group Daily Note ---
Therapy Daily Group Note Patient Education Topic Other List Below (Process of Arthritis, AE and exercises for pain relief) Exercises LE Seated Exercise, UE Exercise Other/Notes Pt transported to group via w/c. OT/PT group consisted of introductions (name, place living, favorite job), socialization, education on arthritis process and the Process of Arthritis, AE and exercises for pain relief and UE/LE seated exercises. Pt contributed to introductions and conversations appropriately. Pt has weakness on L side and used one arm techniques to complete UE seated exercises. Pt was able to complete LE seated exercises. Pt demonstrated understanding of topic and was able to give examples that were appropriate. After therapy, pt transferred back to be with max A. Call light/phone in reach. All needs met in room. Start Time: 13:00 Stop Time: 14:15 Total Billed Treatment Time: 75 Total Billed Treatment 1-GRP ELÍAS FORREST Jul 29, 2016 14:32
[2016-07-29 18:50] VITALS: BP 157/78
[2016-07-29 21:22] VITALS: BP 139/72
[2016-07-29] MEDS: LATANOPROST 0.005% (XALATAN) OPHTH SOLN 2.5 ML OU SCH (21:24)
[2016-07-29] MEDS: SIMvastatin 10 MG (ZOCOR) TAB PO SCH (21:25)
[2016-07-30] MEDS: LACTULOSE SYRUP 10GM/15ML (ENULOSE) 30ML UDC PO SCH ×6 (04:00→20:00)
[2016-07-30 05:27] VITALS: BP 123/72
[2016-07-30] MEDS: MULTIVIT W/MINERALS TAB (THERAGRAN M) PO SCH (06:03)
[2016-07-30] MEDS: metFORMIN 500 MG (GLUCOPHAGE) TAB PO SCH ×2 (06:03→17:53)
[2016-07-30] MEDS: GLIMEPIRIDE 4 MG (AMARYL) TAB PO SCH (06:03)
[2016-07-30] MEDS: HYDROCHLOROTHIAZIDE 12.5 MG (HCTZ) CAP PO SCH (08:29)
[2016-07-30] MEDS: meTOprolol TARTRATE 50 MG (LOPRESSOR) TAB PO SCH ×2 (08:30→20:27)
[2016-07-30] MEDS: VALSARTAN 80 MG (DIOVAN) TAB PO SCH ×2 (08:30→20:27)
[2016-07-30] MEDS: ZINC OXIDE 16% OINT (BUTT PASTE) 113 GM TUBE TOP PRN (08:30)
[2016-07-30] MEDS: ASPIRIN E.C. 81 MG (ECOTRIN) TAB PO SCH (08:30)
[2016-07-30] MEDS: DORZOLAMIDE 2% 10 ML BTL (TRUSOPT) OU SCH ×2 (08:31→20:28)
[2016-07-30] MEDS: NEO/POLY/BAC (NEOSPORIN) OINT 15 GM TUBE TOP SCH ×2 (09:00→11:21)
--- NOTE | 2016-07-30 10:47 | Physical Therapy Daily Note ---
PT Daily Note-Current Subjective Patient in wheelchair pre tx, agrees to PT, no complaints of pain. Appearance Patient in wheelchair at bedside for lunch, has nurse call, phone, tray, all needs met. Mental Status Patient Orientation: Normal For Age Transfers Functional [place] Measure 0=Not Assessed/NA 4=Minimal Assistance 1=Total Assistance 5=Supervision or Setup 2=Maximal Assistance 6=Modified [place] 3=Moderate Assistance 7=Complete IndependenceIRFPAI Quality Coding Scale 6 Independent with activity with or without an assistive device 5 Patient requires set up or clean up by helper. Patient completes activity by themselves 4 Supervision or touching assist (CGA). [place] provide cues , steadying assist 3 The helper provides less than half the effort to complete the activity 2 The helper provides more than half the effort to complete the activity 1 Dependent. The helper does all the effort to complete an activity 7 Patient refused to complete or attempt activity 9 The patient did not perform the activity before the current illness or injury 88 Not attempted due to Medical conditions or safety concerns Transfers (B, C, W/C) (FIM): 2 Scootin Rollin Roll Left to Right (QC): 4 Supine to/from Sit: 2 Sit to/from Stand: 2 Sit to Lying (QC): 2 Sit to Stand (QC): 2 Chair/Wxc-vg-Stptm Xfer(QC): 2 Bed to/from Chair: 2 Car Transfer (QC): 88 Patient primarily max assist with bed mobility but she can turn with [place]/CGA, transfers are max assist Gait Training Gait (FIM): 0 Wheelchair Training Does the Pt Use a Wheelchair?: Yes Wheelchair (FIM): 2 Distance: 50'x2 Wheelchair Level of Assist: 4 Wheel 50 ft with 2 turns (QC): 3 Type of Wheelchair: Manual Patient can propel a wheelchair with both arms and right leg with min assist. She is very weak and propels a wheelchair very slowly and she does not have much power, the front wheels turned sideways will stop her from going forward. She needs min assist for turning and going around obstacles. Exercises Seated Therapy Exercises: Ankle pumps, Hip flexion Seated Reps: 20 LAQ alternating for 5 min, she also stood in the parallel bars x4 with max assist and was able to stand for about 30 seconds each time Treatments bed mobility and transfers, standing in parallel bars, wheelchair mobility, functional strengthening, Assessment Current Status: Poor Progress no change in mobility PT Short Term Goals Short Term Goals Time Frame: Jul 24, 2016 Wheelchair Distance: 50'x2 PT Senior Living Goals Land Developer Goals PT Senior Living Goals Time Frame: Aug 07, 2016 Transfers (B,C,W/C) (FIM): 6 Sit to Lying (QC): 6 Lying-Sitting on Side/Bed(QC): 6 Sit to Stand (QC): 6 Rollin Roll Left to Right (QC): 6 Chair/Sdi-yf-Urnmh Xfer(QC): 6 Car Transfer (QC): 5 Does the Patient Walk: No and Walking Goal IS indicated Gait (FIM): 4 Gait distance (FIM): 4=344-98 ft Distance: 75 Walk 10 feet (QC): 6 Walk 10ft-Uneven Surface(QC): 4 Walk 50ft with 2 Turns (QC): 6 Walk 150 ft (QC): 4 Gait Level of Assist: 6 Gait Assistive Device: FWW Does the Pt use WC or Scooter?: No Stairs (FIM): 2 # of Steps: 3 1 Step (curb) (QC): 2 4 Steps (QC): 9 12 Steps (QC): 9 Stairs Level Of Assist: 2 Picking up an Object (QC): 4 PT Plan Problem List Problem List: Activity Tolerance, Functional Strength, Safety, Balance, Gait, Transfer, Bed Mobility, ROM Treatment/Plan Treatment Plan: Continue Plan of Care Treatment Plan: Bed Mobility, Education, Functional Activity Perla, Functional Strength, Group Therapy, Gait, Safety, Therapeutic Exercise, Transfers Treatment Duration: Aug 07, 2016 Visits Per Week: 10-11 Minutes/Day (M-F): 60-90 Minutes/Day (Sat/Parra): PRN Safety Risks/Education Patient Education: Transfer Techniques, Correct Positioning, W/C Management, Safety Issues Teaching Recipient: Patient Teaching Methods: Demonstration, Discussion Response to Teaching: Reinforcement Needed Time/GCodes Time In: 1000 Time Out: 1045 Total Billed Treatment Time: 45 Total Billed Treatment 1 visit FA 15 min EX 15 min [facility] 15 min GARFIELD MIKE PT Jul 30, 2016 10:47
--- NOTE | 2016-07-30 12:52 | Occupational Ther Daily Note ---
OT Current Status-Daily Note Subjective Pt alert, lying in bed. Pt agreed to therapy. No c/o pain at this time. Mental Status/Objective Patient Orientation: Person, Place, Time, Situation Functional [place] Measure 0=Not Assessed/NA 4=Minimal Assistance 1=Total Assistance 5=Supervision or Setup 2=Maximal Assistance 6=Modified [place] 3=Moderate Assistance 7=Complete [place] ADL-Treatment Functional [place] Measure 0=Not Assessed/NA 4=Minimal Assistance 1=Total Assistance 5=Supervision or Setup 2=Maximal Assistance 6=Modified [place] 3=Moderate Assistance 7=Complete IndependenceIRFPAI Quality Coding Scale 6 Independent with activity with or without an assistive device 5 Patient requires set up or clean up by helper. Patient completes activity by themselves 4 Supervision or touching assist (CGA). [place] provide cues , steadying assist 3 The helper provides less than half the effort to complete the activity 2 The helper provides more than half the effort to complete the activity 1 Dependent. The helper does all the effort to complete an activity 7 Patient refused to complete or attempt activity 9 The patient did not perform the activity before the current illness or injury 88 Not attempted due to Medical conditions or safety concerns Eating (FIM): 5 (After set up, pt is able to use regular utensils to feed self. ) Eating (QC): 5 (After set up, pt is able to use regular utensils to feed self.) Grooming (FIM): 6 (Sitting at the sink, pt is able to complete own grooming.) Oral Hygiene (QC): 6 (Sitting at the sink, pt is able to complete own oral care.) Bathing (FIM): 3 (Sitting on cut out shower chair using long handle sponge and hand held shower pt is able to complete bathing self with assist only for cleansing buttocks. Pt requires assistance to dry lower legs/feet and buttocks. ) Bathing Location: L Arm, R Arm, L Upper Leg, R Upper Leg, L Lower Leg ( including foot), R Lower Leg (including foot), Chest, Abdomen, Perineal Area Shower/Bathe Self (QC): 3 (Sitting on cut out shower chair using long handle sponge and hand held shower pt is able to complete bathing self with assist only for cleansing buttocks. Pt requires assistance to dry lower legs/feet and buttocks.) Upper Body (FIM): 4 (After set up, pt is able to doff shirt by self then is able to thread UE's through sleeves. Assist to extractor puller head then can pull own shirt down. Pt does take increased time to complete.) Upper Body Dressing (QC): 3 (After set up, pt is able to doff shirt by self then is able to thread UE's through sleeves. Assist to extractor puller head then can pull own shirt down. Pt does take increased time to complete.) Lower Body Dressing (FIM): 1 (Pt dependent with lower body dressing. Using sit to stand lift to stand pt while hiking pants over hips. 2 person assist if sit to stand lift unavailable.) Lower Body Dressing (QC): 1 (Pt dependent with lower body dressing. Using sit to stand lift to stand pt while hiking pants over hips. 2 person assist if sit to stand lift unavailable.) On/Off Footwear (QC): 1 (Pt dependent with on/off footwear.) Toileting (FIM): 1 (Using on BSC, pt requires assist to manipulate clothing is able to cleanse petey area in sitting then dependent with cleansing buttocks. Pt has demonstrated incontinence throughout rehab stay.) Toileting Hygiene (QC): 1 (Using on BSC, pt requires assist to manipulate clothing is able to cleanse petey area in sitting then dependent with cleansing buttocks. Pt has demonstrated incontinence throughout rehab stay.) Transfers (B, C, W/C) (FIM): 1 (Uses sit to stand lift for transfers. Max A x2 for transfers without lift.) Toilet/Commode Transfer (FIM): 1 (Uses sit to stand lift for transfers. Max A x2 for transfers without lift.) Toilet Transfer (QC): 1 (Uses sit to stand lift for transfers. Max A x2 for transfers without lift.) Shower Transfer(FIM): 1 (Uses sit to stand lift to transfer onto rolling shower chair to get into shower.) After therapy, pt sitting in w/c with call light/phone in reach. All needs met in room. OT Short Term Goals Short Term Goals Time Frame: Jul 24, 2016 Bathing(FIM): 3 Upper Body Dressing(FIM): 4 Lower Body Dressing(FIM): 3 Toileting(FIM): 3 Toilet/Commode Transfer(FIM): 3 Shower Transfer(FIM): 3 Additional Short Term Goals: 1-Demonstrate ADL Tasks, 2-Verbalize Understanding , 3-ImproveStrength/Perla 1=Demonstrate adherence to instructed precautions during ADL tasks. 2=Patient will verbalize/demonstrate understanding of assistive devices/ modifications for ADL. 3=Patient will improve strength/tolerance for activity to enable patient to perform ADL's. OT Detention Goals Detention Goals Time Frame: Aug 07, 2016 Eating (FIM): 6 Eating (QC): 6 Groomin Oral Hygiene (QC): 5 Bathing(FIM): 5 Shower/Bathe Self (QC): 5 Upper Body Dressing(FIM): 5 Upper Body Dressing (QC): 5 Lower Body Dressing(FIM): 5 Lower Body Dressing (QC): 5 On/Off Footwear (QC): 5 Toileting(FIM): 5 Toileting Hygiene (QC): 5 Toilet/Commode Transfer(FIM): 5 Toilet/Commode Transfer (QC): 5 Shower Transfer(FIM): 5 Additional Goals: 1-Demonstrate ADL Tasks, 2-Verbalize Understanding, 3- ImproveStrength/Perla 1=Demonstrate adherence to instructed precautions during ADL tasks. 2=Patient will verbalize/demonstrate understanding of assistive devices/ modifications for ADL. 3=Patient will improve strength/tolerance for activity to enable patient to perform ADL's. OT Education/Plan Problem List/Assessment Pt admitted to ARU following acute hospitalization for CVA. Pt demonstrates decreased strength on left side, impaired ability to perform ADLs and transfers. Pt to benefit from skilled OT intervention for ADL training, transfers, strengthening, adaptive equipment training as needed and home safety education to improve level of independence and allow safe discharge plan. Discharge Recommendations Plan/Recommendations: Continue POC Treatment Plan/Plan of Care Patient would benefit from OT for education, treatment and training to promote independence in ADL's, mobility, safety and/or upper extremity function for ADL' s. Plan of Care: ADL Retraining, Functional Mobility, UE Funct Exercise/Act Treatment Duration: Aug 07, 2016 Visits Per Week: 10-11 Minutes/Day (M-F): 60-90 Minutes/Day (Sat/Parra): PRN Rehab Potential: Fair Time/GCodes Start Time: 07:00 Stop Time: 08:15 Total Time Billed (hr/min): 75 Billed Treatment Time 1 visit-ADL 5 (75 min) ELÍAS FORREST Jul 30, 2016 12:52
--- NOTE | 2016-07-30 13:31 | Physical Therapy Daily Note ---
PT Daily Note-Current Subjective Patient in wheelchair pre tx, agrees to PT, no complaints of pain. Appearance Patient BTB post tx with nurse call, phone, tray, all needs met. Mental Status Patient Orientation: Normal For Age Transfers Functional [place] Measure 0=Not Assessed/NA 4=Minimal Assistance 1=Total Assistance 5=Supervision or Setup 2=Maximal Assistance 6=Modified [place] 3=Moderate Assistance 7=Complete IndependenceIRFPAI Quality Coding Scale 6 Independent with activity with or without an assistive device 5 Patient requires set up or clean up by helper. Patient completes activity by themselves 4 Supervision or touching assist (CGA). [place] provide cues , steadying assist 3 The helper provides less than half the effort to complete the activity 2 The helper provides more than half the effort to complete the activity 1 Dependent. The helper does all the effort to complete an activity 7 Patient refused to complete or attempt activity 9 The patient did not perform the activity before the current illness or injury 88 Not attempted due to Medical conditions or safety concerns Transfers (B, C, W/C) (FIM): 2 Scootin Rollin Supine to/from Sit: 2 Sit to/from Stand: 2 Bed to/from Chair: 2 Patient needs cues for safety and hand placement. Exercises NuStep Minutes: 15 NuStep Workload: 3 Treatments bed mobility and transfers, functional strengthening Assessment Current Status: Poor Progress no change in mobility PT Short Term Goals Short Term Goals Time Frame: Jul 24, 2016 Wheelchair Distance: 50'x2 PT Manager Automotive Goals Retirement Goals PT Manager Automotive Goals Time Frame: Aug 07, 2016 Transfers (B,C,W/C) (FIM): 6 Sit to Lying (QC): 6 Lying-Sitting on Side/Bed(QC): 6 Sit to Stand (QC): 6 Rollin Roll Left to Right (QC): 6 Chair/Pnt-cr-Xolxs Xfer(QC): 6 Car Transfer (QC): 5 Does the Patient Walk: No and Walking Goal IS indicated Gait (FIM): 4 Gait distance (FIM): 2=909-92 ft Distance: 75 Walk 10 feet (QC): 6 Walk 10ft-Uneven Surface(QC): 4 Walk 50ft with 2 Turns (QC): 6 Walk 150 ft (QC): 4 Gait Level of Assist: 6 Gait Assistive Device: FWW Does the Pt use WC or Scooter?: No Stairs (FIM): 2 # of Steps: 3 1 Step (curb) (QC): 2 4 Steps (QC): 9 12 Steps (QC): 9 Stairs Level Of Assist: 2 Picking up an Object (QC): 4 PT Plan Problem List Problem List: Activity Tolerance, Functional Strength, Safety, Balance, Gait, Transfer, Bed Mobility, ROM Treatment/Plan Treatment Plan: Continue Plan of Care Treatment Plan: Bed Mobility, Education, Functional Activity Perla, Functional Strength, Group Therapy, Gait, Safety, Therapeutic Exercise, Transfers Treatment Duration: Aug 07, 2016 Visits Per Week: 10-11 Minutes/Day (M-F): 60-90 Minutes/Day (Sat/Parra): PRN Safety Risks/Education Patient Education: Transfer Techniques, Correct Positioning, Safety Issues Teaching Recipient: Patient Teaching Methods: Demonstration, Discussion Response to Teaching: Reinforcement Needed Time/GCodes Time In: 1300 Time Out: 1330 Total Billed Treatment Time: 30 Total Billed Treatment 1 visit FA 15 min EX 15 min GARFIELD MIKE PT Jul 30, 2016 13:31
--- NOTE | 2016-07-30 14:31 | Speech Therapy Daily Note ---
Speech Daily Progress Note Subjective The patient was seated upright in wheelchair upon entrance. The patient greeted the clinician appropriately and agreed to participate in dysphagia therapy on this date. Objective Dysphagia Exercises: The patient demonstrated consistent accuracy ( approximately 80%) with dysphagia exercises on this date (base of tongue retraction, pharyngeal contraction, and laryngeal elevation). Moderate clinician verbal prompting was provided, as well as, an initial model (patient continues to require intermittent modeling throughout exercise). Ten repetitions of each exercise were performed. Bolus Trials: The patient was reassessed with thin liquids via cup sip on this date. No signs/symptoms of aspiration or laryngeal penetration were demonstrated with 4 ounces of thin liquid. The patient's vocal quality remained clear throughout bolus trials. Assessment Assessment Current Status: Good Progress Treatment Plan Continue Plan of Care Communication Comprehension: 4 Expression: 5 Social Cognition Social Interaction: 5 Problem Solvin Memory: 4 Speech Short Term Goals Short Term Goals Short Term Goals 1. The patient will demonstrate oral motor exercises with 90% accuracy, independently. PROGRESSING 2. The patient will demonstrate 80% accuracy with structured executive functioning and problem solving tasks with mild clinician verbal cueing. 3. The patient will demonstrate dysphagia exercises with 90% accuracy and mild clinician cueing. PROGRESSING Time Frame-STG: Two Weeks Speech Certified Professional Midwife Goals Certified Professional Midwife Goals 1. The patient will demonstrate improved cognitive linguistic skills for increased safety and function with ADL's in the least restrictive setting. 2. The patient will tolerate the least restrictive diet without signs/symptoms of aspiration or laryngeal penetration. Time Frame: Six Weeks Speech-Plan Treatment Plan Speech Therapy Treatment Plan: Continue Plan of Care Continue skilled speech pathology to focus on pharyngeal strengthening exercises. Treatment Duration: August 21, 2016 # of days/week Five. Visits Per Week: Five Minutes/Day (M-F): 30 Rehab Potential: Fair Safety Risks/Education Teaching Recipient: Patient Teaching Methods: Demonstration, Handout, Discussion Response to Teaching: Return Demonstration, Reinforcement Needed Education Topics Provided: Dysphagia Exercises Time Speech Therapy Time In: 09:00 Speech Therapy Time Out: 09:30 Total Billed Time: 30 Billed Treatment Time GISELLE Rain ELIZALOREN BAILEY Jul 30, 2016 14:31
--- NOTE | 2016-07-30 14:34 | Therapy Team Discharge Summary ---
Therapy Discharge Summary Discharge Recommendations Date of Discharge Speech-Language Pathology The patient was recently admitted to [facility] following a CVA. Upon admission, the patient demonstrated mild oropharyngeal dysphagia and mild cognitive deficits (memory, problem solving). Skilled speech pathology focused on pharyngeal strengthening exercises and functional orientation/memory strategies. The patient met dysphagia goals placed by this clinician upon entrance. Speech pathology recommends continued speech pathology following discharge to monitor swallowing safety, aspiration risks, and functional memory strategies. PT Usp Goals Cnc Grinder Goals PT Usp Goals Time Frame: Aug 07, 2016 Transfers (B,C,W/C) (FIM): 6 Roll Left to Right (QC): 6 Sit to Lying (QC): 6 Lying-Sitting on Side/Bed(QC): 6 Sit to Stand (QC): 6 Chair/Tsz-pz-Jlrey Xfer(QC): 6 Car Transfer (QC): 5 Does the Patient Walk: No and Walking Goal IS indicated Gait (FIM): 4 Gait distance (FIM): 1=463-87 ft Distance: 75 Walk 10 feet (QC): 6 Walk 10ft-Uneven Surface(QC): 4 Walk 50ft with 2 Turns (QC): 6 Walk 150 ft (QC): 4 Gait Level of Assist: 6 Gait Assistive Device: FWW Does the Pt use WC or Scooter?: No Stairs (FIM): 2 # of Steps: 3 1 Step (curb) (QC): 2 4 Steps (QC): 9 12 Steps (QC): 9 Stairs Level Of Assist: 2 Picking up an Object (QC): 4 OT Cnc Grinder Goals Cnc Grinder Goals Time Frame: Aug 07, 2016 Eating (FIM): 6 Eating (QC): 6 Oral Hygiene (QC): 5 Grooming(FIM): 5 Bathing(FIM): 5 Shower/Bathe Self (QC): 5 Upper Body Dressing(FIM): 5 Upper Body Dressing (QC): 5 Lower Body Dressing(FIM): 5 Lower Body Dressing (QC): 5 On/Off Footwear (QC): 5 Toileting(FIM): 5 Toileting Hygiene (QC): 5 Toilet/Commode Transfer(FIM): 5 Toilet/Commode Transfer (QC): 5 Shower Transfer(FIM): 5 Additional Goals: 1-Demonstrate ADL Tasks, 2-Verbalize Understanding, 3- ImproveStrength/Perla 1=Demonstrate adherence to instructed precautions during ADL tasks. 2=Patient will verbalize/demonstrate understanding of assistive devices/ modifications for ADL. 3=Patient will improve strength/tolerance for activity to enable patient to perform ADL's. Speech Usp Goals Usp Goals 1. The patient will demonstrate improved cognitive linguistic skills for increased safety and function with ADL's in the least restrictive setting. 2. The patient will tolerate the least restrictive diet without signs/symptoms of aspiration or laryngeal penetration. Time Frame: Six Weeks Comprehension: 5 (NOT MET) Expression: 5 (MET) Social Interaction: 5 (MET) Problem Solvin (NOT MET) Memory: 4 (NOT MET) TAMIA CEJA Jul 30, 2016 14:34
[2016-07-30 17:11] VITALS: BP 161/70
[2016-07-30] MEDS ORDERED: DICLOFENAC 1% GEL 100 GM (VOLTAREN) TUBE TOP PRN (18:15)
--- NOTE | 2016-07-30 19:04 | PM & R (SOAP) Progress Note ---
Subjective Subjective/Events-last exam Patient was seen in her room Gradually improving Patient mod assist for transfers Discussed case with RN Patient to go local SNU tomorrow for ongoing Care and therapies Objective Exam Last Set of Vital Signs Vital Signs Date Time Temp Pulse Resp B/P (MAP) Pulse Ox O2 Delivery O2 Flow Rate FiO2 07/30/16 17:11 96.5 97 16 161/70 95 Room Air Capillary Refill : I&O Intake and Output 07/30/16 00:00 Intake Total 1260 ml Balance 1260 ml Intake Oral 1260 ml # Voids 5 # Bowel Movements 1 General: Alert, Oriented X3, Cooperative, No Acute Distress HEENT: Atraumatic, PERRLA, EOMI, Mucous Memb Moist/[place], Other (02 by N/C in place) Neck: Supple, No JVD Lungs: Clear to Auscultation Heart: Regular Rate Abdomen: Normal Bowel Sounds, Soft Extremities: No Edema Neuro: Other (having antigravity strength return in Left Upper limb) Results Lab Laboratory Tests 07/28/16 06:44: Glucometer 77 07/29/16 04:20: Glucometer 72 07/30/16 04:29: Glucometer 101 Assessment/Plan Assessment 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
[2016-07-30] MEDS: SIMvastatin 10 MG (ZOCOR) TAB PO SCH (20:27)
[2016-07-30] MEDS: LATANOPROST 0.005% (XALATAN) OPHTH SOLN 2.5 ML OU SCH (20:28)
[2016-07-31] MEDS: LACTULOSE SYRUP 10GM/15ML (ENULOSE) 30ML UDC PO SCH ×4 (04:00→11:37)
[2016-07-31 05:00] VITALS: BP 134/67
[2016-07-31] MEDS: GLIMEPIRIDE 4 MG (AMARYL) TAB PO SCH (06:15)
[2016-07-31] MEDS: metFORMIN 500 MG (GLUCOPHAGE) TAB PO SCH (06:15)
[2016-07-31] MEDS: MULTIVIT W/MINERALS TAB (THERAGRAN M) PO SCH (06:15)
--- NOTE | 2016-07-31 07:46 | PM & R (SOAP) Progress Note ---
Subjective Subjective/Events-last exam Patient was seen in her room this AM Labs and Vital signs reviewed as well as current therapy notes Objective Exam Last Set of Vital Signs Vital Signs Date Time Temp Pulse Resp B/P (MAP) Pulse Ox O2 Delivery O2 Flow Rate FiO2 07/31/16 05:00 97.5 61 20 134/67 95 Room Air Capillary Refill : I&O Intake and Output 07/31/16 00:00 Intake Total 1350 ml Balance 1350 ml Intake Oral 1350 ml # Voids 8 General: Alert, Oriented X3, Cooperative, No Acute Distress HEENT: Atraumatic, PERRLA, EOMI, Mucous Memb Moist/[place], Other (02 by N/C in place) Neck: Supple, No JVD Lungs: Clear to Auscultation Heart: Regular Rate Abdomen: Normal Bowel Sounds, Soft Extremities: No Edema Neuro: Other (having antigravity strength return in Left Upper limb) Results Lab Laboratory Tests 07/29/16 04:20: Glucometer 72 07/30/16 04:29: Glucometer 101 07/31/16 06:12: Glucometer 86 Assessment/Plan Assessment 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
[2016-07-31] MEDS ORDERED: ZINC28PA TOP (07:55)
[2016-07-31] MEDS ORDERED: HYDR12.5 PO (07:55)
[2016-07-31] MEDS ORDERED: DICL100G18 TOP (07:55)
[2016-07-31] MEDS ORDERED: VALS80TA PO (07:55)
[2016-07-31] MEDS ORDERED: NYST15CR TP (07:55)
[2016-07-31] MEDS ORDERED: ACET-77 PO (07:55)
[2016-07-31] MEDS ORDERED: LORA10TA7 PO (07:55)
[2016-07-31] MEDS: meTOprolol TARTRATE 50 MG (LOPRESSOR) TAB PO SCH (08:51)
[2016-07-31] MEDS: ASPIRIN E.C. 81 MG (ECOTRIN) TAB PO SCH (08:51)
[2016-07-31] MEDS: HYDROCHLOROTHIAZIDE 12.5 MG (HCTZ) CAP PO SCH (08:51)
[2016-07-31] MEDS: VALSARTAN 80 MG (DIOVAN) TAB PO SCH (08:51)
[2016-07-31] MEDS: NEO/POLY/BAC (NEOSPORIN) OINT 15 GM TUBE TOP SCH (08:52)
[2016-07-31] MEDS: DORZOLAMIDE 2% 10 ML BTL (TRUSOPT) OU SCH (08:52)
--- NOTE | 2016-07-31 09:19 | Therapy Team Discharge Summary ---
Therapy Discharge Summary Discharge Recommendations Date of Discharge Physical Therapy Patient came to rehab with decreased functional mobility. Upon admission patient was dependent to max assist with bed mobility and transfers, no walking or stairs. Patient has been performing bed mobility and transfer training, endurance training, functional strengthening, wheelchair mobility training, and education. 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 Now, patient performs bed mobility with max assist for the most part although she can roll with [place]/CGA and scoot with mod assist. She can also propel a manual wheelchair 50' with min assist. Patient is being discharged from this facility today and will be discharged from PT at this time. PT Halfway Goals Halfway Goals PT Fitness Centre Manager Goals Time Frame: Aug 07, 2016 Transfers (B,C,W/C) (FIM): 6 Roll Left to Right (QC): 6 Sit to Lying (QC): 6 Lying-Sitting on Side/Bed(QC): 6 Sit to Stand (QC): 6 Chair/Yao-lx-Wjkfw Xfer(QC): 6 Car Transfer (QC): 5 Does the Patient Walk: No and Walking Goal IS indicated Gait (FIM): 4 Gait distance (FIM): 7=335-24 ft Distance: 75 Walk 10 feet (QC): 6 Walk 10ft-Uneven Surface(QC): 4 Walk 50ft with 2 Turns (QC): 6 Walk 150 ft (QC): 4 Gait Level of Assist: 6 Gait Assistive Device: FWW Does the Pt use WC or Scooter?: No Stairs (FIM): 2 # of Steps: 3 1 Step (curb) (QC): 2 4 Steps (QC): 9 12 Steps (QC): 9 Stairs Level Of Assist: 2 Picking up an Object (QC): 4 OT Fitness Centre Manager Goals Fitness Centre Manager Goals Time Frame: Aug 07, 2016 Eating (FIM): 6 Eating (QC): 6 Oral Hygiene (QC): 5 Grooming(FIM): 5 Bathing(FIM): 5 Shower/Bathe Self (QC): 5 Upper Body Dressing(FIM): 5 Upper Body Dressing (QC): 5 Lower Body Dressing(FIM): 5 Lower Body Dressing (QC): 5 On/Off Footwear (QC): 5 Toileting(FIM): 5 Toileting Hygiene (QC): 5 Toilet/Commode Transfer(FIM): 5 Toilet/Commode Transfer (QC): 5 Shower Transfer(FIM): 5 Comprehension(FIM): 5 (NOT MET) Expression (FIM): 5 (MET) Social Interaction(FIM): 5 (MET) Problem Solving(FIM): 4 (NOT MET) Memory(FIM): 4 (NOT MET) Additional Goals: 1-Demonstrate ADL Tasks, 2-Verbalize Understanding, 3- ImproveStrength/Perla 1=Demonstrate adherence to instructed precautions during ADL tasks. 2=Patient will verbalize/demonstrate understanding of assistive devices/ modifications for ADL. 3=Patient will improve strength/tolerance for activity to enable patient to perform ADL's. Speech Fitness Centre Manager Goals Halfway Goals 1. The patient will demonstrate improved cognitive linguistic skills for increased safety and function with ADL's in the least restrictive setting. 2. The patient will tolerate the least restrictive diet without signs/symptoms of aspiration or laryngeal penetration. Time Frame: Six Weeks Comprehension: 5 (NOT MET) Expression: 5 (MET) Social Interaction: 5 (MET) Problem Solvin (NOT MET) Memory: 4 (NOT MET) GARFIELD MIKE PT Jul 31, 2016 09:19
--- NOTE | 2016-07-31 09:46 | Therapy Team Discharge Summary ---
Therapy Discharge Summary Discharge Recommendations Date of Discharge Occupational Therapy Pt admitted to ARU following CVA. On admission pt required total assist for transfers and LE dressing, max assist for UE dressing and bathing, and mod assist with grooming. Skilled OT intervention focused on ADL training, transfers , and strengthening. At discharge pt is feeding self after set up, grooming with modified independence, bathing with mod assist, UE dressing with minimal assistance and requiring total assist for LE dressing, toileting, and transfers. Pt met goal for grooming, but did not meet other goals. Pt is discharging to [facility] today for continued care. D/C ARU OT at this time. PT [facility] Goals Asphalt Dauber Goals PT Asphalt Dauber Goals Time Frame: Aug 07, 2016 Transfers (B,C,W/C) (FIM): 6 Roll Left to Right (QC): 6 Sit to Lying (QC): 6 Lying-Sitting on Side/Bed(QC): 6 Sit to Stand (QC): 6 Chair/Its-fq-Tatin Xfer(QC): 6 Car Transfer (QC): 5 Does the Patient Walk: No and Walking Goal IS indicated Gait (FIM): 4 Gait distance (FIM): 3=298-77 ft Distance: 75 Walk 10 feet (QC): 6 Walk 10ft-Uneven Surface(QC): 4 Walk 50ft with 2 Turns (QC): 6 Walk 150 ft (QC): 4 Gait Level of Assist: 6 Gait Assistive Device: FWW Does the Pt use WC or Scooter?: No Stairs (FIM): 2 # of Steps: 3 1 Step (curb) (QC): 2 4 Steps (QC): 9 12 Steps (QC): 9 Stairs Level Of Assist: 2 Picking up an Object (QC): 4 OT Asphalt Dauber Goals Asphalt Dauber Goals Time Frame: Aug 07, 2016 Eating (FIM): 6 Eating (QC): 6 Oral Hygiene (QC): 5 Grooming(FIM): 5 Bathing(FIM): 5 Shower/Bathe Self (QC): 5 Upper Body Dressing(FIM): 5 Upper Body Dressing (QC): 5 Lower Body Dressing(FIM): 5 Lower Body Dressing (QC): 5 On/Off Footwear (QC): 5 Toileting(FIM): 5 Toileting Hygiene (QC): 5 Toilet/Commode Transfer(FIM): 5 Toilet/Commode Transfer (QC): 5 Shower Transfer(FIM): 5 Comprehension(FIM): 5 (NOT MET) Expression (FIM): 5 (MET) Social Interaction(FIM): 5 (MET) Problem Solving(FIM): 4 (NOT MET) Memory(FIM): 4 (NOT MET) Additional Goals: 1-Demonstrate ADL Tasks, 2-Verbalize Understanding, 3- ImproveStrength/Perla 1=Demonstrate adherence to instructed precautions during ADL tasks. 2=Patient will verbalize/demonstrate understanding of assistive devices/ modifications for ADL. 3=Patient will improve strength/tolerance for activity to enable patient to perform ADL's. Speech [facility] Goals Asphalt Dauber Goals 1. The patient will demonstrate improved cognitive linguistic skills for increased safety and function with ADL's in the least restrictive setting. 2. The patient will tolerate the least restrictive diet without signs/symptoms of aspiration or laryngeal penetration. Time Frame: Six Weeks Comprehension: 5 (NOT MET) Expression: 5 (MET) Social Interaction: 5 (MET) Problem Solvin (NOT MET) Memory: 4 (NOT MET) GEOVANNA MCKENZIE OT Jul 31, 2016 09:46
--- NOTE | 2016-08-15 09:57 | DISCHARGE SUMMARY ---
DATE OF SERVICE: 07/31/2016 HISTORY OF PRESENT ILLNESS: The patient is an 86-year-old female who was admitted via the ED to [facility], due to weakness and slurred speech to the service of Dr. Rodriguez, PCP. The patient had been modified independent with a quad cane prior to this and able to swallow food without too much difficulty. An MRI of the brain revealed a lacunar infarct in the right cherelle which explained her symptoms. The patient was started on therapies on the medical floor. She had continued left-sided weakness with speech impaired, some expressive aphasia and some oropharyngeal dysphagia. She was referred to inpatient rehabilitation for comprehensive stroke rehabilitation. PAST MEDICAL HISTORY: Bladder incontinence, depression, hypertension, presbycusis, glaucoma, non-insulin dependent diabetes mellitus, chronic back pain, gout, arthritis, degenerative disk disease of the lumbar spine, GERD, adenoidectomy, mastectomy for breast cancer, coronary artery bypass graft, coronary stent, eye surgery, cholecystectomy, tonsillectomy. MEDICAL COURSE: The patient was followed by Dr. Walker and Dr. Rodriguez on the rehab unit. Blood pressure was somewhat elevated. Dr. Rodriguez adjusted her blood pressure medications with better control. Blood pressure on 07/31 was 134/67, O2 sat 95% on room air, respirations 20, pulse 61. Blood pressure on 07/11 was 162/71, thus her systolic blood pressure was brought under better control. CBC on 07/12 showed WBC 7.5, H and H 12.4 and 39, platelet count 192,000. Chemistry showed BUN 23 on 07/12, otherwise normal electrolytes. Creatinine was 0.7, albumin low at 3, total protein low at 6. Blood glucose was 88. Glucometer readings from 07/19-07/31 varied between 66 and 101. The patient developed a rash consistent with a mild dermatitis on her back. This responded to topical care. She also had a mild fungal groin rash which was treated with nystatin cream with good results. REHABILITATION COURSE: The patient was assessed by speech therapy upon admission. She demonstrated mild oropharyngeal dysphagia and mild cognitive deficits in memory and problem solving domains. The patient met dysphagia goals placed by the clinician upon admission, she was upgraded to a regular diet. PT notes upon admission: The patient was dependent with max assist with bed mobility and transfers. She gradually improved and upon discharge she can perform bed mobility with max assist for the most part, although she can roll with min assist to contact guard and scoot with mod assist. She can propel a manual wheelchair 50 feet with minimal assist. The family felt that she would require too much care for them to take care of her at home and the neonatal social worker assisted patient and family with placement at a local care center. OT notes upon admission: The patient required total assist for transfers and lower body dressing. Max assist for upper body dressing and bathing, mod assist for grooming. At discharge the patient was feeding herself with set up, grooming with modified independence, bathing with mod assist, upper body dressing with min assist, total assist for lower body dressing, toileting and toilet transfers. The patient will have ongoing therapies at receiving senior care facility. DISCHARGE INSTRUCTIONS: 1. Continue current diet. 2. Followup with Dr. Rodriguez or [facility] physician. 3. Accu-Cheks b.i.d. DISCHARGE MEDICATIONS: 1. Tylenol 1000 mg p.o. q.6 hours p.r.n. mild pain. 2. Voltaren gel q.i.d. p.r.n. pain. 3. Hydrochlorothiazide 12.5 mg p.o. daily. 4. Claritin 10 mg p.o. daily p.r.n. allergies or itching. 5. Nystatin cream topically p.r.n. redness or irritation. 6. Diovan 80 mg p.o. b.i.d. 7. Zinc oxide topically as needed for diaper rash. 8. Aspirin 81 mg p.o. daily. 9. Azopt 1 drop both eyes twice daily. 10. Glimepiride 4 mg p.o. daily. 11. Glucosamine 8 ounces p.o. daily. 12. Metformin 500 mg p.o. b.i.d. 13. Metoprolol 100 mg p.o. twice daily 14. Med 1 tablet p.o. daily. 15. Pravastatin 20 mg p.o. each day at bedtime. 16. Travatan-Z 1 drop both eyes at bedtime. DISCHARGE DIAGNOSES: 1. Rehabilitation ambulatory dysfunction secondary to right lacunar infarct involving the cherelle with resulting left-sided weakness and mild oropharyngeal dysphagia. 2. Diabetes mellitus, controlled with medication. 3. Hypertension, now better controlled with adjustment in medication. 4. Fungal groin rash, under treatment. 5. Dermatitis involving the back, improved with topical care. 6. Glaucoma, on eyedrops. 7. Degenerative disk disease of the lumbar spine. CONDITION AT DISCHARGE: Improved and stable. PROGNOSIS: Rehab prognosis appears good for continued improvement at the senior care facility. However, due to her age and limited progress during her stay, it would be difficult for her to be advanced to an assisted living setting or to return home with assistance. Job ID: [id number] DocumentID: [id number] Dictated Date: 08/14/2016 09:06:12 Ore Trimmer Date: 08/15/2016 09:56:21 Dictated By: KEI WALKER MD MTDD
== END 2016-07-31 15:29 | DRG 57 ==
LOC: DELPENDDIS → ENPENDDIS 07-31 12:00
PROVIDERS: ADMIT Physical Medicine & Rehabilitation; ATTEND Physical Medicine & Rehabilitation
DX: I69.354 Hemiplegia and hemiparesis following cerebral infarction affecting left non-dominant side (principal); I69.322 Dysarthria following cerebral infarction; I69.391 Dysphagia following cerebral infarction; R13.12 Dysphagia, oropharyngeal phase; I10 Essential (primary) hypertension; E11.9 Type 2 diabetes mellitus without complications; M51.36 Other intervertebral disc degeneration, lumbar region; K21.9 Gastro-esophageal reflux disease without esophagitis; M17.0 Bilateral primary osteoarthritis of knee; H40.9 Unspecified glaucoma
CPT/HCPCS: 36415; 80053; 82962; 85025

== ENCOUNTER → 2016-10-14 | Outpatient (CLI) | payer MEDICARE ==
[~2016-10-14] MED LIST changes: +ACET-77 PO; +DICL100G18 TOP; +LORA10TA7 PO; +NYST15CR TP; +VALS80TA PO; +ZINC28PA TOP
--- NOTE | 2016-10-14 16:27 | Diagnostic Imaging Report ---
EXAMINATION: Bilateral knee radiographs, three views on each side. INDICATION: Bilateral knee pain. FINDINGS: Left knee: There is ossification in the suprapatellar bursa presumably related to prior injury and myositis ossificans. There are severe arthritic changes seen in the three compartments with irregularity of the articular margin in the medial compartment and prominent tricompartmental osteophytes. No fracture or dislocation is identified. No suprapatellar effusion is seen. Right knee: There is severe osteoarthritis, most prominent in the medial compartment with near complete loss of cartilage and tricompartment osteophytes seen. No suprapatellar effusion. No fracture or dislocation seen. IMPRESSION: Advanced bilateral osteoarthritis changes most prominent in the medial compartment. Dictated by: Dictated on workstation # [id number]
== END ==
LOC: RAD 14:37
PROVIDERS: ATTEND Family Medicine
DX: M17.0 Bilateral primary osteoarthritis of knee (principal)

== ENCOUNTER 2017-05-09 13:39 | Emergency (ER) | payer MEDICARE ==
[~2017-05-09] VITALS: Ht 165.1 cm; Wt 74.8 kg
[~2017-05-09 13:39] MED LIST changes: +DEXTROSE 50% 50 ML (IMS) SYR ONE; +METO100T12 PO; -METO100T2 PO; +METO50TA15 PO; -METO50TA2 PO; -MULT-116 PO; +MULT-324 PO
[2017-05-09] MEDS ORDERED: DEXTROSE 50% 50 ML (IMS) SYR IV ONE (13:45)
--- NOTE | 2017-05-09 14:09 | ED Neurological Problem ---
General Chief Complaint: Glucose Problems Stated Complaint: LOW BS Nursing Triage Note: Pt here by EMS from [facility]. Facility reports that they checked on pt approx 1 hour ago and pt stated she wasn't feeling well. Pt now unresponsive. Pt FSBS upon arrival 31. Nursing Sepsis Screen: No Definite Risk Source: patient Exam Limitations: no limitations History of Present Illness Date Seen by Provider: May 09, 2017 Time Seen by Provider: 13:40 Initial Comments 78-year-old female patient presents to the emergency department with [facility] from the [facility] of altered [facility] status. Blood sugar was 31 for EMS. Patient does have a history of hypoglycemia and diabetes type2. Patient's nurse , Sonam, at [facility] contacted and states they did not have orders to check patient 's blood sugar as patient is diet controlled. CT staff reports the aid had taken the patient her lunch and went back later to get the tray. Found the patient "unresponsive" and had not eaten any of her lunch. Patient was given D50W in the ED immediately. Within 5 minutes patient was A/Ox4, NAD. Patient now reporting that she had only eaten Cheerios this morning for breakfast.. States she had not felt very good prior to lunch. States she does not remember them bringing her lunch to her. States the next thing she remembers is talking to the emergency department staff. Patient does report being hungry. Patient denies any history of CVA with residual one-sided weakness. States this is similar to usual findings. Timing/Duration: other (just prior to arrival) Associated Symptoms: confusion ("unresponsive"), No fever/chills Allergies and Home Medications Allergies Coded Allergies: Calcium Channel Blocking Agent Dilt (Verified Allergy, Mild, COUGH, ) FREDY Inhibitors (Verified Allergy, Unknown, 07/08/16) Penicillins (Verified Allergy, Unknown, 07/08/16) Tetanus Vaccines and Toxoid (Verified Allergy, Unknown, 07/08/16) clindamycin (Verified Allergy, Unknown, 07/08/16) Home Medications Acetaminophen 500 Mg Tablet, 1,000 MG PO Q6H PRN for MILD PAIN for 30 Days, #100 Prescribed by: KEI STEPHENS on 07/31/16 0755 Aspirin 81 Mg Tablet.dr, 81 MG PO DAILY, (Reported) Benzonatate 100 Mg Capsule, 100 MG PO Q8H PRN for COUGH, #30 Ref 0 Prescribed by: GABO SOLIS on 05/09/17 1537 Brinzolamide 10 Ml Btl, 1 DROP OU BID, (Reported) Diclofenac Sodium 100 Gm Gel..gram., 0 GM TOP QID PRN for PAIN for 30 Days, #1 Prescribed by: KEI STEPHENS on 07/31/16754 Glimepiride 4 Mg Tablet, 4 MG PO DAILY, (Reported) Glucagon,Human Recombinant 1 Mg/Kit Soln, 1 MG IJ ONCE PRN for HYPOGLYCEMIA, #1 Ref 0 repeat q20min for low BS Prescribed by: GABO SOLIS on 05/09/17 1602 Glucosamine HCl/MSM 480 Ml Liquid, 8 OZ PO DAILY, (Reported) Hydrochlorothiazide 12.5 Mg Capsule, 12.5 MG PO DAILY@0900 for 30 Days, #30 Prescribed by: KEI STEPHENS on 07/31/16754 Loratadine 10 Mg Tablet, 10 MG PO DAILY PRN for ALLERGIES/ITCHING for 30 Days, # 30 Prescribed by: KEI STEPHENS on 07/31/16754 Metformin HCl 500 Mg Tablet, 500 MG PO BID, (Reported) Metoprolol Tartrate 100 Mg Tablet, 100 MG PO BID, (Reported) Multivitamin 1 Each Tablet, 1 TAB PO DAILY, (Reported) Nystatin 15 Gm Cream..g., 0 GM TP TID PRN for REDNESS/IRRITATION for 30 Days, #1 Prescribed by: KEI STEPHENS on 07/31/16754 Oseltamivir Phosphate 75 Mg Cap, 75 MG PO DAILY, #10 Ref 0 Prescribed by: GABO SOLIS on 05/09/17 1537 Pravastatin Sodium 20 Mg Tablet, 20 MG PO HS, (Reported) Travoprost 5 Ml Drops, 1 DROP OU HS, (Reported) Valsartan 80 Mg Tablet, 80 MG PO BID for 30 Days, #60 Prescribed by: KEI STEPHENS on 07/31/16754 Zinc Oxide 28 Gm Oint, 0 GM TOP NEEDED PRN for DIAPER CHANGE for 30 Days, #1 Prescribed by: KEI STEPHENS on 07/31/16754 Constitutional: No chills, No diaphoresis, No dizziness, No fever, other ( initially patient was unresponsive. Patient given D50 with, within 5 minutes patient was noted to be alert/oriented 4, no acute distress. After D50W, patient was able to provide ROS hx) Eyes: Denies Blindness, Denies Blurred Vision, Denies Decreased Acuity, Denies Photophobia, Denies Vision Changes Ears, Nose, Mouth, Throat: denies ear pain, denies ear discharge, denies nose pain, denies nose discharge, denies mouth pain, denies throat pain Respiratory: cough (chronic cough for several months with clear sputum), No dyspnea on exertion, No hemoptysis, phlegm (clear phlegm), No short of breath, No stridor, wheezing (reports occasional wheezing over the last several months) Cardiovascular: No chest pain, edema (chronic edema), No palpitations, No syncope Gastrointestinal: No abdominal pain, No constipation, No diarrhea, No nausea, No vomiting Genitourinary: no symptoms reported Musculoskeletal: no symptoms reported Skin: other (patient reports she is being treated for cellulitis of the lower extremities. States she has 2 pills left.) Psychiatric/Neurological: See HPI, Denies Cognitive Dysfunction, Denies Headache, Denies Numbness, Denies Unable to Move Lower Ext, Denies Unable to Move Upper Ext, Denies Weakness Past Ofmdodk-Gvmyml-Tshlwk Hx Patient Social History Former Smoker, Quit: Jul 10, 1974 Recent Foreign Travel: No Contact w/Someone Who Travel: No Recent Infectious Disease Expo: No Recent Hopitalizations: No Immunizations Up To Date Tetanus Booster (TDap): Unknown PED Vaccines UTD: Yes Date of Pneumonia Vaccine: Feb 03, 2012 Date of Influenza Vaccine: Jan 20, 2016 Seasonal Allergies Seasonal Allergies: No Surgeries History of Surgeries: Yes (BILATERAL CATARACT SURGERY, CARTOID ARTERY SURGERY FEB 2014;BREAST BX X 4) Surgeries: Adenoidectomy, Breast, Cardiac, CABG, Coronary Stent, Eye Surgery, Gallbladder, Tonsillectomy, Vascular Surgery Respiratory History of Respiratory Disorde: No Currently Using CPAP: No Currently Using BIPAP: No Cardiovascular History of Cardiac Disorders: Yes (BYPASS x4 ;STENTS; HEART CATH 2004 ) Cardiac Disorders: Coronary Artery Disease, Heart Attack, High Cholesterol, Hypertension Neurological History of Neurological Disord: No Reproductive System Hx Reproductive Disorders: No Sexually Transmitted Disease: No HIV/AIDS: No Female Reproductive Disorders: Denies 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 History: Menopausal Genitourinary History of Genitourinary Disor: Yes Genitourinary Disorders: Kidney Infection, Bladder Infection Gastrointestinal History of Gastrointestinal Di: Yes Gastrointestinal Disorders: Gastroesophageal Reflux, Hemorrhoids, Ulcer Musculoskeletal History of Musculoskeletal Dis: Yes Musculoskeletal Disorders: Degenerate Disk Disease, Osteoporosis, Arthritis, Chronic Back Pain, Gout Endocrine History of Endocrine Disorders: Yes Endocrine Disorders: Diabetes, Non-Insulin dep HEENT History of HEENT Disorders: Yes HEENT Disorders: Cataract, Glaucoma Loss of Vision: Bilateral Hearing Impairment: Hard of Hearing Cancer History of Cancer: No Psychosocial History of Psychiatric Problem: Yes Behavioral Health Disorders: Depression Integumentary History of Skin or Integumenta: Yes (RIGHT GREAT TOE CYST/CELLULITIS) Blood Transfusions History of Blood Disorders: No Adverse Reaction to a Blood Tr: No Family Medical History Family Medial History: Alcoholism Arthritis 19 FATHER 19 MOTHER CHF 19 MOTHER Cardiovascular disease 19 FATHER 19 MOTHER Dementia Diabetes mellitus 19 MOTHER FH: CHF (congestive heart failure) 19 MOTHER Glaucoma 19 MOTHER Hypercholesterolemia 19 FATHER 19 MOTHER Hypertension 19 FATHER 19 MOTHER Infertility Myocardial infarction 19 FATHER (60 ) 19 MOTHER Neoplasm DAUGHTER (BREAST CANCER) Osteoporosis 19 MOTHER Visual disorder 19 FATHER 19 MOTHER No Family History of: AIDS Abdominal aortic aneurysm Bay's disease Alzheimer's disease Aphasia Asthma Cancer of mouth Cataracts Colon cancer Completed stroke Congenital disease Congenital heart disease Coronary thrombosis Cystic fibrosis Deafness or hearing loss Drug abuse Dysphasia Fibrocystic disease of breast Gastroenteritis Headache disorder Kidney disease Not obtainable due to adoption Parkinson's disease Prostate cancer Psychosocial problem Respiratory disorder Seizure disorder Severe allergy Thyroid disease Tuberculosis Physical Exam Vital Signs Vital Sign - Last 12Hours 05/09/17 13:40 Temp 96.5 Pulse 65 Resp 18 B/P (MAP) 185/79 (114) Pulse Ox 95 O2 Delivery Room Air Capillary Refill : Less Than 3 Seconds General Appearance: WD/WN, no apparent distress HEENT: PERRL/EOMI, normal ENT inspection, TMs normal, pharynx normal Neck: non-tender, full range of motion, supple, normal inspection Respiratory: lungs clear, normal breath sounds, no respiratory distress, no accessory muscle use Cardiovascular: normal peripheral pulses, regular rate, rhythm, no murmur Gastrointestinal: normal bowel sounds, non tender, soft, no organomegaly Back: normal inspection Extremities: no calf tenderness, normal capillary refill, pedal edema (2+ pedal edema bilaterally (patient states this is normal for her)) Neurologic/Psychiatric: behavior clinician II-XII nml as tested, alert, normal mood/affect, oriented x 3, No sensory deficit, other (slight weakness noted of the LUE and LLE (patient states this is normal for her since having a stroke previously)) Crainal Nerves: normal hearing, normal speech, PERRL Coordination/Gait: normal finger to nose, other (patient unable to tolerate romberg or gait testing due to being wheelchair/bed bound.) Motor/Sensory: no sensory deficit, other (motor strength of the left upper extremity and left lower extremity which patient states is normal for her since having a stroke previously.) Skin: normal color, warm/dry, other (venous stasis changes of the right lower extremity) Progress/Results/Core Measures Results/Orders Lab Results Laboratory Tests Test 05/09/17 14:30 Range/Units White Blood Count 7.3 4.3-11.0 10^3/uL Red Blood Count 4.31 L 4.35-5.85 10^6/uL Hemoglobin 12.5 11.5-16.0 G/DL Hematocrit 38 35-52 % Mean Corpuscular Volume 88 80-99 FL Mean Corpuscular Hemoglobin 29 25-34 PG Mean Corpuscular Hemoglobin Concent 33 32-36 G/DL Red Cell Distribution Width 14.9 H 10.0-14.5 % Platelet Count 183 130-400 10^3/uL Mean Platelet Volume 9.0 7.4-10.4 FL Neutrophils (%) (Auto) 80 H 42-75 % Lymphocytes (%) (Auto) 11 L 12-44 % Monocytes (%) (Auto) 7 0-12 % Eosinophils (%) (Auto) 3 0-10 % Basophils (%) (Auto) 0 0-10 % Neutrophils # (Auto) 5.8 1.8-7.8 X 10^3 Lymphocytes # (Auto) 0.8 L 1.0-4.0 X 10^3 Monocytes # (Auto) 0.5 0.0-1.0 X 10^3 Eosinophils # (Auto) 0.2 0.0-0.3 10^3/uL Basophils # (Auto) 0.0 0.0-0.1 10^3/uL Sodium Level 139 135-145 MMOL/L Potassium Level 3.3 L 3.6-5.0 MMOL/L Chloride Level 99 98-107 MMOL/L Carbon Dioxide Level 28 21-32 MMOL/L Anion Gap 12 5-14 MMOL/L Blood Urea Nitrogen 18 7-18 MG/DL Creatinine 0.78 0.60-1.30 MG/DL Estimat Glomerular Filtration Rate > 60 BUN/Creatinine Ratio 23 Glucose Level 117 H 70-105 MG/DL Hemoglobin A1c 7.5 H 4.5-6.2 % Calcium Level 8.9 8.5-10.1 MG/DL My Orders Orders - GABO SOLIS D50w (Emergency) Syringe (Dextrose 50% 5 (05/09/17 13:45) Basic Metabolic Panel (05/09/17 13:58) Cbc With Automated Diff (05/09/17 13:58) Saline Lock/Iv-Start (05/09/17 13:58) Hemoglobin A1c (05/09/17 13:59) Accucheck Stat ONCE (05/09/17 14:01) General/Regular (05/09/17 Lunch) Chest 1 View, Ap/Pa Only (05/09/17 14:27) Accucheck Stat ONCE (05/09/17 14:36) Medications Given in ED Current Medications Medications Dose Ordered Sig/Rosalind Route Start Time Stop Time Status Last Admin Dose Admin Dextrose 50 ml ONCE ONCE IV 05/09/17 13:45 05/09/17 13:46 DC 05/09/17 13:41 50 ML Vital Signs/I&O Vital Sign - Last 12Hours 05/09/17 05/09/17 13:40 16:47 Temp 96.5 96.5 Pulse 65 68 Resp 18 18 B/P (MAP) 185/79 (114) Pulse Ox 95 95 O2 Delivery Room Air Blood Pressure Mean: 114 Diagnostic Imaging Diagonstic Imaging: Xray Plain Films/CT/US/NM/MRI: chest Comments CHEST 1 VIEW, AP/PA ONLY INDICATION: Hypoglycemia. Frontal chest obtained at 0237 hours p.m. Comparison made with 07/08/2016. Patient has had prior sternotomy. Heart is borderline in size. There are chronic appearing increased interstitial markings. There is no acute infiltrate or pneumothorax or pleural fluid. IMPRESSION: Mild cardiomegaly with chronic appearing increased interstitial markings. No acute consolidation or pleural fluid. Dictated by: Dictated on workstation # [id number] Reviewed: Reviewed by Me (radiology report reviewed by me) Departure Communication (Admissions) Progress Notes Patient seen for a UA today. Patient was given D50W immediately upon arriving to the emergency department for a blood sugar of 31. Within 5 minutes was noted to be alert/oriented 4, no acute distress. Initial labs were obtained as well as a chest x-ray. All diagnostic and laboratory findings were discussed with the patient. Patient continued to be alert and oriented 4 throughout the entire visit. ED visit uneventful. Patient discharged to [facility] with instructions to follow-up with her primary care provider for recheck this week as an outpatient. Impression Impression: Primary Impression: Hypoglycemia associated with diabetes Additional Impression: Chronic cough Disposition: XF SNF Condition: Stable Departure-Patient Inst. Decision time for Depature: 15:34 Referrals: MANUEL LEON MD (PCP/Family) Primary Care Physician Patient Instructions: Low Blood Sugar in People With Diabetes Add. Discharge Instructions: All discharge instructions reviewed with patient and/or family. Voiced understanding. Continue usual home medications. FSBS qAM. Check fingerstick blood sugars for altered mental status. Continue your usual home diet. Follow-up with Dr. Leon this week for recheck. Call for an appointment time. Return to the emergency department for changes in behavior, slurred speech, facial drooping, numbness, weakness, chest pain, shortness of air, seizure, vomiting, abdominal pain, headache, facial numbness, or any other concerns. Scripts Glucagon,Human Recombinant (Glucagon Emergency Kit) 1 Mg/Kit Soln 1 MG IJ ONCE Y for HYPOGLYCEMIA, #1 KIT 0 Refills repeat q20min for low BS Prov: GABO SOLIS 05/09/17 Oseltamivir Phosphate (Tamiflu) 75 Mg Cap 75 MG PO DAILY, #10 CAP 0 Refills Prov: GABO SOLIS 05/09/17 Benzonatate (Tessalon Perle) 100 Mg Capsule 100 MG PO Q8H Y for COUGH, #30 CAP 0 Refills Prov: GABO SOLIS 05/09/17 GABO SOLIS May 09, 2017 14:09
--- OUTSIDE RECORDS SUMMARY | 2017-05-09 14:34 | XMS REPORT | Continuity of Care Document ---
Author Author [facility] Organization [facility] Address Unknown Phone Unavailable Allergies Active Description Code Type Severity Reaction Onset Reported/Identified Relationship to Patient Clinical Status Yes Calcium Channel Blocking Agent Dilt [id number] Drug Allergy Mild COUGH Yes FREDY Inhibitors [id number] Drug Allergy Unknown N/A 07/08/2016 Yes clindamycin [id number] Drug Allergy Unknown N/A 07/08/2016 Yes Penicillins [id number] Drug Allergy Unknown N/A 07/08/2016 Yes Tetanus Vaccines and Toxoid [id number] Drug Allergy Unknown N/A 2016 Medications There is no data. Problems Date Dx Coded Attending Type Code Diagnosis Diagnosed By 03/20/1499 SUMAN TERRELL MD Ot 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 WITH FOOT ULCER 03/20/1499 SUMAN TERRELL MD Ot I70.235 ATHSCL [place] ARTERIES OF RIGHT LEG W UL 03/20/1499 SUMAN TERRELL MD Ot L03.115 CELLULITIS OF RIGHT LOWER LIMB 03/20/1499 SUMAN TERRELL MD Ot L97.512 NON-PRS CHRONIC ULCER OTH PRT RIGHT FOOT 01/23/2014 JEFFRY OLGUIN MD Ot 401.9 HYPERTENSION NOS 01/23/2014 JEFFRY OLGUIN MD Ot V58.69 OTH MED,LT,CURRENT USE 01/28/2014 DENISSE DO JUAN K Ot 401.9 HYPERTENSION NOS 09/11/2014 SONJA LAZARO MD Ot 250.00 DIAB ALEJANDRA WO COMPL, TYPE II OR UNSPEC TY 09/11/2014 SONJA LAZARO MD Ot 401.9 HYPERTENSION NOS 02/03/2015 Angela BURROUGHS MD Ot E11.9 TYPE 2 DIABETES MELLITUS WITHOUT COMPLIC 02/03/2015 Angela BURROUGHS MD Ot I10 ESSENTIAL (PRIMARY) HYPERTENSION 02/03/2015 Angela BURROUGHS MD Ot I25.10 ATHSCL HEART DISEASE OF [place] CORONARY 02/03/2015 HEIKE BECERRA, M ISABEL Ot R07.9 CHEST PAIN, UNSPECIFIED 05/11/2015 Ot R04.0 EPISTAXIS 05/11/2015 Ot S00.83XA CONTUSION OF OTHER PART OF HEAD, INITIAL 05/11/2015 Ot S13.4XXA SPRAIN OF LIGAMENTS OF CERVICAL SPINE, I 05/11/2015 Ot W01.0XXA FALL SAME LEV FROM SLIP/TRIP W/O STRIKE 05/11/[address] IN UNSP NON-INSTITUT (PRIVATE 05/11/2015 Ot Y99.8 OTHER EXTERNAL CAUSE STATUS 07/21/2015 JUSTIN DAILEY MD Ot D69.6 THROMBOCYTOPENIA, UNSPECIFIED 07/21/2015 JUSTIN DAILEY MD Ot 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 WITH FOOT ULCER 07/21/2015 JUSTIN DAILEY MD Ot I10 ESSENTIAL (PRIMARY) HYPERTENSION 07/21/2015 JUSTIN DAILEY MD Ot I25.10 ATHSCL HEART DISEASE OF [place] CORONARY 07/21/2015 JUSTIN DAILEY MD Ot I89.0 LYMPHEDEMA, NOT ELSEWHERE CLASSIFIED 07/21/2015 JUSTIN DAILEY MD Ot K21.9 GASTRO-ESOPHAGEAL REFLUX DISEASE WITHOUT 07/21/2015 JUSTIN DAILEY MD Ot L03.031 CELLULITIS OF RIGHT TOE 07/21/2015 JUSTIN DAILEY MD Ot L03.115 CELLULITIS OF RIGHT LOWER LIMB 07/21/2015 UJSTIN DAILEY MD Ot L97.519 NON-PRS CHRONIC ULCER [...] DIABETES MELLITUS WITH HYPOGLYCEM 08/16/2015 LUCILLE LOMELI APRN Ot I10 ESSENTIAL (PRIMARY) HYPERTENSION 08/23/2015 SUMAN TERRELL MD Ot 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 WITH FOOT ULCER 08/23/2015 SUMAN TERRELL MD Ot I70.235 ATHSCL [place] ARTERIES OF RIGHT LEG W UL 08/23/2015 [...] DIABETES MELLITUS WITHOUT COMPLIC 02/23/2016 SONJA LAZARO MD Ot I10 ESSENTIAL (PRIMARY) HYPERTENSION 02/23/2016 SONJA LAZARO MD Ot I16.0 HYPERTENSIVE URGENCY 02/23/2016 SONJA LAZARO MD Ot R09.89 OTH SYMPTOMS AND SIGNS INVOLVING THE CIR 02/23/2016 SONJA LAZARO MD Ot Z79.82 SENIOR LIVING (CURRENT) USE OF ASPIRIN 02/23/2016 SONJA LAZARO MD Ot Z79.84 CRAWLER DRAGLINE OPERATOR (CURRENT) USE OF ORAL HYPOGLYC 02/23/2016 SONJA LAZARO MD, Ot Z79.899 OTHER SENIOR LIVING (CURRENT) DRUG THERAPY 02/23/2016 SONJA LAZARO MD Ot 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 ANGIOPLASTY IMPLANT 02/23/2016 Ot 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 02/23/2016 Ot 719.45 JOINT PAIN- PELVIS 02/23/2016 JUSTIN DAILEY MD Ot 722.52 LUMB/LUMBOSAC [...] CIR 02/26/2016 SONJA LAZARO MD Ot Z79.82 CRAWLER DRAGLINE OPERATOR (CURRENT) USE OF ASPIRIN 02/26/2016 SONJA LAZARO MD Ot Z79.84 SENIOR LIVING (CURRENT) USE OF ORAL HYPOGLYC 02/26/2016 SONJA LAZARO MD Ot Z79.899 OTHER CRAWLER DRAGLINE OPERATOR (CURRENT) DRUG THERAPY 02/26/2016 SONJA LAZARO MD Ot 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 ANGIOPLASTY IMPLANT 03/01/2016 SONJA LAZARO MD, Ot E11.9 TYPE 2 DIABETES MELLITUS WITHOUT COMPLIC 03/01/2016 SONJA LAZARO MD Ot I10 ESSENTIAL (PRIMARY) HYPERTENSION 03/01/2016 SONJA LAZARO MD Ot I16.0 HYPERTENSIVE URGENCY 03/01/2016 SONJA LAZARO MD Ot R09.89 OTH SYMPTOMS AND SIGNS INVOLVING THE CIR 03/01/2016 SONJA LAZARO MD Ot Z79.82 CRAWLER DRAGLINE OPERATOR (CURRENT) USE OF ASPIRIN 03/01/2016 SONJA LAZARO MD Ot Z79.84 CRAWLER DRAGLINE OPERATOR (CURRENT) USE OF ORAL HYPOGLYC 03/01/2016 SONJA LAZARO MD Ot Z79.899 OTHER SENIOR LIVING (CURRENT) DRUG THERAPY 03/01/2016 SONJA LAZARO MD Ot 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 ANGIOPLASTY IMPLANT 03/12/2016 MANUEL LEON MD Ot R82.90 UNSPECIFIED ABNORMAL FINDINGS IN URINE 07/10/2016 MANUEL LEON MD Ot E11.9 TYPE 2 DIABETES MELLITUS WITHOUT COMPLIC 07/10/2016 MANUEL LEON MD Ot E78.5 HYPERLIPIDEMIA, UNSPECIFIED 07/10/2016 MANUEL LEON MD, Ot H40.9 UNSPECIFIED GLAUCOMA 07/10/2016 MANUEL LEON MD, Ot I10 ESSENTIAL (PRIMARY) HYPERTENSION 07/10/2016 MANUEL LEON MD Ot I25.10 ATHSCL HEART DISEASE OF [place] CORONARY 07/10/2016 MANUEL LEON MD Ot I63.9 CEREBRAL INFARCTION, UNSPECIFIED 07/10/2016 MANUEL LEON MD, Ot K21.9 GASTRO-ESOPHAGEAL REFLUX DISEASE WITHOUT 07/10/2016 MANUEL LEON MD Ot R47.81 SLURRED SPEECH 07/10/2016 MANUEL LEON MD Ot R53.1 WEAKNESS 07/10/2016 MANUEL LEON MD Ot 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 GRAFT 07/10/2016 MANUEL LEON MD Ot 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 ANGIOPLASTY IMPLANT 07/12/2016 KEI STEPHENS MD Ot E11.9 TYPE 2 DIABETES MELLITUS WITHOUT COMPLIC 07/12/2016 KEI STEPHENS MD Ot H40.9 UNSPECIFIED GLAUCOMA 07/12/2016 KEI STEPHENS MD Ot I10 ESSENTIAL (PRIMARY) HYPERTENSION 07/12/2016 KEI STEPHENS MD Ot I69.322 DYSARTHRIA FOLLOWING CEREBRAL INFARCTION 07/12/2016 KEI STEPHENS MD Ot I69.354 HEMIPLGA FOLLOWING CEREBRAL INFRC AFFECT 07/12/2016 KEI STEPHENS MD Ot I69.391 DYSPHAGIA FOLLOWING CEREBRAL INFARCTION 07/12/2016 KEI STEPHENS MD Ot K21.9 GASTRO-ESOPHAGEAL REFLUX DISEASE WITHOUT 07/12/2016 KEI STEPHENS MD Ot 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 OF KNEE 07/12/2016 KEI STEPHENS MD Ot M51.36 OTHER INTERVERTEBRAL DISC DEGENERATION, 07/12/2016 KEI STEPHENS MD Ot R13.12 DYSPHAGIA, OROPHARYNGEAL PHASE 07/17/2016 KEI STEPHENS MD Ot E11.9 TYPE 2 DIABETES MELLITUS WITHOUT COMPLIC 07/17/2016 KEI STEPHENS MD Ot H40.9 UNSPECIFIED GLAUCOMA 07/17/2016 KEI STEPHENS MD Ot I10 ESSENTIAL (PRIMARY) HYPERTENSION 07/17/2016 KEI STEPHENS MD Ot I69.322 DYSARTHRIA FOLLOWING CEREBRAL INFARCTION 07/17/2016 KEI STEPHENS MD Ot I69.354 HEMIPLGA FOLLOWING CEREBRAL INFRC AFFECT 07/17/2016 KEI STEPHENS MD Ot I69.391 DYSPHAGIA FOLLOWING CEREBRAL INFARCTION 07/17/2016 KEI STEPHENS MD Ot K21.9 GASTRO-ESOPHAGEAL REFLUX DISEASE WITHOUT 07/17/2016 KEI STEPHENS MD Ot 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 OF KNEE 07/17/2016 KEI STEPHENS MD Ot M51.36 OTHER INTERVERTEBRAL DISC DEGENERATION, 07/17/2016 KEI STEPHENS MD Ot R13.12 DYSPHAGIA, OROPHARYNGEAL PHASE 07/19/2016 MANUEL LEON MD Ot E11.9 TYPE 2 DIABETES MELLITUS WITHOUT COMPLIC 07/19/2016 MANUEL LEON MD Ot E78.5 HYPERLIPIDEMIA, UNSPECIFIED 07/19/2016 MANEUL LEON MD Ot H40.9 UNSPECIFIED GLAUCOMA 07/19/2016 MANUEL LEON MD Ot I10 ESSENTIAL (PRIMARY) HYPERTENSION 07/19/2016 MANUEL LEON MD Ot I25.10 ATHSCL HEART DISEASE OF [place] CORONARY 07/19/2016 MANUEL LEON MD Ot I63.9 CEREBRAL INFARCTION, UNSPECIFIED 07/19/2016 MANUEL LEON MD Ot K21.9 GASTRO-ESOPHAGEAL REFLUX DISEASE WITHOUT 07/19/2016 MANUEL LEON MD Ot R47.81 SLURRED SPEECH 07/19/2016 MANUEL LEON MD Ot R53.1 WEAKNESS 07/19/2016 MANUEL LEON MD, Ot 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 GRAFT 07/19/2016 MANUEL LEON MD Ot 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 ANGIOPLASTY IMPLANT 07/24/2016 STEPHENS MD, KEI E Ot E11.9 TYPE 2 DIABETES MELLITUS WITHOUT COMPLIC 07/24/2016 KEI STEPHENS MD E Ot H40.9 UNSPECIFIED GLAUCOMA 07/24/2016 ADRIAN STEPHENS MDIC E Ot I10 ESSENTIAL (PRIMARY) HYPERTENSION 07/24/2016 ADRIAN STEPHENS MDIC E Ot I69.322 DYSARTHRIA FOLLOWING CEREBRAL INFARCTION 07/24/2016 ADRIAN STEPHENS MDIC E Ot I69.354 HEMIPLGA FOLLOWING CEREBRAL INFRC AFFECT 07/24/2016 KEI STEPHENS MD E Ot I69.391 DYSPHAGIA FOLLOWING CEREBRAL INFARCTION 07/24/2016 KEI STEPHENS MD E Ot K21.9 GASTRO-ESOPHAGEAL REFLUX DISEASE WITHOUT 07/24/2016 KEI STEPHENS MD E Ot 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 OF KNEE 07/24/2016 KEI STEPHENS MD E Ot M51.36 OTHER INTERVERTEBRAL DISC DEGENERATION, 07/24/2016 KEI STEPHENS MD E Ot R13.12 DYSPHAGIA, OROPHARYNGEAL PHASE 07/29/2016 KEI STEPHENS MD Ot E11.9 TYPE 2 DIABETES MELLITUS WITHOUT COMPLIC 07/29/2016 KEI STEPHENS MD E Ot H40.9 UNSPECIFIED GLAUCOMA 07/29/2016 KEI STEPHENS MD E Ot I10 ESSENTIAL (PRIMARY) HYPERTENSION 07/29/2016 KEI STEPHENS MD E Ot I69.322 DYSARTHRIA FOLLOWING CEREBRAL INFARCTION 07/29/2016 KEI STEPHENS MD E Ot I69.354 HEMIPLGA FOLLOWING CEREBRAL INFRC AFFECT 07/29/2016 ADRIAN STEPHENS MDIC E Ot I69.391 DYSPHAGIA FOLLOWING CEREBRAL INFARCTION 07/29/2016 KEI STEPHENS MD E Ot K21.9 GASTRO-ESOPHAGEAL REFLUX DISEASE WITHOUT 07/29/2016 KEI STEPHENS MD E Ot 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 OF KNEE 07/29/2016 KEI STEPHENS MD E Ot M51.36 OTHER INTERVERTEBRAL DISC DEGENERATION, 07/29/2016 ADRIAN STEPHENS MDIC E Ot R13.12 DYSPHAGIA, OROPHARYNGEAL PHASE 07/31/2016 KEI STEPHENS MD E Ot E11.9 TYPE 2 DIABETES MELLITUS WITHOUT COMPLIC 07/31/2016 KEI STEPHENS MD E Ot H40.9 UNSPECIFIED GLAUCOMA 07/31/2016 ANGELO BECERRA KEI E Ot I10 ESSENTIAL (PRIMARY) HYPERTENSION 07/31/2016 ADRIAN STEPHENS MDIC E Ot I69.322 DYSARTHRIA FOLLOWING CEREBRAL INFARCTION 07/31/2016 KEI STEPHENS MD Ot I69.354 HEMIPLGA FOLLOWING CEREBRAL INFRC AFFECT 07/31/2016 KEI STEPHENS MD Ot I69.391 DYSPHAGIA FOLLOWING CEREBRAL INFARCTION 07/31/2016 KEI STEPHENS MD Ot K21.9 GASTRO-ESOPHAGEAL REFLUX DISEASE WITHOUT 07/31/2016 KEI STEPHENS MD Ot 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 OF KNEE 07/31/2016 KEI STEPHENS MD Ot M51.36 OTHER INTERVERTEBRAL DISC DEGENERATION, 07/31/2016 KEI STEPHENS MD Ot R13.12 DYSPHAGIA, OROPHARYNGEAL PHASE 10/15/2016 MANUEL LEON MD, Ot 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 OF KNEE 10/20/2016 MANUEL LEON MD, Ot 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 OF KNEE 11/07/2016 MANUEL LEON MD, Ot 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 OF KNEE 11/15/2016 MANUEL LEON MD, Ot 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 OF KNEE 01/16/2017 MANUEL LEON MD, Ot 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 OF KNEE 01/16/2017 Ot 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 01/16/2017 Ot 719.45 JOINT PAIN- PELVIS 01/16/2017 JUSTIN DAILEY MD Ot 722.52 LUMB/LUMBOSAC DISC DEGEN 01/16/2017 JUSTIN DAILEY MD Ot 756.12 SPONDYLOLISTHESIS 01/16/2017 JUSTIN DAILEY MD Ot 518.0 PULMONARY COLLAPSE 01/16/2017 JUSTIN DAILEY MD Ot 518.89 OTHER DISEASES OF LUNG, NEC 01/16/2017 JUSTIN DAILEY MD Ot 786.2 COUGH 01/16/2017 JUSTIN DAILEY MD Ot 793.19 OTHER NONSPECIFIC ABNORMAL FINDING OF EULOGIO 01/16/2017 JUSTIN DAILEY MD Ot E11.9 TYPE 2 DIABETES MELLITUS WITHOUT COMPLIC 01/16/2017 MANUEL LEON MD Ot R82.90 UNSPECIFIED ABNORMAL FINDINGS IN URINE 01/16/2017 MANUEL LEON MD, Ot 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 OF KNEE Procedures There is no data. Results Test Result Range Complete urinalysis with reflex to culture - 02/20/16 11:00 Urine color determination YELLOW NRG Urine clarity determination CLEAR NRG Urine pH measurement by test strip 6.5 5-9 Specific gravity of urine by test strip 1.010 1.016- 1.022 Urine protein assay by test strip, semi-quantitative [...] 17:30 Blood leukocytes automated count (number/volume) 6.5 10*3/uL 4.3-11.0 Blood erythrocytes automated count (number/volume) 4.38 10*6/uL 4.35-5.85 Venous blood hemoglobin measurement (mass/volume) 13.0 [...] Automated blood platelet mean volume measurement 9.6 [foz_us] 7.4-10.4 Automated blood neutrophils/100 leukocytes 62 % [...] Serum or plasma sodium measurement (moles/volume) 141 mmol/L 135-145 Serum or plasma potassium measurement (moles/volume) 4.1 mmol/L 3.6-5.0 Serum or plasma chloride measurement (moles/volume) 102 mmol/L 98-107 Carbon dioxide 30 mmol/L 21-32 Serum or plasma anion gap determination (moles/volume) 9 mmol/L 5-14 Serum or plasma urea nitrogen measurement (mass/volume) 16 mg/dL 7-18 Serum or plasma creatinine measurement (mass/volume) 0.78 mg/dL 0.60-1.30 Serum or plasma urea nitrogen/creatinine mass [...] or plasma troponin i.cardiac measurement (mass/volume) < ng/ mL <0.30 Complete blood count (CBC) with automated white blood cell (WBC) differential - 07/08/16 07:53 Blood leukocytes automated count (number/volume) 6.3 10*3/uL 4.3-11.0 Blood erythrocytes automated count (number/volume) 4.59 10*6/uL 4.35-5.85 Venous blood hemoglobin measurement (mass/volume) 13.5 [...] Automated blood platelet mean volume measurement 9.8 [foz_us] 7.4-10.4 Automated blood neutrophils/100 leukocytes 65 % [...] Serum or plasma sodium measurement (moles/volume) 143 mmol/L 135-145 Serum or plasma potassium measurement (moles/volume) 3.4 mmol/L 3.6-5.0 Serum or plasma chloride measurement (moles/volume) 104 mmol/L 98-107 Carbon dioxide 29 mmol/L 21-32 Serum or plasma anion gap determination (moles/volume) 10 mmol/L 5-14 Serum or plasma urea nitrogen measurement (mass/volume) 18 mg/dL 7-18 Serum or plasma creatinine measurement (mass/volume) 0.77 mg/dL 0.60-1.30 Serum or plasma urea nitrogen/creatinine mass [...] or plasma troponin i.cardiac measurement (mass/volume) < ng/ mL <0.30 Serum or plasma thyrotropin measurement by [...] Urine pH measurement by test strip 8 5-9 Specific gravity of urine by test strip 1.010 1.016- 1.022 Urine protein assay by test strip, semi-quantitative [...] 05:50 Blood leukocytes automated count (number/volume) 6.7 10*3/uL 4.3-11.0 Blood erythrocytes automated count (number/volume) 4.38 10*6/uL 4.35-5.85 Venous blood hemoglobin measurement (mass/volume) 12.8 [...] Automated blood platelet mean volume measurement 9.8 [foz_us] 7.4-10.4 Automated blood neutrophils/100 leukocytes 71 % [...] Serum or plasma sodium measurement (moles/volume) 144 mmol/L 135-145 Serum or plasma potassium measurement (moles/volume) 3.7 mmol/L 3.6-5.0 Serum or plasma chloride measurement (moles/volume) 105 mmol/L 98-107 Carbon dioxide 28 mmol/L 21-32 Serum or plasma anion gap determination (moles/volume) 11 mmol/L 5-14 Serum or plasma urea nitrogen measurement (mass/volume) 16 mg/dL 7-18 Serum or plasma creatinine measurement (mass/volume) 0.74 mg/dL 0.60-1.30 Serum or plasma urea nitrogen/creatinine mass [...] 05:05 Blood leukocytes automated count (number/volume) 7.5 10*3/uL 4.3-11.0 Blood erythrocytes automated count (number/volume) 4.20 10*6/uL 4.35-5.85 Venous blood hemoglobin measurement (mass/volume) 12.4 [...] Automated blood platelet mean volume measurement 10.3 [foz_us] 7.4-10.4 Automated blood neutrophils/100 leukocytes 69 % [...] Serum or plasma sodium measurement (moles/volume) 144 mmol/L 135-145 Serum or plasma potassium measurement (moles/volume) 3.8 mmol/L 3.6-5.0 Serum or plasma chloride measurement (moles/volume) 105 mmol/L 98-107 Carbon dioxide 28 mmol/L 21-32 Serum or plasma anion gap determination (moles/volume) 11 mmol/L 5-14 Serum or plasma urea nitrogen measurement (mass/volume) 23 mg/dL 7-18 Serum or plasma creatinine measurement (mass/volume) 0.70 mg/dL 0.60-1.30 Serum or plasma urea nitrogen/creatinine mass [...] plasma albumin measurement (mass/volume) 3.0 g/dL 3.2-4.5 Capillary blood glucose measurement by glucometer (mass/volume) - 07/13/16 06: 18 Capillary blood glucose measurement by glucometer (mass/volume) 72 mg/dL 70-110 Capillary blood glucose measurement by glucometer (mass/volume) - 07/14/16 05: 34 Capillary blood glucose measurement by glucometer (mass/volume) 75 mg/dL 70-110 Capillary blood glucose measurement by glucometer (mass/volume) - 07/15/16 05: 53 Capillary blood glucose measurement by glucometer (mass/volume) 84 mg/dL 70-110 Capillary blood glucose measurement by glucometer (mass/volume) - 07/16/16 06: 04 Capillary blood glucose measurement by glucometer (mass/volume) 81 mg/dL 70-110 Capillary blood glucose measurement by glucometer (mass/volume) - 07/17/16 05: 24 Capillary blood glucose measurement by glucometer (mass/volume) 87 mg/dL 70-110 Capillary blood glucose measurement by glucometer (mass/volume) - 07/17/16 10: 27 Capillary blood glucose measurement by glucometer (mass/volume) 89 mg/dL 70-110 Capillary blood glucose measurement by glucometer (mass/volume) - 07/18/16 05: 44 Capillary blood glucose measurement by glucometer (mass/volume) 90 mg/dL 70-110 Capillary blood glucose measurement by glucometer (mass/volume) - 07/19/16 05: 38 Capillary blood glucose measurement by glucometer (mass/volume) 77 mg/dL 70-110 Capillary blood glucose measurement by glucometer (mass/volume) - 07/20/16 04: 55 Capillary blood glucose measurement by glucometer (mass/volume) 68 mg/dL 70-110 Capillary blood glucose measurement by glucometer (mass/volume) - 07/21/16 05: 20 Capillary blood glucose measurement by glucometer (mass/volume) 80 mg/dL 70-110 Capillary blood glucose measurement by glucometer (mass/volume) - 07/22/16 05: 13 Capillary blood glucose measurement by glucometer (mass/volume) 74 mg/dL 70-110 Capillary blood glucose measurement by glucometer (mass/volume) - 07/23/16 04: 32 Capillary blood glucose measurement by glucometer (mass/volume) 81 mg/dL 70-110 Capillary blood glucose measurement by glucometer (mass/volume) - 07/24/16 05: 14 Capillary blood glucose measurement by glucometer (mass/volume) 78 mg/dL 70-110 Capillary blood glucose measurement by glucometer (mass/volume) - 07/25/16 04: 54 Capillary blood glucose measurement by glucometer (mass/volume) 72 mg/dL 70-110 Capillary blood glucose measurement by glucometer (mass/volume) - 07/26/16 04: 49 Capillary blood glucose measurement by glucometer (mass/volume) 85 mg/dL 70-110 Capillary blood glucose measurement by glucometer (mass/volume) - 07/27/16 04: 57 Capillary blood glucose measurement by glucometer (mass/volume) 66 mg/dL 70-110 Capillary blood glucose measurement by glucometer (mass/volume) - 07/28/16 06: 44 Capillary blood glucose measurement by glucometer (mass/volume) 77 mg/dL 70-110 Capillary blood glucose measurement by glucometer (mass/volume) - 07/29/16 04: 20 Capillary blood glucose measurement by glucometer (mass/volume) 72 mg/dL 70-110 Capillary blood glucose measurement by glucometer (mass/volume) - 07/30/16 04: 29 Capillary blood glucose measurement by glucometer (mass/volume) 101 mg/dL 70-110 Capillary blood glucose measurement by glucometer (mass/volume) - 07/31/16 06: 12 Capillary blood glucose measurement by glucometer (mass/volume) 86 mg/dL 70-110 Encounters ACCT No. Visit Date/Time Discharge Status Pt. Type Provider Facility Loc./Unit Complaint [id number] 10/14/2016 14:37:00 10/14/2016 23:59:59 CLS Outpatient MANUEL LEON MD [facility] RAD KNEE PAIN BILATERAL [id number] 07/10/2016 09:11:00 07/31/2016 15:29:00 DIS Inpatient ANGELO BECERRA, KEI Tobias [facility] IRF CVA W LT SIDED WEAKNESS [id number] 07/09/2016 10:50:00 07/10/2016 09:10:00 DIS Inpatient MANUEL LEON MD [facility] 4TH GENERALIZED WEAKNESS, UNCONTROLLED HTN [id number] 02/23/2016 17:32:00 02/23/2016 20:09:00 DIS Emergency SONJA LAZARO MD [facility] ER HIGH BP [id number] 02/20/2016 11:40:00 02/20/2016 23:59:59 CLS Outpatient MANUEL LEON MD [facility] HH POSSIBLE UTI, STRONG SMELLING URINE [id number] 08/23/2015 13:40:00 08/23/2015 15:00:00 DIS Outpatient XANDER BECERRA, SUMAN Asif [facility] WOUNDCARE [id number] 07/31/2015 20:33:00 07/31/2015 23:59:59 CLS Outpatient JUSTIN DAILEY MD [facility] LAB DIABETES II [id number] 07/31/2015 20:33:00 07/31/2015 21:50:00 DIS Emergency LUCILLE LOMELI APRN [facility] ER HYPOGLYCEMIA [id number] 09/10/2014 22:25:00 09/11/2014 00:21:00 DIS Emergency IVETH BECERRA, SONJA Shearer [facility] ER ELEVATED BLOOD PRESSURE [id number] 01/28/2014 02:59:00 01/28/2014 03:54:00 DIS Emergency DENISSE JUAN Gigi [facility] ER HG BLOOD PRESSURE [id number] 01/22/2014 23:56:00 01/23/2014 01:52:00 DIS Emergency JEFFRY OLGUIN MD [facility] ER HIGH BLOOD PRESSURE [id number] 11/23/2013 08:35:00 11/23/2013 23:59:59 CLS Outpatient JUSTIN DAILEY MD [facility] RAD COUGH [id number] 04/07/2013 10:42:00 04/07/2013 23:59:59 CLS Outpatient JUSTIN DAILEY MD [facility] RAD LOW BACK PAIN [id number] 07/19/2015 21:07:00 ACT Inpatient JUSTIN DAILEY MD [facility] 4TH CELLULITIS R LEG; ULCER R GREAT TOE, NIDDM [id number] 05/11/2015 18:58:00 Document Registration [id number] 02/02/2015 03:09:00 ACT Inpatient Angela BURROUGHS MD [facility] CSD HYPERTENSIVE URGENCY,CP,CAD [id number] 01/15/2012 14:04:00 Document Registration
[2017-05-09 14:38] LABS: BASOPHILS % (AUTO) 0 % (0-10); EOSINOPHILS # (AUTO) 0.2 10^3/uL (0.0-0.3); EOSINOPHILS % (AUTO) 3 % (0-10); HEMATOCRIT 38 % (35-52); HEMOGLOBIN 12.5 G/DL (11.5-16.0); LYMPHOCYTES # (AUTO) 0.8 X 10^3 (1.0-4.0); LYMPHOCYTES % (AUTO) 11 % (12-44); MEAN CORPUSCULAR HEMOGLOBIN 29 PG (25-34); MEAN CORPUSCULAR HGB CONC 33 G/DL (32-36); MEAN CORPUSCULAR VOLUME 88 FL (80-99); MONOCYTES # (AUTO) 0.5 X 10^3 (0.0-1.0); MONOCYTES % (AUTO) 7 % (0-12); NEUTROPHILS # (AUTO) 5.8 X 10^3 (1.8-7.8); NEUTROPHILS % (AUTO) 80 % (42-75); PLATELET COUNT 183 10^3/uL (130-400); RED BLOOD COUNT 4.31 10^6/uL (4.35-5.85); RED CELL DISTRIBUTION WIDTH 14.9 % (10.0-14.5); WHITE BLOOD COUNT 7.3 10^3/uL (4.3-11.0)
--- NOTE | 2017-05-09 14:52 | Diagnostic Imaging Report ---
INDICATION: Hypoglycemia. Frontal chest obtained at 0237 hours p.m. Comparison made with 07/08/2016. Patient has had prior sternotomy. Heart is borderline in size. There are chronic appearing increased interstitial markings. There is no acute infiltrate or pneumothorax or pleural fluid. IMPRESSION: Mild cardiomegaly with chronic appearing increased interstitial markings. No acute consolidation or pleural fluid. Dictated by: Dictated on workstation # [id number]
[2017-05-09 15:07] LABS: BUN/CREATININE RATIO 23; CALCIUM 8.9 MG/DL (8.5-10.1); CARBON DIOXIDE 28 MMOL/L (21-32); CHLORIDE 99 MMOL/L (98-107); CREATININE SERUM 0.78 MG/DL (0.60-1.30); GFR ESTIMATED > 60; GLUCOSE 117 MG/DL (70-105); POTASSIUM 3.3 MMOL/L (3.6-5.0); SODIUM 139 MMOL/L (135-145)
[2017-05-09] MEDS ORDERED: BENZ-13 PO (15:37)
[2017-05-09] MEDS ORDERED: OSLT75C PO (15:37)
[2017-05-09] MEDS ORDERED: GLUC1KIT IJ ×2 (15:43→16:02)
[2017-05-09 16:47] VITALS: BP 172/80
== END 2017-05-09 16:47 ==
LOC: EDUNIT# 13:39 → ER 13:40
DX: E11.649 Type 2 diabetes mellitus with hypoglycemia without coma (principal); R05 Cough; I25.10 Atherosclerotic heart disease of native coronary artery without angina pectoris; I25.2 Old myocardial infarction; E78.00 Pure hypercholesterolemia, unspecified; I10 Essential (primary) hypertension; K21.9 Gastro-esophageal reflux disease without esophagitis; M81.0 Age-related osteoporosis without current pathological fracture; F32.9 Major depressive disorder, single episode, unspecified; Z82.49 Family history of ischemic heart disease and other diseases of the circulatory system; Z80.3 Family history of malignant neoplasm of breast; Z79.82 Long term (current) use of aspirin; Z79.84 Long term (current) use of oral hypoglycemic drugs; Z87.891 Personal history of nicotine dependence; Z95.1 Presence of aortocoronary bypass graft; Z90.89 Acquired absence of other organs
CPT/HCPCS: 36415; 71045; 80048; 83036; 85025; 96374

== ENCOUNTER → 2018-02-23 | Outpatient (CLI) | payer MEDICARE ==
[~2018-02-23] MED LIST changes: +BENZ100C18 PO; -DEXTROSE 50% 50 ML (IMS) SYR ONE; +GLUC1KIT IJ; +METF-397 PO; -METF500T4 PO; +OSLT75C PO; -VALS40TA8 PO; +VALS40TA9 PO; -VALS80TA30 PO; +VALS80TA31 PO
== END ==
LOC: WOUNDCARE 09:24
PROVIDERS: ATTEND Surgery
DX: E11.622 Type 2 diabetes mellitus with other skin ulcer (principal); I87.333 Chronic venous hypertension (idiopathic) with ulcer and inflammation of bilateral lower extremity; L97.222 Non-pressure chronic ulcer of left calf with fat layer exposed; L97.211 Non-pressure chronic ulcer of right calf limited to breakdown of skin; E11.621 Type 2 diabetes mellitus with foot ulcer; L97.521 Non-pressure chronic ulcer of other part of left foot limited to breakdown of skin; I89.0 Lymphedema, not elsewhere classified
CPT/HCPCS: 99215

== ENCOUNTER → 2018-03-05 | Outpatient (CLI) | payer MEDICARE | LOC: WOUNDCARE 09:15 | PROVIDERS: ATTEND Orthopaedic Surgery Hand Surgery | DX: E11.622 Type 2 diabetes mellitus with other skin ulcer (principal); L97.222 Non-pressure chronic ulcer of left calf with fat layer exposed; L97.811 Non-pressure chronic ulcer of other part of right lower leg limited to breakdown of skin; I87.333 Chronic venous hypertension (idiopathic) with ulcer and inflammation of bilateral lower extremity; I89.0 Lymphedema, not elsewhere classified; L97.522 Non-pressure chronic ulcer of other part of left foot with fat layer exposed; E11.621 Type 2 diabetes mellitus with foot ulcer; I70.248 Atherosclerosis of native arteries of left leg with ulceration of other part of lower leg; I70.238 Atherosclerosis of native arteries of right leg with ulceration of other part of lower leg; I70.235 Atherosclerosis of native arteries of right leg with ulceration of other part of foot | CPT/HCPCS: 99214 ==

== ENCOUNTER 2018-03-09 16:51 | Emergency (ER) | payer MEDICARE ==
[~2018-03-09] VITALS: Ht 165.1 cm; Wt 81.6 kg
[2018-03-09 17:48] LABS: BASOPHILS % (AUTO) 0 % (0-10); EOSINOPHILS # (AUTO) 0.4 10^3/uL (0.0-0.3); EOSINOPHILS % (AUTO) 5 % (0-10); HEMATOCRIT 40 % (35-52); HEMOGLOBIN 12.6 G/DL (11.5-16.0); LYMPHOCYTES # (AUTO) 1.6 X 10^3 (1.0-4.0); LYMPHOCYTES % (AUTO) 20 % (12-44); MEAN CORPUSCULAR HEMOGLOBIN 29 PG (25-34); MEAN CORPUSCULAR HGB CONC 32 G/DL (32-36); MEAN CORPUSCULAR VOLUME 93 FL (80-99); MEAN PLATELET VOLUME 9.6 FL (7.4-10.4); MONOCYTES # (AUTO) 0.6 X 10^3 (0.0-1.0); MONOCYTES % (AUTO) 8 % (0-12); NEUTROPHILS # (AUTO) 5.1 X 10^3 (1.8-7.8); NEUTROPHILS % (AUTO) 66 % (42-75); PLATELET COUNT 282 10^3/uL (130-400); RED BLOOD COUNT 4.28 10^6/uL (4.35-5.85); RED CELL DISTRIBUTION WIDTH 13.8 % (10.0-14.5); WHITE BLOOD COUNT 7.7 10^3/uL (4.3-11.0)
--- NOTE | 2018-03-09 17:56 | Diagnostic Imaging Report ---
INDICATION: Elevated blood pressure. EXAMINATION: Chest dated 03/09/2018. COMPARISON: 05/09/2017. FINDINGS: Sternotomy wires and mediastinal clips noted. Heart is stable. Pulmonary vasculature is mildly congested. Minimal bibasilar atelectasis noted. Coarsened changes throughout both lungs. No effusions and no pneumothorax. IMPRESSION: 1. Chronic findings. No definite evidence of acute process. Dictated by: Dictated on workstation # [id number]
--- NOTE | 2018-03-09 18:01 | ED Cardiac General ---
History of Present Illness General Chief Complaint: Cardiac/General Problems Stated Complaint: HIGH BLOOD PRESSURE Nursing Triage Note: PT WAS BROUGHT TO THE ED BY WOUND CARE STAFF AFTER THE PT CONTINUED TO HAVE BLOOD PRESSURE VALUES IN EXCESS OF 190 SYSTOLIC. PT STATES SHE FEELS LIKE HER BLOOD PRESSURE IS EVELATED D/T HER DRESSING CHANGE PROCEDURE BEING "TRAUMATIC". PT DENIES SOB OR CHEST PAIN Source: patient, halfway records, old records Exam Limitations: no limitations History of Present Illness Date Seen by Provider: Mar 09, 2018 Time Seen by Provider: 17:15 Initial Comments This 87-year-old woman resident of [facility] is brought to the emergency room at the direction of a wound care staff because of hypertension. She has some chronic edema and skin sores on her lower extremities. Dressings were changed today. Wound care staff did not want her discharged home until her high blood pressure was addressed. Patient denies any shortness of breath. She does report her leg swelling was a little worse this morning than usual. She does report a history of congestive heart failure. No echo on file was available to confirm this. Medications from the halfway were reviewed. Allergies and Home Medications Allergies Coded Allergies: Calcium Channel Blocking Agent Dilt (Verified Allergy, Mild, COUGH, ) FREDY Inhibitors (Verified Allergy, Unknown, 07/08/16) Penicillins (Verified Allergy, Unknown, 07/08/16) Tetanus Vaccines and Toxoid (Verified Allergy, Unknown, 07/08/16) clindamycin (Verified Allergy, Unknown, 07/08/16) Home Medications Acetaminophen 500 Mg Tablet, 1,000 MG PO Q6H PRN for MILD PAIN Prescribed by: KEI STEPHENS on 07/31/16 0755 Aspirin 81 Mg Tablet.dr, 81 MG PO DAILY, (Reported) Benzonatate 100 Mg Capsule, 100 MG PO Q8H PRN for COUGH Prescribed by: GABO SOLIS on 05/09/17 1537 Brinzolamide 10 Ml Btl, 1 DROP OU BID, (Reported) Diclofenac Sodium 100 Gm Gel..gram., 0 GM TOP QID PRN for PAIN Prescribed by: KEI STEPHENS on 07/31/16 0755 Glimepiride 4 Mg Tablet, 4 MG PO DAILY, (Reported) Glucagon,Human Recombinant 1 Mg/Kit Soln, 1 MG IJ ONCE PRN for HYPOGLYCEMIA repeat q20min for low BS Prescribed by: GABO SOLIS on 05/09/17 1602 Glucosamine HCl/MSM 480 Ml Liquid, 8 OZ PO DAILY, (Reported) Hydrochlorothiazide 12.5 Mg Capsule, 12.5 MG PO DAILY@0900 Prescribed by: KEI STEPHENS on 07/31/16754 Metformin HCl 500 Mg Tablet, 500 MG PO BID, (Reported) Metoprolol Tartrate 100 Mg Tablet, 100 MG PO BID, (Reported) Multivitamin 1 Each Tablet, 1 TAB PO DAILY, (Reported) Nystatin 15 Gm Cream..g., 0 GM TP TID PRN for REDNESS/IRRITATION Prescribed by: KEI STEPHENS on 07/31/16754 Pravastatin Sodium 20 Mg Tablet, 20 MG PO HS, (Reported) Travoprost 5 Ml Drops, 1 DROP OU HS, (Reported) Valsartan 80 Mg Tablet, 80 MG PO BID Prescribed by: KEI STEPHENS on 07/31/16754 Zinc Oxide 28 Gm Oint, 0 GM TOP NEEDED PRN for DIAPER CHANGE Prescribed by: KEI STEPHENS on 07/31/16754 Patient Home Medication List Home Medication List Reviewed: Yes Review of Systems Review of Systems Constitutional: no symptoms reported EENTM: No Symptoms Reported Respiratory: No Symptoms Reported Cardiovascular: See HPI Gastrointestinal: No Symptoms Reported Genitourinary: No Symptoms Reported Musculoskeletal: no symptoms reported Skin: see HPI Psychiatric/Neurological: No Symptoms Reported Endocrine: No Symptoms Reported Hematologic/Lymphatic: No Symptoms Reported Past Vakinzn-Tjjion-Lyxvlo Hx Patient Social History Alcohol Use: Denies Use Recreational Drug Use: No Smoking Status: Never a Smoker Former Smoker, Quit: Jul 10, 1974 Recent Foreign Travel: No Contact w/Someone Who Travel: No Recent Infectious Disease Expo: No Recent Hopitalizations: No Immunizations Up To Date Tetanus Booster (TDap): Unknown PED Vaccines UTD: Yes Date of Pneumonia Vaccine: Feb 03, 2012 Date of Influenza Vaccine: Jan 20, 2016 Seasonal Allergies Seasonal Allergies: No Past Medical History Surgeries: Yes (BILATERAL CATARACT SURGERY, CARTOID ARTERY SURGERY FEB 2014; BREAST BX X 4) Adenoidectomy, Breast, Cardiac, CABG, Coronary Stent, Eye Surgery, Gallbladder, Tonsillectomy, Vascular Surgery Respiratory: No Currently Using CPAP: No Currently Using BIPAP: No Cardiac: Yes (BYPASS x4 ;STENTS; HEART CATH 2004 ) Coronary Artery Disease, Heart Attack, High Cholesterol, Hypertension Neurological: No : No Reproductive Disorders: No Female Reproductive Disorders: Denies [employer]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 Sexually Transmitted Disease: No HIV/AIDS: No Genitourinary: Yes Kidney Infection, Bladder Infection Gastrointestinal: Yes Gastroesophageal Reflux, Hemorrhoids, Ulcer Musculoskeletal: Yes Degenerate Disk Disease, Osteoporosis, Arthritis, Chronic Back Pain, Gout Endocrine: Yes Diabetes, Non-Insulin dep HEENT: Yes Cataract, Glaucoma Loss of Vision: Bilateral Hearing Impairment: Hard of Hearing Cancer: No Psychosocial: Yes Depression Integumentary: Yes (RIGHT GREAT TOE CYST/CELLULITIS) Blood Disorders: No Adverse Reaction/Blood Tranf: No Family Medical History Alcoholism Arthritis 19 FATHER 19 MOTHER CHF 19 MOTHER Cardiovascular disease 19 FATHER 19 MOTHER Dementia Diabetes mellitus 19 MOTHER FH: CHF (congestive heart failure) 19 MOTHER Glaucoma 19 MOTHER Hypercholesterolemia 19 FATHER 19 MOTHER Hypertension 19 FATHER 19 MOTHER Infertility Myocardial infarction 19 FATHER (60 ) 19 MOTHER Neoplasm DAUGHTER (BREAST CANCER) Osteoporosis 19 MOTHER Visual disorder 19 FATHER 19 MOTHER No Family History of: AIDS Abdominal aortic aneurysm Dayo's disease Alzheimer's disease Aphasia Asthma Cancer of mouth Cataracts Colon cancer Completed stroke Congenital disease Congenital heart disease Coronary thrombosis Cystic fibrosis Deafness or hearing loss Drug abuse Dysphasia Fibrocystic disease of breast Gastroenteritis Headache disorder Kidney disease Not obtainable due to adoption Parkinson's disease Prostate cancer Psychosocial problem Respiratory disorder Seizure disorder Severe allergy Thyroid disease Tuberculosis Physical Exam Vital Signs Vital Signs - First Documented 03/09/18 17:02 Temp 97.8 Pulse 65 Resp 20 B/P (MAP) 198/94 (128) Pulse Ox 98 O2 Delivery Room Air Capillary Refill : Less Than 3 Seconds Height, Weight, BMI Height: 5'5.00" Weight: 180lbs. 9.6oz. 81.926519bt; 25.0 BMI Method:Stated General Appearance: No Apparent Distress, WD/WN HEENT: Normal ENT Inspection Neck: Normal Inspection Respiratory: Lungs Clear, No Accessory Muscle Use, No Respiratory Distress, Decreased Breath Sounds Cardiovascular: Regular Rate, Rhythm, No Murmur, Other (lower extremity pitting edema equal bilaterally) Gastrointestinal: Normal Bowel Sounds, Soft Extremity: Pedal Edema, Swelling, Other (dressings on lower extremities bilaterally) Neurologic/Psychiatric: Alert, Oriented x3, No Motor/Sensory Deficits, Normal Mood/Affect, basket person II-XII Norm as Tested Skin: Warm/Dry Progress/Results/Core Measures Results/Orders Lab Results Laboratory Tests Test 03/09/18 17:35 Range/Units White Blood Count 7.7 4.3-11.0 10^3/uL Red Blood Count 4.28 L 4.35-5.85 10^6/uL Hemoglobin 12.6 11.5-16.0 G/DL Hematocrit 40 35-52 % Mean Corpuscular Volume 93 80-99 FL Mean Corpuscular Hemoglobin 29 25-34 PG Mean Corpuscular Hemoglobin Concent 32 32-36 G/DL Red Cell Distribution Width 13.8 10.0-14.5 % Platelet Count 282 130-400 10^3/uL Mean Platelet Volume 9.6 7.4-10.4 FL Neutrophils (%) (Auto) 66 42-75 % Lymphocytes (%) (Auto) 20 12-44 % Monocytes (%) (Auto) 8 0-12 % Eosinophils (%) (Auto) 5 0-10 % Basophils (%) (Auto) 0 0-10 % Neutrophils # (Auto) 5.1 1.8-7.8 X 10^3 Lymphocytes # (Auto) 1.6 1.0-4.0 X 10^3 Monocytes # (Auto) 0.6 0.0-1.0 X 10^3 Eosinophils # (Auto) 0.4 H 0.0-0.3 10^3/uL Basophils # (Auto) 0.0 0.0-0.1 10^3/uL Sodium Level 140 135-145 MMOL/L Potassium Level 4.1 3.6-5.0 MMOL/L Chloride Level 99 98-107 MMOL/L Carbon Dioxide Level 31 21-32 MMOL/L Anion Gap 10 5-14 MMOL/L Blood Urea Nitrogen 18 7-18 MG/DL Creatinine 0.80 0.60-1.30 MG/DL Estimat Glomerular Filtration Rate > 60 BUN/Creatinine Ratio 23 Glucose Level 171 H 70-105 MG/DL Calcium Level 9.7 8.5-10.1 MG/DL Corrected Calcium 9.6 8.5-10.1 MG/DL Total Bilirubin 0.4 0.1-1.0 MG/DL Aspartate Amino Transf (AST/SGOT) 18 5-34 U/L Alanine Aminotransferase (ALT/SGPT) 19 0-55 U/L Alkaline Phosphatase 73 40-136 U/L B-Type Natriuretic Peptide 123.5 H <100.0 PG/ML Total Protein 7.3 6.4-8.2 GM/DL Albumin 4.1 3.2-4.5 GM/DL TSH [facility] Testing 6.64 H 0.35-4.94 UIU/ML My Orders Orders - SHANTELLE CHENEY MD BNP (03/09/18 17:25) Cbc With Automated Diff (03/09/18 17:25) Comprehensive Metabolic Panel (03/09/18 17:25) Saline Lock/Iv-Start (03/09/18 17:25) Chest 1 View, Ap/Pa Only (03/09/18 17:25) Thyroid Analyzer (03/09/18 17:26) Free T4 (Free Thyroxine) (03/09/18 17:35) Vital Signs/I&O 03/09/18 17:02 Temp 97.8 Pulse 65 Resp 20 B/P (MAP) 198/94 (128) Pulse Ox 98 O2 Delivery Room Air Blood Pressure Mean: 128 Progress Progress Note : Progress Note Blood pressure was monitored and remained stable but high. Patient was asymptomatic denying any vision changes, headache, chest pain, shortness of breath, etc. Labs were reviewed. Patient did not seem to be in florid failure. Case was discussed with Dr. Leon. He preferred to not change any medications at this time. He requested the halfway check blood pressure twice a day and call him if systolic blood pressure greater than 190 or diastolic blood pressure greater than 100. Patient was advised of these recommendations. She was advised to call his office in the morning for a follow -up appointment. Diagnostic Imaging Diagonstic Imaging: Xray Plain Films/CT/US/NM/MRI: chest Comments Chest x-ray viewed by me and report reviewed. See report below: NAME: [facility] REC#: [id number] PT STATUS: REG ER : 1930 PHYSICIAN: SHANTELLE CHENEY MD ADMIT DATE: 03/09/18/ER Draft Date of Exam:03/09/18 CHEST 1 VIEW, AP/PA ONLY INDICATION: Elevated blood pressure. EXAMINATION: Chest dated 03/09/2018. COMPARISON: 05/09/2017. FINDINGS: Sternotomy wires and mediastinal clips noted. Heart is stable. Pulmonary vasculature is mildly congested. Minimal bibasilar atelectasis noted. Coarsened changes throughout both lungs. No effusions and no pneumothorax. IMPRESSION: 1. Chronic findings. No definite evidence of acute process. Dictated on workstation # [id number] Dict: 03/09/181751 Trans: 03/09/181754 [id number] Interpreted by: SO POWERS MD Departure Impression Primary Impression: Hypertensive urgency Disposition: HOME, SELF-CARE Condition: Stable Departure-Patient Inst. Decision time for Depature: 18:53 Referrals: MANUEL LEON MD (PCP/Family) Primary Care Physician Patient Instructions: High Blood Pressure in Adults Add. Discharge Instructions: [facility] staff needs to check you blood pressure twice daily and call Dr. Leon is systolic BP is greater than 190 or diastolic blood pressure is greater than 100. Call Dr[address] Leon in the morning to schedule a follow-up appointment. Return to the ER if you have worsening symptoms. All discharge instructions reviewed with patient and/or family. Voiced understanding. Copy Copies To 1: MANUEL LEON MD, JOSHUA T MD Mar 09, 2018 18:01
[2018-03-09 18:02] LABS: ALANINE AMINOTRANSFERASE 19 U/L (0-55); ALBUMIN 4.1 GM/DL (3.2-4.5); ALKALINE PHOSPHATASE 73 U/L (40-136); BILIRUBIN,TOTAL 0.4 MG/DL (0.1-1.0); BUN/CREATININE RATIO 23; CALCIUM 9.7 MG/DL (8.5-10.1); CARBON DIOXIDE 31 MMOL/L (21-32); CHLORIDE 99 MMOL/L (98-107); GFR ESTIMATED > 60; GLUCOSE 171 MG/DL (70-105); POTASSIUM 4.1 MMOL/L (3.6-5.0); SODIUM 140 MMOL/L (135-145); TOTAL PROTEIN 7.3 GM/DL (6.4-8.2)
[2018-03-09 18:24] LABS: TSH (THYROID ANALYZER) 6.64 UIU/ML (0.35-4.94)
[2018-03-09 19:43] VITALS: BP 198/94
[2018-03-09 20:11] LABS: FREE T4 (FREE THYROXINE) 1.21 NG/DL (0.70-1.48)
== END 2018-03-09 19:46 | disposition home or self-care (01) ==
LOC: EDUNIT# 16:51 → ER 16:54
DX: I16.0 Hypertensive urgency (principal); I11.0 Hypertensive heart disease with heart failure; I50.9 Heart failure, unspecified; E78.00 Pure hypercholesterolemia, unspecified; I25.2 Old myocardial infarction; I25.10 Atherosclerotic heart disease of native coronary artery without angina pectoris; K21.9 Gastro-esophageal reflux disease without esophagitis; M81.0 Age-related osteoporosis without current pathological fracture; M10.9 Gout, unspecified; E11.9 Type 2 diabetes mellitus without complications; F32.9 Major depressive disorder, single episode, unspecified; Z82.49 Family history of ischemic heart disease and other diseases of the circulatory system; Z80.3 Family history of malignant neoplasm of breast; Z88.6 Allergy status to analgesic agent; Z88.0 Allergy status to penicillin; Z88.8 Allergy status to other drugs, medicaments and biological substances; Z87.19 Personal history of other diseases of the digestive system; Z87.448 Personal history of other diseases of urinary system; Z88.7 Allergy status to serum and vaccine; Z79.82 Long term (current) use of aspirin; Z79.84 Long term (current) use of oral hypoglycemic drugs; Z87.891 Personal history of nicotine dependence; Z98.890 Other specified postprocedural states; Z90.89 Acquired absence of other organs; Z95.1 Presence of aortocoronary bypass graft; Z95.5 Presence of coronary angioplasty implant and graft
CPT/HCPCS: 36415; 71045; 80053; 83880; 84439; 84443; 85025

== ENCOUNTER → 2018-03-09 | Outpatient (CLI) | payer MEDICARE | LOC: WOUNDCARE 15:41 | PROVIDERS: ATTEND Nurse Practitioner | DX: E11.622 Type 2 diabetes mellitus with other skin ulcer (principal); I70.248 Atherosclerosis of native arteries of left leg with ulceration of other part of lower leg; L97.222 Non-pressure chronic ulcer of left calf with fat layer exposed; L97.811 Non-pressure chronic ulcer of other part of right lower leg limited to breakdown of skin; I87.333 Chronic venous hypertension (idiopathic) with ulcer and inflammation of bilateral lower extremity; E11.621 Type 2 diabetes mellitus with foot ulcer; I70.235 Atherosclerosis of native arteries of right leg with ulceration of other part of foot; L97.522 Non-pressure chronic ulcer of other part of left foot with fat layer exposed; I70.238 Atherosclerosis of native arteries of right leg with ulceration of other part of lower leg; I89.0 Lymphedema, not elsewhere classified | CPT/HCPCS: 99214 ==

== ENCOUNTER → 2018-03-19 | Outpatient (CLI) | payer MEDICARE | LOC: WOUNDCARE 09:28 | PROVIDERS: ATTEND Orthopaedic Surgery Hand Surgery | DX: E11.622 Type 2 diabetes mellitus with other skin ulcer (principal); L97.222 Non-pressure chronic ulcer of left calf with fat layer exposed; I87.333 Chronic venous hypertension (idiopathic) with ulcer and inflammation of bilateral lower extremity; I89.0 Lymphedema, not elsewhere classified; I70.248 Atherosclerosis of native arteries of left leg with ulceration of other part of lower leg; I70.238 Atherosclerosis of native arteries of right leg with ulceration of other part of lower leg; I70.235 Atherosclerosis of native arteries of right leg with ulceration of other part of foot; I10 Essential (primary) hypertension | CPT/HCPCS: 99213 ==

== ENCOUNTER → 2018-03-26 | Outpatient (CLI) | payer MEDICARE | LOC: WOUNDCARE 09:32 | PROVIDERS: ATTEND Orthopaedic Surgery Hand Surgery | DX: L97.222 Non-pressure chronic ulcer of left calf with fat layer exposed (principal); I87.333 Chronic venous hypertension (idiopathic) with ulcer and inflammation of bilateral lower extremity; E11.622 Type 2 diabetes mellitus with other skin ulcer; I89.0 Lymphedema, not elsewhere classified; E11.621 Type 2 diabetes mellitus with foot ulcer; I70.248 Atherosclerosis of native arteries of left leg with ulceration of other part of lower leg; I70.238 Atherosclerosis of native arteries of right leg with ulceration of other part of lower leg; I70.235 Atherosclerosis of native arteries of right leg with ulceration of other part of foot; I10 Essential (primary) hypertension | CPT/HCPCS: 99212 ==

== ENCOUNTER → 2018-04-09 | Outpatient (CLI) | payer MEDICARE | LOC: WOUNDCARE 09:20 | PROVIDERS: ATTEND Orthopaedic Surgery Hand Surgery | DX: E11.622 Type 2 diabetes mellitus with other skin ulcer (principal); L97.222 Non-pressure chronic ulcer of left calf with fat layer exposed; I87.333 Chronic venous hypertension (idiopathic) with ulcer and inflammation of bilateral lower extremity; I89.0 Lymphedema, not elsewhere classified; I70.248 Atherosclerosis of native arteries of left leg with ulceration of other part of lower leg; I10 Essential (primary) hypertension | CPT/HCPCS: 11042 ==

== ENCOUNTER → 2018-04-30 | Outpatient (CLI) | payer MEDICARE | LOC: WOUNDCARE 09:25 | PROVIDERS: ATTEND Nurse Practitioner | DX: L97.222 Non-pressure chronic ulcer of left calf with fat layer exposed (principal); I87.333 Chronic venous hypertension (idiopathic) with ulcer and inflammation of bilateral lower extremity; E11.622 Type 2 diabetes mellitus with other skin ulcer; I89.0 Lymphedema, not elsewhere classified; I70.248 Atherosclerosis of native arteries of left leg with ulceration of other part of lower leg; I10 Essential (primary) hypertension | CPT/HCPCS: 11042 ==

== ENCOUNTER → 2018-05-07 | Outpatient (CLI) | payer MEDICARE | LOC: WOUNDCARE 09:05 | PROVIDERS: ATTEND Nurse Practitioner | DX: L97.222 Non-pressure chronic ulcer of left calf with fat layer exposed (principal); I87.333 Chronic venous hypertension (idiopathic) with ulcer and inflammation of bilateral lower extremity; E11.622 Type 2 diabetes mellitus with other skin ulcer; I89.0 Lymphedema, not elsewhere classified; I70.248 Atherosclerosis of native arteries of left leg with ulceration of other part of lower leg; I10 Essential (primary) hypertension | CPT/HCPCS: 11042; 87070; 87075; 87077; 87205 ==

== ENCOUNTER → 2018-05-14 | Outpatient (CLI) | payer MEDICARE ==
[~2018-05-14] MED LIST changes: -MULT-324 PO; +MULT-834 PO
== END ==
LOC: WOUNDCARE 09:23
PROVIDERS: ATTEND Nurse Practitioner
DX: E11.622 Type 2 diabetes mellitus with other skin ulcer (principal); L97.222 Non-pressure chronic ulcer of left calf with fat layer exposed; I87.333 Chronic venous hypertension (idiopathic) with ulcer and inflammation of bilateral lower extremity; I89.0 Lymphedema, not elsewhere classified; I70.248 Atherosclerosis of native arteries of left leg with ulceration of other part of lower leg; I10 Essential (primary) hypertension
CPT/HCPCS: 15271

== ENCOUNTER → 2018-05-21 | Outpatient (CLI) | payer MEDICARE | LOC: WOUNDCARE 09:11 | PROVIDERS: ATTEND Nurse Practitioner | DX: L97.222 Non-pressure chronic ulcer of left calf with fat layer exposed (principal); I87.333 Chronic venous hypertension (idiopathic) with ulcer and inflammation of bilateral lower extremity; E11.622 Type 2 diabetes mellitus with other skin ulcer; I89.0 Lymphedema, not elsewhere classified; I70.248 Atherosclerosis of native arteries of left leg with ulceration of other part of lower leg; I10 Essential (primary) hypertension | CPT/HCPCS: 15271 ==

== ENCOUNTER → 2018-06-04 | Outpatient (CLI) | payer MEDICARE | LOC: WOUNDCARE 09:23 | PROVIDERS: ATTEND Nurse Practitioner | DX: L97.222 Non-pressure chronic ulcer of left calf with fat layer exposed (principal); I87.333 Chronic venous hypertension (idiopathic) with ulcer and inflammation of bilateral lower extremity; E11.622 Type 2 diabetes mellitus with other skin ulcer; I89.0 Lymphedema, not elsewhere classified; I70.248 Atherosclerosis of native arteries of left leg with ulceration of other part of lower leg; I10 Essential (primary) hypertension | CPT/HCPCS: 11042 ==

== ENCOUNTER → 2018-06-11 | Outpatient (CLI) | payer MEDICARE | LOC: WOUNDCARE 09:11 | PROVIDERS: ATTEND Nurse Practitioner | DX: E11.622 Type 2 diabetes mellitus with other skin ulcer (principal); L97.222 Non-pressure chronic ulcer of left calf with fat layer exposed; I87.333 Chronic venous hypertension (idiopathic) with ulcer and inflammation of bilateral lower extremity; I89.0 Lymphedema, not elsewhere classified; I70.248 Atherosclerosis of native arteries of left leg with ulceration of other part of lower leg; I10 Essential (primary) hypertension | CPT/HCPCS: 99212 ==